=== PATIENT | male | born 1970 | race Caucasian/White ===

== ENCOUNTER 2022-08-02 10:10 | Emergency (ER) | payer MEDICARE, SELFPAY ==
[2022-08-02 10:31] VITALS: BP 123/70; PULSE 97; RESP 20; O2SAT 70; BMI 38.7
--- NOTE | 2022-08-02 10:36 | ECG_ITS ---
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
--- NOTE | 2022-08-02 10:36 | XR_ITS ---
The [address] [address] Patient Name: MIRACLE GAMBOA MRN: [id number] date: 1970 Sex: M Assigned Patient Location: ER Current Patient Location: ED.MAIN Accession/Order Number: [id number] Exam Date: 08/02/2022 10:53 Report Date: 08/02/2022 11:17 At the request of: DAKOTAH LUONG Procedure: XR chest 1V EXAMINATION: XR chest 1V 08/02/2022 8:15 AM PDT HISTORY: shortness of breath TECHNIQUE: Single frontal view of the chest acquired. COMPARISONS: Chest x-ray 03/11/2021. FINDINGS: Lines/tubes/other: None. Heart and mediastinum: The heart and the mediastinum are within normal limits for technique. Bones: No acute osseous abnormality. Lungs: Patchy opacification of the right base with some superimposed mild chronic scarring. Pleura: There is no significant pleural effusion or pneumothorax. Other: None. IMPRESSION: Patchy right basilar opacity which may represent pneumonia and/or aspiration in the appropriate clinical context. Electronically authenticated by: GILBERT SCHAEFER Date: 08/02/2022 11:17
[2022-08-02 10:55] VITALS: O2SAT 96
[2022-08-02 11:03] VITALS: PULSE 93; RESP 21; O2SAT 95
[2022-08-02 11:04] LABS: Basophils Absolute Auto 0.1 10^3/uL (0.0-0.1); Basophils Percent Auto 0.5 % (0.2-2.0); Eosinophils Absolute Auto 0.1 10^3/uL (0.0-0.7); Eosinophils Percent Auto 0.6 % (0.9-7.0); Hematocrit 50.9 % (42.0-54.0); Hemoglobin 16.1 g/dL (14.0-18.0); Immature Granulocytes Pct Auto 1.1 % (0.0-0.5); Lymphocytes Absolute Auto 0.8 10^3/uL (1.2-3.8); Lymphocytes Percent Auto 8.8 % (20.5-60.0); Mean Corpuscular HGB Conc 31.6 g/dL (29.9-35.2); Mean Corpuscular Hemoglobin 30.5 pg (25.9-34.0); Mean Corpuscular Volume 96.4 fL (80.0-94.0); Mean Platelet Volume 11.3 fL (9.5-13.5); Monocytes Absolute Auto 0.8 10^3/uL (0.3-0.8); Monocytes Percent Auto 8.2 % (1.7-12.0); Neutrophils Absolute Auto 7.5 10^3/uL (1.4-6.5); Neutrophils Percent Auto 80.8 % (43.0-75.0); Platelet Count 155 10^3/uL (150-450); Red Blood Count 5.28 10^6/uL (4.70-6.10); Red Cell Distribution Width 12.3 % (11.0-15.0); White Blood Count 9.3 10^3/uL (4.0-11.0)
[2022-08-02] MEDS: METHYLPREDNISOLONE SOD SUCC PF 125 MG/2 ML VIAL IVP (11:07)
[2022-08-02] MEDS: IPRATROPIUM/ALBUTEROL SULFATE 3 ML AMPUL.NEB IH (11:11)
[2022-08-02 11:20] LABS: Alanine Aminotransferase 30 U/L (16-63); Albumin Globulin Ratio 0.8; Albumin Level 3.2 g/dL (3.4-5.0); Alkaline Phosphatase 104 U/L (46-116); Anion Gap 9.5; Aspartate Amino Transferase 10 U/L (15-37); BUN Creatinine Ratio 9.1; Calcium 8.9 mg/dL (8.5-10.1); Carbon Dioxide 33.6 mmol/L (21.0-32.0); Chloride 99 mmol/L (98-107); Estimated GFR (African America >60 (>=60); Estimated GFR (Non-African Ame >60 (>=60); Globulin 3.9 g/dL; Glucose 229 mg/dL (74-106); Potassium 4.1 mmol/L (3.5-5.1); Sodium 138 mmol/L (136-145); Total Protein 7.1 g/dL (6.4-8.2); Troponin I High Sensitivity 9.2 pg/mL (4.0-76.1)
--- NOTE | 2022-08-02 11:28 | ED_ITS ---
HPI - SOB/Dyspnea General Chief Complaint: Shortness of Breath/Dyspnea Stated Complaint: SHORTNESS OF BREATH Time Seen by Provider: 08/02/22 11:27 Source: patient Mode of arrival: walk-in Limitations: no limitations History of Present Illness HPI Narrative: Patient presents to the emergency department complaining of shortness of breath. Patient states he has a history of chronic obstructive pulmonary disease and he has been short of breath in the last 3 days. Symptoms worsened today. He has used ipratropium bromide Inhaler at home without any relief. He states it helps a little bit but then catches up to him later. He denies any fever, chills, or cough. He denies any chest pain. He denies any palpitations, dizziness, diaphoresis. Patient does not take any steroids at home. He states he uses oxygen at night 2 L nasal cannula. He also states he is supposed to use a CPAP at home but he can no longer afford Have one and hasn't used one in years. Patient's ways operator is Dr. Shi. He denies any lower extremity edema, or cramping.He denies any nausea, vomiting, diarrhea, constipation, or abdominal pain. He denies any trauma. Related Data Previous Rx's Medication Instructions Recorded levofloxacin 750 mg tablet 750 mg PO DAILY 7 days #7 tabs 08/02/22 prednisone 50 mg tablet 50 mg PO DAILY 5 days #5 tabs 08/02/22 Allergies Allergy/AdvReac Type Severity Reaction Status Date / Time No Known Drug Allergies Allergy Verified 08/02/22 10:31 Review of Systems ROS Status of ROS 10 or more systems reviewed and unremarkable except as noted in history and below [facility] Social History Smoking status: Former smoker Exam Narrative Exam Narrative: Nurses notes and vital signs reviewed and patient is hypoxic. Oxygen saturation in the 80s on 2 L oxygen saturation is 94 percent on 4 L nasal cannula. General: Nontoxic, Well-appearing and in no apparent distress. Skin: Warm, dry, no pallor noted. No rash. Head: Normocephalic, atraumatic. Neck: Supple, non-tender. Eye: Pupils are equal, round and EOMI. No scleral icterus. Ears, Nose, Mouth, and Throat: TM are clear, no posterior oropharynx erythema or nasal mucosal hypertrophy, uvula is mid-line Oral mucosa is moist Cardiovascular: Regular Rate and Rhythm without murmur, gallop or rub. Respiratory: No accessory muscle use or respiratory distress. Lungs diminished breath sounds bilaterally poor air movement with occasional rhonchi. Chest Wall: no tenderness Back: No midline thoracic or lumbar vertebral tenderness. No CVA tenderness Musculoskeletal: normal ROM, no calf or popliteal tenderness, no lower extremity edema/swelling GI: obese, Abdomen is soft, non-distended. Normal bowel sounds. No masses appreciated. No tenderness to palpation. No rebound, guarding, or rigidity noted. Neurological: A&O x4. No cranial nerve dysfunction observed. No truncal ataxia. Moves all extremities. Sensation intact. Psychiatric: Cooperative and interactive. Normal mood and affect. Constitutional Vital Signs - 24 hr 08/02/22 10:31 08/02/22 11:03 08/02/22 10:55 Pulse Rate 93 H Pulse Rate [Monitor] 97 H Respiratory Rate 20 21 Blood Pressure Blood Pressure [Right Arm] 123/70 H Pulse Oximetry 70 L 95 96 Oxygen Delivery Method Room Air Nasal Cannula Oxygen Delivery Flow Rate 4 4 08/02/22 12:53 08/02/22 13:54 08/02/22 13:54 Pulse Rate 90 Pulse Rate [Monitor] Respiratory Rate 18 Blood Pressure 108/68 Blood Pressure [Right Arm] Pulse Oximetry 89 L Oxygen Delivery Method Nasal Cannula Nasal Cannula Oxygen Delivery Flow Rate 3 2 2 08/02/22 14:46 Pulse Rate Pulse Rate [Monitor] 91 H Respiratory Rate 18 Blood Pressure Blood Pressure [Right Arm] 124/66 H Pulse Oximetry 88 L Oxygen Delivery Method Nasal Cannula Oxygen Delivery Flow Rate 2 Course Course Hospital Course: Patient had an IV established, he was given Solu-Medrol 125 mg IV. ABGs were done and the patient was ordered a DuoNeb treatment. Patient states he felt better. After the DuoNeb. We titrated his oxygen down but every time we went on 2 L the patient's maximum oxygen saturation was 88 percent. Chest x-ray showed questionable infiltrate the patient was started on Zosyn. I discussed all the re sults with the patient and advised he should be hospitalized because of the hypoxemia, hypercarbia, and noncompliance with his BiPAP to continue breathing treatments and monitor his oxygenation. Patient stated he did not want to be hospitalized and he just wants some steroids and he will follow-up with Dr. Morales on Thursday. Advised the patient that he could suffer permanent disability, and and it would be best for him to be hospitalized. He states he has oxygen at home and he will just opted to 3-4 L and he will wear it at all times at home. I gave the patient a prescription for prednisone, and Levaquin. I tried again to make sure that the patient understands and will be best for him to be in a monitored setting due to the hypoxemia but he has declined. He is at the bedside with his and they understand the risk of leaving against medical advice. I answered all questions. Discussed discharge instructions including standard anticipatory guidance and what should prompt a return to the emergency department, including if they get worse are not getting better or develops any new or concerning symptoms. I've given them specific time frame in which to follow-up, and who to follow-up with. The patient demonstrates understanding. This note was created with the assistance of a speech recognition program. Although the intention is to generate documents that actually reflects the content of the visit, no guarantees can be provided that every mistake has been identified and corrected by editing. Vital Signs Vital signs: Vital Signs Pulse Rate 97 H 08/02/22 10:31 Respiratory Rate 20 08/02/22 10:31 Blood Pressure 123/70 H 08/02/22 10:31 Pulse Oximetry 70 L 08/02/22 10:31 Oxygen Delivery Method Room Air 08/02/22 10:31 Pulse Rate 91 H 08/02/22 14:46 Respiratory Rate 18 08/02/22 14:46 Blood Pressure 124/66 H 08/02/22 14:46 Pulse Oximetry 88 L 08/02/22 14:46 Oxygen Delivery Method Nasal Cannula 08/02/22 14:46 Oxygen Delivery Flow Rate 2 08/02/22 14:46 MDM - SOB/Dyspnea Lab Data Labs: Lab Results 08/02/22 08/02/22 Range/Units 10:38 10:55 WBC 9.3 (4.0-11.0) 10^3/uL RBC 5.28 (4.70-6.10) 10^6/uL Hgb 16.1 (14.0-18.0) g/dL Hct 50.9 (42.0-54.0) % MCV 96.4 H (80.0-94.0) fL MCH 30.5 (25.9-34.0) pg MCHC 31.6 (29.9-35.2) g/dL RDW 12.3 (11.0-15.0) % Plt Count 155 (150-450) 10^3/uL MPV 11.3 (9.5-13.5) fL Neut % (Auto) 80.8 H (43.0-75.0) % Lymph % (Auto) 8.8 L (20.5-60.0) % [place] % (Auto) 8.2 (1.7-12.0) % Eos % (Auto) 0.6 L (0.9-7.0) % Baso % (Auto) 0.5 (0.2-2.0) % Neut # (Auto) 7.5 H (1.4-6.5) 10^3/uL Lymph # (Auto) 0.8 L (1.2-3.8) 10^3/uL [place] # (Auto) 0.8 (0.3-0.8) 10^3/uL Eos # (Auto) 0.1 (0.0-0.7) 10^3/uL Baso # (Auto) 0.1 (0.0-0.1) 10^3/uL ABG pH 7.363 (7.350-7.450) ABG pCO2 60.7 H* (35.0-45.0) mmHg ABG pO2 60.2 L (80.0-100.0) mmHg ABG HCO3 34.5 H (22.0-26.0) mmol/L ABG O2 Saturation 91.5 % ABG Base Excess 9.1 H (-2.0-2.0) mmol/L Sodium 138 (136-145) mmol/L Potassium 4.1 (3.5-5.1) mmol/L Chloride 99 (98-107) mmol/L Carbon Dioxide 33.6 H (21.0-32.0) mmol/L Anion Gap 9.5 BUN 10.0 (7.0-18.0) mg/dL Creatinine 1.10 (0.70-1.30) mg/dL Est GFR ( Amer) >60 (>=60) Est GFR (Non-Af Amer) >60 (>=60) BUN/Creatinine Ratio 9.1 Glucose 229 H (74-106) mg/dL Lactate 1.7 (0.4-2.0) mmol/L Calcium 8.9 (8.5-10.1) mg/dL Total Bilirubin 1.0 (0.2-1.0) mg/dL AST 10 L (15-37) U/L ALT 30 (16-63) U/L Troponin I High Sens 9.2 (4.0-76.1) pg/mL NT-Pro-B Natriuret Pep 337.0 (<=900.0) pg/mL Total Protein 7.1 (6.4-8.2) g/dL Albumin 3.2 L (3.4-5.0) g/dL Globulin 3.9 g/dL Albumin/Globulin Ratio 0.8 ABG Data ABG results: Hypoxemia, hypercarbia, ECG Data Interpretation: EKG interpretation: Emergency Department physician interpretation. Normal sinus rhythm. Normal axis, normal intervals and no ST segment elevation or depression. Critical Care Time Critical Care Time Attestation: Critical Care Time: 35 minutes, critical care time is separate from any procedures that are performed. The following was considered in the determination of critical care but not limited to the level medical decision-making, intensive cardiac and/or respiratory monitor, frequent vital sign monitoring, evaluation of laboratory studies, evaluation of a radiographic studies, oxygen monitoring and constant monitoring. Discharge Plan Discharge Chief Complaint: Shortness of Breath/Dyspnea Clinical Impression: Hypercarbia, Hypoxemia requiring supplemental oxygen, Acute exacerbation of chronic obstructive pulmonary disease (COPD) Patient Disposition: Home, Self-Care Time of Disposition Decision: 14:30 Condition: Undetermined Prescriptions / Home Meds: New prednisone 50 mg tablet 50 mg PO DAILY 5 Days Qty: 5 0RF levofloxacin 750 mg tablet 750 mg PO DAILY 7 Days Qty: 7 0RF Instructions: COPD (Chronic Obstructive Pulmonary Disease) (ED) Stand Alone Forms: Portal Instructions Referrals: AMIE HEALY MD [Primary Care Provider] - 1 week Vincent Shi DO [Physician] - 1 week Discharge Date/Time: 08/02/22 14:54
--- NOTE | 2022-08-02 11:40 | CT_ITS ---
[address] [address] Patient Name: MIRACLE GAMBOA MRN: [id number] date: 1970 Sex: M Assigned Patient Location: ER Current Patient Location: Accession/Order Number: [id number] Exam Date: 08/02/2022 12:00 Report Date: 08/02/2022 12:52 At the request of: DAKOTAH LUONG Procedure: CT angio chest CT angio chest, 08/02/2022 12:00 PM EDT INDICATION: Dyspnea. COMPARISON: Radiograph of the chest 08/02/2022, noncontrast CT of the chest 04/25/2022 TECHNIQUE: Iodinated contrast was administered intravenously by rapid injection, with further multislice axial sections acquired in the pulmonary arterial phase from the thoracic inlet to the upper abdomen. Coronal maximal intensity projection and 3-D virtual images were created for comprehensive analysis and diagnosis of the regional circulation. Dose reduction techniques were achieved by using automated exposure control and/or adjustment of mA and/or kV according to patient size and/or use of iterative reconstruction technique. FINDINGS: Thyroid gland is unremarkable. Heart size within normal limits. RV/LV ratio normal. No pericardial effusion. No aortic aneurysm or dissection. The great vessels are unremarkable. No filling defect within the pulmonary arteries. Prominent mediastinal and right hilar lymph nodes, the largest a right hilar lymph node 1.4 cm short axis. Diffuse centrilobular emphysematous change and bronchial wall thickening. Subsegmental atelectasis within the right middle and lower lobes. No lobar consolidation or pleural effusion. No pneumothorax. Visualized portions of the upper abdomen are unremarkable. No acute fracture or dislocation. IMPRESSION: 1. No pulmonary embolism. 2. Inflammatory versus infectious bronchiolitis with right hilar lymphadenopathy. 3. Chronic changes of COPD. Electronically authenticated by: ENA COWAN Date: 08/02/2022 12:52
[2022-08-02 11:59] LABS: Lactate/Lactic Acid 1.7 mmol/L (0.4-2.0)
[2022-08-02] MEDS: PIPERACILLIN SODIUM/TAZOBACTAM 4.5 GM in 0.9 % SODIUM CHLORIDE 50 ML IV (12:19)
[2022-08-02 13:54] VITALS: BP 108/68; PULSE 90; RESP 18; O2SAT 89
[2022-08-02 14:46] VITALS: BP 124/66; PULSE 91; RESP 18; O2SAT 88
[2022-08-02 18:34] LABS: pH ABG 7.363 (7.350-7.450)
[2022-08-02 18:36] LABS: ABG PCO2 60.7 mmHg (35.0-45.0); Base Excess ABG 9.1 mmol/L (-2.0-2.0); HCO3 ABG 34.5 mmol/L (22.0-26.0); Oxygen Saturation ABG 91.5 %; PO2 ABG 60.2 mmHg (80.0-100.0)
== END 2022-08-02 14:54 | disposition left against medical advice (07) ==
PROVIDERS: Emergency Provider Emergency Medicine; PCP Nurse Practitioner Primary Care
DX: J44.1 Chronic obstructive pulmonary disease with (acute) exacerbation (principal); Z53.29 Procedure and treatment not carried out because of patient's decision for other reasons; R06.02 Shortness of breath; Z87.891 Personal history of nicotine dependence; R09.02 Hypoxemia; R06.89 Other abnormalities of breathing; Z99.81 Dependence on supplemental oxygen
CPT/HCPCS: 36415; 36600; 71045; 71275; 80053; 82805; 83605; 83880; 84484; 85025; 87040; 93005; 94640; 96365; 96375; 99285; J2930; Q9967

== ENCOUNTER 2022-10-15 14:53 | Outpatient (OUT) | payer MEDICARE, SELFPAY ==
[2022-10-15 15:55] LABS: Estimated Average Glucose 246 mg/dL; Glycohemoglobin A1C 10.2 % (4.5-6.2)
[2022-10-15 15:57] LABS: Alanine Aminotransferase 35 U/L (16-63); Albumin Globulin Ratio 1.3; Albumin Level 3.8 g/dL (3.4-5.0); Alkaline Phosphatase 100 U/L (46-116); Anion Gap 8.2; Aspartate Amino Transferase 16 U/L (15-37); BUN Creatinine Ratio 14.3; Bilirubin Total 0.8 mg/dL (0.2-1.0); Calcium 8.5 mg/dL (8.5-10.1); Chloride 100 mmol/L (98-107); Estimated GFR (African America >60 (>=60); Estimated GFR (Non-African Ame >60 (>=60); Globulin 2.9 g/dL; Glucose 281 mg/dL (74-106); Potassium 4.2 mmol/L (3.5-5.1); Sodium 138 mmol/L (136-145); Total Protein 6.7 g/dL (6.4-8.2)
[2022-10-15 16:07] LABS: Prostate Specific Antigen Scrn 0.51 ng/mL (<=4.00)
[2022-10-16 05:07] LABS: HIV Ab/p24 Ag Screen Non Reactive (Non Reactive)
== END 2022-10-15 14:54 | disposition home or self-care (01) ==
LOC: LAB 14:56
PROVIDERS: PCP Nurse Practitioner Primary Care; Visit Provider Nurse Practitioner Primary Care
DX: E11.65 Type 2 diabetes mellitus with hyperglycemia (principal); Z12.5 Encounter for screening for malignant neoplasm of prostate; Z11.4 Encounter for screening for human immunodeficiency virus [HIV]
CPT/HCPCS: 36415; 80053; 83036; 87389; G0103

== ENCOUNTER 2023-01-30 07:13 | Outpatient (OUT) | payer MEDICARE, SELFPAY ==
[2023-01-30 08:34] LABS: Alanine Aminotransferase 35 U/L (16-63); Albumin Globulin Ratio 1.2; Albumin Level 3.5 g/dL (3.4-5.0); Alkaline Phosphatase 105 U/L (46-116); Anion Gap 11.2; Aspartate Amino Transferase 12 U/L (15-37); Bilirubin Total 0.9 mg/dL (0.2-1.0); Calcium 8.8 mg/dL (8.5-10.1); Carbon Dioxide 30.2 mmol/L (21.0-32.0); Chloride 100 mmol/L (98-107); Chol HDL Ratio 4.5; Cholesterol 136 mg/dL (<=200); Estimated GFR (African America >60 (>=60); Estimated GFR (Non-African Ame >60 (>=60); Globulin 2.9 g/dL; Glucose 224 mg/dL (74-106); HDL Cholesterol 30 mg/dL (40-60); Potassium 4.4 mmol/L (3.5-5.1); Sodium 137 mmol/L (136-145); Total Protein 6.4 g/dL (6.4-8.2); Triglycerides 363 mg/dL (<=150); VLDL CHOLESTEROL 72.6 mg/dL
[2023-01-30 09:36] LABS: Estimated Average Glucose 232 mg/dL; Glycohemoglobin A1C 9.7 % (4.5-6.2)
== END 2023-01-30 07:14 | disposition home or self-care (01) ==
LOC: LAB 07:15
PROVIDERS: PCP Nurse Practitioner Primary Care; Visit Provider Nurse Practitioner Primary Care
DX: E78.5 Hyperlipidemia, unspecified (principal); E78.1 Pure hyperglyceridemia
CPT/HCPCS: 36415; 80053; 80061; 83036

== ENCOUNTER 2023-02-27 08:49 | Emergency (ER) | payer MEDICARE, SELFPAY ==
[2023-02-27 08:55] VITALS: BP 141/68; PULSE 84; RESP 24; TEMP 37.1; O2SAT 84; BMI 38.7
--- OUTSIDE RECORDS SUMMARY | 2023-02-27 08:57 | XMS_ITS | CCD ---
Author Name Unknown Address [address] [place] [address] Organization [facility] Care Team Providers Care Advanced Manufacturing Consultant Name Role Phone Vee Dowling Unavailable SHAMMO, Mo OVININOSKA SUTHERLAND Primary Care Physician SHAMMO, OVI Referring Unavailable NILL, Mili Contreras Attending Unavailable SHAMMO, OVI Primary Care Unavailable NILL, Mili Contreras Attending Unavailable SHAMMO, OVI Primary Care Unavailable NILL, Mili Contreras Attending Unavailable MISC, DR ARTIS Primary Care Unavailable HOY, AZALEA Admitting Unavailable HOY, AZALEA Attending Unavailable HOY, AZALEA Consulting Unavailable REINECK, DR TANG Kellogg Consulting Unavailabl e ZIEBER, DR NICOLAS Contreras Consulting Unavailable QUINTEROS, JOHANN Consulting Unavailable NILL ., DR GARCES Admitting Unavailable NILL ., DR GARCES Attending Unavailable NILL ., DR GARCES Consulting Unavailable SHAMMO, OVI Admitting Unavailable SHAMMO, OVI Attending Unavailable SHAMMO, OVI Primary Care Unavailable SHAMMO, OVI Consulting Unavailable SAMSA, SHANNAN Admitting Unavailable SAMSA, SHANNAN Attending Unavailable SHAMMO, OVI Primary Care Unavailable ZIEBER, DR NICOLAS Contreras Consulting Unavailable SAMSA, SHANNAN Consulting Unavailable SHAMMO, OVI Admitting Unavailable SHAMMO, OVI Attending Unavailable SHAMMO, OVI Consulting Unavailable SHAMMO, OVI Admitting Unavailable SHAMMO, OVI Attending Unavailable SHAMMO, OVI Consulting Unavailable SHAMMO, OVI Admitting Unavailable SHAMMO, OVI Attending Unavailable SHAMMO, OVI Primary Care Unavailable SHAMMO, OVI Consulting Unavailable Allergies Allergy Classification Reported Allergen(s) Allergy Type Date of Onset Reaction(s) Facility (1 source) No Known Medication Allergies; Translations: [No Known Medication Allergies] Propensity to adverse reactions (disorder) [facility] Repository Medications Current Medications Medication Drug Class(es) Dates Sig (Normalized) Sig (Original) albuterol 0.833 mg/ml / ipratropium bromide 0.167 mg/ml inhalation solution (2 sources) Anticholinergic, beta2-Adrenergic Agonist Start: 12-30-2021 DuoNeb 2.5 mg-0.5 mg/3 mL Soln-Inh 3 mL, NEB, q6hr Shortness of breath or wheezing, Refill(s) 0 Start Date: 12/30/21 Status: Ordered aspirin 81 mg delayed release oral tablet (2 sources) Platelet Aggregation Inhibitor, Nonsteroidal Anti-inflammatory Drug Start: 12-30-2021 take 1 tablet by mouth once daily aspirin 81 mg Oral EC Tab 81 mg = 1 tab(s), Oral, Daily, Refills(s) 0 Start Date: 12/30/21 Status: Ordered atorvastatin 80 mg oral tablet (3 sources) HMG-CoA Reductase Inhibitor Start: 12-30-2021 take 1 tablet by mouth once daily atorvastatin 80 mg Tab 80 mg = 1 tab(s), Oral, Daily, Refills(s) 0 Start Date: 12/30/21 Status: Ordered Atorvastatin Acrlin cium Active azithromycin 250 mg oral tablet (1 source) Macrolide Antimicrobial Start: 01-01-2021 Azithromycin 250 MG 2 tablets on the first day, then 1 tablet daily for 4 days Orally Once a day for 5 day(s) Dec, Active cephalexin 250 mg oral capsule (1 source) Cephalosporin Antibacterial Start: 12-31-2021 End: 01-07-2022 take 1 capsule by mouth four times daily Keflex 250 mg Cap 250 mg = 1 cap(s), Oral, QID, X 7 day(s), # 28 cap(s), Refills(s) 0, Pharmacy: [facility]/pharmacy #[id number], 165, cm, 12/31/21 16:01:00 EDT, Height/Length Dosing, 108.9, kg, 12/31/21 16:01:00 EDT, Weight Dosing Start Date: 12/31/21 Stop Date: 01/07/22 Status: Ordered dexamethasone 6 mg oral tablet (1 source) Corticosteroid Start: 01-01-2021 take 1 tablet by mouth every twenty-four hours Dexamethasone 6 MG 1 tablet Orally Once a day for 5 day(s) Dec, Active 0.5 ml dulaglutide 1.5 mg/ml auto-injector (2 sources) GLP-1 Receptor Agonist Start: 12-30-2021 inject 0.75 mg by subcutaneous injection every week Trulicity Pen 0.75 mg/0.5 mL subcutaneous solution 0.75 mg, SubCutaneous, qWeek, Refills(s) 0 Start Date: 12/30/21 Status: Ordered Fish Oils (2 sources) Start: 12-30-2021 take 1 capsule by mouth once daily Fish Oil 1000 mg oral capsule 1,000 mg = 1 cap(s), Oral, Daily, Refills(s) 0 Start Date: 12/30/21 Status: Ordered glipiZIDE (1 source) Sulfonylurea glipiZIDE Active lisinopril 20 mg oral tablet (3 sources) Angiotensin Converting Enzyme Inhibitor Start: 12-30-2021 take 10 mg by mouth once daily lisinopril 20 mg Tab 10 mg = 0.5 tab(s), Oral, Daily, Refills(s) 0 Start Date: 12/30/21 Status: Ordered Lisinopril Activ e metFORMIN hydrochloride 500 mg oral tablet (3 sources) Biguanide Start: 12-30-2021 take 2 tablets by mouth twice daily metformin 500 mg ER Tab 1,000 mg = 2 tab(s), Oral, BID, Refills(s) 0 Start Date: 12/30/21 Status: Ordered metFORMIN HCl Ac tive Problems Active Problems Problem Classification Problem Date Documented Da te Episodic/Chronic Chronic obstructive pulmonary disease and bronchiectasis (10 sources) Chronic obstructive lung disease; Translations: [Chronic obstructive pulmonary disease, unspecified] Onset: 01-01-2021 Resolved: 01-01-2021 Chronic Diabetes mellitus with complications (4 sources) Type 2 diabetes mellitus with hyperglycemia; Translations: [TYPE 2 DM W/HYPERGLYCEMIA] Onset: 07-11-2022 Chronic Diabetes mellitus without complication (7 sources) Diabetes mellitus; Translations: [Type 2 diabetes mellitus without complications] Onset: 12-27-2021 12-30-2021 Chronic Diseases of white blood cells (1 source) Elevated white blood cell count, unspecified; Translations: [ELEVATED WHITE BLOOD CELL COUNT UNS] Onset: 01-15-2022 Chronic Disorders of lipid metabolism (6 sources) Hyperlipidemia; Translations: [Hypertriglyceridemi a] Onset: 07-13-2022 12-30-2021 Chronic Essential hypertension (3 sources) Hypertensive disorder; Translations: [Essential (primary) hypertension] Onset: 07-13-2022 12-30-2021 Chronic Nutritional deficiencies (6 sources) Vitamin D deficiency; Translations: [Vitamin D deficiency, unspecified] Onset: 04-02-2022 12-30-2021 Chronic Other nutritional; endocrine; and metabolic disorders (2 sources) Body mass index 40+ - severely obese 12-31-2021 Chronic Peripheral and visceral atherosclerosis (2 sources) Peripheral vascular disease 12-30-2021 Chronic Respiratory failure; insufficiency; arrest (adult) (1 source) Dependence on supplemental oxygen; Translations: [DEPENDENCE ON SUPPLEMENTAL OXYGEN] Onset: 01-15-2022 Chronic Screening and history of mental health and substance abuse codes (1 source) Personal history of nicotine dependence; Translations: [PERSONAL HISTORY OF NICOTINE DEPEND] Onset: 04-30-2022 Episodic Spondylosis; intervertebral disc disorders; other back problems (2 sources) Lumbar radiculopathy 12-30-2021 Episodic Unclassified (1 source) CONTACT W/AND (SUSP) EXPOS COVID-19; Translations: [CONTACT W/AND (SUSP) EXPOS COVID-19] Onset: 01-15-2022 Past or Other Problems Problem Classification Problem Date Documented Da te Episodic/Chronic Acute and unspecified renal failure (1 source) Acute kidney failure, unspecified; Translations: [ACUTE KIDNEY FAILURE UNSPECIFIED] Onset: 01-15-2022 Episodic Acute bronchitis (1 source) Acute bronchitis, unspecified; Translations: [ACUTE BRONCHITIS UNSPECIFIED] Onset: 01-15-2022 Episodic Fever of unknown origin (1 source) Fever, unspecified; Translations: [FEVER UNSPECIFIED] Onset: 01-15-2022 Episodic Fluid and electrolyte disorders (1 source) Hypo-osmolality and hyponatremia; Translations: [HYPO-OSMOLALITY AND HYPONATREMIA] Onset: 01-15-2022 Episodic Immunizations and screening for infectious disease (1 source) Contact with and (suspected) exposure to other viral communicable diseases Onset: 01-01-2021 Resolved: 01-01-2021 Episodic Other aftercare (1 source) shelter (current) use of aspirin; Translations: [[employer] CURRENT USE OF ASPIRIN] Onset: 01-15-2022 Episodic Other aftercare (1 source) shelter (current) use of oral hypoglycemic drugs; Translations: [[employer] USE ORAL HYPOGLYCEMIC DX] Onset: 01-15-2022 Episodic Other aftercare (1 source) Other penitentiary (current) drug therapy; Translations: [OTH [employer] CURRENT DRUG THERAPY] Onset: 01-15-2022 Episodic Other lower respiratory disease (3 sources) Shortness of breath; Translations: [SHORTNESS OF BREATH] Onset: 01-09-2022 Episodic Skin and subcutaneous tissue infections (7 sources) Abscess of neck; Translations: [Cutaneous abscess of neck] Onset: 12-31-2021 Episodic Viral infection (1 source) COVID-19 Onset: 01-01-2021 Resolved: 01-01-2021 Results Test Name Value Interpretation Reference Range Facility GLYCOHEMOGLOBIN A1Con 2022 ADA RECOMMENDATION SEE BELOW Normal [facility] Comment on above: Result Comment: ADA RECOMMENDED LIMIT 4.0 - 6.0 ADA THERAPEUTIC TARGET < 7.0 ACTION SUGGESTED > 7.0 Performed By: #### A 1C #### [facility] [address] [place] [address] Dr. Gisel Galdamez Glucose [Mass/Vol] 263 mg/dL Normal [facility] Comment on above: Performed By: #### A 1C #### [facility] [address] [address] [address] Gisel Galdamez HbA1c (Bld) [Mass fraction] 10.8 % Critically high 4.5-6.2 [facility] Comment on above: Performed By: #### A 1C #### [facility] [address] [address] [address] Gisel Galdamez HEMOGRAM AND PLATELon 2022 Hematocrit (Bld) [Volume fraction] 52.6 % Normal 42.0-54.0 [facility] Comment on above: Performed By: #### P OCGLUC #### [facility] [address] [address] [address] Gisel Galdamez Hemoglobin (Bld) [Mass/Vol] 16.8 g/dL Normal 14.0-18.0 [facility] Comment on above: Performed By: #### P OCGLUC #### [facility] [address] [address] [address] Gisel Galdamez MCH (RBC) [Entitic mass] 30.9 pg Normal 25.9-34.0 [facility] Comment on above: Performed By: #### P OCGLUC #### [facility] [address] [place] [address] Dr. Gisel Galdamez MCHC (RBC) [Mass/Vol] 31.9 g/dL Normal 29.9-35.2 [facility] Comment on above: Performed By: #### P OCGLUC #### [facility] [address] [place] [address] Dr. Gisel Galdamez MCV (RBC) [Entitic vol] 96.9 fL Critically high 80.0-94.0 [facility] Comment on above: Performed By: #### P OCGLUC #### [facility] [address] [place] [address] Dr. Gisel Galdamez PLT 144 103/ul Critically low 150-450 [facility] [place] [facility] Comment on above: Performed By: #### P OCGLUC #### [facility] [address] [place] [address] Dr. Gisel Galdamez RBC 5.43 106/ul Normal 4.70-6.10 [facility] Comment on above: Performed By: #### P OCGLUC #### [facility] [address] [place] [address] Dr. Gisel Galdamez WBC 5.1 103/ul Normal 4.0-11.0 [facility] Comment on above: Performed By: #### P OCGLUC #### [facility] [address] [place] [address] Dr. Gisel Galdamez LIPID PROFILEon 07-11-2022 CHOL-HDL RATIO NORM SEE BELOW Normal [facility] Comment on above: Result Comment: 3.3 - 4.4 LOW RISK 4.4 - 7.1 AVERAGE RISK 7.1 - 11.0 MODERATE RISK >11.0 HIGH RISK Performed By: #### A 1C #### [facility] [address] [place] [address] Dr. Gisel Galdamez Cholesterol [Mass/Vol] 128 mg/dL Normal <=200 [facility] Comment on above: Performed By: #### A 1C #### [facility] [address] [place], [place] [address] Dr. Gisel Galdamez Cholesterol in HDL [Mass/Vol] 35 mg/dL Critically low 40-60 [facility] Comment on above: Performed By: #### A 1C #### [facility] [address] [place], [place] [address] Dr. Gisel Galdamez Cholesterol in LDL [Mass/Vol] 60.8 mg/dL Normal [facility] Comment on above: Performed By: #### A 1C #### [facility] [address] [address] [address] Gisel Galdamez Cholesterol.total/Ch olesterol in HDL [Mass ratio] 3.7 {ratio} Normal [facility] Comment on above: Performed By: #### A 1C #### [facility] [address] [address] [address] Gsiel Galdamez HDL NORMAL > or = 60 mg/dl - LOW CARDIOVASCULAR RISK <40 mg/dl - HIGH CARDIOVASCULAR RISK Normal [facility] Comment on above: Performed By: #### A 1C #### [facility] [address] [address] [address] Gisel Galdamez LDL CALC NORMAL SEE BELOW Normal [facility] Comment on above: Result Comment: <100 mg/dl OPTIMAL 100 - 129 mg/dl NEAR OR ABOVE OPTIMAL 130 - 159 mg/dl BORDERLINE HIGH 160 - 189 mg/dl HIGH >190 mg/dl VERY HIGH Performed By: #### A 1C #### [facility] [address] [address] [address] Gisel Galdamez Triglyceride [Mass/Vol] 161 mg/dL Critically high <=150 [facility] Comment on above: Performed By: #### A 1C #### [facility] [address] [address] [address] Gisel Galdamez VLDL CALC 32.2 mg/dL Normal [facility] Comment on above: Performed By: #### A 1C #### [facility] [address] [address] [address] Gisel Galdamez MICROALBUMIN, RAND URon 05-1 mALB 5.7 mg/dL Normal <=30.0 [facility] Comment on above: Performed By: #### A 1C #### [facility] [address] [address] [address] Gisel Galdamez PROF 14(COMP METB)on 023 Albumin [Mass/Vol] 3.5 g/dL Normal 3.4-5.0 [facility] Comment on above: Performed By: #### A 1C #### [facility] [address] [place] [address] Dr. Gisel Galdamez Albumin/Globulin [Mass ratio] 1.2 {ratio} Normal [facility] Comment on above: Performed By: #### A 1C #### [facility] [address] [place] [address] Dr. Gisel Galdamez ALP [Catalytic activity/Vol] 99 U/L Normal 46-116 [facility] Comment on above: Performed By: #### A 1C #### [facility] [address] [place] [address] Dr. Gisel Galdamez ALT [Catalytic activity/Vol] 34 U/L Normal 16-63 [facility] Comment on above: Performed By: #### A 1C #### [facility] [address] [place] [address] Dr. Gisel Galdamez Anion gap [Moles/Vol] 7.8 mmol/L Normal [facility] Comment on above: Performed By: #### A 1C #### [facility] [address] [place] [address] Dr. Gisel Galdamez AST [Catalytic activity/Vol] 8 U/L Critically low 15-37 [facility] Comment on above: Performed By: #### A 1C #### [facility] [address] [place] [address] Dr. Gisel Galdamez Bilirubin [Mass/Vol] 0.6 mg/dL Normal 0.2-1.0 [facility] Comment on above: Performed By: #### A 1C #### [facility] [address] [place] [address] Dr. Gisel Galdamez Calcium [Mass/Vol] 9.1 mg/dL Normal 8.5-10.1 [facility] Comment on above: Performed By: #### A 1C #### [facility] [address] [address] [address] Gisel Galdamez Chloride [Moles/Vol] 102 mmol/L Normal 98-107 [facility] Comment on above: Performed By: #### A 1C #### [facility] [address] [address] [address] Gisel Galdamez CO2 [Moles/Vol] 38.4 mmol/L Critically high 21.0-32.0 [facility] Comment on above: Performed By: #### A 1C #### [facility] [address] [address] [address] Gisel Galdamez Creatinine [Mass/Vol] 1.08 mg/dL Normal 0.70-1.30 [facility] Comment on above: Performed By: #### A 1C #### [facility] [address] [place] [address] Dr. Gisel Galdamez EGFR-AF ROMANIAN >60 Normal >=60 [facility] Comment on above: Performed By: #### A 1C #### [facility] [address] [place] [address] Dr. Gisel Galdamez EGFR-NON AF ROMANIAN >60 Normal >=60 [facility] Comment on above: Performed By: #### A 1C #### [facility] [address] [place] [address] Dr. Gisel Galdamez Globulin (S) [Mass/Vol] 3.0 g/dL Normal [facility] Comment on above: Performed By: #### A 1C #### [facility] [address] [place] [address] Dr. Gisel Galdamez Glucose [Mass/Vol] 250 mg/dL Critically high 74-106 [facility] Comment on above: Performed By: #### A 1C #### [facility] [address] [place] [address] Dr. Gisel Galdamez Potassium [Moles/Vol] 4.2 mmol/L Normal 3.5-5.1 [facility] Comment on above: Performed By: #### A 1C #### [facility] [address] [address] [address] Gisel Galdamez Protein [Mass/Vol] 6.5 g/dL Normal 6.4-8.2 [facility] Comment on above: Performed By: #### A 1C #### [facility] [address] [address] [address] Gisel Galdamez Sodium [Moles/Vol] 144 mmol/L Normal 136-145 [facility] Comment on above: Performed By: #### A 1C #### [facility] [address] [address] [address] Gisel Galdamez Urea nitrogen [Mass/Vol] 13.0 mg/dL Normal 7.0-18.0 [facility] Comment on above: Performed By: #### A 1C #### [facility] [address] [address] [address] Gisel Galdamez Urea nitrogen/Creatinine [Mass ratio] 12.0 mg/mg Normal [facility] Comment on above: Performed By: #### A 1C #### [facility] [address] [address] [address] LUNG CANCER SCREENINGon 0 - CT LUNG CANCER SCREENING EXAMINATION: CT LUNG CANCER SCREENING HISTORY: Nicotine dependence COMPARISON: No relevant comparison available. TECHNIQUE: Axial, Coronal, and Sagittal images were created without the administration of IV contrast material. Dose reduction techniques were achieved by using automated exposure control and/or adjustment of mA and/or kV according to patient size and/or use of iterative reconstruction technique. FINDINGS: LUNGS: No visible pulmonary disease. PLEURA: No mass, effusion, or pneumothorax. VASCULATURE: No abnormality. ABDON: No mass or pathologic adenopathy. MEDIASTINUM: No mass or pathologic adenopathy. CARDIAC: No enlargement, pericardial thickening, or significant calcification. AORTA: No aneurysm or dissection. CHEST WALL: No mass or axillary adenopathy BONES: Old right clavicle fracture. LIMITED ABDOMEN: No suspicious findings. Limited images of the upper abdomen. OTHER: Negative. IMPRESSION: 1. Lung-RADS Category 1 Negative. No nodules and definitely benign nodules. Continue annual screening with LDCT in 12 months. 2. Old right clavicle fracture, incompletely included on today's study. Electronically authenticated by: NICOLAS NICOLE Date: 2022-04-25 09:07 Normal [facility] HEMOGLOBINon 04-25-2022 Hemoglobin (Bld) [Mass/Vol] 16.3 g/dL Normal 14.0-18.0 [facility] Comment on above: Performed By: #### P OCGLUC #### [facility] [address] [address] [address] Gisel Galdamez GLYCOHEMOGLOBIN A1Con 2022 ADA RECOMMENDATION SEE BELOW Normal [facility] Comment on above: Result Comment: ADA RECOMMENDED LIMIT 4.0 - 6.0 ADA THERAPEUTIC TARGET < 7.0 ACTION SUGGESTED > 7.0 Performed By: #### P OCGLUC #### [facility] [address] [address] [address] Gisel Galdamez Glucose [Mass/Vol] 237 mg/dL Normal [facility] Comment on above: Performed By: #### P OCGLUC #### [facility] [address] [address] [address] Gisel Galdamez HbA1c (Bld) [Mass fraction] 9.9 % Critically high 4.5-6.2 [facility] Comment on above: Performed By: #### P OCGLUC #### [facility] [address] [address] [address] Gisel Galdamez LIPID PROFILEon 04-02-2022 CHOL-HDL RATIO NORM SEE BELOW Normal [facility] Comment on above: Result Comment: 3.3 - 4.4 LOW RISK 4.4 - 7.1 AVERAGE RISK 7.1 - 11.0 MODERATE RISK >11.0 HIGH RISK Performed By: #### P OCGLUC #### [facility] [address] [address] [address] Gisel Galdamez Cholesterol [Mass/Vol] 148 mg/dL Normal <=200 [facility] Comment on above: Performed By: #### P OCGLUC #### [facility] [address] [address] [address] Gisel Galdamez Cholesterol in HDL [Mass/Vol] 32 mg/dL Critically low 40-60 [facility] Comment on above: Performed By: #### P OCGLUC #### [facility] [address] [address] [address] Gisel Galdamez Cholesterol in LDL [Mass/Vol] 72.2 mg/dL Normal [facility] Comment on above: Performed By: #### P OCGLUC #### [facility] [address] [address] [address] Gisel Galdamez Cholesterol.total/Ch olesterol in HDL [Mass ratio] 4.6 {ratio} Normal [facility] Comment on above: Performed By: #### P OCGLUC #### [facility] [address] [address] [address] Gisel Galdamez HDL NORMAL > or = 60 mg/dl - LOW CARDIOVASCULAR RISK <40 mg/dl - HIGH CARDIOVASCULAR RISK Normal [facility] Comment on above: Performed By: #### P OCGLUC #### [facility] [address] [place] [address] Dr. Gisel Galdamez LDL CALC NORMAL SEE BELOW Normal [facility] Comment on above: Result Comment: <100 mg/dl OPTIMAL 100 - 129 mg/dl NEAR OR ABOVE OPTIMAL 130 - 159 mg/dl BORDERLINE HIGH 160 - 189 mg/dl HIGH >190 mg/dl VERY HIGH Performed By: #### P OCGLUC #### [facility] [address] [place] [address] Dr. Gisel Galdamez Triglyceride [Mass/Vol] 219 mg/dL Critically high <=150 [facility] Comment on above: Performed By: #### P OCGLUC #### [facility] [address] [address] [address] Gisel Galdamez VLDL CALC 43.8 mg/dL Normal [facility] Comment on above: Performed By: #### P OCGLUC #### [facility] [address] [address] [address] Gisel Galdamez PROF 14(COMP METB)on 023 Albumin [Mass/Vol] 3.7 g/dL Normal 3.4-5.0 [facility] Comment on above: Performed By: #### P OCGLUC #### [facility] [address] [place] [address] Dr. Gisel Galdamez Albumin/Globulin [Mass ratio] 1.2 {ratio} Normal [facility] Comment on above: Performed By: #### P OCGLUC #### [facility] [address] [address] [address] Gisel Galdamez ALP [Catalytic activity/Vol] 98 U/L Normal 46-116 [facility] Comment on above: Performed By: #### P OCGLUC #### [facility] [address] [address] [address] Gisel Galdamez ALT [Catalytic activity/Vol] 37 U/L Normal 16-63 [facility] Comment on above: Performed By: #### P OCGLUC #### [facility] [address] [address] [address] Gisel Galdamez Anion gap [Moles/Vol] 9.8 mmol/L Normal [facility] Comment on above: Performed By: #### P OCGLUC #### [facility] [address] [address] [address] Gisel Galdamez AST [Catalytic activity/Vol] 15 U/L Normal 15-37 [facility] Comment on above: Performed By: #### P OCGLUC #### [facility] [address] [address] [address] Gisel Galdamez Bilirubin [Mass/Vol] 0.9 mg/dL Normal 0.2-1.0 [facility] Comment on above: Performed By: #### P OCGLUC #### [facility] [address] [address] [address] Gisel Galdamez Calcium [Mass/Vol] 8.7 mg/dL Normal 8.5-10.1 [facility] Comment on above: Performed By: #### P OCGLUC #### [facility] [address] [address] [address] Gisel Galdamez Chloride [Moles/Vol] 99 mmol/L Normal 98-107 [facility] Comment on above: Performed By: #### P OCGLUC #### [facility] [address] [address] [address] Gisel Galdamez CO2 [Moles/Vol] 34.9 mmol/L Critically high 21.0-32.0 [facility] Comment on above: Performed By: #### P OCGLUC #### [facility] [address] [address] [address] Gisel Galdamez Creatinine [Mass/Vol] 1.02 mg/dL Normal 0.70-1.30 [facility] Comment on above: Performed By: #### P OCGLUC #### [facility] [address] [address] [address] Gisel Galdamez EGFR-AF ROMANIAN >60 Normal >=60 [facility] Comment on above: Performed By: #### P OCGLUC #### [facility] [address] [address] [address] Gisel Galdamez EGFR-NON AF ROMANIAN >60 Normal >=60 [facility] Comment on above: Performed By: #### P OCGLUC #### [facility] [address] [address] [address] Gisel Galdamez Globulin (S) [Mass/Vol] 3.0 g/dL Normal [facility] Comment on above: Performed By: #### P OCGLUC #### [facility] [address] [address] [address] Gisel Galdamez Glucose [Mass/Vol] 265 mg/dL Critically high 74-106 [facility] Comment on above: Performed By: #### P OCGLUC #### [facility] [address] [address] [address] Gisel Galdamez Potassium [Moles/Vol] 4.7 mmol/L Normal 3.5-5.1 [facility] Comment on above: Performed By: #### P OCGLUC #### [facility] [address] [address] [address] Gisel Galdamez Protein [Mass/Vol] 6.7 g/dL Normal 6.4-8.2 [facility] Comment on above: Performed By: #### P OCGLUC #### [facility] [address] [address] [address] Gisel Galdamez Sodium [Moles/Vol] 139 mmol/L Normal 136-145 [facility] Comment on above: Performed By: #### P OCGLUC #### [facility] [address] [address] [address] Gisel Galdamez Urea nitrogen [Mass/Vol] 19.0 mg/dL Critically high 7.0-18.0 [facility] Comment on above: Performed By: #### P OCGLUC #### [facility] [address] [address] [address] Gisel Galdamez Urea nitrogen/Creatinine [Mass ratio] 18.6 mg/mg Normal [facility] Comment on above: Performed By: #### P OCGLUC #### [facility] [address] [address] [address] Gisel Galdamez VITAMIN D 25 OHon 04-02-2022 VIT D 25-OH 17.8 ng/mL Normal [facility] Comment on above: Performed By: #### P OCGLUC #### [facility] [address] [place] [address] Dr. Gisel Galdamez VIT D RANGES SEE BELOW Normal [facility] Comment on above: Result Comment: <20 ng/mL Vit D deficient 20 - <30 ng/mL Vit D insufficient 30 - 100 ng/mL Vit D sufficient >100 ng/mL Potential Toxicity Performed By: #### P OCGLUC #### [facility] [address] [place] [address] Dr. Gisel Galdamez General Surgery Office/Clini c Noteon 01-19-2022 General Surgery Office/Clinic Note Chief Complaint follow up I/D neck abscess HPI Staff Presents to follow up neck abscess. I/D completed in-office on 12/31. Would cx with normal skin pb. Prescribed Keflex 250mg QID x 7 days, he did not finish ATB as he was hospitalized with COPD exacerbation requiring alternative ATB. Area has decreased edema, erythema. Pain has resolved. History of Present Illness s/p I & D of neck abscess, cx with normal skin pb, denies pain or drainage; minimal induration. Review of Systems ROS - Provider Constitutional: no fever, no sweats, no weight loss. Eyes: no glasses, no blurred vision, no visual loss. ENMT: no dentures, no hoarseness, no swallowing difficulties, no hearing loss, no ear infection(s), no nose bleeds. Cardiovascular: normal blood pressure, no chest pain, regular heartbeat, no heart murmur. Respiratory: no shortness of breath, no cough, no asthma, no wheezing. Gastrointestinal: no nausea, no vomiting, no diarrhea, no constipation, no blood in stool, no change in bowel habits, no abdominal pain, no hepatitis. Genitourinary: no kidney stones, no urine infection, no dysuria. Musculoskeletal: no pain, no weakness. Skin: no changing moles, no rash, no skin lumps. Neurologic: no seizures, no epilepsy, no headache. Psychiatric: no emotional or psychiatric problem. Heme/Lymph: no bleeding problems, no anemia, no blood clots, no transfusions. Allergy/Immunologic: no swollen lymph nodes/glands, no IV drug abuse. Other: Additional ROS info: Except as noted in the above Review of Systems and in the History of Present Illness, all other systems have been reviewed and are negative or noncontributory. Physical Exam skin: minimal area of induration, no fluctuance or tenderness; no drainage. Assessment/Plan 1. Abscess of skin of neck (L02.11: Cutaneous abscess of neck) resolved, likely due to folliculitis; no evidence of cyst; call with problems/questions. Follow-up No qualifying data available Problem List/Past Medical History Ongoing Abscess of skin of neck BMI 40.0-44.9, adult Chronic obstructive pulmonary disease Diabetes HTN (hypertension) Hyperlipidemia Hypertriglyceridemia Lumbar radiculopathy PVD (peripheral vascular disease) Vitamin D deficiency Historical No qualifying data Procedure/Surgical History Incision and drainage of abscess of neck (12/31/2021), Carpal tunnel release, Repair of umbilical hernia. Medications aspirin 81 mg Oral EC Tab, 81 mg= 1 tab(s), Oral, Daily atorvastatin 80 mg Tab, 80 mg= 1 tab(s), Oral, Daily DuoNeb 2.5 mg-0.5 mg/3 mL Soln-Inh, 3 mL, NEB, q6hr, PRN Fish Oil 1000 mg oral capsule, 1000 mg= 1 cap(s), Oral, Daily lisinopril 20 mg Tab, 10 mg= 0.5 tab(s), Oral, Daily metformin 500 mg ER Tab, 1000 mg= 2 tab(s), Oral, BID Trulicity Pen 0.75 mg/0.5 mL subcutaneous solution, 0.75 mg, SubCutaneous, qWeek Allergies No Known Allergies No Known Medication Allergies Social History Alcohol - Denies Alcohol Use, 12/31/2021 Substance Abuse - Denies Substance Abuse, 12/31/2021 Tobacco Former smoker, quit more than 30 days ago Tobacco Use:. Never Smokeless Tobacco Use:. Cigarettes, 2 per day. Started age 11.0 Years. Stopped age 40 Years., 12/31/2021 Family History COPD: Mother. PVD - peripheral vascular disease: Father. Normal [facility] Comment on above: Result Comment: Elec tronically Signed By: INES STONER, Mili Contreras\.br\Date and Time Signed: 01/19/22 19:23 EST Ambulatory Visit Summaryon 1 03-17-2021 Ambulatory Visit Summary MIRACLE GAMBOA :1970 Visit Date:01/15/2022 Ambulatory Visit Instructions Your Care Team Attending Physician - Mili CHACON MD Primary Care Physician - NIRAJ, MR. OVI SUTHERLAND This Is Your Medications List albuterol-ipratropiu m (DuoNeb 2.5 mg-0.5 mg/3 mL Soln-Inh) aspirin (aspirin 81 mg Oral EC Tab) atorvastatin (atorvastatin 80 mg Tab) dulaglutide (Trulicity Pen 0.75 mg/0.5 mL subcutaneous solution) lisinopril (lisinopril 20 mg Tab) metformin (metformin 500 mg ER Tab) omega-3 polyunsaturated fatty acids (Fish Oil 1000 mg oral capsule) Procedures Performed Carpal tunnel release, Repair of umbilical hernia. Medications What How Much When Instructions Unchanged albuterol-ipratropiu m (DuoNeb 2.5 mg-0.5 mg/ 3 mL Soln-Inh) 3 Milliliter Nebulized inhalation (aerosol) Every 6 hours as needed for Shortness of breath or wheezing Unchanged aspirin (aspirin 81 mg Oral EC Tab) 1 Tablets By Mouth Every day Unchanged atorvastatin (atorvastatin 80 mg Tab) 1 Tablets By Mouth Every day Unchanged dulaglutide (Trulicity Pen 0.75 mg/ 0.5 mL subcutaneous solution) 0.75 Milligram Subcutaneous Every week Unchanged lisinopril (lisinopril 20 mg Tab) 0.5 Tablets By Mouth Every day Unchanged metformin (metformin 500 mg ER Tab) 2 Tablets By Mouth 2 times a day Unchanged omega-3 polyunsaturated fatty acids (Fish Oil 1000 mg oral capsule) 1 Capsules By Mouth Every day Allergies No Known Allergies No Known Medication Allergies Problems Ongoing - Any problem that you are currently receiving treatment for. Abscess of skin of neck BMI 40.0-44.9, adult Chronic obstructive pulmonary disease Diabetes HTN (hypertension) Hyperlipidemia Hypertriglyceridemia Lumbar radiculopathy PVD (peripheral vascular disease) Vitamin D deficiency Normal [facility] BNPon 01-10-2022 Natriuretic peptide B (Bld) [Mass/Vol] 264.0 pg/mL Normal <=900.0 [facility] Comment on above: Performed By: #### C MP, BNP #### [facility] [address] [place] [address] Dr. Gisel Galdamez CBC AUTO DIFFon 01-10-2022 BASO # 0.0 103/ul Normal 0.0-0.1 [facility] Comment on above: Performed By: #### P OCGLUC #### [facility] [address] [place] [address] Dr. Gisel Galdamez Basophils/100 WBC (Bld) 0.4 % Normal 0.2-2.0 [facility] Comment on above: Performed By: #### P OCGLUC #### [facility] [address] [place] [address] Dr. Gisel Galdamez EO # 0.0 103/ul Normal 0.0-0.7 [facility] Comment on above: Performed By: #### P OCGLUC #### [facility] [address] [place] [address] Dr. Gisel Galdamez Eosinophils/100 WBC (Bld) 0.0 % Critically low 0.9-7.0 [facility] Comment on above: Performed By: #### P OCGLUC #### [facility] [address] [place] [address] Dr. Gisel Galdamez Erythrocyte distribution width (RBC) [Ratio] 13.5 % Normal 11.0-15.0 [facility] Comment on above: Performed By: #### P OCGLUC #### [facility] [address] [place] [address] Dr. Gisel Galdamez Hematocrit (Bld) [Volume fraction] 57.3 % Critically high 42.0-54.0 [facility] Comment on above: Performed By: #### P OCGLUC #### [facility] [address] [place] [address] Dr. Gisel Galdamez Hemoglobin (Bld) [Mass/Vol] 17.5 g/dL Normal 14.0-18.0 [facility] Comment on above: Performed By: #### P OCGLUC #### [facility] [address] [place] [address] Dr. Gisel Galdamez IG # 0.10 10e3/ul Critically high 0.00-0.03 [facility] Comment on above: Performed By: #### P OCGLUC #### [facility] [address] [place] [address] Dr. Gisel Galdamez IG % 1.5 % Critically high 0.0-0.5 [facility] Comment on above: Performed By: #### P OCGLUC #### [facility] [address] [place] [address] Dr. Gisel Galdamez LYMPH # 0.4 103/ul Critically low 1.2-3.8 [facility] Comment on above: Performed By: #### P OCGLUC #### [facility] [address] [place] [address] Dr. Gisel Galdamez Lymphocytes/100 WBC (Bld) 6.0 % Critically low 20.5-60.0 [facility] Comment on above: Performed By: #### P OCGLUC #### [facility] [address] [place] [address] Dr. Gisel Galdamez MANUAL DIFF REQ NO Normal [facility] Comment on above: Performed By: #### P OCGLUC #### [facility] [address] [place] [address] Dr. Gisel Galdamez MCH (RBC) [Entitic mass] 29.2 pg Normal 25.9-34.0 [facility] Comment on above: Performed By: #### P OCGLUC #### [facility] [address] [place] [address] Dr. Gisel Galdamez MCHC (RBC) [Mass/Vol] 30.5 g/dL Normal 29.9-35.2 [facility] Comment on above: Performed By: #### P OCGLUC #### [facility] [address] [address] [address] Gisel Galdamez MCV (RBC) [Entitic vol] 95.5 fL Critically high 80.0-94.0 [facility] Comment on above: Performed By: #### P OCGLUC #### [facility] [address] [address] [address] Gisel Galdamez MONO # 0.1 103/ul Critically low 0.3-0.8 [facility] Comment on above: Performed By: #### P OCGLUC #### [facility] [address] [place] [address] Dr. Gisel Galdamez Monocytes/100 WBC (Bld) 1.9 % Normal 1.7-12.0 [facility] Comment on above: Performed By: #### P OCGLUC #### [facility] [address] [place] [address] Dr. Gisel Galdamez NEUT # 6.2 103/ul Normal 1.4-6.5 [facility] Comment on above: Performed By: #### P OCGLUC #### [facility] [address] [place] [address] Dr. Gisel Galdamez Neutrophils/100 WBC (Bld) 90.2 % Critically high 43.0-75.0 [facility] Comment on above: Performed By: #### P OCGLUC #### [facility] [address] [place] [address] Dr. Gisel Galdamez Platelet mean volume (Bld) [Entitic vol] 12.0 fL Normal 9.5-13.5 [facility] Comment on above: Performed By: #### P OCGLUC #### [facility] [address] [place] [address] Dr. Gisel Galdamez PLT 134 103/ul Critically low 150-450 [facility] Comment on above: Performed By: #### P OCGLUC #### [facility] [address] [place] [address] Dr. Gisel Galdamez RBC 6.00 106/ul Normal 4.70-6.10 [facility] Comment on above: Performed By: #### P OCGLUC #### [facility] [address] [address] [address] Gisel Galdamez WBC 6.9 103/ul Normal 4.0-11.0 [facility] Comment on above: Performed By: #### P OCGLUC #### [facility] [address] [place] [address] Dr. Gisel Galdamez POINT OF CARE GLUCOSEon 12-31 Glucose [Mass/Vol] 414 mg/dL Critically high 74-106 [facility] Comment on above: Performed By: #### P OCGLUC #### [facility] [address] [place] [address] Dr. Gisel Galdamez Glucose [Mass/Vol] 353 mg/dL Critically high 74-106 [facility] Comment on above: Performed By: #### P OCGLUC #### [facility] [address] [place] [address] Dr. Gisel Galdamez Glucose [Mass/Vol] 415 mg/dL Critically high 74-106 [facility] Comment on above: Performed By: #### P OCGLUC #### [facility] [address] [place] [address] Dr. Gisel Galdamez PROF 14(COMP METB)on 022 Albumin [Mass/Vol] 3.3 g/dL Critically low 3.4-5.0 [facility] Comment on above: Performed By: #### C MP, BNP #### [facility] [address] [place] [address] Dr. Gisel Galdamez Albumin/Globulin [Mass ratio] 0.8 {ratio} Normal [facility] Comment on above: Performed By: #### C MP, BNP #### [facility] [address] [place] [address] Dr. Gisel Galdamez ALP [Catalytic activity/Vol] 115 U/L Normal 46-116 [facility] Comment on above: Performed By: #### C MP, BNP #### [facility] [address] [address] [address] Gisel Galdamez ALT [Catalytic activity/Vol] 31 U/L Normal 16-63 [facility] Comment on above: Performed By: #### C MP, BNP #### [facility] [address] [place] [address] Dr. Gisel Galdamez Anion gap [Moles/Vol] 9.0 mmol/L Normal [facility] Comment on above: Performed By: #### C MP, BNP #### [facility] [address] [place] [address] Dr. Gisel Galdamez AST [Catalytic activity/Vol] 9 U/L Critically low 15-37 [facility] Comment on above: Performed By: #### C MP, BNP #### [facility] [address] [place] [address] Dr. Gisel Galdamez Bilirubin [Mass/Vol] 0.7 mg/dL Normal 0.2-1.0 [facility] Comment on above: Performed By: #### C MP, BNP #### [facility] [address] [place] [address] Dr. Gisel Galdamez Calcium [Mass/Vol] 8.5 mg/dL Normal 8.5-10.1 [facility] Comment on above: Performed By: #### C MP, BNP #### [facility] [address] [place] [address] Dr. Gisel Galdamez Chloride [Moles/Vol] 96 mmol/L Critically low 98-107 [facility] Comment on above: Performed By: #### C MP, BNP #### [facility] [address] [place] [address] Dr. Gisel Galdamez CO2 [Moles/Vol] 31.5 mmol/L Normal 21.0-32.0 [facility] Comment on above: Performed By: #### C MP, BNP #### [facility] [address] [place] [address] Dr. Gisel Galdamez Creatinine [Mass/Vol] 1.39 mg/dL Critically high 0.70-1.30 [facility] Comment on above: Performed By: #### C MP, BNP #### [facility] [address] [address] [address] Gisel Galdamez EGFR-AF ROMANIAN >60 Normal >=60 [facility] Comment on above: Performed By: #### C MP, BNP #### [facility] [address] [address] [address] Gisel Galdamez EGFR-NON AF ROMANIAN 53 mL/min/1.73m2 Critically low >=60 [facility] Comment on above: Performed By: #### C MP, BNP #### [facility] [address] [address] [address] Gisel Galdamez Globulin (S) [Mass/Vol] 3.9 g/dL Normal [facility] Comment on above: Performed By: #### C MP, BNP #### [facility] [address] [place] [address] Dr. Gisel Galdamez Glucose [Mass/Vol] 409 mg/dL Critically high 74-106 [facility] Comment on above: Performed By: #### C MP, BNP #### [facility] [address] [place] [address] Dr. Gisel Galdamez Potassium [Moles/Vol] 4.5 mmol/L Normal 3.5-5.1 [facility] Comment on above: Performed By: #### C MP, BNP #### [facility] [address] [address] [address] Gisel Galdamez Protein [Mass/Vol] 7.2 g/dL Normal 6.4-8.2 [facility] Comment on above: Performed By: #### C MP, BNP #### [facility] [address] [address] [address] Gisel Galdamez Sodium [Moles/Vol] 132 mmol/L Critically low 136-145 [facility] Comment on above: Performed By: #### C MP, BNP #### [facility] [address] [place] [address] Dr. Gisel Galdamez Urea nitrogen [Mass/Vol] 27.0 mg/dL Critically high 7.0-18.0 [facility] Comment on above: Performed By: #### C MP, BNP #### [facility] [address] [place] [address] Dr. Gisel Galdamez Urea nitrogen/Creatinine [Mass ratio] 19.4 mg/mg Normal [facility] Comment on above: Performed By: #### C MP, BNP #### [facility] [address] [place] [address] Dr. Gisel Galdamez BNPon 01-09-2022 Natriuretic peptide B (Bld) [Mass/Vol] 236.0 pg/mL Normal <=900.0 [facility] Comment on above: Performed By: #### P OCGLUC #### [facility] [address] [place] [address] Dr. Gisel Galdamez CBC AUTO DIFFon 01-09-2022 BASO # 0.1 103/ul Normal 0.0-0.1 [facility] Comment on above: Performed By: #### C BC #### [facility] [address] [place] [address] Dr. Gisel Galdamez Basophils/100 WBC (Bld) 0.6 % Normal 0.2-2.0 [facility] Comment on above: Performed By: #### C BC #### [facility] [address] [place] [address] Dr. Gisel Galdamez EO # 0.0 103/ul Normal 0.0-0.7 [facility] Comment on above: Performed By: #### C BC #### [facility] [address] [place] [address] Dr. Gisel Galdamez Eosinophils/100 WBC (Bld) 0.2 % Critically low 0.9-7.0 [facility] Comment on above: Performed By: #### C BC #### [facility] [address] [place] [address] Dr. Gisel Galdamez Erythrocyte distribution width (RBC) [Ratio] 13.4 % Normal 11.0-15.0 [facility] Comment on above: Performed By: #### C BC #### [facility] [address] [place] [address] Dr. Gisel Galdamez Hematocrit (Bld) [Volume fraction] 57.4 % Critically high 42.0-54.0 [facility] Comment on above: Performed By: #### C BC #### [facility] [address] [address] [address] Gisel Galdamez Hemoglobin (Bld) [Mass/Vol] 18.2 g/dL Critically high 14.0-18.0 [facility] Comment on above: Performed By: #### C BC #### [facility] [address] [address] [address] Gisel Galdamez IG # 0.16 10e3/ul Critically high 0.00-0.03 [facility] Comment on above: Performed By: #### C BC #### [facility] [address] [place] [address] Dr. Gisel Galdamez IG % 1.5 % Critically high 0.0-0.5 [facility] Comment on above: Performed By: #### C BC #### [facility] [address] [place] [address] Dr. Gisel Galdamez LYMPH # 0.9 103/ul Critically low 1.2-3.8 [facility] Comment on above: Performed By: #### C BC #### [facility] [address] [place] [address] Dr. Gisel Galdamez Lymphocytes/100 WBC (Bld) 9.1 % Critically low 20.5-60.0 [facility] Comment on above: Performed By: #### C BC #### [facility] [address] [place] [address] Dr. Gisel Galdamez MANUAL DIFF REQ NO Normal [facility] Comment on above: Performed By: #### C BC #### [facility] [address] [place] [address] Dr. Gisel Galdamez MCH (RBC) [Entitic mass] 30.2 pg Normal 25.9-34.0 [facility] Comment on above: Performed By: #### C BC #### [facility] [address] [place] [address] Dr. Gisel Galdamez MCHC (RBC) [Mass/Vol] 31.7 g/dL Normal 29.9-35.2 [facility] Comment on above: Performed By: #### C BC #### [facility] [address] [address] [address] Gisel Galdamez MCV (RBC) [Entitic vol] 95.2 fL Critically high 80.0-94.0 [facility] Comment on above: Performed By: #### C BC #### [facility] [address] [address] [address] Gisel Galdamez MONO # 0.9 103/ul Critically high 0.3-0.8 [facility] Comment on above: Performed By: #### C BC #### [facility] [address] [address] [address] Gisel Galdamez Monocytes/100 WBC (Bld) 9.1 % Normal 1.7-12.0 [facility] Comment on above: Performed By: #### C BC #### [facility] [address] [address] [address] Gisel Galdamez NEUT # 8.2 103/ul Critically high 1.4-6.5 [facility] Comment on above: Performed By: #### C BC #### [facility] [address] [address] [address] Gisel Galdamez Neutrophils/100 WBC (Bld) 79.5 % Critically high 43.0-75.0 [facility] Comment on above: Performed By: #### C BC #### [facility] [address] [address] [address] Gisel Galdamez Platelet mean volume (Bld) [Entitic vol] 11.9 fL Normal 9.5-13.5 [facility] Comment on above: Performed By: #### C BC #### [facility] [address] [address] [address] Gisel Galdamez PLT 146 103/ul Critically low 150-450 [facility] Comment on above: Performed By: #### C BC #### [facility] [address] [address] [address] Gisel Galdamez RBC 6.03 106/ul Normal 4.70-6.10 [facility] Comment on above: Performed By: #### C BC #### [facility] [address] [place] [address] Dr. Gisel Galdamez WBC 10.4 103/ul Normal 4.0-11.0 [facility] Comment on above: Performed By: #### C BC #### [facility] [address] [place] [address] Dr. Gisel Galdamez CULTURE SPUTUMon 01-09-2022 CULTURE SPUTUM Culture Observations: NORMAL RESPIRATORY PB. Normal [facility] Comment on above: Performed By: #### P OCGLUC #### [facility] [address] [place] [address] Dr. Gisel Galdamez LACTATE/LACTIC ACIDon 2021 Lactate [Moles/Vol] 1.3 mmol/L Normal 0.4-1.9 [facility] Comment on above: Performed By: #### P OCGLUC #### [facility] [address] [place] [address] Dr. Gisel Galdamez POINT OF CARE GLUCOSEon 12-31 Glucose [Mass/Vol] 404 mg/dL Critically high 74-106 [facility] Comment on above: Performed By: #### P OCGLUC #### [facility] [address] [place] [address] Dr. Gisel Galdamez Glucose [Mass/Vol] 241 mg/dL Critically high 74-106 [facility] Comment on above: Performed By: #### P OCGLUC #### [facility] [address] [place] [address] Dr. Gisel Galdamez PROF 14(COMP METB)on 022 Albumin [Mass/Vol] 3.3 g/dL Critically low 3.4-5.0 [facility] Comment on above: Performed By: #### P OCGLUC #### [facility] [address] [place] [address] Dr. Gisel Galdamez Albumin/Globulin [Mass ratio] 0.9 {ratio} [facility] Comment on above: Performed By: #### P OCGLUC #### [facility] [address] [place] [address] Dr. Gisel Galdamez ALP [Catalytic activity/Vol] 111 U/L Normal 46-116 [facility] Comment on above: Performed By: #### P OCGLUC #### [facility] [address] [address] [address] Gisel Galdamez ALT [Catalytic activity/Vol] 36 U/L Normal 16-63 [facility] Comment on above: Performed By: #### P OCGLUC #### [facility] [address] [address] [address] Gisel Galdamez Anion gap [Moles/Vol] 7.6 mmol/L Normal [facility] Comment on above: Performed By: #### P OCGLUC #### [facility] [address] [address] [address] Gisel Galdamez AST [Catalytic activity/Vol] 15 U/L Normal 15-37 [facility] Comment on above: Performed By: #### P OCGLUC #### [facility] [address] [address] [address] Gisel Galdamez Bilirubin [Mass/Vol] 1.3 mg/dL Critically high 0.2-1.0 [facility] Comment on above: Performed By: #### P OCGLUC #### [facility] [address] [address] [address] Gisel Galdamez Calcium [Mass/Vol] 8.7 mg/dL Normal 8.5-10.1 [facility] Comment on above: Performed By: #### P OCGLUC #### [facility] [address] [address] [address] Gisel Galdamez Chloride [Moles/Vol] 97 mmol/L Critically low 98-107 [facility] Comment on above: Performed By: #### P OCGLUC #### [facility] [address] [address] [address] Gisel Galdamez CO2 [Moles/Vol] 32.8 mmol/L Critically high 21.0-32.0 [facility] Comment on above: Performed By: #### P OCGLUC #### [facility] [address] [address] [address] Gisel Galdamez Creatinine [Mass/Vol] 0.99 mg/dL Normal 0.70-1.30 [facility] Comment on above: Performed By: #### P OCGLUC #### [facility] [address] [address] [address] Gisel Galdamez EGFR-AF ROMANIAN >60 Normal >=60 [facility] Comment on above: Performed By: #### P OCGLUC #### [facility] [address] [address] [address] Gisel Galdamez EGFR-NON AF ROMANIAN >60 Normal >=60 [facility] Comment on above: Performed By: #### P OCGLUC #### [facility] [address] [address] [address] Gisel Galdamez Globulin (S) [Mass/Vol] 3.8 g/dL Normal [facility] Comment on above: Performed By: #### P OCGLUC #### [facility] [address] [address] [address] Gisel Galdamez Glucose [Mass/Vol] 272 mg/dL Critically high 74-106 [facility] Comment on above: Performed By: #### P OCGLUC #### [facility] [address] [address] [address] Gisel Galdamez Potassium [Moles/Vol] 4.4 mmol/L Normal 3.5-5.1 [facility] Comment on above: Performed By: #### P OCGLUC #### [facility] [address] [address] [address] Gisel Galdamez Protein [Mass/Vol] 7.1 g/dL Normal 6.4-8.2 [facility] Comment on above: Performed By: #### P OCGLUC #### [facility] [address] [address] [address] Gisel Galdamez Sodium [Moles/Vol] 133 mmol/L Critically low 136-145 [facility] Comment on above: Performed By: #### P OCGLUC #### [facility] [address] [address] [address] Gisel Galdamez Urea nitrogen [Mass/Vol] 13.0 mg/dL Normal 7.0-18.0 [facility] Comment on above: Performed By: #### P OCGLUC #### [facility] [address] [place] [address] Dr. Gisel Galdamez Urea nitrogen/Creatinine [Mass ratio] 13.1 mg/mg Normal [facility] Comment on above: Performed By: #### P OCGLUC #### [facility] [address] [place] [address] Dr. Gisel Galdamez RESPIRATORY PANEL PLUSon Adenovirus Not detected Normal NOT DETECTED [facility] Comment on above: Performed By: #### P OCGLUC #### [facility] [address] [place] [address] Dr. Gisel Cruz. Parapertusis Not detected Normal NOT DETECTED [facility] Comment on above: Performed By: #### P OCGLUC #### [facility] [address] [place] [address] Dr. Gisel Cruz. Pertussis Not detected Normal NOT DETECTED [facility] Comment on above: Performed By: #### P OCGLUC #### [facility] [address] [place] [address] Dr. Gisel Galdamez Chlamydia Pneumoniae Not detected Normal NOT DETECTED [facility] Comment on above: Performed By: #### P OCGLUC #### [facility] [address] [place] [address] Dr. Gisel Galdamez Coronavirus 229E Not detected Normal NOT DETECTED [facility] Comment on above: Performed By: #### P OCGLUC #### [facility] [address] [place] [address] Dr. Gisel Galdamez Coronavirus HKU1 Not detected Normal NOT DETECTED [facility] Comment on above: Performed By: #### P OCGLUC #### [facility] [address] [place] [address] Dr. Gisel Galdamez Coronavirus NL63 Not detected Normal NOT DETECTED [facility] Comment on above: Performed By: #### P OCGLUC #### [facility] [address] [place] [address] Dr. Gisel Galdamez Coronavirus OC43 Not detected Normal NOT DETECTED [facility] Comment on above: Performed By: #### P OCGLUC #### [facility] [address] [address] [address] Gisel Galdamez Influenza A H1 2009 Not detected Normal NOT DETECTED [facility] Comment on above: Performed By: #### P OCGLUC #### [facility] [address] [address] [address] Gisel Galdamez Influenza A H3 Not detected Normal NOT DETECTED [facility] Comment on above: Performed By: #### P OCGLUC #### [facility] [address] [address] [address] Gisel Galdamez Influenza B Not detected Normal NOT DETECTED [facility] Comment on above: Performed By: #### P OCGLUC #### [facility] [address] [address] [address] Gisel Galdamez Metapneumovirus Not detected Normal NOT DETECTED [facility] Comment on above: Performed By: #### P OCGLUC #### [facility] [address] [address] [address] Gisle Galdamez Mycoplas. Pneumoniae Not detected Normal NOT DETECTED [facility] Comment on above: Performed By: #### P OCGLUC #### [facility] [address] [place] [address] Dr. Gisel Galdamez Parainfluenza 1 Not detected Normal NOT DETECTED [facility] Comment on above: Performed By: #### P OCGLUC #### [facility] [address] [place] [address] Dr. Gisel Galdamez Parainfluenza 2 Not detected Normal NOT DETECTED [facility] Comment on above: Performed By: #### P OCGLUC #### [facility] [address] [place] [address] Dr. Gisel Galdamez Parainfluenza 3 Not detected Normal NOT DETECTED [facility] Comment on above: Performed By: #### P OCGLUC #### [facility] [address] [place] [address] Dr. Gisel Galdamez Parainfluenza 4 Not detected Normal NOT DETECTED [facility] Comment on above: Performed By: #### P OCGLUC #### [facility] [address] [place] [address] Dr. Gisel Galdamez Rhino/Enterovirus Not detected Normal NOT DETECTED [facility] Comment on above: Performed By: #### P OCGLUC #### [facility] [address] [place] [address] Dr. Gisel Galdamez RP2 Header 1 RESPIRATORY PANEL: VIRUSES Normal [facility] Comment on above: Performed By: #### P OCGLUC #### [facility] [address] [place] [address] Dr. Gisel Galdamez RP2 Header 2 RESPIRATORY PANEL: BACTERIA Normal [facility] Comment on above: Performed By: #### P OCGLUC #### [facility] [address] [place] [address] Dr. Gisel Galdamez RSV Not detected Normal NOT DETECTED [facility] Comment on above: Performed By: #### P OCGLUC #### [facility] [address] [place] [address] Dr. Gisel Galdamez SARS-CoV-2 (COVID-19) RNA MUKESH+probe Ql (Unsp spec) Not detected Normal NOT DETECTED [facility] Comment on above: Performed By: #### P OCGLUC #### [facility] [address] [place] [address] Dr. Gisel Galdamez SPUTUM GRAM STAINon 01-10-20 COMMENTS Normal [facility] Comment on above: Performed By: #### A 1C #### [facility] [address] [place] [address] Dr. Gisel Galdamez DIPHTHEROIDS Normal [facility] Comment on above: Performed By: #### A 1C #### [facility] [address] [place] [address] Dr. Gisel Galdamez EPITHELIALS <25 Normal [facility] Comment on above: Performed By: #### A 1C #### [facility] [address] [place] [address] Dr. Gisel Galdamez FUNGAL ELEMENTS Normal [facility] Comment on above: Performed By: #### A 1C #### [facility] [address] [place] [address] Dr. Gisel Galdamez GRAM NEG BACILLI Normal [facility] Comment on above: Performed By: #### A 1C #### [facility] [address] [address] [address] Gisel Galdamez GRAM NEG DIPPLOCOCCI Normal [facility] Comment on above: Performed By: #### A 1C #### [facility] [address] [address] [address] Gisel Galdamez GRAM POS BACILLI Normal [facility] Comment on above: Performed By: #### A 1C #### [facility] [address] [address] [address] Gisel Galdamez GRAM POSITIVE COCCI RARE Normal [facility] Comment on above: Performed By: #### A 1C #### [facility] [address] [place] [address] Dr. Gisel Galdamez WBC (Bld) [#/Vol] 10*3/uL Normal [facility] Comment on above: Performed By: #### A 1C #### [facility] [address] [address] [address] Gisel Galdamez TROPONIN, HIGH SENSITIVITYon 01-09-2022 HSTROP 10.3 pg/mL Normal 4.0-76.1 [facility] Comment on above: Result Comment: CUT- OFF POINTS HAVE BEEN ESTABLISHED BASED ON THE FOURTH UNIVERSAL DEFINITIONS OF MYOCARDIAL INFARCTION. THE UPPER REFERENCE LIMIT (URL) OF TROPONIN, DEFINED THE 99TH PERCENTILE OF cTnI DISTRIBUTION IN A REFERENCE POPULATION, HAS BEEN CONFIRMED THE DECISION THRESHOLD FOR MS DIAGNOSIS. Performed By: #### P OCGLUC #### [facility] [address] [place] [address] Dr. Gisel Galdamez XR CHEST 1 Von 01-09-2022 XR CHEST 1 V EXAMINATION: XR CHEST 1 V HISTORY: Shortness of breath COMPARISON: No relevant comparison available. FINDINGS: LUNGS: Elevated right hemidiaphragm with minimal haziness and stranding within lung bases. VASCULATURE: No increased pulmonary vasculature. PLEURA: No pneumothorax, effusion, or pleural thickening. CARDIAC: No cardiomegaly or cardiac silhouette abnormality. MEDIASTINUM: No visible mass or adenopathy. BONES: No fracture or visible bone lesion. OTHER: Negative. IMPRESSION: 1. Trace amount of bibasilar atelectasis versus infiltrates. Electronically authenticated by: NICOLAS MARISELRANDALL Date: 2022-01-09 12:49 Normal [facility] Lab Reportson 01-06-2022 Lab Reports [id number] #1.00CD:127 Normal [facility] Ambulatory Visit Summaryon 1 03-02-2021 Ambulatory Visit Summary MIRACLE GAMBOA :1970 Visit Date:12/31/2021 Ambulatory Visit Instructions Your Care Team Attending Physician - Mili CHACON MD Primary Care Physician - NIRAJ, OVININOSKA SUTHERLAND This Is Your Medications List Contact prescribing physician if questions or concerns albuterol-ipratropiu m (DuoNeb 2.5 mg-0.5 mg/3 mL Soln-Inh) aspirin (aspirin 81 mg Oral EC Tab) atorvastatin (atorvastatin 80 mg Tab) dulaglutide (Trulicity Pen 0.75 mg/0.5 mL subcutaneous solution) lisinopril (lisinopril 20 mg Tab) metformin (metformin 500 mg ER Tab) omega-3 polyunsaturated fatty acids (Fish Oil 1000 mg oral capsule) Procedures Performed Carpal tunnel release, Repair of umbilical hernia. Discharge Vitals Heart Rate (Peripheral) 68 Respiratory Rate 16 Blood Pressure 116/60 Height 165 cm Height 65 in Weight 108.9 kg Weight 239.58 lb BMI 40 What to do next Scheduled Follow-Up Appointments Thursday 1:40 PM EST With: Mili CHACON MD Where: General Surgery Nill/Willian Hillman Normal [facility] CULTURE WOUNDon 12-31-2021 CULTURE WOUND Culture Observations: Moderate growth of normal skin pb. Culture Observations: No growth of anaerobes at 72 hours. Normal [facility] Comment on above: Performed By: #### P OCGLUC #### [facility] [address] [place] [address] Dr. Gisel Galdamez Patient Educationon 01-01-20 22 Patient Education Incision and Drainage, Care After This sheet gives you information about how to care for yourself after your procedure. Your health care provider may also give you more specific instructions. If you have problems or questions, contact your health care provider. What can I expect after the procedure? After the procedure, it is common to have: ? Pain or discomfort around the incision site. ? Blood, fluid, or pus (drainage) from the incision. ? Redness and firm skin around the incision site. Follow these instructions at home: Medicines ? Take xwav-ecs-gjxolar and prescription medicines only as told by your health care provider. ? If you were prescribed an antibiotic medicine, use or take it as told by your health care provider. Do not stop using the antibiotic even if you start to feel better. Wound care Follow instructions from your health care provider about how to take care of your wound. Make sure you: ? Wash your hands with soap and water before and after you change your bandage (dressing). If soap and water are not available, use hand senior sales assistant. ? Change your dressing and packing as told by your health care provider. ? If your dressing is dry or stuck when you try to remove it, moisten or wet the dressing with saline or water so that it can be removed without harming your skin or tissues. ? If your wound is packed, leave it in place until your health care provider tells you to remove it. To remove the packing, moisten or wet the packing with saline or water so that it can be removed without harming your skin or tissues. ? Leave stitches (sutures), skin glue, or adhesive strips in place. These skin closures may need to stay in place for 2 weeks or longer. If adhesive strip edges start to loosen and curl up, you may trim the loose edges. Do not remove adhesive strips completely unless your health care provider tells you to do that. Check your wound every day for signs of infection. Check for: ? More redness, swelling, or pain. ? More fluid or blood. ? Warmth. ? Pus or a bad smell. If you were sent home with a drain tube in place, follow instructions from your health care provider about: ? How to empty it. ? How to care for it at home. General instructions ? Rest the affected area. ? Do not take baths, swim, or use a hot tub until your health care provider approves. Ask your health care provider if you may take showers. You may only be allowed to take sponge baths. ? Return to your normal activities as told by your health care provider. Ask your health care provider what activities are safe for you. Your health care provider may put you on activity or lifting restrictions. ? The incision will continue to drain. It is normal to have some clear or slightly bloody drainage. The amount of drainage should lessen each day. ? Do not apply any creams, ointments, or liquids unless you have been told to by your health care provider. ? Keep all follow-up visits as told by your health care provider. This is important. Contact a health care provider if: ? Your cyst or abscess returns. ? You have a fever or chills. ? You have more redness, swelling, or pain around your incision. ? You have more fluid or blood coming from your incision. ? Your incision feels warm to the touch. ? You have pus or a bad smell coming from your incision. ? You have red streaks above or below the incision site. Get help right away if: ? You have severe pain or bleeding. ? You cannot eat or drink without vomiting. ? You have decreased urine output. ? You become short of breath. ? You have chest pain. ? You cough up blood. ? The affected area becomes numb or starts to tingle. These symptoms may represent a serious problem that is an emergency. Do not wait to see if the symptoms will go away. Get medical help right away. Call your local emergency services (911 in the [place] Do not drive yourself to the hospital. Summary ? After this procedure, it is common to have fluid, blood, or pus coming from the surgery site. ? Follow all home care instructions. You will be told how to take care of your incision, how to check for infection, and how to take medicines. ? If you were prescribed an antibiotic medicine, take it as told by your health care provider. Do not stop taking the antibiotic even if you start to feel better. ? Contact a health care provider if you have increased redness, swelling, or pain around your incision. Get help right away if you have chest pain, you vomit, you cough up blood, or you have shortness of breath. ? Keep all follow-up visits as told by your health care provider. This is important. This information is not intended to replace advice given to you by your health care provider. Make sure you discuss any questions you have with your health care provider. Document Released: 05/10/2012 Document Revised: 01/17/2019 Document Reviewed: 01/17/2019 Elsevier Patient Education ? 2020 E (more content not included)... Normal [facility] Physician Referralon 022 Physician Referral [id number] #[id number]:127 Normal [facility] CBC AUTO DIFFon 12-28-2021 BASO # 0.1 103/ul Normal 0.0-0.1 [facility] Comment on above: Performed By: #### P OCGLUC #### [facility] [address] [address] [address] Gisel Galdamez Basophils/100 WBC (Bld) 0.9 % Normal 0.2-2.0 [facility] Comment on above: Performed By: #### P OCGLUC #### [facility] [address] [address] [address] Gisel Galdamez EO # 0.2 103/ul Normal 0.0-0.7 [facility] Comment on above: Performed By: #### P OCGLUC #### [facility] [address] [address] [address] Gisel Galdamez Eosinophils/100 WBC (Bld) 2.3 % Normal 0.9-7.0 [facility] Comment on above: Performed By: #### P OCGLUC #### [facility] [address] [address] [address] Gisel Galdamez Erythrocyte distribution width (RBC) [Ratio] 14.0 % Normal 11.0-15.0 [facility] Comment on above: Performed By: #### P OCGLUC #### [facility] [address] [address] [address] Gisel Galdamez Hematocrit (Bld) [Volume fraction] 61.7 % Critically high 42.0-54.0 [facility] Comment on above: Performed By: #### P OCGLUC #### [facility] [address] [address] [address] Gisel Galdamez Hemoglobin (Bld) [Mass/Vol] 19.8 g/dL Critically high 14.0-18.0 [facility] Comment on above: Performed By: #### P OCGLUC #### [facility] [address] [address] [address] Gisel Galdamez IG # 0.03 10e3/ul Normal 0.00-0.03 [facility] Comment on above: Performed By: #### P OCGLUC #### [facility] [address] [address] [address] Gisel Galdamez IG % 0.5 % Normal 0.0-0.5 [facility] Comment on above: Performed By: #### P OCGLUC #### [facility] [address] [address] [address] Gisel Galdamez LYMPH # 1.2 103/ul Normal 1.2-3.8 [facility] Comment on above: Performed By: #### P OCGLUC #### [facility] [address] [place] [address] Dr. Gisel Galdamez Lymphocytes/100 WBC (Bld) 18.0 % Critically low 20.5-60.0 [facility] Comment on above: Performed By: #### P OCGLUC #### [facility] [address] [address] [address] Gisel Galdamez MANUAL DIFF REQ NO Normal [facility] Comment on above: Performed By: #### P OCGLUC #### [facility] [address] [address] [address] Gisel Galdamez MCH (RBC) [Entitic mass] 29.8 pg Normal 25.9-34.0 [facility] Comment on above: Performed By: #### P OCGLUC #### [facility] [address] [address] [address] Gisel Galdamez MCHC (RBC) [Mass/Vol] 32.1 g/dL Normal 29.9-35.2 [facility] Comment on above: Performed By: #### P OCGLUC #### [facility] [address] [place] [address] Dr. Gisel Galdamez MCV (RBC) [Entitic vol] 92.8 fL Normal 80.0-94.0 [facility] Comment on above: Performed By: #### P OCGLUC #### [facility] [address] [address] [address] Gisel Galdamez MONO # 0.5 103/ul Normal 0.3-0.8 [facility] Comment on above: Performed By: #### P OCGLUC #### [facility] [address] [address] [address] Gisel Galdamez Monocytes/100 WBC (Bld) 7.9 % Normal 1.7-12.0 [facility] Comment on above: Performed By: #### P OCGLUC #### [facility] [address] [address] [address] Gisel Galdamez NEUT # 4.5 103/ul Normal 1.4-6.5 [facility] Comment on above: Performed By: #### P OCGLUC #### [facility] [address] [address] [address] Gisel Galdamez Neutrophils/100 WBC (Bld) 70.4 % Normal 43.0-75.0 [facility] Comment on above: Performed By: #### P OCGLUC #### [facility] [address] [address] [address] Gisel Galdamez Platelet mean volume (Bld) [Entitic vol] 11.2 fL Normal 9.5-13.5 [facility] Comment on above: Performed By: #### P OCGLUC #### [facility] [address] [address] [address] Gisel Galdamez PLT 149 103/ul Critically low 150-450 [facility] Comment on above: Performed By: #### P OCGLUC #### [facility] [address] [address] [address] Gisel Galdamez RBC 6.65 106/ul Critically high 4.70-6.10 [facility] Comment on above: Performed By: #### P OCGLUC #### [facility] [address] [address] [address] Gisel Galdamez WBC 6.5 103/ul Normal 4.0-11.0 [facility] Comment on above: Performed By: #### P OCGLUC #### [facility] [address] [place] [address] Dr. Gisel Galdamez GLYCOHEMOGLOBIN A1Con 2021 ADA RECOMMENDATION SEE BELOW Normal [facility] Comment on above: Result Comment: ADA RECOMMENDED LIMIT 4.0 - 6.0 ADA THERAPEUTIC TARGET < 7.0 ACTION SUGGESTED > 7.0 Performed By: #### A 1C #### [facility] [address] [place] [address] Dr. Gisel Galdamez Glucose [Mass/Vol] 243 mg/dL Normal [facility] Comment on above: Performed By: #### A 1C #### [facility] [address] [place] [address] Dr. Gisel Galdamez HbA1c (Bld) [Mass fraction] 10.1 % Critically high 4.5-6.2 [facility] Comment on above: Performed By: #### A 1C #### [facility] [address] [place] [address] Dr. Gisel Galdamez PROF 14(COMP METB)on 022 Albumin [Mass/Vol] 3.9 g/dL Normal 3.4-5.0 [facility] Comment on above: Performed By: #### C MP #### [facility] [address] [place] [address] Dr. Gisel Galdamez Albumin/Globulin [Mass ratio] 1.2 {ratio} Normal [facility] Comment on above: Performed By: #### C MP #### [facility] [address] [place] [address] Dr. Gisel Galdamez ALP [Catalytic activity/Vol] 115 U/L Normal 46-116 [facility] Comment on above: Performed By: #### C MP #### [facility] [address] [place] [address] Dr. Gisel Galdamez ALT [Catalytic activity/Vol] 30 U/L Normal 16-63 [facility] Comment on above: Performed By: #### C MP #### [facility] [address] [place] [address] Dr. Gisel Galdamez Anion gap [Moles/Vol] 8.1 mmol/L Normal [facility] Comment on above: Performed By: #### C MP #### [facility] [address] [address] [address] Gisel Galdamez AST [Catalytic activity/Vol] 9 U/L Critically low 15-37 [facility] Comment on above: Performed By: #### C MP #### [facility] [address] [address] [address] Gisel Galdamez Bilirubin [Mass/Vol] 0.7 mg/dL Normal 0.2-1.0 [facility] Comment on above: Performed By: #### C MP #### [facility] [address] [address] [address] Gisel Galdamez Calcium [Mass/Vol] 9.7 mg/dL Normal 8.5-10.1 [facility] Comment on above: Performed By: #### C MP #### [facility] [address] [address] [address] Gisel Galdamez Chloride [Moles/Vol] 95 mmol/L Critically low 98-107 [facility] Comment on above: Performed By: #### C MP #### [facility] [address] [address] [address] Gisel Galdamez CO2 [Moles/Vol] 36.5 mmol/L Critically high 21.0-32.0 [facility] Comment on above: Performed By: #### C MP #### [facility] [address] [address] [address] Gisel Galdamez Creatinine [Mass/Vol] 1.18 mg/dL Normal 0.70-1.30 [facility] Comment on above: Performed By: #### C MP #### [facility] [address] [address] [address] Gisel Galdamez EGFR-AF ROMANIAN >60 Normal >=60 [facility] Comment on above: Performed By: #### C MP #### [facility] [address] [address] [address] Gisel Galdamez EGFR-NON AF ROMANIAN >60 Normal >=60 [facility] Comment on above: Performed By: #### C MP #### [facility] [address] [address] [address] Gisel Galdamez Globulin (S) [Mass/Vol] 3.3 g/dL Normal [facility] Comment on above: Performed By: #### C MP #### [facility] [address] [address] [address] Gisel Galdamez Glucose [Mass/Vol] 339 mg/dL Critically high 74-106 [facility] Comment on above: Performed By: #### C MP #### [facility] [address] [address] [address] Gisel Galdamez Potassium [Moles/Vol] 4.6 mmol/L Normal 3.5-5.1 [facility] Comment on above: Performed By: #### C MP #### [facility] [address] [address] [address] Gisel Galdamez Protein [Mass/Vol] 7.2 g/dL Normal 6.4-8.2 [facility] Comment on above: Performed By: #### C MP #### [facility] [address] [address] [address] Gisel Galdamez Sodium [Moles/Vol] 135 mmol/L Critically low 136-145 [facility] Comment on above: Performed By: #### C MP #### [facility] [address] [address] [address] Gisel Galdamez Urea nitrogen [Mass/Vol] 20.0 mg/dL Critically high 7.0-18.0 [facility] Comment on above: Performed By: #### C MP #### [facility] [address] [address] [address] Gisel Galdamez Urea nitrogen/Creatinine [Mass ratio] 16.9 mg/mg Normal [facility] Comment on above: Performed By: #### C MP #### [facility] [address] [address] [address] Gisel Galdamez LIPID PROFILEon 12-27-2021 CHOL-HDL RATIO NORM SEE BELOW Normal [facility] Comment on above: Result Comment: 3.3 - 4.4 LOW RISK 4.4 - 7.1 AVERAGE RISK 7.1 - 11.0 MODERATE RISK >11.0 HIGH RISK Performed By: #### L IPID #### [facility] [address] [place] [address] Dr. Gisel Galdamez Cholesterol [Mass/Vol] 191 mg/dL Normal <=200 [facility] Comment on above: Performed By: #### L IPID #### [facility] [address] [address] [address] Gisel Galdamez Cholesterol in HDL [Mass/Vol] 29 mg/dL Critically low 40-60 [facility] Comment on above: Performed By: #### L IPID #### [facility] [address] [address] [address] Gisel Galdamez Cholesterol in LDL [Mass/Vol] 91.4 mg/dL Normal [facility] Comment on above: Performed By: #### L IPID #### [facility] [address] [place] [address] Dr. Gisel Galdamez Cholesterol.total/Ch olesterol in HDL [Mass ratio] 6.6 {ratio} Normal [facility] Comment on above: Performed By: #### L IPID #### [facility] [address] [place] [address] Dr. Gisel Galdamez HDL NORMAL > or = 60 mg/dl - LOW CARDIOVASCULAR RISK <40 mg/dl - HIGH CARDIOVASCULAR RISK Normal [facility] Comment on above: Performed By: #### L IPID #### [facility] [address] [place] [address] Dr. Gisel Galdamez LDL CALC NORMAL SEE BELOW Normal [facility] Comment on above: Result Comment: <100 mg/dl OPTIMAL 100 - 129 mg/dl NEAR OR ABOVE OPTIMAL 130 - 159 mg/dl BORDERLINE HIGH 160 - 189 mg/dl HIGH >190 mg/dl VERY HIGH Performed By: #### L IPID #### [facility] [address] [place] [address] Dr. Gisel Galdamez Triglyceride [Mass/Vol] 353 mg/dL Critically high <=150 [facility] Comment on above: Performed By: #### L IPID #### [facility] [address] [address] [address] Gisel Galdamez VLDL CALC 70.6 mg/dL Normal [facility] Comment on above: Performed By: #### L IPID #### [facility] [address] [address] [address] Gisel Galdamez MICROALBUMIN, RAND URon 10-2 mALB 14.3 mg/L Normal <=30.0 [facility] Comment on above: Performed By: #### P OCGLUC #### [facility] [address] [address] [address] Gisel Galdamez COVID Quick Testingon 2020 Result Positive [facility] Other Vital Signs Date Time Vital Sign Value Performing Clinician Facility 12-31-2021 15:56-0400 Blood Pressure Location [facility] [place] 12-31-2021 15:56-0400 Diastolic blood pressure 60 mm[Hg] [facility] [place] 12-31-2021 15:56-0400 Heart rate 68 /min [facility] [place] 12-31-2021 15:56-0400 Respiratory rate 16 /min [facility] 12-31-2021 15:56-0400 Systolic blood pressure 116 mm[Hg] [facility] 01-01-2021 18:30-0400 Body height 167.64 cm Vee Dowling Other [facility] Other 01-01-2021 18:30-0400 Body mass index (BMI) [Ratio] 39.54 kg/m2 V[facility] Dowling Other [facility] Other 01-01-2021 18:30-0400 Body temperature 99.6 [degF] Vee Dowling Other [facility] Other 01-01-2021 18:30-0400 Body weight 111.13 kg Vee Dowling Other [facility] Other 01-01-2021 18:30-0400 Respiratory rate 20 /min Vee Dowling Other [facility] Other 01-01-2021 18:30-0400 SaO2% (BldA) [Mass fraction] 88 % V[facility] Dowling Other [facility] Other Encounters Encounter Date Encounter Type Care Provider Facility Start: 07-11-2022 End: 07-12-2022 ambulatory OVI SHAMMO Facility:[facility] Start: 04-25-2022 End: 04-26-2022 ambulatory SHANNAN SAMSA Facility:[facility] Start: 04-02-2022 End: 04-03-2022 ambulatory OVI SHAMMO Facility:[facility] Start: 01-15-2022 End: 01-16-2022 ambulatory OVI SHAMMO Facility:[facility] Start: 01-15-2022 End: 01-15-2022 Patient encounter procedure Mili CHACON [facility] Start: 01-09-2022 End: 01-10-[address] DOCTOR NIELSEN Facility:[facility] Start: 12-31-2021 End: 12-31-[address] MILI Hassan Facility:[facility] Start: 12-31-2021 End: 01-01-2022 ambulatory OVI SHAMMO Facility:[facility] Start: 12-31-2021 End: 12-31-2021 Patient encounter procedure Mili CHACON General [facility] Start: 12-30-2021 ambulatory OVI SHAMMO Facility:[facility] Start: 12-28-2021 End: 12-29-2021 ambulatory OVI SHAMMO Facility:[facility] Start: 12-27-2021 End: 12-28-2021 ambulatory OVI SHAMMD Facility:[facility] Start: 01-01-2021 (URG) Urgent Care Visit Vee Dowling [facility] Start: 01-01-2021 End: 01-01-2021 ambulatory Vee Dowling Other [facility] Other Procedures Date Procedure Procedure Detail Performing Clinician Start: 12-31-2021 Incision and drainag e of abscess of neck Mili CHACON Decompression of med lisa nerve Mili CHACON Repair of umbilical hernia Gilmer cervantes [facility] Payers Date Payer Category Payer Unknown [id number] 1970 Unknown [id number] 2.16.8 [id number] 1968 Unknown [id number] 2.16.8 [id number] 1968 Unknown [id number] 2.16.8 [id number] 1968 Unknown [id number] 2.16.84 [id number] 1968 Unknown [id number] 2.16.84 [id number] 1968 Unknown [id number] 2.16.84 [id number] 1968 Unknown [id number] 2.16.84 [id number] 1968 Unknown [id number] 2.16.84 [id number] 1968 Unknown [id number] 2.16.84 [id number] 1968 Unknown [id number] 2.16.84 [id number] 1961 Medicare [id number] 2. [id number] Social History Date Type Detail Facility Sex Assigned At [facility] Start: 12-31-2021 Tobacco smoking status Ex-smoker (fi nding) General [facility] Tobacco smoking status Never [facility] [place] Functional Status Date Assessment Result Facility 12-31-2021 Functional Status N/A [facility] 12-31-2021 Note Date & Type Note Facility 12-31-2021 Note Chief Complaint consultation for neck abscess HPI Staff 51 year old male presents on consultation from Ovi Healy NP for neck abscess. Reports long standing history of small nodule that he frequently manipulates and occasionally expresses white material. Approximately 1.5 weeks ago, nodule become red, swollen and tender. Not currently on ATB nor has he been on ATB for this in the past. History of Present Illness 51 yo male with h/o htn, DMII, hyperlipidemia, PVD, COPD, referred for neck abscess; 20 yr h/o area of induration central neck, intermittently squeezes area, with purulent drainage; recently had marked gradual swelling in the area over 1 1/2 weeks; no drainage, no fevers; seen by family doctor yesterday; no antibiotic therapy; no imaging; denies fevers; does not check glucose; on baby asa daily, no NSAIDs. Review of Systems PHQ Score Initial Depression Screen Score: 0 ROS - Provider Constitutional: no fever, no sweats, no weight loss. Eyes: no glasses, no blurred vision, no visual loss. ENMT: no dentures, no hoarseness, no swallowing difficulties, no hearing loss, no ear infection(s), no nose bleeds. Cardiovascular: normal blood pressure, no chest pain, regular heartbeat, no heart murmur. Respiratory: no shortness of breath, no cough, no asthma, no wheezing. Gastrointestinal: no nausea, no vomiting, no diarrhea, no constipation, no blood in stool, no change in bowel habits, no abdominal pain, no hepatitis. Genitourinary: no kidney stones, no urine infection, no dysuria. Musculoskeletal: no pain, no weakness. Skin: no changing moles, no rash, yes skin lumps. Neurologic: no seizures, no epilepsy, no headache. Psychiatric: no emotional or psychiatric problem. Heme/Lymph: no bleeding problems, no anemia, no blood clots, no transfusions. Allergy/Immunologic: no swollen lymph nodes/glands, no IV drug abuse. Other: Additional ROS info: Except as noted in the above Review of Systems and in the History of Present Illness, all other systems have been reviewed and are negative or noncontributory. Physical Exam Vitals & Measurements HR: 68(Peripheral) RR: 16 BP: 116/60 HT: 65 in HT: 165 cm WT: 108.9 kg WT: 239.58 lb BMI: 40 HEENT: normal conjunctiva, sclera clear, no scleral icterus, EOM intact, PERRLA, oral mucosa moist without lesions. Neck: trachea midline, no thyromegaly or nodules, no adenopathy 2.5 cm subcutaneous abscess central neck, fluctuant iovascular: regular rate and rhythm, no murmur, no pedal edema or varicosities. Lymphatic: no cervical adenopathy, Musculoskeletal: normal gait, digits and nails without infection, nodes, cyanosis, clubbing. Skin: no rashes, no lesions, no ulcers, no subcutaneous nodules, induration. Psychiatric/Neuro: oriented to time, place, person, judgement normal, affect appropriate for age, insight intact, no focal deficits. Tests: review of old records completed, Discussed surgical options, risks, and possible complications with patient. Procedure patient brought to procedure room, placed in supine position, area prepped and draped; scarred area overlying fluctuant central neck abscess anesthetized with 1 % lidocaine; small stab incision made with #11 blade; thick purulent material drained; area packed with 1/4 inch gauze, abd applied; patient tolerated well, ebl < 5 ml. Assessment/Plan 1. Abscess of skin of neck (L02.11: Cutaneous abscess of neck) drained and packed with 1/4 inch gauze; tolerated well; cx sent; antibiotics prescribed; f/u in 1 week, removed gauze in am, wash with soap and water daily; call sooner if problems/questions. Ordered: cephalexin, 250 mg = 1 cap(s), Oral, QID, X 7 day(s), # 28 cap(s), Refills(s) 0, Pharmacy: [facility]/pharmacy #[id number], 165, cm, 12/31/21 16:01:00 EDT, Height/Length Dosing, 108.9, kg, 12/31/21 16:01:00 EDT, Weight Dosing Wound Culture Follow-up No qualifying data available Patient Education Incision and Drainage, Care After Incision and Drainage, Care After Problem List/Past Medical History Ongoing Abscess of skin of neck BMI 40.0-44.9, adult Chronic obstructive pulmonary disease Diabetes HTN (hypertension) Hyperlipidemia Hypertriglyceridemia Lumbar radiculopathy PVD (peripheral vascular disease) Vitamin D deficiency Historical No qualifying data Procedure/Surgical History Carpal tunnel release, Repair of umbilical hernia. Medications aspirin 81 mg Oral EC Tab, 81 mg= 1 tab(s), Oral, Daily atorvastatin 80 mg Tab, 80 mg= 1 tab(s), Oral, Daily DuoNeb 2.5 mg-0.5 mg/3 mL Soln-Inh, 3 mL, NEB, q6hr, PRN Fish Oil 1000 mg oral capsule, 1000 mg= 1 cap(s), Oral, Daily Keflex 250 mg Cap, 250 mg= 1 cap(s), Oral, QID lisinopril 20 mg Tab, 10 mg= 0.5 tab(s), Oral, Daily metformin 500 mg ER Tab, 1000 mg= 2 tab(s), Oral, BID Trulicity Pen 0.75 mg/0.5 mL subcutaneous solution, 0.75 mg, SubCutaneous, qWeek Allergies No Known Allergies No Known Medication Allergies Social History Alcohol - Valentin (more content not included)... [facility] Comment on above: Result Comment: Elec tronically Signed By: INES STONER, Mili Stanton.thalia\Date and Time Signed: 12/31/21 17:14 EDT Hospital Discharge instructions 12-31-2021 Note Date & Type Note Facility 12-31-2021 Hospital Discharg e instructions Patient Education 12/31/2021 16:43:31 Incision and Drainage, Care After Incision and Drainage, Care After This sheet gives you information about how to care for yourself after your procedure. Your health care provider may also give you more specific instructions. If you have problems or questions, contact your health care provider. What can I expect after the procedure? After the procedure, it is common to have: Pain or discomfort around the incision site. Blood, fluid, or pus (drainage) from the incision. Redness and firm skin around the incision site. Follow these instructions at home: Medicines Take foff-sls-qjwwljc and prescription medicines only as told by your health care provider. If you were prescribed an antibiotic medicine, use or take it as told by your health care provider. Do not stop using the antibiotic even if you start to feel better. Wound care Follow instructions from your health care provider about how to take care of your wound. Make sure you: Wash your hands with soap and water before and after you change your bandage (dressing). If soap and water are not available, use hand senior sales assistant. Change your dressing and packing as told by your health care provider. ?If your dressing is dry or stuck when you try to remove it, moisten or wet the dressing with saline or water so that it can be removed without harming your skin or tissues. ?If your wound is packed, leave it in place until your health care provider tells you to remove it. To remove the packing, moisten or wet the packing with saline or water so that it can be removed without harming your skin or tissues. Leave stitches (sutures), skin glue, or adhesive strips in place. These skin closures may need to stay in place for 2 weeks or longer. If adhesive strip edges start to loosen and curl up, you may trim the loose edges. Do not remove adhesive strips completely unless your health care provider tells you to do that. Check your wound every day for signs of infection. Check for: More redness, swelling, or pain. More fluid or blood. Warmth. Pus or a bad smell. If you were sent home with a drain tube in place, follow instructions from your health care provider about: How to empty it. How to care for it at home. General instructions Rest the affected area. Do not take baths, swim, or use a hot tub until your health care provider approves. Ask your health care provider if you may take showers. You may only be allowed to take sponge baths. Return to your normal activities as told by your health care provider. Ask your health care provider what activities are safe for you. Your health care provider may put you on activity or lifting restrictions. The incision will continue to drain. It is normal to have some clear or slightly bloody drainage. The amount of drainage should lessen each day. Do not apply any creams, ointments, or liquids unless you have been told to by your health care provider. Keep all follow-up visits as told by your health care provider. This is important. Contact a health care provider if: Your cyst or abscess returns. You have a fever or chills. You have more redness, swelling, or pain around your incision. You have more fluid or blood coming from your incision. Your incision feels warm to the touch. You have pus or a bad smell coming from your incision. You have red streaks above or below the incision site. Get help right away if: You have severe pain or bleeding. You cannot eat or drink without vomiting. You have decreased urine output. You become short of breath. You have chest pain. You cough up blood. The affected area becomes numb or starts to tingle. These symptoms may represent a serious problem that is an emergency. Do not wait to see if the symptoms will go away. Get medical help right away. Call your local emergency services (911 in the [place] Do not drive yourself to the hospital. Summary After this procedure, it is common to have fluid, blood, or pus coming from the surgery site. Follow all home care instructions. You will be told how to take care of your incision, how to check for infection, and how to take medicines. If you were prescribed an antibiotic medicine, take it as told by your health care provider. Do not stop taking the antibiotic even if you start to feel better. Contact a health care provider if you have increased redness, swelling, or pain around your incision. Get help right away if you have chest pain, you vomit, you cough up blood, or you have shortness of breath. Keep all follow-up visits as told by your health care provider. This is important. This information is not intended to replace advice given to you by your health care provider. Make sure you discuss any questions you have with your health care provider. Document Released: 05/10/2012 Document Revised: 01/17/2019 Document Reviewed: 01/17/2019 [employer] Patient Education 2020 [employer] 12/31/2021 16:43:31 Incision and Drainage, Care After Incision and Drainage, Care After This sheet gives you information about how to care for yourself after your procedure. Your health care provider may also give you more specific instructions. If you have problems or questions, contact your health care provider. What can I expect after the procedure? After the procedure, it is common to have: Pain or discomfort around the incision site. Blood, fluid, or pus (drainage) from the incision. Redness and firm skin around the incision site. Follow these instructions at home: Medicines Take jfdt-gud-aehdbli and prescription medicines only as told by your health care provider. If you were prescribed an antibiotic medicine, use or take it as told by your health care provider. Do not stop using the antibiotic even if you start to feel better. Wound care Follow instructions from your health care provider about how to take care of your wound. Make sure you: Wash your hands with soap and water before and after you change your bandage (dressing). If soap and water are not available, use hand senior sales assistant. Change your dressing and packing as told by your health care provider. ?If your dressing is dry or stuck when you try to remove it, moisten or wet the dressing with saline or water so that it can be removed without harming your skin or tissues. ?If your wound is packed, leave it in place until your health care provider tells you to remove it. To remove the packing, moisten or wet the packing with saline or water so that it can be removed without harming your skin or tissues. Leave stitches (sutures), skin glue, or adhesive strips in place. These skin closures may need to stay in place for 2 weeks or longer. If adhesive strip edges start to loosen and curl up, you may trim the loose edges. Do not remove adhesive strips completely unless your health care provider tells you to do that. Check your wound every day for signs of infection. Check for: More redness, swelling, or pain. More fluid or blood. Warmth. Pus or a bad smell. If you were sent home with a drain tube in place, follow instructions from your health care provider about: How to empty it. How to care for it at home. General instructions Rest the affected area. Do not take baths, swim, or use a hot tub until your health care provider approves. Ask your health care provider if you may take showers. You may only be allowed to take sponge baths. Return to your normal activities as told by your health care provider. Ask your health care provider what activities are safe for you. Your health care provider may put you on activity or lifting restrictions. The incision will continue to drain. It is normal to have some clear or slightly bloody drainage. The amount of drainage should lessen each day. Do not apply any creams, ointments, or liquids unless you have been told to by your health care provider. Keep all follow-up visits as told by your health care provider. This is important. Contact a health care provider if: Your cyst or abscess returns. You have a fever or chills. You have more redness, swelling, or pain around your incision. You have more fluid or blood coming from your incision. Your incision feels warm to the touch. You have pus or a bad smell coming from your incision. You have red streaks above or below the incision site. Get help right away if: You have severe pain or bleeding. You cannot eat or drink without vomiting. You have decreased urine output. You become short of breath. You have chest pain. You cough up blood. The affected area becomes numb or starts to tingle. These symptoms may represent a serious problem that is an emergency. Do not wait to see if the symptoms will go away. Get medical help right away. Call your local emergency services (911 in the [place] Do not drive yourself to the hospital. Summary After this procedure, it is common to have fluid, blood, or pus coming from the surgery site. Follow all home care instructions. You will be told how to take care of your incision, how to check for infection, and how to take medicines. If you were prescribed an antibiotic medicine, take it as told by your health care provider. Do not stop taking the antibiotic even if you start to feel better. Contact a health care provider if you have increased redness, swelling, or pain around your incision. Get help right away if you have chest pain, you vomit, you cough up blood, or you have shortness of breath. Keep all follow-up visits as told by your health care provider. This is important. This information is not intended to replace advice given to you by your health care provider. Make sure you discuss any questions you have with your health care provider. Document Released: 05/10/2012 Document Revised: 01/17/2019 Document Reviewed: 01/17/2019 [employer] Patient Education 2019 [employer]. General [facility] Evaluation note 01-01-2021 Note Date & Type Note Facility 01-01-2021 Evaluation note Encounter Date Diagnosis Assessment Notes Dec, Contact with and (suspected) exposure to other viral communicable diseases (ICD-10 - Z20.828) Dec, COVID-19 (ICD-10 - U07.1) Today you tested positive for the COVID virus. This mean you need to follow all CDC quarantine guidelines found at coronavirus[place].gov. It is important to rest, increase fluids, and stay at home. Contact PCP and inform them of results. Medications like Mucinex, Cepacol, Tylenol, saline nasal spray are over the counter medications that can help with the symptoms. Current guidelines include staying home for at least 10 days, having no fever above 100.4 for 24 hours without medication and having significant improvement of symptoms before you are allowed to stop your quarantine. Contact primary care and ask for guidance is essential to follow up Dec, Chronic obstructive pulmonary disease, unspecified COPD type (ICD-10 - J44.9) Take medications as directed. Use nebulizer or inhaler as directed. Take medication with food to prevent stomach upset. . Follow up with primary care provider is recommended if symptoms don''t improve. Dec, Other Additional time spent conducting pre-visit phone call, screening for symptoms, instructions on social distancing, application and removal of PPE, and cleaning of examination room, equipment and supplies was preformed. Patient education given for testing methodology and results. Patient care instructions given in writting by [facility] Care At Home document. Additional time spent conducting pre-visit phone call, screening for symptoms, instructions on social distancing, application and removal of PPE, and cleaning of examination room, equipment and supplies was preformed. Patient education given for testing methodology and results. Patient care instructions given in writting by [facility] Home document. [employer] Other Evaluation + Plan note Note Date & Type Note Facility Evaluation + Plan note Future Appointments Appointment Date:01/08/2022 01:40:00 PM Scheduled Provider:Mili CHACON MD Location:[facility] Appointment Type:[facility] Established 15 Diagnostic Tests PendingWound Culture 12/31/21 [facility] History general Narrative - Reported Note Date & Type Note Facility History general Narrative - Reported Type Medical History Hypertension Medical History hypercholesterolemia Medical History type II diabetes Medical History COPD Surgical History carpal tunnel right hand Surgical History umbilical hernia repair Hospitalization History see above [facility] Other Hospital course Narrative Note Date & Type Note Facility Hospital course Narrative No data available for this section [facility] Discharge instructions Note Date & Type Note Facility Hospital Discharge instructions No data available for this section [facility] note Note Date & Type Note Facility Progress note No data available for this section [facility] Summary Purpose Family History No Family History Records FoundNo Family History Records Found Advance Directives No Advanced Directives Records FoundNo Advanced Directives Records Found Additional Source Comments REASON FOR VISIT (unrecogniz ed section and content) # 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 OVI HEALY Address: Address: [address] [place] [address] Personnel Name: MR. OVI HEALY Address: Address: [address] [place] [address] (unrecognized sect ion and content) No Status Records FoundNo Status Records Found INFORMATION SOURCE (unrecogn ized section and content) DATE CREATED AUTHOR 01/19/2022 [facility] DATE CREATED AUTHOR AUTHOR'S ORGANIZ ATION 07/14/2022 [facility] FOR RECORDS PERTAINING TO PATIENTS WHO ARE OR HAVE BEEN ENROLLED IN A CHEMICAL DEPENDENCY/SUBSTANCEABUSE PROGRAM, SOME INFORMATION MAY BE OMITTED. This clinical summary was aggregated from multiple sources. Caution should be exercised in using it in the provision of clinical care. This summary normalizes information from multiple sources, and as a consequence, information in this document may materially change the coding, format and clinical context of patient data. In addition, data may be omitted in some cases. CLINICAL DECISIONS SHOULD BE BASED ON THE PRIMARY CLINICAL RECORDS. [facility] [employer] [facility]. provides no warranty or guarantee of the accuracy or completeness of information in this document.
[2023-02-27 09:04] VITALS: O2SAT 84
--- NOTE | 2023-02-27 09:18 | XR_ITS ---
The [address] [address] Patient Name: MIRACLE GAMBOA MRN: [id number] date: 1970 Sex: M Assigned Patient Location: ER Current Patient Location: ER Accession/Order Number: [id number] Exam Date: 02/27/2023 09:25 Report Date: 02/27/2023 09:53 At the request of: TANG LARSEN Procedure: XR chest 1V EXAM: XR chest 1V HISTORY: SOB COMPARISON: Chest study dated 08/02/2022 TECHNIQUE: AP view of the chest was obtained with portable technique at 9:20 AM. FINDINGS: Heart and mediastinal contours are unremarkable in appearance. No acute infiltrate or consolidations are seen. No obvious pneumothorax. Bony structures appear grossly intact. XR/XR chest 1V IMPRESSION: No acute process seen in the chest. Electronically authenticated by: LIN KNUTSON Date: 02/27/2023 09:53
--- NOTE | 2023-02-27 09:25 | ED_ITS ---
HPI - SOB/Dyspnea General Chief Complaint: Shortness of Breath/Dyspnea Stated Complaint: SHORTNESS OF BREATH Time Seen by Provider: 02/27/23 09:25 Source: patient Mode of arrival: walk-in History of Present Illness HPI Narrative: patient came to the emergency room after going to his doctor's office. He had a low pulse oximeter and had some increasing shortness of breath over the last three days and was told to go the Emergency Room. He tells the nursing staff that he has end-stage severe chronic obstructive pulmonary disease. He did take a nebulizer treatment before he came to the hospital.the patient has seen a loss prevention guard in the past. He used a family members BO.LTrol Dosepak last several days when he got sick three days ago. He is not on any antibiotics. He does wear oxygen at home 2 L especially at nighttime but he supposed to wear during the daytime as well. He is not had purulent sputum or bloody sputum. He's not had terrible aches and pains or virology type symptoms. He's not had vomiting or diarrhea. He did take a nebulizer treatment earlier this morning.he is under the care of a local loss prevention guard. Related Data Home Medications Medication Instructions Recorded Confirmed aspirin 81 mg chewable tablet 02/27/23 atorvastatin 80 mg tablet mg 02/27/23 insulin detemir U-100 100 unit/mL 30 unit subcut DAILY 02/27/23 02/27/23 (3 mL) subcutaneous pen (Levemir FlexPen) ipratropium 0.5 mg-albuterol 3 mg ml inhalation 02/27/23 (2.5 mg base)/3 mL nebulization soln lisinopril 20 mg tablet mg 02/27/23 omega 3-dha 115 mg-epa 172 mg-fish cap PO 02/27/23 oil 1,000 mg capsule,delay release (Smart Heart [place]-3) semaglutide 1 mg/dose (4 mg/3 mL) 1 mg subcut QWEEK 02/27/23 02/27/23 subcutaneous pen injector (Ozempic) Previous Rx's Medication Instructions Recorded levofloxacin 750 mg tablet 750 mg PO DAILY 7 days #7 tabs 08/02/22 prednisone 50 mg tablet 50 mg PO DAILY 5 days #5 tabs 08/02/22 Allergies Allergy/AdvReac Type Severity Reaction Status Date / Time No Known Drug Allergies Allergy Verified 08/02/22 10:31 PFSH PFS Social History Smoking status: Former smoker Exam Narrative Exam Narrative: awake alert pleasant dyspneic and somewhat hypoxic. O2 on room air was 88-89 percent. On 2 L he comes up to ninety-three percent. Skin is warm and dry is not pale or diaphoretic. Examination lungs he has markedly decreased breath sounds bilaterally. There is no subcutaneous emphysema. No evidence of trauma. There is very low wheezing but air flow is markedly diminished until I have him cough and there is bronchospasm. Heart sounds are regular with no murmur. Extremities do not have deep vein thrombosis edema or evidence of phlebitis. Constitutional Vital Signs, click to edit/add: Last Vital Signs Temp 98.7 F 02/27/23 08:55 Pulse 88 02/27/23 11:39 Resp 18 02/27/23 11:39 BP 138/86 02/27/23 10:18 Pulse Ox 93 L 02/27/23 11:46 O2 Del Method Nasal Cannula 02/27/23 11:46 O2 Flow Rate 3 02/27/23 11:46 Course Vital Signs Vital signs: Vital Signs Temperature 98.7 F 02/27/23 08:55 Pulse Rate 84 02/27/23 08:55 Respiratory Rate 24 02/27/23 08:55 Blood Pressure 141/68 02/27/23 08:55 Pulse Oximetry 84 L 02/27/23 08:55 Oxygen Delivery Method Nasal Cannula 02/27/23 08:55 Oxygen Delivery Flow Rate 2 02/27/23 08:55 Temperature 98.7 F 02/27/23 08:55 Pulse Rate 88 02/27/23 11:39 Respiratory Rate 18 02/27/23 11:39 Blood Pressure 138/86 02/27/23 10:18 Pulse Oximetry 93 L 02/27/23 11:46 Oxygen Delivery Method Nasal Cannula 02/27/23 11:46 Oxygen Delivery Flow Rate 3 02/27/23 11:46 MDM - SOB/Dyspnea MDM Narrative Medical decision making narrative: patient had intravenous Solu-Medrol and two nebulizer treatments here. We have kept him on oxygen at 2 L and his saturations are good. When I had him ambulate with his 2 L on here in the Emergency Room he desaturates down to eighty-five or eighty-six percent. For that reason I am recommending hospitalization but despite his daughter and being here he refuses to stay. They understand the concept of oxygen/hemoglobin dissociation curve and he could find himself in very serious problems if he desaturates anymore. Nonetheless he accepts and understands this risk and insists on going home. We will place him on an antibiotic/steroids/nebulizer treatments every three hours. Otoniel was welcome to come back at any time should he change his mind Lab Data Labs: Lab Results 02/27/23 02/27/23 Range/Units 09:39 09:40 WBC 13.1 H (4.0-11.0) 10^3/uL RBC 5.54 (4.70-6.10) 10^6/uL Hgb 16.9 (14.0-18.0) g/dL Hct 53.9 (42.0-54.0) % MCV 97.3 H (80.0-94.0) fL MCH 30.5 (25.9-34.0) pg MCHC 31.4 (29.9-35.2) g/dL RDW 13.1 (11.0-15.0) % Plt Count 196 (150-450) 10^3/uL MPV 11.9 (9.5-13.5) fL Seg Neuts % (Manual) 78.0 Band Neutrophils % 4.0 (0-5) % Lymphocytes % (Manual) 8.0 L (20.5-60.0) % Monocytes % (Manual) 10.0 (1.7-12.0) % Eosinophils % (Manual) 0.0 L (0.9-7.0) % Basophils % (Manual) 0.0 L (0.2-2.0) % Neutrophils # (Manual) 10.21 H (1.4-6.5) 10^3/uL Band Neutrophils # 0.5 H (0.0-0.3) 10^3/uL Lymphocytes # (Manual) 1.04 L (1.20-3.80) 10^3/uL Monocytes # (Manual) 1.31 H (0.30-0.80) 10^3/uL Eosinophils # (Manual) 0.00 (0.00-0.70) 10^3/uL Basophils # (Manual) 0.00 (0.00-0.10) 10^3/uL Sodium 135 L (136-145) mmol/L Potassium 4.1 (3.5-5.1) mmol/L Chloride 94 L (98-107) mmol/L Carbon Dioxide 35.8 H (21.0-32.0) mmol/L Anion Gap 9.3 BUN 22.0 H (7.0-18.0) mg/dL Creatinine 1.20 (0.70-1.30) mg/dL Est GFR ( Amer) >60 (>=60) Est GFR (Non-Af Amer) >60 (>=60) BUN/Creatinine Ratio 18.3 Glucose 281 H (74-106) mg/dL Calcium 9.9 (8.5-10.1) mg/dL Total Bilirubin 0.9 (0.2-1.0) mg/dL AST 11 L (15-37) U/L ALT 40 (16-63) U/L Alkaline Phosphatase 100 (46-116) U/L Troponin I High Sens 8.6 (4.0-76.1) pg/mL Total Protein 7.4 (6.4-8.2) g/dL Albumin 3.5 (3.4-5.0) g/dL Globulin 3.9 g/dL Albumin/Globulin Ratio 0.9 SARS-CoV-2 (PCR) Negative (NEGATIVE) Influenza Type A Ag Negative Influenza Type B Ag Negative Discharge Plan Discharge Chief Complaint: Shortness of Breath/Dyspnea Clinical Impression: Acute exacerbation of chronic obstructive pulmonary disease (COPD) Patient Disposition: Left Against Medical Advice Time of Disposition Decision: 12:48 Prescriptions / Home Meds: No Action prednisone 50 mg tablet 50 mg PO DAILY 5 Days Qty: 5 0RF levofloxacin 750 mg tablet 750 mg PO DAILY 7 Days Qty: 7 0RF atorvastatin 80 mg tablet ipratropium-albuterol 0.5 mg-3 mg(2.5 mg base)/3 mL solution for nebulization INHALATION lisinopril 20 mg tablet aspirin 81 mg tablet,chewable Smart Heart [place]-3 115-172-1,000 mg capsule,delayed release(DR/EC) PO Ozempic 1 mg/dose (4 mg/3 mL) pen injector 1 mg subcut QWEEK Levemir FlexPen 100 unit/mL (3 mL) insulin pen 30 unit subcut DAILY Additional Instructions: prednisone/Levaquin rash nebulizers every three hours the next twenty-four hours Stand Alone Forms: Portal Instructions Referrals: AMIE HEALY APRN [Primary Care Provider] - 1 week
[2023-02-27] MEDS: IPRATROPIUM/ALBUTEROL SULFATE 3 ML AMPUL.NEB IH (09:31)
[2023-02-27 09:32] VITALS: O2SAT 91
[2023-02-27] MEDS: METHYLPREDNISOLONE SOD SUCC PF 125 MG/2 ML VIAL IVP (09:43)
[2023-02-27 09:52] LABS: Hematocrit 53.9 % (42.0-54.0); Hemoglobin 16.9 g/dL (14.0-18.0); Mean Corpuscular HGB Conc 31.4 g/dL (29.9-35.2); Mean Corpuscular Hemoglobin 30.5 pg (25.9-34.0); Mean Corpuscular Volume 97.3 fL (80.0-94.0); Mean Platelet Volume 11.9 fL (9.5-13.5); Platelet Count 196 10^3/uL (150-450); Red Blood Count 5.54 10^6/uL (4.70-6.10); Red Cell Distribution Width 13.1 % (11.0-15.0); White Blood Count 13.1 10^3/uL (4.0-11.0)
[2023-02-27 10:00] LABS: Band Neutrophils Absolute 0.5 10^3/uL (0.0-0.3); Lymphocytes Absolute Manual 1.04 10^3/uL (1.20-3.80); Monocytes Absolute Manual 1.31 10^3/uL (0.30-0.80); Segmented Neut Absolute Manual 10.21 10^3/uL (1.4-6.5)
[2023-02-27 10:16] LABS: Albumin Globulin Ratio 0.9; Albumin Level 3.5 g/dL (3.4-5.0); Alkaline Phosphatase 100 U/L (46-116); Anion Gap 9.3; Aspartate Amino Transferase 11 U/L (15-37); BUN Creatinine Ratio 18.3; Bilirubin Total 0.9 mg/dL (0.2-1.0); Calcium 9.9 mg/dL (8.5-10.1); Carbon Dioxide 35.8 mmol/L (21.0-32.0); Chloride 94 mmol/L (98-107); Estimated GFR (African America >60 (>=60); Estimated GFR (Non-African Ame >60 (>=60); Globulin 3.9 g/dL; Glucose 281 mg/dL (74-106); Potassium 4.1 mmol/L (3.5-5.1); Sodium 135 mmol/L (136-145); Total Protein 7.4 g/dL (6.4-8.2); Troponin I High Sensitivity 8.6 pg/mL (4.0-76.1)
[2023-02-27 10:18] VITALS: BP 138/86; PULSE 89; RESP 20; O2SAT 91
[2023-02-27 10:21] LABS: Influenza Virus A Antigen Negative; Influenza Virus B Antigen Negative; Internal Control Within Normal Limits; SARS-CoV-2 Ag NEGATIVE (NEGATIVE)
[2023-02-27 10:24] LABS: Alanine Aminotransferase 40 U/L (16-63)
[2023-02-27 11:39] VITALS: PULSE 88; RESP 18; O2SAT 92
[2023-02-27 11:46] VITALS: O2SAT 93
[2023-02-27] MEDS: ALBUTEROL SULFATE 2.5 MG/3 ML VIAL NEB IH (11:52)
[2023-02-27 14:26] LABS: SARS-CoV-2 NAA NOT DETECTED (NOT DETECTE)
== END 2023-02-27 13:06 | disposition left against medical advice (07) ==
PROVIDERS: Emergency Provider Emergency Medicine Emergency Medical Services; PCP Nurse Practitioner Primary Care
DX: J44.1 Chronic obstructive pulmonary disease with (acute) exacerbation (principal); R06.02 Shortness of breath; Z99.81 Dependence on supplemental oxygen; Z79.82 Long term (current) use of aspirin; Z79.4 Long term (current) use of insulin; Z79.899 Other long term (current) drug therapy; Z87.891 Personal history of nicotine dependence
CPT/HCPCS: 36415; 71045; 80053; 84484; 85007; 85027; 87635; 87798; 87804; 87811; 94640; 99284; J2930

== ENCOUNTER 2023-07-15 13:45 | Outpatient (OUT) | payer MEDICARE, SELFPAY ==
--- NOTE | 2023-07-15 13:56 | CT_ITS ---
[address] [address] Patient Name: MIRACLE GAMBOA MRN: [id number] date: 1970 Sex: M Assigned Patient Location: LAB Current Patient Location: Accession/Order Number: [id number] Exam Date: 07/15/2023 14:05 Report Date: 07/16/2023 09:03 At the request of: SHANNAN VOGEL Procedure: CT chest w con EXAMINATION: CT chest w con HISTORY: Localized Enlarged Lymph Nodes R59.0 COMPARISON: CT chest 08/02/2022 TECHNIQUE: Multi-planar CT images were obtained without and/or with IV contrast as indicated by examination type. Axial, Coronal, and Sagittal images. Dose reduction techniques were achieved by using automated exposure control and/or adjustment of mA and/or kV according to patient size and/or use of iterative reconstruction technique. FINDINGS: LUNGS: No visible pulmonary disease. PLEURA: No mass, effusion, or pneumothorax. VASCULATURE: No abnormality. ABDON: No mass or adenopathy. MEDIASTINUM: No mass or adenopathy. CARDIAC: No enlargement, pericardial thickening, or significant calcification. Coronary artery calcifications: AORTA: No aneurysm or dissection. CHEST WALL: No mass or axillary adenopathy. BONES: No bone lesion or fracture. LIMITED ABDOMEN: Numerous tiny stones within gallbladder. Limited images of the upper abdomen. OTHER: Negative. CT/CT chest w con IMPRESSION: 1. No pulmonary infiltrates or suspicious findings. 2. No suspicious lymphadenopathy; improved compared to prior study. 3. Cholelithiasis. Electronically authenticated by: NICOLAS NICOLE Date: 07/16/2023 09:03
[2023-07-15 14:01] LABS: Estimated GFR (African America >60 (>=60); Estimated GFR (Non-African Ame >60 (>=60)
--- OUTSIDE RECORDS SUMMARY | 2023-07-15 14:01 | XMS_ITS | CCD ---
Author Organization [facility] Care Team Providers Care Log Cooker Name Role Phone Vee Dowling Unavailable SHAMMO, MR. HOLLOWAY ENA Primary Care Physician SHAMMO, OVI Referring Unavailable [...] QUINTEROS, JOHANN Consulting Unavailable NILL ., DR GACRES Admitting Unavailable NILL ., DR GARCES Attending [...] Medication Allergies] Propensity to adverse reactions (disorder) [facility] Repository Medications Current Medications Medication Drug Class(es) [...] 0 Start Date: 12/30/21 Status: Ordered Atorvastatin Carlin cium Active azithromycin 250 mg oral tablet [...] day(s), # 28 cap(s), Refills(s) 0, Pharmacy: [facility]/pharmacy #[id number], 165, cm, 12/31/21 16:01:00 EDT, Height/Length Dosing, [...] Resolved: 01-01-2021 Episodic Other aftercare (1 source) ocean transportation intermediary (current) use of aspirin; Translations: [[facility] CURRENT USE OF ASPIRIN] Onset: 01-15-2022 Episodic Other aftercare (1 source) ocean transportation intermediary (current) use of oral hypoglycemic drugs; Translations: [[facility] USE ORAL HYPOGLYCEMIC DX] Onset: 01-15-2022 Episodic Other aftercare (1 source) Other ocean transportation intermediary (current) drug therapy; Translations: [[facility] CURRENT DRUG THERAPY] Onset: 01-15-2022 Episodic Other [...] 2022 ADA RECOMMENDATION SEE BELOW Normal [facility] Comment on above: Result Comment: ADA RECOMMENDED LIMIT 4.0 - 6.0 ADA THERAPEUTIC TARGET < 7.0 ACTION SUGGESTED > 7.0 Performed By: #### A 1C #### [facility] [address] [place] [address] Dr. Gisel Galdamez Glucose [Mass/Vol] 263 mg/dL Normal [facility] Comment on above: Performed By: #### A 1C #### [facility] [address] [address] [address] Gisel Galdamez HbA1c (Bld) [Mass fraction] 10.8 % Critically high 4.5-6.[address] [facility] Comment on above: Performed By: #### A 1C #### [facility] [address] [address] [address] Gisel Galdamez HEMOGRAM AND PLATELon 2022 Hematocrit (Bld) [Volume fraction] 52.6 % Normal 42.0-54.0 [facility] Comment on above: Performed By: #### P OCGLUC #### [facility] [address] [address] [address] Gisel Galdamez Hemoglobin (Bld) [Mass/Vol] 16.8 g/dL Normal 14.0-18.0 [facility] Comment on above: Performed By: #### P OCGLUC #### [facility] [address] [address] [address] Gisel Galdamez MCH (RBC) [Entitic mass] 30.9 pg Normal 25.9-34.0 [facility] Comment on above: Performed By: #### P OCGLUC #### [facility] [address] [address] [address] Gisel Galdamez MCHC (RBC) [Mass/Vol] 31.9 g/dL Normal 29.9-35.2 [facility] Comment on above: Performed By: #### P OCGLUC #### [facility] [address] [address] [address] Gisel Galdamez MCV (RBC) [Entitic vol] 96.9 fL Critically high 80.0-94.0 [facility] Comment on above: Performed By: #### P OCGLUC #### [facility] [address] [place] [address] Dr. Gisel Galdamez PLT 144 103/ul Critically low 150-450 [facility] Comment on above: Performed By: #### P OCGLUC #### [facility] [address] [place] [address] Dr. Gisel Galdamez RBC 5.43 106/ul Normal 4.70-6.10 [facility] Comment on above: Performed By: #### P OCGLUC #### [facility] [address] [place] [address] Dr. Gisel Galdamez WBC 5.1 103/ul Normal 4.0-11.0 [facility] Comment on above: Performed By: #### P OCGLUC #### [facility] [address] [place] [address] Dr. Gisel Galdamez LIPID PROFILEon 07-11-2022 CHOL-HDL RATIO NORM SEE BELOW Normal [facility] Comment on above: Result Comment: 3.3 - 4.4 LOW RISK 4.4 - 7.1 AVERAGE RISK 7.1 - 11.0 MODERATE RISK >11.0 HIGH RISK Performed By: #### A 1C #### [facility] [address] [place] [address] Dr. Gisel Galdamez Cholesterol [Mass/Vol] 128 mg/dL Normal <=200 [facility] Comment on above: Performed By: #### A 1C #### [facility] [address] [place] [address] Dr. Gisel Galdamez Cholesterol in HDL [Mass/Vol] 35 mg/dL Critically low 40-60 [facility] Comment on above: Performed By: #### A 1C #### [facility] [address] [address] [address] Gisel Galdamez Cholesterol in LDL [Mass/Vol] 60.8 mg/dL Normal [facility] Comment on above: Performed By: #### A 1C #### [facility] [address] [place] [address] Dr. Gisel Galdamez Cholesterol.total/Ch olesterol in HDL [Mass ratio] 3.7 {ratio} Normal [facility] Comment on above: Performed By: #### A 1C #### [facility] [address] [place] [address] Dr. Gisel Galdamez HDL NORMAL > or = 60 mg/dl - LOW CARDIOVASCULAR RISK <40 mg/dl - HIGH CARDIOVASCULAR RISK Normal [facility] Comment on above: Performed By: #### A 1C #### [facility] [address] [place] [address] Dr. Gisel Galdamez LDL CALC NORMAL SEE BELOW Normal [facility] Comment on above: Result Comment: <100 mg/dl OPTIMAL 100 - 129 mg/dl NEAR OR ABOVE OPTIMAL 130 - 159 mg/dl BORDERLINE HIGH 160 - 189 mg/dl HIGH >190 mg/dl VERY HIGH Performed By: #### A 1C #### [facility] [address] [place] [address] Dr. Gisel Galdamez Triglyceride [Mass/Vol] 161 mg/dL Critically high <=[address] [facility] Comment on above: Performed By: #### A 1C #### [facility] [address] [place] [address] Dr. Gisel Galdamez VLDL CALC 32.2 mg/dL Normal [facility] Comment on above: Performed By: #### A 1C #### [facility] [address] [place] [address] Dr. Gisel Galdamez MICROALBUMIN, RAND URon 05-1 mALB 5.7 mg/dL Normal <=30.[address] [facility] Comment on above: Performed By: #### A 1C #### [facility] [address] [address] [address] Gisel Galdamez PROF 14(COMP METB)on 023 Albumin [Mass/Vol] 3.5 g/dL Normal 3.4-5.0 [facility] Comment on above: Performed By: #### A 1C #### [facility] [address] [place] [address] Dr. Gisel Galdamez Albumin/Globulin [Mass ratio] 1.2 {ratio} Normal [facility] Comment on above: Performed By: #### A 1C #### [facility] [address] [place] [address] Dr. Gisel Galdamez ALP [Catalytic activity/Vol] 99 U/L Normal 46-116 [facility] Comment on above: Performed By: #### A 1C #### [facility] [address] [place] [address] Dr. Gisel Galdamez ALT [Catalytic activity/Vol] 34 U/L Normal 16-63 [facility] Comment on above: Performed By: #### A 1C #### [facility] [address] [place] [address] Dr. Gisel Galdamez Anion gap [Moles/Vol] 7.8 mmol/L Normal [facility] Comment on above: Performed By: #### A 1C #### [facility] [address] [place] [address] Dr. Gisel Galdamez AST [Catalytic activity/Vol] 8 U/L Critically low 15-37 [facility] Comment on above: Performed By: #### A 1C #### [facility] [address] [place] [address] Dr. Gisel Galdamez Bilirubin [Mass/Vol] 0.6 mg/dL Normal 0.2-1.0 [facility] Comment on above: Performed By: #### A 1C #### [facility] [address] [place] [address] Dr. Gisel Galdamez Calcium [Mass/Vol] 9.1 mg/dL Normal 8.5-10.1 [facility] Comment on above: Performed By: #### A 1C #### [facility] [address] [address] [address] Gisel Galdamez Chloride [Moles/Vol] 102 mmol/L Normal 98-107 [facility] Comment on above: Performed By: #### A 1C #### [facility] [address] [place] [address] Dr. Gisel Galdamez CO2 [Moles/Vol] 38.4 mmol/L Critically high 21.0-32.0 [facility] Comment on above: Performed By: #### A 1C #### [facility] [address] [place] [address] Dr. Gisel Galdamez Creatinine [Mass/Vol] 1.08 mg/dL Normal 0.70-1.[address] [facility] Comment on above: Performed By: #### A 1C #### [facility] [address] [place] [address] Dr. Gisel Galdamez EGFR-AF DJIBOUTIAN >60 Normal >=60 [facility] Comment on above: Performed By: #### A 1C #### [facility] [address] [place] [address] Dr. Gisel Galdamez EGFR-NON AF DJIBOUTIAN >60 Normal >=60 [facility] Comment on above: Performed By: #### A 1C #### [facility] [address] [place] [address] Dr. Gisel Galdamez Globulin (S) [Mass/Vol] 3.0 g/dL Normal [facility] Comment on above: Performed By: #### A 1C #### [facility] [address] [place] [address] Dr. Gisel Galdamez Glucose [Mass/Vol] 250 mg/dL Critically high 74-106 [facility] Comment on above: Performed By: #### A 1C #### [facility] [address] [place] [address] Dr. Gisel Galdamez Potassium [Moles/Vol] 4.2 mmol/L Normal 3.5-5.1 [facility] Comment on above: Performed By: #### A 1C #### [facility] [address] [place] [address] Dr. Gisel Galdamez Protein [Mass/Vol] 6.5 g/dL Normal 6.4-8.2 [facility] Comment on above: Performed By: #### A 1C #### [facility] [address] [address] [address] Gisel Galdamez Sodium [Moles/Vol] 144 mmol/L Normal 136-145 [facility] Comment on above: Performed By: #### A 1C #### [facility] [address] [address] [address] Gisel Galdamez Urea nitrogen [Mass/Vol] 13.0 mg/dL Normal 7.0-18.0 [facility] Comment on above: Performed By: #### A 1C #### [facility] [address] [address] [address] Gisel Galdamez Urea nitrogen/Creatinine [Mass ratio] 12.0 mg/mg Normal [facility] Comment on above: Performed By: #### A 1C #### [facility] [address] [address] LUNG CANCER SCREENINGon 0 04-25-2022 CT LUNG CANCER SCREENING EXAMINATION: CT LUNG [...] by: NICOLAS NICOLE Date: 2022-04-25 09:07 Normal [facility] HEMOGLOBINon 04-25-2022 Hemoglobin (Bld) [Mass/Vol] 16.3 g/dL Normal 14.0-18.0 [facility] Comment on above: Performed By: #### P OCGLUC #### [facility] [address] [address] [address] Gisel Galdamez GLYCOHEMOGLOBIN A1Con 2022 ADA RECOMMENDATION SEE BELOW Normal [facility] Comment on above: Result Comment: ADA RECOMMENDED LIMIT 4.0 - 6.0 ADA THERAPEUTIC TARGET < 7.0 ACTION SUGGESTED > 7.0 Performed By: #### P OCGLUC #### [facility] [address] [address] [address] Gisel Galdamez Glucose [Mass/Vol] 237 mg/dL Normal [facility] Comment on above: Performed By: #### P OCGLUC #### [facility] [address] [place] [address] Dr. Gisel Galdamez HbA1c (Bld) [Mass fraction] 9.9 % Critically high 4.5-6.2 [facility] Comment on above: Performed By: #### P OCGLUC #### [facility] [address] [address] [address] Gisel Galdamez LIPID PROFILEon 04-02-2022 CHOL-HDL RATIO NORM SEE BELOW Normal [facility] Comment on above: Result Comment: 3.3 - 4.4 LOW RISK 4.4 - 7.1 AVERAGE RISK 7.1 - 11.0 MODERATE RISK >11.0 HIGH RISK Performed By: #### P OCGLUC #### [facility] [address] [address] [address] Gisel Galdamez Cholesterol [Mass/Vol] 148 mg/dL Normal <=200 [facility] Comment on above: Performed By: #### P OCGLUC #### [facility] [address] [place] [address] Dr. Gisel Galdamez Cholesterol in HDL [Mass/Vol] 32 mg/dL Critically low 40-60 [facility] Comment on above: Performed By: #### P OCGLUC #### [facility] [address] [address] [address] Gisel Galdamez Cholesterol in LDL [Mass/Vol] 72.2 mg/dL Normal [facility] Comment on above: Performed By: #### P OCGLUC #### [facility] [address] [address] [address] Gisel Galdamez Cholesterol.total/Ch olesterol in HDL [Mass ratio] 4.6 {ratio} Normal [facility] Comment on above: Performed By: #### P OCGLUC #### [facility] [address] [address] [address] Gisel Galdamez HDL NORMAL > or = 60 mg/dl - LOW CARDIOVASCULAR RISK <40 mg/dl - HIGH CARDIOVASCULAR RISK Normal [facility] Comment on above: Performed By: #### P OCGLUC #### [facility] [address] [address] [address] Gisel Galdamez LDL CALC NORMAL SEE BELOW Normal [facility] Comment on above: Result Comment: <100 mg/dl OPTIMAL 100 - 129 mg/dl NEAR OR ABOVE OPTIMAL 130 - 159 mg/dl BORDERLINE HIGH 160 - 189 mg/dl HIGH >190 mg/dl VERY HIGH Performed By: #### P OCGLUC #### [facility] [address] [address] [address] Gisel Galdamez Triglyceride [Mass/Vol] 219 mg/dL Critically high <=150 [facility] Comment on above: Performed By: #### P OCGLUC #### [facility] [address] [place] [address] Dr. Gisel Galdamez VLDL CALC 43.8 mg/dL Normal [facility] Comment on above: Performed By: #### P OCGLUC #### [facility] [address] [address] [address] Gisel Galdamez PROF 14(COMP METB)on 023 Albumin [Mass/Vol] 3.7 g/dL Normal 3.4-5.0 [facility] Comment on above: Performed By: #### P OCGLUC #### [facility] [address] [place] [address] Dr. Gisel Galdamez Albumin/Globulin [Mass ratio] 1.2 {ratio} Normal [facility] Comment on above: Performed By: #### P OCGLUC #### [facility] [address] [address] [address] Gisel Galdamez ALP [Catalytic activity/Vol] 98 U/L Normal 46-116 [facility] Comment on above: Performed By: #### P OCGLUC #### [facility] [address] [address] [address] Gisel Galdamez ALT [Catalytic activity/Vol] 37 U/L Normal 16-63 [facility] Comment on above: Performed By: #### P OCGLUC #### [facility] [address] [address] [address] iGsel Galdamez Anion gap [Moles/Vol] 9.8 mmol/L Normal [facility] Comment on above: Performed By: #### P OCGLUC #### [facility] [address] [address] [address] Gisel Galdamez AST [Catalytic activity/Vol] 15 U/L Normal 15-37 [facility] Comment on above: Performed By: #### P OCGLUC #### [facility] [address] [address] [address] Gisel Galdamez Bilirubin [Mass/Vol] 0.9 mg/dL Normal 0.2-1.0 [facility] Comment on above: Performed By: #### P OCGLUC #### [facility] [address] [address] [address] Gisel Galdamez Calcium [Mass/Vol] 8.7 mg/dL Normal 8.5-10.1 [facility] Comment on above: Performed By: #### P OCGLUC #### [facility] [address] [address] [address] Gisel Galdamez Chloride [Moles/Vol] 99 mmol/L Normal 98-107 [facility] Comment on above: Performed By: #### P OCGLUC #### [facility] [address] [address] [address] Gisel Galdamez CO2 [Moles/Vol] 34.9 mmol/L Critically high 21.0-32.0 [facility] Comment on above: Performed By: #### P OCGLUC #### [facility] [address] [address] [address] Gisel Galdamez Creatinine [Mass/Vol] 1.02 mg/dL Normal 0.70-1.30 [facility] Comment on above: Performed By: #### P OCGLUC #### [facility] [address] [address] [address] Gisel Galdamez EGFR-AF DJIBOUTIAN >60 Normal >=60 [facility] Comment on above: Performed By: #### P OCGLUC #### [facility] [address] [address] [address] Gisel Galdamez EGFR-NON AF DJIBOUTIAN >60 Normal >=60 [facility] Comment on above: Performed By: #### P OCGLUC #### [facility] [address] [address] [address] Gisel Galdamez Globulin (S) [Mass/Vol] 3.0 g/dL Normal [facility] Comment on above: Performed By: #### P OCGLUC #### [facility] [address] [address] [address] Gisel Galdamez Glucose [Mass/Vol] 265 mg/dL Critically high 74-106 [facility] Comment on above: Performed By: #### P OCGLUC #### [facility] [address] [address] [address] Gisel Galdamez Potassium [Moles/Vol] 4.7 mmol/L Normal 3.5-5.1 [facility] Comment on above: Performed By: #### P OCGLUC #### [facility] [address] [address] [address] Gisel Galdamez Protein [Mass/Vol] 6.7 g/dL Normal 6.4-8.2 [facility] Comment on above: Performed By: #### P OCGLUC #### [facility] [address] [address] [address] Gisel Galdamez Sodium [Moles/Vol] 139 mmol/L Normal 136-145 [facility] Comment on above: Performed By: #### P OCGLUC #### [facility] [address] [address] [address] Gisel Galdamez Urea nitrogen [Mass/Vol] 19.0 mg/dL Critically high 7.0-18.0 [facility] Comment on above: Performed By: #### P OCGLUC #### [facility] [address] [address] [address] Gisel Galdamez Urea nitrogen/Creatinine [Mass ratio] 18.6 mg/mg Normal [facility] Comment on above: Performed By: #### P OCGLUC #### [facility] [address] [address] [address] Gisel Galdamez VITAMIN D 25 OHon 04-02-2022 VIT D 25-OH 17.8 ng/mL Normal [facility] Comment on above: Performed By: #### P OCGLUC #### [facility] [address] [place] [address] Dr. Gisel Galdamez VIT D RANGES SEE BELOW Normal [facility] Comment on above: Result Comment: <20 ng/mL Vit D deficient 20 - <30 ng/mL Vit D insufficient 30 - 100 ng/mL Vit D sufficient >100 ng/mL Potential Toxicity Performed By: #### P OCGLUC #### [facility] [address] [place] [address] Dr. Gisel Galdamez General Surgery Office/Clini c [...] PVD - peripheral vascular disease: Father. Normal [facility] Comment on above: Result Comment: Elec tronically Signed By: TIERA STONER, Mili Contreras\.br\Date and Time Signed: 01/19/22 19:23 EST Ambulatory Visit Summaryon 1 03-17-2021 Ambulatory Visit Summary MIRACLE GAMBOA :1970 Visit Date:01/15/2022 Ambulatory Visit Instructions Your Care Team Attending Physician - Mili CHACON MD Primary Care Physician - NIRAJ, OVI SUTHERLAND This Is Your Medications List [...] (peripheral vascular disease) Vitamin D deficiency Normal [facility] BNPon 01-10-2022 Natriuretic peptide B (Bld) [Mass/Vol] 264.0 pg/mL Normal <=900.0 [facility] Comment on above: Performed By: #### C MP, BNP #### [facility] [address] [address] [address] Gisel Galdamez CBC AUTO DIFFon 01-10-2022 BASO # 0.0 103/ul Normal 0.0-0.1 [facility] Comment on above: Performed By: #### P OCGLUC #### [facility] [address] [place] [address] Dr. Gisel Galdamez Basophils/100 WBC (Bld) 0.4 % Normal 0.2-2.0 [facility] Comment on above: Performed By: #### P OCGLUC #### [facility] [address] [place] [address] Dr. Gisel Galdamez EO # 0.0 103/ul Normal 0.0-0.7 [facility] Comment on above: Performed By: #### P OCGLUC #### [facility] [address] [place] [address] Dr. Gisel Galdamez Eosinophils/100 WBC (Bld) 0.0 % Critically low 0.9-7.0 [facility] Comment on above: Performed By: #### P OCGLUC #### [facility] [address] [place] [address] Dr. Gisel Galdamez Erythrocyte distribution width (RBC) [Ratio] 13.5 % Normal 11.0-15.0 [facility] Comment on above: Performed By: #### P OCGLUC #### [facility] [address] [place] [address] Dr. Gisel Galdamez Hematocrit (Bld) [Volume fraction] 57.3 % Critically high 42.0-54.0 [facility] Comment on above: Performed By: #### P OCGLUC #### [facility] [address] [address] [address] Gisel Galdamez Hemoglobin (Bld) [Mass/Vol] 17.5 g/dL Normal 14.0-18.0 [facility] Comment on above: Performed By: #### P OCGLUC #### [facility] [address] [address] [address] Gisel Galdamez IG # 0.10 10e3/ul Critically high 0.00-0.[address] [facility] Comment on above: Performed By: #### P OCGLUC #### [facility] [address] [address] [address] Gisel Galdamez IG % 1.5 % Critically high 0.0-0.5 [facility] Comment on above: Performed By: #### P OCGLUC #### [facility] [address] [address] [address] Gisel Galdamez LYMPH # 0.4 103/ul Critically low 1.2-3.8 [facility] Comment on above: Performed By: #### P OCGLUC #### [facility] [address] [address] [address] Gisel Galdamez Lymphocytes/100 WBC (Bld) 6.0 % Critically low 20.5-60.0 [facility] Comment on above: Performed By: #### P OCGLUC #### [facility] [address] [address] [address] Gisel Galdamez MANUAL DIFF REQ NO Normal [facility] Comment on above: Performed By: #### P OCGLUC #### [facility] [address] [address] [address] Gisel Galdamez MCH (RBC) [Entitic mass] 29.2 pg Normal 25.9-34.0 [facility] Comment on above: Performed By: #### P OCGLUC #### [facility] [address] [address] [address] Gisel Galdamez MCHC (RBC) [Mass/Vol] 30.5 g/dL Normal 29.9-35.2 [facility] Comment on above: Performed By: #### P OCGLUC #### [facility] [address] [address] [address] Gisel Galdamez MCV (RBC) [Entitic vol] 95.5 fL Critically high 80.0-94.0 [facility] Comment on above: Performed By: #### P OCGLUC #### [facility] [address] [address] [address] Gisel Galdamez MONO # 0.1 103/ul Critically low 0.3-0.8 [facility] Comment on above: Performed By: #### P OCGLUC #### [facility] [address] [place] [address] Dr. Gisel Galdamez Monocytes/100 WBC (Bld) 1.9 % Normal 1.7-12.0 [facility] Comment on above: Performed By: #### P OCGLUC #### [facility] [address] [place] [address] Dr. Gisel Galdamez NEUT # 6.2 103/ul Normal 1.4-6.5 [facility] Comment on above: Performed By: #### P OCGLUC #### [facility] [address] [place] [address] Dr. Gisel Galdamez Neutrophils/100 WBC (Bld) 90.2 % Critically high 43.0-75.0 [facility] Comment on above: Performed By: #### P OCGLUC #### [facility] [address] [place] [address] Dr. Gisel Galdamez Platelet mean volume (Bld) [Entitic vol] 12.0 fL Normal 9.5-13.[address] [facility] Comment on above: Performed By: #### P OCGLUC #### [facility] [address] [place] [address] Dr. Gisel Galdamez PLT 134 103/ul Critically low 150-450 [facility] Comment on above: Performed By: #### P OCGLUC #### [facility] [address] [place] [address] Dr. Gisel Galdamez RBC 6.00 106/ul Normal 4.70-6.[address] [facility] Comment on above: Performed By: #### P OCGLUC #### [facility] [address] [address] [address] Gisel Galdamez WBC 6.9 103/ul Normal 4.0-11.0 [facility] Comment on above: Performed By: #### P OCGLUC #### [facility] [address] [address] [address] Gisel Galdamez POINT OF CARE GLUCOSEon 12-31 Glucose [Mass/Vol] 414 mg/dL Critically high 74-106 [facility] Comment on above: Performed By: #### P OCGLUC #### [facility] [address] [address] [address] Gisel Galdamez Glucose [Mass/Vol] 353 mg/dL Critically high [facility]106 [facility] Comment on above: Performed By: #### P OCGLUC #### [facility] [address] [address] [address] Gisel Galdamez Glucose [Mass/Vol] 415 mg/dL Critically high [facility]106 [facility] Comment on above: Performed By: #### P OCGLUC #### [facility] [address] [address] [address] Gisel Galdamez PROF 14(COMP METB)on 022 Albumin [Mass/Vol] 3.3 g/dL Critically low 3.4-5.0 [facility] Comment on above: Performed By: #### C MP, BNP #### [facility] [address] [place] [address] Dr. Gisel Galdamez Albumin/Globulin [Mass ratio] 0.8 {ratio} Normal [facility] Comment on above: Performed By: #### C MP, BNP #### [facility] [address] [place] [address] Dr. Gisel Galdamez ALP [Catalytic activity/Vol] 115 U/L Normal 46-116 [facility] Comment on above: Performed By: #### C MP, BNP #### [facility] [address] [place] [address] Dr. Gisel Galdamez ALT [Catalytic activity/Vol] 31 U/L Normal 16-63 [facility] Comment on above: Performed By: #### C MP, BNP #### [facility] [address] [place] [address] Dr. Gisel Galdamez Anion gap [Moles/Vol] 9.0 mmol/L Normal [facility] Comment on above: Performed By: #### C MP, BNP #### [facility] [address] [place] [address] Dr. Gisel Galdamez AST [Catalytic activity/Vol] 9 U/L Critically low 15-37 [facility] Comment on above: Performed By: #### C MP, BNP #### [facility] [address] [place] [address] Dr. Gisel Galdamez Bilirubin [Mass/Vol] 0.7 mg/dL Normal 0.2-1.0 [facility] Comment on above: Performed By: #### C MP, BNP #### [facility] [address] [place] [address] Dr. Gisel Galdamez Calcium [Mass/Vol] 8.5 mg/dL Normal 8.5-10.1 [facility] Comment on above: Performed By: #### C MP, BNP #### [facility] [address] [place] [address] Dr. Gisel Galdamez Chloride [Moles/Vol] 96 mmol/L Critically low 98-107 [facility] Comment on above: Performed By: #### C MP, BNP #### [facility] [address] [place] [address] Dr. Gisel Galdamez CO2 [Moles/Vol] 31.5 mmol/L Normal 21.0-32.0 [facility] Comment on above: Performed By: #### C MP, BNP #### [facility] [address] [place] [address] Dr. Gisel Galdamez Creatinine [Mass/Vol] 1.39 mg/dL Critically high 0.70-1.30 [facility] Comment on above: Performed By: #### C MP, BNP #### [facility] [address] [place] [address] Dr. Gisel Galdamez EGFR-AF DJIBOUTIAN >60 Normal >=60 [facility] Comment on above: Performed By: #### C MP, BNP #### [facility] [address] [place] [address] Dr. Gisel Galdamez EGFR-NON AF DJIBOUTIAN 53 mL/min/1.73m2 Critically low >=60 [facility] Comment on above: Performed By: #### C MP, BNP #### [facility] [address] [place] [address] Dr. Gisel Galdamez Globulin (S) [Mass/Vol] 3.9 g/dL Normal [facility] Comment on above: Performed By: #### C MP, BNP #### [facility] [address] [place] [address] Dr. Gisel Galdamez Glucose [Mass/Vol] 409 mg/dL Critically high 74-106 [facility] Comment on above: Performed By: #### C MP, BNP #### [facility] [address] [place] [address] Dr. Gisel Galdamez Potassium [Moles/Vol] 4.5 mmol/L Normal 3.5-5.1 [facility] Comment on above: Performed By: #### C MP, BNP #### [facility] [address] [place] [address] Dr. Gisel Galdamez Protein [Mass/Vol] 7.2 g/dL Normal 6.4-8.2 [facility] Comment on above: Performed By: #### C MP, BNP #### [facility] [address] [place] [address] Dr. Gisel Galdamez Sodium [Moles/Vol] 132 mmol/L Critically low 136-145 [facility] Comment on above: Performed By: #### C MP, BNP #### [facility] [address] [place] [address] Dr. Gisel Galdamez Urea nitrogen [Mass/Vol] 27.0 mg/dL Critically high 7.0-18.0 [facility] Comment on above: Performed By: #### C MP, BNP #### [facility] [address] [place] [address] Dr. Gisel Galdamez Urea nitrogen/Creatinine [Mass ratio] 19.4 mg/mg Normal [facility] Comment on above: Performed By: #### C MP, BNP #### [facility] [address] [place] [address] Dr. Gisel Galdamez BNPon 01-09-2022 Natriuretic peptide B (Bld) [Mass/Vol] 236.0 pg/mL Normal <=900.[address] [facility] Comment on above: Performed By: #### P OCGLUC #### [facility] [address] [place] [address] Dr. Gisel Galdamez CBC AUTO DIFFon 01-09-2022 BASO # 0.1 103/ul Normal 0.0-0.1 [facility] Comment on above: Performed By: #### C BC #### [facility] [address] [place] [address] Dr. Gisel Galdamez Basophils/100 WBC (Bld) 0.6 % Normal 0.2-2.0 [facility] Comment on above: Performed By: #### C BC #### [facility] [address] [place] [address] Dr. Gisel Galdamez EO # 0.0 103/ul Normal 0.0-0.[address] [facility] Comment on above: Performed By: #### C BC #### [facility] [address] [place] [address] Dr. Gisel Galdamez Eosinophils/100 WBC (Bld) 0.2 % Critically low 0.9-7.[address] [facility] Comment on above: Performed By: #### C BC #### [facility] [address] [place] [address] Dr. Gisel Galdamez Erythrocyte distribution width (RBC) [Ratio] 13.4 % Normal 11.0-15.[address] [facility] Comment on above: Performed By: #### C BC #### [facility] [address] [place] [address] Dr. Gisel Galdamez Hematocrit (Bld) [Volume fraction] 57.4 % Critically high 42.0-54.0 [facility] Comment on above: Performed By: #### C BC #### [facility] [address] [address] [address] Gisel Galdamez Hemoglobin (Bld) [Mass/Vol] 18.2 g/dL Critically high 14.0-18.0 [facility] Comment on above: Performed By: #### C BC #### [facility] [address] [address] [address] Gisel Galdamez IG # 0.16 10e3/ul Critically high 0.00-0.[address] [facility] Comment on above: Performed By: #### C BC #### [facility] [address] [address] [address] Gisel Galdamez IG % 1.5 % Critically high 0.0-0.5 [facility] Comment on above: Performed By: #### C BC #### [facility] [address] [address] [address] Gisel Galdamez LYMPH # 0.9 103/ul Critically low 1.2-3.8 [facility] Comment on above: Performed By: #### C BC #### [facility] [address] [address] [address] Gisel Galdamez Lymphocytes/100 WBC (Bld) 9.1 % Critically low 20.5-60.0 [facility] Comment on above: Performed By: #### C BC #### [facility] [address] [address] [address] Gisel Galdamez MANUAL DIFF REQ NO Normal [facility] Comment on above: Performed By: #### C BC #### [facility] [address] [address] [address] Gisel Galdamez MCH (RBC) [Entitic mass] 30.2 pg Normal 25.9-34.[address] [facility] Comment on above: Performed By: #### C BC #### [facility] [address] [address] [address] Gisel Galdamez MCHC (RBC) [Mass/Vol] 31.7 g/dL Normal 29.9-35.[address] [facility] Comment on above: Performed By: #### C BC #### [facility] [address] [address] [address] Gisel Galdamez MCV (RBC) [Entitic vol] 95.2 fL Critically high 80.0-94.0 [facility] Comment on above: Performed By: #### C BC #### [facility] [address] [address] [address] Gisel Galdamez MONO # 0.9 103/ul Critically high 0.3-0.[address] [facility] Comment on above: Performed By: #### C BC #### [facility] [address] [address] [address] Gisel Galdamez Monocytes/100 WBC (Bld) 9.1 % Normal 1.7-12.0 [facility] Comment on above: Performed By: #### C BC #### [facility] [address] [place] [address] Dr. Gisel Galdamez NEUT # 8.2 103/ul Critically high 1.4-6.[address] [facility] Comment on above: Performed By: #### C BC #### [facility] [address] [address] [address] Gisel Galdamez Neutrophils/100 WBC (Bld) 79.5 % Critically high 43.0-75.0 [facility] Comment on above: Performed By: #### C BC #### [facility] [address] [place] [address] Dr. Gisel Galdamez Platelet mean volume (Bld) [Entitic vol] 11.9 fL Normal 9.5-13.[address] [facility] Comment on above: Performed By: #### C BC #### [facility] [address] [address] [address] Gisel Galdamez PLT 146 103/ul Critically low 150-450 [facility] Comment on above: Performed By: #### C BC #### [facility] [id number] Gisel Galdamez RBC 6.03 106/ul Normal 4.70-6.[address] [facility] Comment on above: Performed By: #### C BC #### [facility] [address] [address] [address] Gisel Galdamez WBC 10.4 103/ul Normal 4.0-11.0 [facility] Comment on above: Performed By: #### C BC #### [facility] [address] [address] [address] Gisel Galdamez CULTURE SPUTUMon 01-09-2022 CULTURE SPUTUM Culture Observations: NORMAL RESPIRATORY PB. Normal [facility] Comment on above: Performed By: #### P OCGLUC #### [facility] [address] [address] [address] Gisel Galdamez LACTATE/LACTIC ACIDon 2021 Lactate [Moles/Vol] 1.3 mmol/L Normal 0.4-1.9 [facility] Comment on above: Performed By: #### P OCGLUC #### [facility] [address] [place] [address] Dr. Gisel Galdamez POINT OF CARE GLUCOSEon 12-31 Glucose [Mass/Vol] 404 mg/dL Critically high 74-106 [facility] Comment on above: Performed By: #### P OCGLUC #### [facility] [address] [place] [address] Dr. Gisel Galdamez Glucose [Mass/Vol] 241 mg/dL Critically high 74-106 [facility] Comment on above: Performed By: #### P OCGLUC #### [facility] [address] [place] [address] Dr. Gisel Galdamez PROF 14(COMP METB)on 022 Albumin [Mass/Vol] 3.3 g/dL Critically low 3.4-5.0 [facility] Comment on above: Performed By: #### P OCGLUC #### [facility] [address] [place] [address] Dr. Gisel Galdamez Albumin/Globulin [Mass ratio] 0.9 {ratio} Normal [facility] Comment on above: Performed By: #### P OCGLUC #### [facility] [address] [place] [address] Dr. Gisel Galdamez ALP [Catalytic activity/Vol] 111 U/L Normal 46-116 [facility] Comment on above: Performed By: #### P OCGLUC #### [facility] [address] [address] [address] Gisel Galdamez ALT [Catalytic activity/Vol] 36 U/L Normal 16-63 [facility] Comment on above: Performed By: #### P OCGLUC #### [facility] [address] [address] [address] Gisel Galdamez Anion gap [Moles/Vol] 7.6 mmol/L Normal [facility] Comment on above: Performed By: #### P OCGLUC #### [facility] [address] [address] [address] Gisel Galdamez AST [Catalytic activity/Vol] 15 U/L Normal 15-37 [facility] Comment on above: Performed By: #### P OCGLUC #### [facility] [address] [address] [address] Gisel Galdamez Bilirubin [Mass/Vol] 1.3 mg/dL Critically high 0.2-1.0 [facility] Comment on above: Performed By: #### P OCGLUC #### [facility] [address] [address] [address] Gisel Gladamez Calcium [Mass/Vol] 8.7 mg/dL Normal 8.5-10.1 [facility] Comment on above: Performed By: #### P OCGLUC #### [facility] [address] [address] [address] Gisel Galdamez Chloride [Moles/Vol] 97 mmol/L Critically low 98-107 [facility] Comment on above: Performed By: #### P OCGLUC #### [facility] [address] [address] [address] Gisel Galdamez CO2 [Moles/Vol] 32.8 mmol/L Critically high 21.0-32.0 [facility] Comment on above: Performed By: #### P OCGLUC #### [facility] [address] [address] [address] Gisel Galdamez Creatinine [Mass/Vol] 0.99 mg/dL Normal 0.70-1.30 [facility] Comment on above: Performed By: #### P OCGLUC #### [facility] [address] [address] [address] Gisel Galdamez EGFR-AF DJIBOUTIAN >60 Normal >=60 [facility] Comment on above: Performed By: #### P OCGLUC #### [facility] [address] [address] [address] Gisel Galdamez EGFR-NON AF DJIBOUTIAN >60 Normal >=60 [facility] Comment on above: Performed By: #### P OCGLUC #### [facility] [address] [address] [address] Gisel Galdamez Globulin (S) [Mass/Vol] 3.8 g/dL Normal [facility] Comment on above: Performed By: #### P OCGLUC #### [facility] [address] [address] [address] Gisel Galdamez Glucose [Mass/Vol] 272 mg/dL Critically high 74-106 [facility] Comment on above: Performed By: #### P OCGLUC #### [facility] [address] [address] [address] Gisel Galdamez Potassium [Moles/Vol] 4.4 mmol/L Normal 3.5-5.1 [facility] Comment on above: Performed By: #### P OCGLUC #### [facility] [address] [address] [address] Gisel Galdamez Protein [Mass/Vol] 7.1 g/dL Normal 6.4-8.2 [facility] Comment on above: Performed By: #### P OCGLUC #### [facility] [address] [address] [address] Gisel Galdamez Sodium [Moles/Vol] 133 mmol/L Critically low 136-145 [facility] Comment on above: Performed By: #### P OCGLUC #### [facility] [address] [address] [address] Gsiel Galdamez Urea nitrogen [Mass/Vol] 13.0 mg/dL Normal 7.0-18.0 [facility] Comment on above: Performed By: #### P OCGLUC #### [facility] [address] [place] [address] Dr. Gisel Galdamez Urea nitrogen/Creatinine [Mass ratio] 13.1 mg/mg Normal [facility] Comment on above: Performed By: #### P OCGLUC #### [facility] [address] [place] [address] Dr. Gisel Galdamez RESPIRATORY PANEL PLUSon Adenovirus Not detected Normal NOT DETECTED [facility] Comment on above: Performed By: #### P OCGLUC #### [facility] [address] [place] [address] Dr. Gisel Galdamez B. Parapertusis Not detected Normal NOT DETECTED [facility] Comment on above: Performed By: #### P OCGLUC #### [facility] [address] [place] [address] Dr. Gisel Cruz. Pertussis Not detected Normal NOT DETECTED [facility] Comment on above: Performed By: #### P OCGLUC #### [facility] [address] [place] [address] Dr. Gisel Galdamez Chlamydia Pneumoniae Not detected Normal NOT DETECTED [facility] Comment on above: Performed By: #### P OCGLUC #### [facility] [address] [place] [address] Dr. Gisel Galdamez Coronavirus 229E Not detected Normal NOT DETECTED [facility] Comment on above: Performed By: #### P OCGLUC #### [facility] [address] [place] [address] Dr. Gisel Galdamez Coronavirus HKU1 Not detected Normal NOT DETECTED [facility] Comment on above: Performed By: #### P OCGLUC #### [facility] [address] [place] [address] Dr. Gisel Galdamez Coronavirus NL63 Not detected Normal NOT DETECTED [facility] Comment on above: Performed By: #### P OCGLUC #### [facility] [address] [place] [address] Dr. Gisel Galdamez Coronavirus OC43 Not detected Normal NOT DETECTED [facility] Comment on above: Performed By: #### P OCGLUC #### [facility] [address] [place] [address] Dr. Gisel Galdamez Influenza A H1 2009 Not detected Normal NOT DETECTED [facility] Comment on above: Performed By: #### P OCGLUC #### [facility] [address] [place] [address] Dr. Gisel Galdamez Influenza A H3 Not detected Normal NOT DETECTED [facility] Comment on above: Performed By: #### P OCGLUC #### [facility] [address] [place] [address] Dr. Gisel Galdamez Influenza B Not detected Normal NOT DETECTED [facility] Comment on above: Performed By: #### P OCGLUC #### [facility] [address] [place] [address] Dr. Gisel Galdamez Metapneumovirus Not detected Normal NOT DETECTED [facility] Comment on above: Performed By: #### P OCGLUC #### [facility] [address] [place] [address] Dr. Gisel Galdamez Mycoplas. Pneumoniae Not detected Normal NOT DETECTED [facility] Comment on above: Performed By: #### P OCGLUC #### [facility] [address] [place] [address] Dr. Gisel Galdamez Parainfluenza 1 Not detected Normal NOT DETECTED [facility] Comment on above: Performed By: #### P OCGLUC #### [facility] [address] [place] [address] Dr. Gisel Galdamez Parainfluenza 2 Not detected Normal NOT DETECTED [facility] Comment on above: Performed By: #### P OCGLUC #### [facility] [address] [place] [address] Dr. Gisel Galdamez Parainfluenza 3 Not detected Normal NOT DETECTED [facility] Comment on above: Performed By: #### P OCGLUC #### [facility] [address] [place] [address] Dr. Gisel Galdamez Parainfluenza 4 Not detected Normal NOT DETECTED [facility] Comment on above: Performed By: #### P OCGLUC #### [facility] [address] [place] [address] Dr. Gisel Galdamez Rhino/Enterovirus Not detected Normal NOT DETECTED The [facility] Comment on above: Performed By: #### P OCGLUC #### [facility] [address] [place] [address] Dr. Gisel Galdamez RP2 Header 1 RESPIRATORY PANEL: VIRUSES Normal [facility] Comment on above: Performed By: #### P OCGLUC #### [facility] [address] [place] [address] Dr. Gisel Galdamez RP2 Header 2 RESPIRATORY PANEL: BACTERIA Normal [facility] Comment on above: Performed By: #### P OCGLUC #### [facility] [address] [place] [address] Dr. Gisel Galdamez RSV Not detected Normal NOT DETECTED The [facility] Comment on above: Performed By: #### P OCGLUC #### [facility] [address] [place] [address] Dr. Gisel Galdamez SARS-CoV-2 (COVID-19) RNA MUKESH+probe Ql (Unsp spec) Not detected Normal NOT DETECTED [facility] Comment on above: Performed By: #### P OCGLUC #### [facility] [address] [place] [address] Dr. Gisel Galdamez SPUTUM GRAM STAINon 01-10-20 COMMENTS Normal [facility] Comment on above: Performed By: #### A 1C #### [facility] [address] [place] [address] Dr. Gisel Galdamez DIPHTHEROIDS Normal [facility] Comment on above: Performed By: #### A 1C #### [facility] [address] [place] [address] Dr. Gisel Galdamez EPITHELIALS <25 Normal [facility] Comment on above: Performed By: #### A 1C #### [facility] [address] [place] [address] Dr. Gisel Galdamez FUNGAL ELEMENTS Normal [facility] Comment on above: Performed By: #### A 1C #### [facility] [address] [place] [address] Dr. Gisel Galdamez GRAM NEG BACILLI Normal [facility] Comment on above: Performed By: #### A 1C #### [facility] [address] [address] [address] Gisel Galdamez GRAM NEG DIPPLOCOCCI Normal [facility] Comment on above: Performed By: #### A 1C #### [facility] [address] [address] [address] Gisel Galdamez GRAM POS BACILLI Normal [facility] Comment on above: Performed By: #### A 1C #### [facility] [address] [address] [address] Gisel Galdamez GRAM POSITIVE COCCI RARE Normal [facility] Comment on above: Performed By: #### A 1C #### [facility] [address] [address] [address] Gisel Galdamez WBC (Bld) [#/Vol] 10*3/uL Normal [facility] Comment on above: Performed By: #### A 1C #### [facility] [address] [place] [address] Dr. Gisel Galdamez TROPONIN, HIGH SENSITIVITYon 01-09-2022 HSTROP 10.3 pg/mL Normal 4.0-76.1 [facility] Comment on above: Result Comment: CUT- OFF POINTS HAVE BEEN ESTABLISHED BASED ON THE FOURTH UNIVERSAL DEFINITIONS OF MYOCARDIAL INFARCTION. THE UPPER REFERENCE LIMIT (URL) OF TROPONIN, DEFINED THE 99TH PERCENTILE OF cTnI DISTRIBUTION IN A REFERENCE POPULATION, HAS BEEN CONFIRMED THE DECISION THRESHOLD FOR IA DIAGNOSIS. Performed By: #### P OCGLUC #### [facility] [address] [place] [address] Dr. Gisel Galdamez XR CHEST 1 Von [...] atelectasis versus infiltrates. Electronically authenticated by: NICOLAS NICOLE Date: 2022-01-09 12:49 Normal [facility] Lab Reportson 01-06-2022 Lab Reports [id number] #1.00CD:127 Normal [facility] Ambulatory Visit Summaryon 1 03-02-2021 Ambulatory Visit Summary MIRACLE GAMBOA :1970 Visit Date:12/31/2021 Ambulatory Visit Instructions Your Care Team Attending Physician - Mili CHACON MD Primary Care Physician - NIRAJ, MR. OVI SUTHERLAND This Is Your Medications List Contact [...] Mili CHACON MD Where: General Surgery [facility] [place] Normal [facility] CULTURE WOUNDon 12-31-2021 CULTURE WOUND Culture Observations: Moderate growth of normal skin pb. Culture Observations: No growth of anaerobes at 72 hours. Normal [facility] Comment on above: Performed By: #### P OCGLUC #### [facility] [address] [place] [address] Dr. Gisel Galdamez Patient Educationon 01-01-20 22 [...] these instructions at home: Medicines ? Take jfrq-dij-pgnbicw and prescription medicines only as told by [...] and water are not available, use hand medtronics technician. ? Change your dressing and packing as [...] Document Reviewed: 01/17/2019 Elsevier Patient Education ? 2019 E (more content not included)... Normal [facility] Physician Referralon 022 Physician Referral [id number] #[id number]:127 Normal [facility] CBC AUTO DIFFon 12-28-2021 BASO # 0.1 103/ul Normal 0.0-0.1 [facility] Comment on above: Performed By: #### P OCGLUC #### [facility] [address] [address] [address] Gisel Galdamez Basophils/100 WBC (Bld) 0.9 % Normal 0.2-2.0 [facility] Comment on above: Performed By: #### P OCGLUC #### [facility] [address] [address] [address] Gisel Galdamez EO # 0.2 103/ul Normal 0.0-0.7 [facility] Comment on above: Performed By: #### P OCGLUC #### [facility] [address] [address] [address] Gisel Galdamez Eosinophils/100 WBC (Bld) 2.3 % Normal 0.9-7.[address] [facility] Comment on above: Performed By: #### P OCGLUC #### [facility] [address] [address] [address] Gisel Galdamez Erythrocyte distribution width (RBC) [Ratio] 14.0 % Normal 11.0-15.0 [facility] Comment on above: Performed By: #### P OCGLUC #### [facility] [address] [address] [address] Gisel Galdamez Hematocrit (Bld) [Volume fraction] 61.7 % Critically high 42.0-54.[address] [facility] Comment on above: Performed By: #### P OCGLUC #### [facility] [address] [address] [address] Gisel Galdamez Hemoglobin (Bld) [Mass/Vol] 19.8 g/dL Critically high 14.0-18.0 [facility] Comment on above: Performed By: #### P OCGLUC #### [facility] [address] [address] [address] Gisel Galdamez IG # 0.03 10e3/ul Normal 0.00-0.03 [facility] Comment on above: Performed By: #### P OCGLUC #### [facility] [address] [address] [address] Gisel Galdamez IG % 0.5 % Normal 0.0-0.5 [facility] Comment on above: Performed By: #### P OCGLUC #### [facility] [address] [address] [address] Gisel Galdamez LYMPH # 1.2 103/ul Normal 1.2-3.[address] [facility] Comment on above: Performed By: #### P OCGLUC #### [facility] [address] [place] [address] Dr. Gisel Galdamez Lymphocytes/100 WBC (Bld) 18.0 % Critically low 20.5-60.0 [facility] Comment on above: Performed By: #### P OCGLUC #### [facility] [address] [place] [address] Dr. Gisel Galdamez MANUAL DIFF REQ NO Normal [facility] Comment on above: Performed By: #### P OCGLUC #### [facility] [address] [place] [address] Dr. Gisel Galdamez MCH (RBC) [Entitic mass] 29.8 pg Normal 25.9-34.0 [facility] Comment on above: Performed By: #### P OCGLUC #### [facility] [address] [address] [address] Gisel Galdamez MCHC (RBC) [Mass/Vol] 32.1 g/dL Normal 29.9-35.[address] [facility] Comment on above: Performed By: #### P OCGLUC #### [facility] [address] [place] [address] Dr. Gisel Galdamez MCV (RBC) [Entitic vol] 92.8 fL Normal 80.0-94.0 [facility] Comment on above: Performed By: #### P OCGLUC #### [facility] [address] [address] [address] Gisel Galdamez MONO # 0.5 103/ul Normal 0.3-0.[address] [facility] Comment on above: Performed By: #### P OCGLUC #### [facility] [address] [address] [address] Gisel Galdamez Monocytes/100 WBC (Bld) 7.9 % Normal 1.7-12.[address] [facility] Comment on above: Performed By: #### P OCGLUC #### [facility] [address] [address] [address] Gisel Galdamez NEUT # 4.5 103/ul Normal 1.4-6.[address] [facility] Comment on above: Performed By: #### P OCGLUC #### [facility] [address] [place] [address] Dr. Gisel Galdamez Neutrophils/100 WBC (Bld) 70.4 % Normal 43.0-75.[address] [facility] Comment on above: Performed By: #### P OCGLUC #### [facility] [address] [place] [address] Dr. Gisel Galdamez Platelet mean volume (Bld) [Entitic vol] 11.2 fL Normal 9.5-13.[address] [facility] Comment on above: Performed By: #### P OCGLUC #### [facility] [address] [address] [address] Gisel Galdamez PLT 149 103/ul Critically low 150-450 [facility] Comment on above: Performed By: #### P OCGLUC #### [facility] [address] [address] [address] Gisel Galdamez RBC 6.65 106/ul Critically high 4.70-6.10 [facility] Comment on above: Performed By: #### P OCGLUC #### [facility] [address] [address] [address] Gisel Galdamez WBC 6.5 103/ul Normal 4.0-11.[address] [facility] Comment on above: Performed By: #### P OCGLUC #### [facility] [address] [address] [address] Gisel Galdamez GLYCOHEMOGLOBIN A1Con 2021 ADA RECOMMENDATION SEE BELOW Normal [facility] Comment on above: Result Comment: ADA RECOMMENDED LIMIT 4.0 - 6.0 ADA THERAPEUTIC TARGET < 7.0 ACTION SUGGESTED > 7.0 Performed By: #### A 1C #### [facility] [address] [place] [address] Dr. Gisel Galdamez Glucose [Mass/Vol] 243 mg/dL Normal [facility] Comment on above: Performed By: #### A 1C #### [facility] [address] [address] [address] Gisel Galdamez HbA1c (Bld) [Mass fraction] 10.1 % Critically high 4.5-6.2 [facility] Comment on above: Performed By: #### A 1C #### [facility] [address] [place] [address] Dr. Gisel Galdamez PROF 14(COMP METB)on 022 Albumin [Mass/Vol] 3.9 g/dL Normal 3.4-5.0 [facility] Comment on above: Performed By: #### C MP #### [facility] [address] [place] [address] Dr. Gisel Galdamez Albumin/Globulin [Mass ratio] 1.2 {ratio} Normal [facility] Comment on above: Performed By: #### C MP #### [facility] [address] [place] [address] Dr. Gisel Galdamez ALP [Catalytic activity/Vol] 115 U/L Normal 46-[address] [facility] Comment on above: Performed By: #### C MP #### [facility] [address] [place] [address] Dr. Gisel Galdamez ALT [Catalytic activity/Vol] 30 U/L Normal 16-63 [facility] Comment on above: Performed By: #### C MP #### [facility] [address] [place] [address] Dr. Gisel Galdamez Anion gap [Moles/Vol] 8.1 mmol/L Normal [facility] Comment on above: Performed By: #### C MP #### [facility] [address] [address] [address] Gisel Galdamez AST [Catalytic activity/Vol] 9 U/L Critically low 15-37 [facility] Comment on above: Performed By: #### C MP #### [facility] [address] [address] [address] Gisel Galdamez Bilirubin [Mass/Vol] 0.7 mg/dL Normal 0.2-1.0 [facility] Comment on above: Performed By: #### C MP #### [facility] [address] [address] [address] Gisel Galdamez Calcium [Mass/Vol] 9.7 mg/dL Normal 8.5-10.1 [facility] Comment on above: Performed By: #### C MP #### [facility] [address] [address] [address] Gisel Galdamez Chloride [Moles/Vol] 95 mmol/L Critically low 98-107 [facility] Comment on above: Performed By: #### C MP #### [facility] [address] [address] [address] Gisel Galdamez CO2 [Moles/Vol] 36.5 mmol/L Critically high 21.0-32.0 [facility] Comment on above: Performed By: #### C MP #### [facility] [address] [address] [address] Gisel Galdamez Creatinine [Mass/Vol] 1.18 mg/dL Normal 0.70-1.30 [facility] Comment on above: Performed By: #### C MP #### [facility] [address] [address] [address] Gisel Galdamez EGFR-AF DJIBOUTIAN >60 Normal >=60 [facility] Comment on above: Performed By: #### C MP #### [facility] [address] [address] [address] Gisel Galdamez EGFR-NON AF DJIBOUTIAN >60 Normal >=60 [facility] Comment on above: Performed By: #### C MP #### [facility] [address] [address] [address] Gisel Galdamez Globulin (S) [Mass/Vol] 3.3 g/dL Normal [facility] Comment on above: Performed By: #### C MP #### [facility] [address] [address] [address] Gisel Galdamez Glucose [Mass/Vol] 339 mg/dL Critically high 74-106 [facility] Comment on above: Performed By: #### C MP #### [facility] [address] [address] [address] Gisel Galdamez Potassium [Moles/Vol] 4.6 mmol/L Normal 3.5-5.1 [facility] Comment on above: Performed By: #### C MP #### [facility] [address] [address] [address] Gisel Galdamez Protein [Mass/Vol] 7.2 g/dL Normal 6.4-8.2 [facility] Comment on above: Performed By: #### C MP #### [facility] [address] [address] [address] Gisel Galdamez Sodium [Moles/Vol] 135 mmol/L Critically low 136-145 [facility] Comment on above: Performed By: #### C MP #### [facility] [address] [address] [address] Gisel Galdamez Urea nitrogen [Mass/Vol] 20.0 mg/dL Critically high 7.0-18.0 [facility] Comment on above: Performed By: #### C MP #### [facility] [address] [address] [address] Gisel Galdamez Urea nitrogen/Creatinine [Mass ratio] 16.9 mg/mg Normal [facility] Comment on above: Performed By: #### C MP #### [facility] [address] [place] [address] Dr. Gisel Galdamez LIPID PROFILEon 12-27-2021 CHOL-HDL RATIO NORM SEE BELOW Normal [facility] Comment on above: Result Comment: 3.3 - 4.4 LOW RISK 4.4 - 7.1 AVERAGE RISK 7.1 - 11.0 MODERATE RISK >11.0 HIGH RISK Performed By: #### L IPID #### [facility] [address] [address] [address] Gisel Galdamez Cholesterol [Mass/Vol] 191 mg/dL Normal <=200 [facility] Comment on above: Performed By: #### L IPID #### [facility] [address] [address] [address] Gisel Galdamez Cholesterol in HDL [Mass/Vol] 29 mg/dL Critically low 40-60 [facility] Comment on above: Performed By: #### L IPID #### [facility] [address] [address] [address] Gisel Galdamez Cholesterol in LDL [Mass/Vol] 91.4 mg/dL Normal [facility] Comment on above: Performed By: #### L IPID #### [facility] [address] [address] [address] Gisel Galdamez Cholesterol.total/Ch olesterol in HDL [Mass ratio] 6.6 {ratio} Normal [facility] Comment on above: Performed By: #### L IPID #### [facility] [address] [address] [address] Gisel Galdamez HDL NORMAL > or = 60 mg/dl - LOW CARDIOVASCULAR RISK <40 mg/dl - HIGH CARDIOVASCULAR RISK Normal [facility] Comment on above: Performed By: #### L IPID #### [facility] [address] [address] [address] Gisel Galdamez LDL CALC NORMAL SEE BELOW Normal [facility] Comment on above: Result Comment: <100 mg/dl OPTIMAL 100 - 129 mg/dl NEAR OR ABOVE OPTIMAL 130 - 159 mg/dl BORDERLINE HIGH 160 - 189 mg/dl HIGH >190 mg/dl VERY HIGH Performed By: #### L IPID #### [facility] [address] [address] [address] Gisel Galdamez Triglyceride [Mass/Vol] 353 mg/dL Critically high <=[address] [facility] Comment on above: Performed By: #### L IPID #### [facility] [address] [address] [address] Gisel Galdamez VLDL CALC 70.6 mg/dL Normal [facility] Comment on above: Performed By: #### L IPID #### [facility] [address] [address] [address] Gisel Galdamez MICROALBUMIN, RAND URon 10-2 mALB 14.3 mg/L Normal <=30.0 [facility] Comment on above: Performed By: #### P OCGLUC #### [facility] [address] [address] [address] Gisel Galdamez COVID Quick Testingon 2020 Result Positive [employer] [facility] Other Vital Signs Date Time Vital Sign Value Performing Clinician Facility 12-31-2021 15:56-0400 Blood Pressure Location [facility] 12-31-2021 15:56-0400 Diastolic blood pressure 60 mm[Hg] [facility] [place] 12-31-2021 15:56-0400 Heart rate 68 /min [facility] 12-31-2021 15:56-0400 Respiratory rate 16 /min [facility] 12-31-2021 15:56-0400 Systolic blood pressure 116 mm[Hg] [facility] 01-01-2021 18:30-0400 Body height 167.64 cm Vee Dowling Other [employer] Other 01-01-2021 18:30-0400 Body mass index (BMI) [Ratio] 39.54 kg/m2 Vee Dowling Other [facility] Other 01-01-2021 18:30-0400 Body temperature 99.6 [degF] Vee Dowling Other [facility] Other 01-01-2021 18:30-0400 Body weight 111.13 kg Vee Dowling Other [facility] Other 01-01-2021 18:30-0400 Respiratory rate 20 /min Vee Dowling Other [facility] Other 01-01-2021 18:30-0400 SaO2% (BldA) [Mass fraction] 88 % Vee Dowling Other [facility] [facility] Other Encounters Encounter Date Encounter Type Care Provider Facility Start: 07-11-2022 End: 07-12-2022 ambulatory OVI SHAMMO Facility:[facility] Start: 04-25-2022 End: 04-26-2022 ambulatory SHANNAN SAMSA Facility:[facility] Start: 04-02-2022 End: 04-03-2022 ambulatory OVI SHAMMO Facility:[facility] Start: 01-15-2022 End: 01-16-2022 ambulatory OVI SHAMMO Facility:[facility] Start: 01-15-2022 End: 01-15-2022 Patient encounter procedure Mili CHACON [facility] [place] Start: 01-09-2022 End: 01-10-[address] DOCTOR NIELSEN Facility:[facility] Start: 12-31-2021 End: 12-31-[address] MILI CHACON . Facility:[facility] Start: 12-31-2021 End: 01-01-2022 ambulatory OVI SHAMMO Facility:[facility] Start: 12-31-2021 End: 12-31-2021 Patient encounter procedure Mili CHACON General Surgery [facility] Start: 12-30-2021 ambulatory OVI SHAMMO Facility:[facility] Start: 12-28-2021 End: 12-29-2021 ambulatory OVI SHAMMO Facility:[facility] Start: 12-27-2021 End: 12-28-2021 ambulatory OVI SHAMRI Facility:[facility] Start: 01-01-2021 (URG) Urgent Care Visit Vee Dowling [facility] Start: 01-01-2021 End: 01-01-2021 ambulatory Vee Dowling Other [facility] [facility] Other Procedures Date Procedure Procedure Detail Performing Clinician Start: 12-31-2021 Incision and drainag e of abscess of neck Mili CHACON Decompression of med lisa nerve Mili TIERA Repair of umbilical hernia Gilmer cervantes TIERA Payers Date Payer Category Payer Unknown [id number] 1970 Unknown [id number] 2.16.8 [id number] 1970 Unknown [id number] 2.16.8 [id number] 1970 Unknown [id number] 2.16.8 [id number] 1970 Unknown [id number] 2.16.84 [id number] 1970 Unknown [id number] 2.16.84 [id number] 1970 Unknown [id number] 2.16.84 [id number] 1970 Unknown [id number] 2.16.84 [id number] 1970 Unknown [id number] 2.16.84 [id number] 1970 Unknown [id number] 2.16.84 [id number] 1970 Unknown [id number] 2.16.84 [id number] 1961 Medicare [id number] 2. [id number] Social History Date Type Detail Facility Sex Assigned At [facility] Start: 12-31-2021 Tobacco smoking status Ex-smoker (tayler coronado) [facility] [place] Tobacco smoking status Never [facility] [place] Functional Status Date Assessment Result Facility 12-31-2021 Functional Status N/A [facility] Clinical Note 12-31-2021 Note Date [...] day(s), # 28 cap(s), Refills(s) 0, Pharmacy: [facility]/pharmacy #[id number], 165, cm, 12/31/21 16:01:00 EDT, Height/Length Dosing, [...] Alcohol - Valentin (more content not included)... [facility] Comment on above: Result Comment: Elec tronically Signed By: TIERA STONER, Mili Stanton.thalia\Date and Time Signed: 12/31/21 [...] Follow these instructions at home: Medicines Take qeki-qfn-bpxcguj and prescription medicines only as told by [...] and water are not available, use hand medtronics technician. Change your dressing and packing as told [...] 05/10/2012 Document Revised: 01/17/2019 Document Reviewed: 01/17/2019 [employer] Patient Education 2020 [employer]. 12/31/2021 16:43:31 Incision and Drainage, Care After [...] Follow these instructions at home: Medicines Take qavx-kye-ntgsanb and prescription medicines only as told by [...] and water are not available, use hand medtronics technician. Change your dressing and packing as told [...] 05/10/2012 Document Revised: 01/17/2019 Document Reviewed: 01/17/2019 [employer] Integrated Patient Education 2020 [employer]. General [facility] [place] Evaluation note 01-01-2021 Note Date & Type [...] Patient care instructions given in writting by [facility] At Home document. Additional time spent conducting pre-visit phone call, screening for symptoms, instructions on social distancing, application and removal of PPE, and cleaning of examination room, equipment and supplies was preformed. Patient education given for testing methodology and results. Patient care instructions given in writting by [facility] document. [employer] Other Evaluation + Plan note Note Date & Type Note Facility Evaluation + Plan note Future Appointments Appointment Date:01/08/2022 01:40:00 PM Scheduled Provider:Mili CHACON MD Location:[facility] (formerly [facility])[3] Appointment Type: Established 15 Diagnostic Tests PendingWound Culture 12/31/21 General Surgery [place] History general Narrative - Reported Note Date & Type Note Facility History general Narrative - Reported Type Medical History Hypertension Medical History hypercholesterolemia Medical History type II diabetes Medical History COPD Surgical History carpal tunnel right hand Surgical History umbilical hernia repair Hospitalization History see above [employer] Other Hospital course Narrative Note Date & Type Note Facility Hospital course Narrative No data available for this section [facility] Discharge instructions Note Date & Type Note Facility Hospital Discharge instructions No data available for this section General Surgery [place] Progress note Note Date & Type Note Facility Progress note No data available for this section General Surgery [place] Summary Purpose Family History No Family History [...] Personnel Name: MR. OVI HEALY Address: Address: [address] [place] [address] Personnel Name: MR. OVI HEALY Address: Address: [address] [place] [address] (unrecognized sect ion and content) No Status Records FoundNo Status Records Found INFORMATION SOURCE (unrecogn ized section and content) DATE CREATED AUTHOR 01/19/2022 [facility] DATE CREATED AUTHOR AUTHOR'S ORGANIZ ATION 07/14/2022 [facility] FOR RECORDS PERTAINING TO PATIENTS WHO [...] BE BASED ON THE PRIMARY CLINICAL RECORDS. [facility]. provides no warranty or guarantee of the accuracy or completeness of information in this document.
== END 2023-07-15 13:46 | disposition home or self-care (01) ==
LOC: LAB 13:45
PROVIDERS: PCP Nurse Practitioner Primary Care; Visit Provider Internal Medicine
DX: R59.0 Localized enlarged lymph nodes (principal); K80.20 Calculus of gallbladder without cholecystitis without obstruction
CPT/HCPCS: 36415; 71260; 82565; Q9967

== ENCOUNTER 2023-09-02 05:28 | Emergency (ER) | payer MEDICARE, SELFPAY ==
[2023-09-02] VITALS (15 sets, daily range): BP systolic 137–169; BP diastolic 72–81; PULSE 63–99; TEMP 36.8; O2SAT 59–97; BMI 37.9
--- NOTE | 2023-09-02 05:49 | XR_ITS ---
The [address] [address] Patient Name: MIRACLE GAMBOA MRN: [id number] date: 1970 Sex: M Assigned Patient Location: ER Current Patient Location: ER Accession/Order Number: [id number] Exam Date: 09/02/2023 05:55 Report Date: 09/02/2023 06:13 At the request of: SYLVIA MARKER Procedure: XR chest 1V EXAM: XR chest 1V HISTORY: Shortness of breath. COMPARISON: Portable chest radiograph dated 02/27/2023. TECHNIQUE: AP erect portable chest radiograph performed. FINDINGS: The trachea is midline. The cardiomediastinal silhouette and hilar shadows are stable. There is mild linear atelectasis at the right lung base. There is no consolidation, pleural effusion or pulmonary vascular congestion. There is no pneumothorax. There is no acute osseous abnormality. There is an old right clavicle fracture. XR/XR chest 1V IMPRESSION: There is mild linear atelectasis at the right lung base. Electronically authenticated by: ROSE BENOIT Date: 09/02/2023 06:13
--- NOTE | 2023-09-02 05:50 | ED_ITS ---
HPI - SOB/Dyspnea General Chief Complaint: Shortness of Breath/Dyspnea Stated Complaint: SOB CHEST PAIN Time Seen by Provider: 09/02/23 05:30 Source: patient Mode of arrival: walk-in Limitations: no limitations History of Present Illness HPI Narrative: This 53-year-old with a history of COPD who quit smoking in 2010 and denies vaping and has home oxygen for the past 5 to 6 years but does not wear it routinely, mostly at night, presents for evaluation of several days of increasing shortness of breath and chest tightness. He denies any bel chest pain. He denies any back pain or abdominal pain. He has not had a fever. He is not really coughing. He states that approximately every 6 months he has an exacerbation of his COPD requiring steroids. He states he called Dr. Angeles yesterday but his office was closed. Related Data Home Medications ?Medication ?Instructions ?Recorded ?Confirmed aspirin 81 mg chewable tablet 02/27/23 atorvastatin 80 mg tablet mg 02/27/23 insulin detemir U-100 100 unit/mL 30 unit subcut DAILY 02/27/23 09/02/23 (3 mL) subcutaneous pen (Levemir FlexPen) ipratropium 0.5 mg-albuterol 3 mg ml inhalation 02/27/23 (2.5 mg base)/3 mL nebulization soln lisinopril 20 mg tablet mg 02/27/23 omega 3-dha 115 mg-epa 172 mg-fish cap PO 02/27/23 oil 1,000 mg capsule,delay release (Smart Heart [place]-3) semaglutide 1 mg/dose (4 mg/3 mL) 1 mg subcut QWEEK 02/27/23 02/27/23 subcutaneous pen injector (Ozempic) albuterol sulfate 90 mcg/actuation inhalation 09/02/23 aerosol inhaler Previous Rx's ?Medication ?Instructions ?Recorded levofloxacin 750 mg tablet 750 mg PO DAILY 7 days #7 tabs 08/02/22 Allergies Allergy/AdvReac Type Severity Reaction Status Date / Time No Known Drug Allergies Allergy Verified 09/02/23 05:38 Review of Systems ROS Status of ROS 10 or more systems reviewed and unremark able except as noted in history and below PFSH PFSH Social History Smoking status: Former smoker Exam Narrative Exam Narrative: Vital signs and Nursing Notes reviewed: Patient is afebrile with a normal pulse, he is tachypneic with a respiratory rate of 22 and hypoxic upon arrival with pulse ox in the 70s on room air, pulse ox improved to 95% on 4 L nasal cannula General: Awake, alert, oriented, no acute distress, lying comfortably on the stretcher, jovial but dyspneic HEENT: Normocephalic atraumatic, mucous membranes are moist and pink, eyes are clear, normal conjunctiva, vision is grossly intact, posterior pharynx is normal in appearance. Neck: Supple, no JVD Chest: Lungs are diffusely diminished without wheezing rhonchi or rales, patient is speaking in 3-4 word sentences CVS: Regular rate and rhythm S1-S2, no murmurs rubs or gallops, pulses are brisk and equal bilaterally ABD: Soft, nondistended, nontender, no rebound guarding or rigidity, bowel sounds are normal, no pulsatile masses appreciated Extremities: Moving all extremities, no lower extremity tenderness or swelling noted, negative Homans' sign, pulses are brisk and equal bilaterally Skin: Normal in appearance without rash,pallor, petechiae or purpura Neuro: No focal deficits Constitutional Vital Signs, click to edit/add: Last Vital Signs Temp 98.3 F 09/02/23 05:34 Pulse 68 09/02/23 06:12 Resp 18 09/02/23 06:12 BP 169/81 H 09/02/23 05:37 Pulse Ox 92 L 09/02/23 06:12 O2 Del Method Nasal Cannula 09/02/23 06:12 O2 Flow Rate 4 09/02/23 06:12 Course Vital Signs Vital signs: Vital Signs Temperature 98.3 F 09/02/23 05:34 Pulse Rate 99 H 09/02/23 05:34 Respiratory Rate 22 H 09/02/23 05:34 Blood Pressure 169/81 H 09/02/23 05:34 Pulse Oximetry 74 L 09/02/23 05:34 Oxygen Delivery Method Nasal Cannula 09/02/23 05:34 Oxygen Delivery Flow Rate 2 09/02/23 05:34 Temperature 98.3 F 09/02/23 05:34 Pulse Rate 68 09/02/23 06:12 Respiratory Rate 18 09/02/23 06:12 Blood Pressure 169/81 H 09/02/23 05:37 Pulse Oximetry 92 L 09/02/23 06:12 Oxygen Delivery Method Nasal Cannula 09/02/23 06:12 Oxygen Delivery Flow Rate 4 09/02/23 06:12 MDM - SOB/Dyspnea MDM Narrative Medical decision making narrative: This 53-year-old male with a history of COPD who has home oxygen and uses it on occasion, mostly at night presents for evaluation of several days of increasing shortness of breath with chest tightness. He denies any bel chest pain. He denies any dizziness or cough. He has not had a fever. He states that he gets COPD exacerbations approximately every 6 months. The patient explains that he sees Dr. Shi and call Dr. Shi earlier this week but his office was closed. He states that he needs steroids and this will pass. Upon arrival on room air his pulse ox was in the 70s. An IV was placed and he was medicated with IV Solu-Medrol, IV magnesium and given a DuoNeb treatment. EKG was a junctional rhythm at 67 bpm with no acute changes. Chest x-ray shows some atelectasis in the right lung base. Routine labs are reviewed and are normal. He has a normal white count and hemoglobin. Electrolytes are normal with the exception of a mildly elevated glucose at 136.. Troponin and BNP are normal. Blood gas shows a respiratory acidosis with a pH of 7.313 and a pCO2 of 66.8. I explained to the patient in layman's terms and explained to him that I am worried that his CO2 could become higher and he could become somnolent and not be able to call for help. The patient does live at home with his . He refuses admission, he refuses BiPAP and he refuses to stay in the emergency department longer. He states he has oxygen at home and after he starts taking the steroids his symptoms will improve. He states his will bring him back to the hospital if his symptoms do not improve. He signed out AGAINST MEDICAL ADVICE verbalizing understanding of the risk of , hypoxia, permanent disability. Medical Records Attestation: I reviewed the patient's medical records. Medical records narrative: The [address] [address] XRay Report Signed Patient: MIRACLE GAMBOA MR#: [id number] : 1970 Acct:[id number] Age/Sex: 53 / M ADM Date: 09/02/23 Loc: ER Attending Dr: Ordering Physician: Mary Bhatia Date of Service: 09/02/23 Procedure(s): XR chest 1V Accession Number(s): [id number] cc: Chasity Eaton TOWER HELPER; Mary Bhatia~ The [address] [address] Patient Name: MIRACLE GAMBOA MRN: [facility]:[id number] date: 1970 Sex: M Assigned Patient Location: ER Current Patient Location: ER Accession/Order Number: [id number] Exam Date: 09/02/2023 05:55 Report Date: 09/02/2023 06:13 At the request of: MARY BHATIA Procedure: XR chest 1V EXAM: XR chest 1V HISTORY: Shortness of breath. COMPARISON: Portable chest radiograph dated 02/27/2023. TECHNIQUE: AP erect portable chest radiograph performed. FINDINGS: The trachea is midline. The cardiomediastinal silhouette and hilar shadows are stable. There is mild linear atelectasis at the right lung base. There is no consolidation, pleural effusion or pulmonary vascular congestion. There is no pneumothorax. There is no acute osseous abnormality. There is an old right clavicle fracture. XR/XR chest 1V IMPRESSION: There is mild linear atelectasis at the right lung base. Electronically authenticated by: ROSE BENOIT Date: 09/02/2023 06:13 Lab Data Attestation: I reviewed the patient's lab results. Labs: Lab Results 09/02/23 09/02/23 Range/Units 05:40 06:20 WBC 9.2 (4.0-11.0) 10^3/uL RBC 5.76 (4.70-6.10) 10^6/uL Hgb 17.2 (14.0-18.0) g/dL Hct 58.2 H (42.0-54.0) % MCV 101.0 H (80.0-94.0) fL MCH 29.9 (25.9-34.0) pg MCHC 29.6 L (29.9-35.2) g/dL RDW 13.8 (11.0-15.0) % Plt Count 170 (150-450) 10^3/uL MPV 11.4 (9.5-13.5) fL Neut % (Auto) 73.5 (43.0-75.0) % Lymph % (Auto) 14.4 L (20.5-60.0) % Beaver % (Auto) 8.4 (1.7-12.0) % Eos % (Auto) 2.5 (0.9-7.0) % Baso % (Auto) 0.8 (0.2-2.0) % Neut # (Auto) 6.8 H (1.4-6.5) 10^3/uL Lymph # (Auto) 1.3 (1.2-3.8) 10^3/uL Beaver # (Auto) 0.8 (0.3-0.8) 10^3/uL Eos # (Auto) 0.2 (0.0-0.7) 10^3/uL Baso # (Auto) 0.1 (0.0-0.1) 10^3/uL Abs Immat Gran (auto) 0.04 H (0.00-0.03) 10^3/uL Imm/Tot Granulo (auto) 0.4 (0.0-0.5) % Puncture Site L radial ABG pH 7.313 L (7.350-7.450) ABG pCO2 66.8 H* (35.0-45.0) mmHg ABG pO2 69.7 L (80.0-100.0) mmHg ABG HCO3 33.9 H (22.0-26.0) mmol/L ABG O2 Saturation 93.5 % ABG Base Excess 7.6 H (-2.0-2.0) mmol/L Shorty Test Positive (POSITIVE) O2 Liters/Min 4 Sodium 141 (136-145) mmol/L Potassium 4.4 (3.5-5.1) mmol/L Chloride 103 (98-107) mmol/L Carbon Dioxide 34.2 H (21.0-32.0) mmol/L Anion Gap 8.2 BUN 16.0 (7.0-18.0) mg/dL Creatinine 1.19 (0.70-1.30) mg/dL Est GFR ( Amer) >60 (>=60) Est GFR (Non-Af Amer) >60 (>=60) BUN/Creatinine Ratio 13.4 Glucose 136 H (74-106) mg/dL Calcium 8.8 (8.5-10.1) mg/dL Total Bilirubin 1.2 H (0.2-1.0) mg/dL AST 44 H (15-37) U/L ALT 72 H (16-63) U/L Alkaline Phosphatase 143 H (46-116) U/L Troponin I High Sens 11.2 (4.0-76.1) pg/mL NT-Pro-B Natriuret Pep 254.0 (<=900.0) pg/mL Total Protein 6.8 (6.4-8.2) g/dL Albumin 3.8 (3.4-5.0) g/dL Globulin 3.0 g/dL Albumin/Globulin Ratio 1.3 ABG Data Attestation: I personally reviewed and interpreted this ABG as follows: Interpretation: Respiratory acidosis with pCO2 of 66 ECG Data Attestation: I personally reviewed and interpreted this ECG as follows: (Junctional rhythm at 67 bpm, right axis deviation, nonspecific ST changes, no acute ST segment elevation or T wave inversion) Discharge Plan Discharge Stand Alone Forms: Portal Instructions Chief Complaint: Shortness of Breath/Dyspnea Clinical Impression: Acute exacerbation of chronic obstructive pulmonary disease (COPD), Hypercarbia, Hypoxemia requiring supplemental oxygen Patient Disposition: Left Against Medical Advice Time of Disposition Decision: 06:48 Condition: Fair Prescriptions / Home Meds: No Action levofloxacin 750 mg tablet 750 mg PO DAILY 7 Days Qty: 7 0RF albuterol sulfate 90 mcg/actuation HFA aerosol inhaler INHALATION atorvastatin 80 mg tablet ipratropium-albuterol 0.5 mg-3 mg(2.5 mg base)/3 mL solution for nebulization INHALATION lisinopril 20 mg tablet aspirin 81 mg tablet,chewable Smart Heart [place]-3 115-172-1,000 mg capsule,delayed release(DR/EC) PO Hold Instructions: Order Change Ozempic 1 mg/dose (4 mg/3 mL) pen injector 1 mg subcut QWEEK Levemir FlexPen 100 unit/mL (3 mL) insulin pen 30 unit subcut DAILY Print Language: Bulgarian Instructions: Using Oxygen at Home (ED), COPD (Chronic Obstructive Pulmonary Disease) (ED), Hypoxia (ED) Referrals: Ovi Nunez NP [Physician] - 1 week Vincent Shi DO [Physician] - As soon as possible
--- OUTSIDE RECORDS SUMMARY | 2023-09-02 05:53 | XMS_ITS | CCD ---
Author Organization 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 HOLLOWAY ENA Primary Care Physician ( [phone] SHAMMO, OVI Referring Unavailable NILL, Mili Contreras [...] Medication Allergies] Propensity to adverse reactions (disorder) [facility] Repository Medications Current Medications Medication Drug [...] day(s), # 28 cap(s), Refills(s) 0, Pharmacy: [facility]/pharmacy #[id number], 165, cm, 12/31/21 16:01:00 EDT, Height/Length [...] Resolved: 01-01-2021 Episodic Other aftercare (1 source) superintendent terminal (current) use of aspirin; Translations: [PENITENTIARY CURRENT USE OF ASPIRIN] Onset: 01-15-2022 Episodic Other aftercare (1 source) superintendent terminal (current) use of oral hypoglycemic drugs; Translations: [PENITENTIARY USE ORAL HYPOGLYCEMIC DX] Onset: 01-15-2022 Episodic Other aftercare (1 source) 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 Gisel Galdamez Glucose [Mass/Vol] 263 mg/dL Normal [facility] Comment on above: Performed By: #### A 1C #### [facility] [address] [address] [address] Gisel Galdamez HbA1c (Bld) [Mass fraction] 10.8 % Critically high 4.5-6.2 [facility] Comment on above: Performed By: #### A 1C #### [facility] [address] [address] [address] Gisel Galdamez HEMOGRAM AND PLATELon 2022 Hematocrit (Bld) [Volume fraction] 52.6 % Normal 42.0-54.0 [facility] Comment on above: Performed By: #### P OCGLUC #### [facility] [address] [address] [address] Gisel Galdamez Hemoglobin (Bld) [Mass/Vol] 16.8 g/dL Normal 14.0-18.0 [facility] Comment on above: Performed By: #### P OCGLUC #### [facility] [address] [address] [address] Gisel Galdamez MCH (RBC) [Entitic mass] 30.9 pg Normal 25.9-34.0 [facility] Comment on above: Performed By: #### P OCGLUC #### [facility] [address] [address] [address] Gisel Galdamez MCHC (RBC) [Mass/Vol] 31.9 g/dL Normal 29.9-35.2 [facility] Comment on above: Performed By: #### P OCGLUC #### [facility] [address] [address] [address] Gisel Galdamez MCV (RBC) [Entitic vol] 96.9 fL Critically high 80.0-94.0 [facility] Comment on above: Performed By: #### P OCGLUC #### [facility] [address] [place] [address] Dr. Gisel Galdamez PLT 144 103/ul Critically low 150-450 [facility] Comment on above: Performed By: #### P OCGLUC #### [facility] [address] [place] [address] Dr. Gisel Galdamez RBC 5.43 106/ul Normal 4.70-6.10 [facility] Comment on above: Performed By: #### P OCGLUC #### [facility] [address] [place] [address] Dr. Gisel Galdamez WBC 5.1 103/ul Normal 4.0-11.0 [facility] Comment on above: Performed By: #### P OCGLUC #### [facility] [address] [place] [address] Dr. Gisel Galdamez LIPID PROFILEon 07-11-2022 CHOL-HDL RATIO NORM SEE BELOW Normal [facility] Comment on above: Result Comment: 3.3 - 4.4 LOW RISK 4.4 - 7.1 AVERAGE RISK 7.1 - 11.0 MODERATE RISK >11.0 HIGH RISK Performed By: #### A 1C #### [facility] [address] [place] [address] Dr. Gisel Galdamez Cholesterol [Mass/Vol] 128 mg/dL Normal <=200 [facility] Comment on above: Performed By: #### A 1C #### [facility] [address] [place] [address] Dr. Gisel Galdamez Cholesterol in HDL [Mass/Vol] 35 mg/dL Critically low 40-60 [facility] Comment on above: Performed By: #### A 1C #### [facility] [address] [address] [address] Gisel Galdamez Cholesterol in LDL [Mass/Vol] 60.8 mg/dL Normal [facility] Comment on above: Performed By: #### A 1C #### [facility] [address] [address] [address] Gisel Galdamez Cholesterol.total/Ch olesterol in HDL [Mass ratio] 3.7 {ratio} Normal [facility] Comment on above: Performed By: #### A 1C #### [facility] [address] [place] [address] Dr. Gisel Galdamez HDL NORMAL > or = 60 mg/dl - LOW CARDIOVASCULAR RISK <40 mg/dl - HIGH CARDIOVASCULAR RISK Normal [facility] Comment on above: Performed By: #### A 1C #### [facility] [address] [address] [address] Gisel Galdamez LDL CALC NORMAL SEE BELOW Normal [facility] Comment on above: Result Comment: <100 mg/dl OPTIMAL 100 - 129 mg/dl NEAR OR ABOVE OPTIMAL 130 - 159 mg/dl BORDERLINE HIGH 160 - 189 mg/dl HIGH >190 mg/dl VERY HIGH Performed By: #### A 1C #### [facility] [address] [place] [address] Dr. Gisel Galdamez Triglyceride [Mass/Vol] 161 mg/dL Critically high <=150 [facility] Comment on above: Performed By: #### A 1C #### [facility] [address] [address] [address] Gisel Galdamez VLDL CALC 32.2 mg/dL Normal [facility] Comment on above: Performed By: #### A 1C #### [facility] [address] [place] [address] Dr. Gisel Galdamez MICROALBUMIN, RAND URon 05-1 mALB 5.7 mg/dL Normal <=30.0 [facility] Comment on above: Performed By: #### A 1C #### [facility] [address] [place] [address] Dr. Gisel Galdamez PROF 14(COMP METB)on 023 Albumin [Mass/Vol] 3.5 g/dL Normal 3.4-5.0 [facility] Comment on above: Performed By: #### A 1C #### [facility] [address] [address] [address] Gisel Galdamez Albumin/Globulin [Mass ratio] 1.2 {ratio} Normal [facility] Comment on above: Performed By: #### A 1C #### [facility] [address] [place] [address] Dr. Gisel Galdamez ALP [Catalytic activity/Vol] 99 U/L Normal 46-116 [facility] Comment on above: Performed By: #### A 1C #### [facility] [address] [place] [address] Dr. Gisel Galdamez ALT [Catalytic activity/Vol] 34 U/L Normal 16-63 [facility] Comment on above: Performed By: #### A 1C #### [facility] [address] [place] [address] Dr. Gisel Galdamez Anion gap [Moles/Vol] 7.8 mmol/L Normal [facility] Comment on above: Performed By: #### A 1C #### [facility] [address] [place] [address] Dr. Gisel Galdamez AST [Catalytic activity/Vol] 8 U/L Critically low 15-37 [facility] Comment on above: Performed By: #### A 1C #### [facility] [address] [place] [address] Dr. Gisel Galdamez Bilirubin [Mass/Vol] 0.6 mg/dL Normal 0.2-1.0 [facility] Comment on above: Performed By: #### A 1C #### [facility] [address] [place] [address] Dr. Gisel Galdamez Calcium [Mass/Vol] 9.1 mg/dL Normal 8.5-10.1 [facility] Comment on above: Performed By: #### A 1C #### [facility] [address] [address] [address] Gisel Galdamez Chloride [Moles/Vol] 102 mmol/L Normal 98-107 [facility] Comment on above: Performed By: #### A 1C #### [facility] [address] [place] [address] Dr. Gisel Galdamez CO2 [Moles/Vol] 38.4 mmol/L Critically high 21.0-32.0 [facility] Comment on above: Performed By: #### A 1C #### [facility] [address] [place] [address] Dr. Gisel Galdamez Creatinine [Mass/Vol] 1.08 mg/dL Normal 0.70-1.30 [facility] Comment on above: Performed By: #### A 1C #### [facility] [address] [place] [address] Dr. Gisel Galdamez EGFR-AF ARGENTINE >60 Normal >=60 [facility] Comment on above: Performed By: #### A 1C #### [facility] [address] [place] [address] Dr. Gisel Galdamez EGFR-NON AF ARGENTINE >60 Normal >=60 [facility] Comment on above: Performed By: #### A 1C #### [facility] [address] [place] [address] Dr. Gisel Galdamez Globulin (S) [Mass/Vol] 3.0 g/dL Normal [facility] Comment on above: Performed By: #### A 1C #### [facility] [address] [place] [address] Dr. Gisel Galdamez Glucose [Mass/Vol] 250 mg/dL Critically high 74-106 [facility] Comment on above: Performed By: #### A 1C #### [facility] [address] [place] [address] Dr. Gisel Galdamez Potassium [Moles/Vol] 4.2 mmol/L Normal 3.5-5.1 [facility] Comment on above: Performed By: #### A 1C #### [facility] [address] [place] [address] Dr. Gisel Galdamez Protein [Mass/Vol] 6.5 g/dL Normal 6.4-8.2 [facility] Comment on above: Performed By: #### A 1C #### [facility] [address] [address] [address] Gisel Galdamez Sodium [Moles/Vol] 144 mmol/L Normal 136-145 [facility] Comment on above: Performed By: #### A 1C #### [facility] [address] [address] [address] Gisel Galdamez Urea nitrogen [Mass/Vol] 13.0 mg/dL Normal 7.0-18.0 [facility] Comment on above: Performed By: #### A 1C #### [facility] [address] [place] [address] Dr. Gisel Galdamez Urea nitrogen/Creatinine [Mass ratio] 12.0 mg/mg Normal [facility] Comment on above: Performed By: #### A 1C #### [facility] [address] [place] [address] LUNG CANCER SCREENINGon [...] by: NICOLAS NICOLE Date: 2022-04-25 09:07 Normal [facility] HEMOGLOBINon 04-25-2022 Hemoglobin (Bld) [Mass/Vol] 16.3 g/dL Normal 14.0-18.0 [facility] Comment on above: Performed By: #### P OCGLUC #### [facility] [address] [address] [address] Gisel Galdamez GLYCOHEMOGLOBIN A1Con 2022 ADA RECOMMENDATION SEE BELOW Normal [facility] Comment on above: Result Comment: ADA RECOMMENDED LIMIT 4.0 - 6.0 ADA THERAPEUTIC TARGET < 7.0 ACTION SUGGESTED > 7.0 Performed By: #### P OCGLUC #### [facility] [address] [address] [address] Gisel Galdamez Glucose [Mass/Vol] 237 mg/dL Normal [facility] Comment on above: Performed By: #### P OCGLUC #### [facility] [address] [place] [address] Dr. Gisel Galdamez HbA1c (Bld) [Mass fraction] 9.9 % Critically high 4.5-6.2 [facility] Comment on above: Performed By: #### P OCGLUC #### [facility] [address] [address] [address] Gisel Galdamez LIPID PROFILEon 04-02-2022 CHOL-HDL RATIO NORM SEE BELOW Normal [facility] Comment on above: Result Comment: 3.3 - 4.4 LOW RISK 4.4 - 7.1 AVERAGE RISK 7.1 - 11.0 MODERATE RISK >11.0 HIGH RISK Performed By: #### P OCGLUC #### [facility] [address] [address] [address] Gisel Galdamez Cholesterol [Mass/Vol] 148 mg/dL Normal <=200 [facility] Comment on above: Performed By: #### P OCGLUC #### [facility] [address] [address] [address] Gisel Galdamez Cholesterol in HDL [Mass/Vol] 32 mg/dL Critically low 40-60 [facility] Comment on above: Performed By: #### P OCGLUC #### [facility] [address] [address] [address] Gisel Galdamez Cholesterol in LDL [Mass/Vol] 72.2 mg/dL Normal [facility] Comment on above: Performed By: #### P OCGLUC #### [facility] [address] [address] [address] Gisel Galdamez Cholesterol.total/Ch olesterol in HDL [Mass ratio] 4.6 {ratio} Normal [facility] Comment on above: Performed By: #### P OCGLUC #### [facility] [address] [address] [address] Gisel Galdamez HDL NORMAL > or = 60 mg/dl - LOW CARDIOVASCULAR RISK <40 mg/dl - HIGH CARDIOVASCULAR RISK Normal [facility] Comment on above: Performed By: #### P OCGLUC #### [facility] [address] [address] [address] Gisel Galdamez LDL CALC NORMAL SEE BELOW Normal [facility] Comment on above: Result Comment: <100 mg/dl OPTIMAL 100 - 129 mg/dl NEAR OR ABOVE OPTIMAL 130 - 159 mg/dl BORDERLINE HIGH 160 - 189 mg/dl HIGH >190 mg/dl VERY HIGH Performed By: #### P OCGLUC #### [facility] [address] [address] [address] Gisel Galdamez Triglyceride [Mass/Vol] 219 mg/dL Critically high <=150 [facility] Comment on above: Performed By: #### P OCGLUC #### [facility] [address] [address] [address] Gisel Galdamez VLDL CALC 43.8 mg/dL Normal [facility] Comment on above: Performed By: #### P OCGLUC #### [facility] [address] [address] [address] Gisel Galdamez PROF 14(COMP METB)on 023 Albumin [Mass/Vol] 3.7 g/dL Normal 3.4-5.0 [facility] Comment on above: Performed By: #### P OCGLUC #### [facility] [address] [place] [address] Dr. Gisel Galdamez Albumin/Globulin [Mass ratio] 1.2 {ratio} Normal [facility] Comment on above: Performed By: #### P OCGLUC #### [facility] [address] [address] [address] Gisel Galdamez ALP [Catalytic activity/Vol] 98 U/L Normal 46-116 [facility] Comment on above: Performed By: #### P OCGLUC #### [facility] [address] [address] [address] Gisel Galdamez ALT [Catalytic activity/Vol] 37 U/L Normal 16-63 [facility] Comment on above: Performed By: #### P OCGLUC #### [facility] [address] [address] [address] Gisel Galdamez Anion gap [Moles/Vol] 9.8 mmol/L Normal [facility] Comment on above: Performed By: #### P OCGLUC #### [facility] [address] [place] [address] Dr. Gisel Galdamez AST [Catalytic activity/Vol] 15 U/L Normal 15-37 [facility] Comment on above: Performed By: #### P OCGLUC #### [facility] [address] [address] [address] Gisel Galdamez Bilirubin [Mass/Vol] 0.9 mg/dL Normal 0.2-1.0 [facility] Comment on above: Performed By: #### P OCGLUC #### [facility] [address] [address] [address] Gisel Galdamez Calcium [Mass/Vol] 8.7 mg/dL Normal 8.5-10.1 [facility] Comment on above: Performed By: #### P OCGLUC #### [facility] [address] [address] [address] Gisel Galdamez Chloride [Moles/Vol] 99 mmol/L Normal 98-107 [facility] Comment on above: Performed By: #### P OCGLUC #### [facility] [address] [address] [address] Gisel Galdamez CO2 [Moles/Vol] 34.9 mmol/L Critically high 21.0-32.0 [facility] Comment on above: Performed By: #### P OCGLUC #### [facility] [address] [address] [address] Gisel Galdamez Creatinine [Mass/Vol] 1.02 mg/dL Normal 0.70-1.30 [facility] Comment on above: Performed By: #### P OCGLUC #### [facility] [address] [address] [address] Gisel Galdamez EGFR-AF ARGENTINE >60 Normal >=60 [facility] Comment on above: Performed By: #### P OCGLUC #### [facility] [address] [address] [address] Gisel Galdamez EGFR-NON AF ARGENTINE >60 Normal >=60 [facility] Comment on above: Performed By: #### P OCGLUC #### [facility] [address] [address] [address] Gisel Galdamez Globulin (S) [Mass/Vol] 3.0 g/dL Normal [facility] Comment on above: Performed By: #### P OCGLUC #### [facility] [address] [address] [address] Gisel Galdamez Glucose [Mass/Vol] 265 mg/dL Critically high 74-106 [facility] Comment on above: Performed By: #### P OCGLUC #### [facility] [address] [address] [address] Gisel Galdamez Potassium [Moles/Vol] 4.7 mmol/L Normal 3.5-5.1 [facility] Comment on above: Performed By: #### P OCGLUC #### [facility] [address] [address] [address] Gisel Galdamez Protein [Mass/Vol] 6.7 g/dL Normal 6.4-8.2 [facility] Comment on above: Performed By: #### P OCGLUC #### [facility] [address] [address] [address] Gisel Galdamez Sodium [Moles/Vol] 139 mmol/L Normal 136-145 [facility] Comment on above: Performed By: #### P OCGLUC #### [facility] [address] [address] [address] Gisel Galdamez Urea nitrogen [Mass/Vol] 19.0 mg/dL Critically high 7.0-18.0 [facility] Comment on above: Performed By: #### P OCGLUC #### [facility] [address] [address] [address] Gisel Galdamez Urea nitrogen/Creatinine [Mass ratio] 18.6 mg/mg Normal [facility] Comment on above: Performed By: #### P OCGLUC #### [facility] [address] [address] [address] Gisel Galdamez VITAMIN D 25 OHon 04-02-2022 VIT D 25-OH 17.8 ng/mL Normal [facility] Comment on above: Performed By: #### P OCGLUC #### [facility] [address] [address] [address] Gisel Galdamez VIT D RANGES SEE BELOW Normal [facility] Comment on above: Result Comment: <20 ng/mL Vit D deficient 20 - <30 ng/mL Vit D insufficient 30 - 100 ng/mL Vit D sufficient >100 ng/mL Potential Toxicity Performed By: #### P OCGLUC #### [facility] [address] [address] [address] Gisel Galdamez General Surgery Office/Clini c [...] PVD - peripheral vascular disease: Father. Normal [facility] Comment on above: Result Comment: Elec tronically Signed By: INES STONER, Mili Contreras\.br\Date and Time Signed: 01/19/22 19:23 EST Ambulatory Visit Summaryon 1 03-17-2021 Ambulatory Visit Summary MIRACLE GAMBOA :1970 Visit Date:01/15/2022 Ambulatory Visit Instructions Your Care Team Attending Physician - INES STONER, Mili Contreras Primary Care Physician - NIRAJ, OVININOSKA SUTHERLAND This Is Your Medications List albuterol-ipratropiu [...] (peripheral vascular disease) Vitamin D deficiency Normal [facility] BNPon 01-10-2022 Natriuretic peptide B (Bld) [Mass/Vol] 264.0 pg/mL Normal <=900.0 [facility] Comment on above: Performed By: #### C MP, BNP #### [facility] [address] [address] [address] Gisel Galdamez CBC AUTO DIFFon 01-10-2022 BASO # 0.0 103/ul Normal 0.0-0.1 [facility] Comment on above: Performed By: #### P OCGLUC #### [facility] [address] [address] [address] Gisel Galdamez Basophils/100 WBC (Bld) 0.4 % Normal 0.2-2.0 [facility] Comment on above: Performed By: #### P OCGLUC #### [facility] [address] [address] [address] Gisel Galdamez EO # 0.0 103/ul Normal 0.0-0.7 [facility] Comment on above: Performed By: #### P OCGLUC #### [facility] [address] [address] [address] Gisel Galdamez Eosinophils/100 WBC (Bld) 0.0 % Critically low 0.9-7.0 [facility] Comment on above: Performed By: #### P OCGLUC #### [facility] [address] [address] [address] Gisel Galdamez Erythrocyte distribution width (RBC) [Ratio] 13.5 % Normal 11.0-15.0 [facility] Comment on above: Performed By: #### P OCGLUC #### [facility] [address] [place] [address] Dr. Gisel Galdamez Hematocrit (Bld) [Volume fraction] 57.3 % Critically high 42.0-54.0 [facility] Comment on above: Performed By: #### P OCGLUC #### [facility] [address] [address] [address] Gisel Galdamez Hemoglobin (Bld) [Mass/Vol] 17.5 g/dL Normal 14.0-18.0 [facility] Comment on above: Performed By: #### P OCGLUC #### [facility] [address] [address] [address] Gisel Galdamez IG # 0.10 10e3/ul Critically high 0.00-0.03 [facility] Comment on above: Performed By: #### P OCGLUC #### [facility] [address] [place] [address] Dr. Gisel Galdamez IG % 1.5 % Critically high 0.0-0.5 [facility] Comment on above: Performed By: #### P OCGLUC #### [facility] [address] [place] [address] Dr. Gisel Galdamez LYMPH # 0.4 103/ul Critically low 1.2-3.8 [facility] Comment on above: Performed By: #### P OCGLUC #### [facility] [address] [place] [address] Dr. Gisel Galdamez Lymphocytes/100 WBC (Bld) 6.0 % Critically low 20.5-60.0 [facility] Comment on above: Performed By: #### P OCGLUC #### [facility] [address] [place] [address] Dr. Gisel Galdamez MANUAL DIFF REQ NO Normal [facility] Comment on above: Performed By: #### P OCGLUC #### [facility] [address] [address] [address] Gisel Galdamez MCH (RBC) [Entitic mass] 29.2 pg Normal 25.9-34.0 [facility] Comment on above: Performed By: #### P OCGLUC #### [facility] [address] [place] [address] Dr. Gisel Galdamez MCHC (RBC) [Mass/Vol] 30.5 g/dL Normal 29.9-35.2 [facility] Comment on above: Performed By: #### P OCGLUC #### [facility] [address] [place] [address] Dr. Gisel Galdamez MCV (RBC) [Entitic vol] 95.5 fL Critically high 80.0-94.0 [facility] Comment on above: Performed By: #### P OCGLUC #### [facility] [address] [place] [address] Dr. Gisel Galdamez MONO # 0.1 103/ul Critically low 0.3-0.8 [facility] Comment on above: Performed By: #### P OCGLUC #### [facility] [address] [place] [address] Dr. Gisel Galdamez Monocytes/100 WBC (Bld) 1.9 % Normal 1.7-12.0 [facility] Comment on above: Performed By: #### P OCGLUC #### [facility] [address] [place] [address] Dr. Gisel Galdamez NEUT # 6.2 103/ul Normal 1.4-6.5 [facility] Comment on above: Performed By: #### P OCGLUC #### [facility] [address] [place] [address] Dr. Gisel Galdamez Neutrophils/100 WBC (Bld) 90.2 % Critically high 43.0-75.0 [facility] Comment on above: Performed By: #### P OCGLUC #### [facility] [address] [place] [address] Dr. Gisel Galdamez Platelet mean volume (Bld) [Entitic vol] 12.0 fL Normal 9.5-13.5 [facility] Comment on above: Performed By: #### P OCGLUC #### [facility] [address] [place] [address] Dr. Gisel Galdamez PLT 134 103/ul Critically low 150-450 [facility] Comment on above: Performed By: #### P OCGLUC #### [facility] [address] [place] [address] Dr. Gisel Galdamez RBC 6.00 106/ul Normal 4.70-6.10 [facility] Comment on above: Performed By: #### P OCGLUC #### [facility] [address] [place] [address] Dr. Gisel Galdamez WBC 6.9 103/ul Normal 4.0-11.0 [facility] Comment on above: Performed By: #### P OCGLUC #### [facility] [address] [place] [address] Dr. Gisel Galdamez POINT OF CARE GLUCOSEon 12-31 Glucose [Mass/Vol] 414 mg/dL Critically high 74-106 [facility] Comment on above: Performed By: #### P OCGLUC #### [facility] [address] [place] [address] Dr. Gisel Galdamez Glucose [Mass/Vol] 353 mg/dL Critically high -106 [facility] Comment on above: Performed By: #### P OCGLUC #### [facility] [address] [place] [address] Dr. Gisel Galdamez Glucose [Mass/Vol] 415 mg/dL Critically high -106 [facility] Comment on above: Performed By: #### P OCGLUC #### [facility] [address] [place] [address] Dr. Gisel Galdamez PROF 14(COMP METB)on 022 Albumin [Mass/Vol] 3.3 g/dL Critically low 3.4-5.[address] [facility] Comment on above: Performed By: #### C MP, BNP #### [facility] [address] [place] [address] Dr. Gisel Galdamez Albumin/Globulin [Mass ratio] 0.8 {ratio} Normal [facility] Comment on above: Performed By: #### C MP, BNP #### [facility] [address] [place] [address] Dr. Gisel Galdamez ALP [Catalytic activity/Vol] 115 U/L Normal 46-116 [facility] Comment on above: Performed By: #### C MP, BNP #### [facility] [address] [place] [address] Dr. Gisel Galdamez ALT [Catalytic activity/Vol] 31 U/L Normal 16-63 [facility] Comment on above: Performed By: #### C MP, BNP #### [facility] [address] [place] [address] Dr. Gisel Galdamez Anion gap [Moles/Vol] 9.0 mmol/L Normal [facility] Comment on above: Performed By: #### C MP, BNP #### [facility] [address] [address] [address] Gisel Galdamez AST [Catalytic activity/Vol] 9 U/L Critically low 15-37 [facility] Comment on above: Performed By: #### C MP, BNP #### [facility] [address] [place] [address] Dr. Gisel Galdamez Bilirubin [Mass/Vol] 0.7 mg/dL Normal 0.2-1.0 [facility] Comment on above: Performed By: #### C MP, BNP #### [facility] [address] [place] [address] Dr. Gisel Galdamez Calcium [Mass/Vol] 8.5 mg/dL Normal 8.5-10.1 [facility] Comment on above: Performed By: #### C MP, BNP #### [facility] [address] [place] [address] Dr. Gisel Galdamez Chloride [Moles/Vol] 96 mmol/L Critically low 98-107 [facility] Comment on above: Performed By: #### C MP, BNP #### [facility] [address] [place] [address] Dr. Gisel Galdamez CO2 [Moles/Vol] 31.5 mmol/L Normal 21.0-32.0 [facility] Comment on above: Performed By: #### C MP, BNP #### [facility] [address] [place] [address] Dr. Gisel Galdamez Creatinine [Mass/Vol] 1.39 mg/dL Critically high 0.70-1.30 [facility] Comment on above: Performed By: #### C MP, BNP #### [facility] [address] [place] [address] Dr. Gisel Galdamez EGFR-AF ARGENTINE >60 Normal >=60 [facility] Comment on above: Performed By: #### C MP, BNP #### [facility] [address] [address] [address] Gisel Galdamez EGFR-NON AF ARGENTINE 53 mL/min/1.73m2 Critically low >=60 [facility] Comment on above: Performed By: #### C MP, BNP #### [facility] [address] [address] [address] Gisel Galdamez Globulin (S) [Mass/Vol] 3.9 g/dL Normal [facility] Comment on above: Performed By: #### C MP, BNP #### [facility] [address] [place] [address] Dr. Gisel Galdamez Glucose [Mass/Vol] 409 mg/dL Critically high 74-106 [facility] Comment on above: Performed By: #### C MP, BNP #### [facility] [address] [place] [address] Dr. Gisel Galdamez Potassium [Moles/Vol] 4.5 mmol/L Normal 3.5-5.1 [facility] Comment on above: Performed By: #### C MP, BNP #### [facility] [address] [place] [address] Dr. Gisel Galdamez Protein [Mass/Vol] 7.2 g/dL Normal 6.4-8.2 [facility] Comment on above: Performed By: #### C MP, BNP #### [facility] [address] [place] [address] Dr. Gisel Galdamez Sodium [Moles/Vol] 132 mmol/L Critically low 136-145 [facility] Comment on above: Performed By: #### C MP, BNP #### [facility] [address] [place] [address] Dr. Gisel Galdamez Urea nitrogen [Mass/Vol] 27.0 mg/dL Critically high 7.0-18.0 [facility] Comment on above: Performed By: #### C MP, BNP #### [facility] [address] [place] [address] Dr. Gisel Galdamez Urea nitrogen/Creatinine [Mass ratio] 19.4 mg/mg Normal [facility] Comment on above: Performed By: #### C MP, BNP #### [facility] [address] [place] [address] Dr. Gisel Galdamez BNPon 01-09-2022 Natriuretic peptide B (Bld) [Mass/Vol] 236.0 pg/mL Normal <=900.0 [facility] Comment on above: Performed By: #### P OCGLUC #### [facility] [address] [place] [address] Dr. Gisel Galdamez CBC AUTO DIFFon 01-09-2022 BASO # 0.1 103/ul Normal 0.0-0.1 [facility] Comment on above: Performed By: #### C BC #### [facility] [address] [place] [address] Dr. Gisel Galdamez Basophils/100 WBC (Bld) 0.6 % Normal 0.2-2.0 [facility] Comment on above: Performed By: #### C BC #### [facility] [address] [place] [address] Dr. Gisel Galdamez EO # 0.0 103/ul Normal 0.0-0.7 [facility] Comment on above: Performed By: #### C BC #### [facility] [address] [place] [address] Dr. Gisel Galdamez Eosinophils/100 WBC (Bld) 0.2 % Critically low 0.9-7.0 [facility] Comment on above: Performed By: #### C BC #### [facility] [address] [place] [address] Dr. Gisel Galdamez Erythrocyte distribution width (RBC) [Ratio] 13.4 % Normal 11.0-15.0 [facility] Comment on above: Performed By: #### C BC #### [facility] [address] [place] [address] Dr. Gisel Galdamez Hematocrit (Bld) [Volume fraction] 57.4 % Critically high 42.0-54.0 [facility] Comment on above: Performed By: #### C BC #### [facility] [address] [address] [address] Gisel Galdamez Hemoglobin (Bld) [Mass/Vol] 18.2 g/dL Critically high 14.0-18.0 [facility] Comment on above: Performed By: #### C BC #### [facility] [address] [place] [address] Dr. Gisel Galdamez IG # 0.16 10e3/ul Critically high 0.00-0.03 [facility] Comment on above: Performed By: #### C BC #### [facility] [address] [place] [address] Dr. Gisel Galdamez IG % 1.5 % Critically high 0.0-0.5 [facility] Comment on above: Performed By: #### C BC #### [facility] [address] [place] [address] Dr. Gisel Galdamez LYMPH # 0.9 103/ul Critically low 1.2-3.8 [facility] Comment on above: Performed By: #### C BC #### [facility] [address] [place] [address] Dr. Gisel Galdamez Lymphocytes/100 WBC (Bld) 9.1 % Critically low 20.5-60.0 [facility] Comment on above: Performed By: #### C BC #### [facility] [address] [place] [address] Dr. Gisel Galdamez MANUAL DIFF REQ NO Normal [facility] Comment on above: Performed By: #### C BC #### [facility] [address] [place] [address] Dr. Gisel Galdamez MCH (RBC) [Entitic mass] 30.2 pg Normal 25.9-34.0 [facility] Comment on above: Performed By: #### C BC #### [facility] [address] [place] [address] Dr. Gisel Galdamez MCHC (RBC) [Mass/Vol] 31.7 g/dL Normal 29.9-35.2 [facility] Comment on above: Performed By: #### C BC #### [facility] [address] [address] [address] Gisel Galdamez MCV (RBC) [Entitic vol] 95.2 fL Critically high 80.0-94.0 [facility] Comment on above: Performed By: #### C BC #### [facility] [address] [address] [address] Gisel Galdamez MONO # 0.9 103/ul Critically high 0.3-0.8 [facility] Comment on above: Performed By: #### C BC #### [facility] [address] [address] [address] Gisel Galdamez Monocytes/100 WBC (Bld) 9.1 % Normal 1.7-12.0 [facility] Comment on above: Performed By: #### C BC #### [facility] [address] [place] [address] Dr. Gisel Galdamez NEUT # 8.2 103/ul Critically high 1.4-6.5 [facility] Comment on above: Performed By: #### C BC #### [facility] [address] [place] [address] Dr. Gisel Galdamez Neutrophils/100 WBC (Bld) 79.5 % Critically high 43.0-75.0 [facility] Comment on above: Performed By: #### C BC #### [facility] [address] [place] [address] Dr. Gisel Galdamez Platelet mean volume (Bld) [Entitic vol] 11.9 fL Normal 9.5-13.5 [facility] Comment on above: Performed By: #### C BC #### [facility] [address] [place] [address] Dr. Gisel Galdamez PLT 146 103/ul Critically low 150-450 [facility] Comment on above: Performed By: #### C BC #### [facility] [address] [place] [address] Dr. Gisel Galdamez RBC 6.03 106/ul Normal 4.70-6.10 [facility] Comment on above: Performed By: #### C BC #### [facility] [address] [address] [address] Gisel Galdamez WBC 10.4 103/ul Normal 4.0-11.0 [facility] Comment on above: Performed By: #### C BC #### [facility] [address] [address] [address] Gisel Galdamez CULTURE SPUTUMon 01-09-2022 CULTURE SPUTUM Culture Observations: NORMAL RESPIRATORY PB. Normal [facility] Comment on above: Performed By: #### P OCGLUC #### [facility] [address] [place] [address] Dr. Gisel Galdamez LACTATE/LACTIC ACIDon 2021 Lactate [Moles/Vol] 1.3 mmol/L Normal 0.4-1.9 [facility] Comment on above: Performed By: #### P OCGLUC #### [facility] [address] [place] [address] Dr. Gisel Galdamez POINT OF CARE GLUCOSEon 12-31 Glucose [Mass/Vol] 404 mg/dL Critically high 74-106 [facility] Comment on above: Performed By: #### P OCGLUC #### [facility] [address] [address] [address] Gisel Galdamez Glucose [Mass/Vol] 241 mg/dL Critically high 74-106 [facility] Comment on above: Performed By: #### P OCGLUC #### [facility] [address] [place] [address] Dr. Gisel Galdamez PROF 14(COMP METB)on 022 Albumin [Mass/Vol] 3.3 g/dL Critically low 3.4-5.[address] [facility] Comment on above: Performed By: #### P OCGLUC #### [facility] [address] [place] [address] Dr. Gisel Galdamez Albumin/Globulin [Mass ratio] 0.9 {ratio} Normal [facility] Comment on above: Performed By: #### P OCGLUC #### [facility] [address] [address] [address] Gisel Galdamez ALP [Catalytic activity/Vol] 111 U/L Normal 46-116 [facility] Comment on above: Performed By: #### P OCGLUC #### [facility] [address] [address] [address] Gisel Galdamez ALT [Catalytic activity/Vol] 36 U/L Normal 16-63 [facility] Comment on above: Performed By: #### P OCGLUC #### [facility] [address] [address] [address] Gisel Galdamez Anion gap [Moles/Vol] 7.6 mmol/L Normal [facility] Comment on above: Performed By: #### P OCGLUC #### [facility] [address] [address] [address] Gisel Galdamez AST [Catalytic activity/Vol] 15 U/L Normal 15-37 [facility] Comment on above: Performed By: #### P OCGLUC #### [facility] [address] [address] [address] Gisel Galdamez Bilirubin [Mass/Vol] 1.3 mg/dL Critically high 0.2-1.0 [facility] Comment on above: Performed By: #### P OCGLUC #### [facility] [address] [address] [address] Gisel Galdamez Calcium [Mass/Vol] 8.7 mg/dL Normal 8.5-10.1 [facility] Comment on above: Performed By: #### P OCGLUC #### [facility] [address] [address] [address] Gisel Galdamez Chloride [Moles/Vol] 97 mmol/L Critically low 98-107 [facility] Comment on above: Performed By: #### P OCGLUC #### [facility] [address] [address] [address] Gisel Galdamez CO2 [Moles/Vol] 32.8 mmol/L Critically high 21.0-32.0 [facility] Comment on above: Performed By: #### P OCGLUC #### [facility] [address] [address] [address] Gisel Galdamez Creatinine [Mass/Vol] 0.99 mg/dL Normal 0.70-1.30 [facility] Comment on above: Performed By: #### P OCGLUC #### [facility] [address] [address] [address] Gisel Galdamez EGFR-AF ARGENTINE >60 Normal >=60 [facility] Comment on above: Performed By: #### P OCGLUC #### [facility] [address] [address] [address] Gisel Galdamez EGFR-NON AF ARGENTINE >60 Normal >=60 [facility] Comment on above: Performed By: #### P OCGLUC #### [facility] [address] [address] [address] Gisel Galdamez Globulin (S) [Mass/Vol] 3.8 g/dL Normal [facility] Comment on above: Performed By: #### P OCGLUC #### [facility] [address] [address] [address] Gisel Galdamez Glucose [Mass/Vol] 272 mg/dL Critically high 74-106 [facility] Comment on above: Performed By: #### P OCGLUC #### [facility] [address] [address] [address] Gisel Galdamez Potassium [Moles/Vol] 4.4 mmol/L Normal 3.5-5.1 [facility] Comment on above: Performed By: #### P OCGLUC #### [facility] [address] [address] [address] Gisel Galdamez Protein [Mass/Vol] 7.1 g/dL Normal 6.4-8.2 [facility] Comment on above: Performed By: #### P OCGLUC #### [facility] [address] [address] [address] Gisel Galdamez Sodium [Moles/Vol] 133 mmol/L Critically low 136-[address] [facility] Comment on above: Performed By: #### P OCGLUC #### [facility] [address] [address] [address] Gisel Galdamez Urea nitrogen [Mass/Vol] 13.0 mg/dL Normal 7.0-18.0 [facility] Comment on above: Performed By: #### P OCGLUC #### [facility] [address] [place] [address] Dr. Gisel Galdamez Urea nitrogen/Creatinine [Mass ratio] 13.1 mg/mg Normal [facility] Comment on above: Performed By: #### P OCGLUC #### [facility] [address] [place] [address] Dr. Gisel Galdamez RESPIRATORY PANEL PLUSon Adenovirus Not detected Normal NOT DETECTED [facility] Comment on above: Performed By: #### P OCGLUC #### [facility] [address] [place] [address] Dr. Gisel Galdamez B. Parapertusis Not detected Normal NOT DETECTED [facility] Comment on above: Performed By: #### P OCGLUC #### [facility] [address] [place] [address] Dr. Gisel Cruz. Pertussis Not detected Normal NOT DETECTED [facility] Comment on above: Performed By: #### P OCGLUC #### [facility] [address] [place] [address] Dr. Gisel Galdamez Chlamydia Pneumoniae Not detected Normal NOT DETECTED [facility] Comment on above: Performed By: #### P OCGLUC #### [facility] [address] [place] [address] Dr. Gisel Galdamez Coronavirus 229E Not detected Normal NOT DETECTED [facility] Comment on above: Performed By: #### P OCGLUC #### [facility] [address] [place] [address] Dr. Gisel Galdamez Coronavirus HKU1 Not detected Normal NOT DETECTED [facility] Comment on above: Performed By: #### P OCGLUC #### [facility] [address] [place] [address] Dr. Gisel Galdamez Coronavirus NL63 Not detected Normal NOT DETECTED [facility] Comment on above: Performed By: #### P OCGLUC #### [facility] [address] [place] [address] Dr. Gisel Galdamez Coronavirus OC43 Not detected Normal NOT DETECTED [facility] Comment on above: Performed By: #### P OCGLUC #### [facility] [address] [address] [address] Gisel Galdamez Influenza A H1 2009 Not detected Normal NOT DETECTED [facility] Comment on above: Performed By: #### P OCGLUC #### [facility] [address] [address] [address] Gisel Galdamez Influenza A H3 Not detected Normal NOT DETECTED [facility] Comment on above: Performed By: #### P OCGLUC #### [facility] [address] [address] [address] Gisel Galdamez Influenza B Not detected Normal NOT DETECTED [facility] Comment on above: Performed By: #### P OCGLUC #### [facility] [address] [address] [address] Gisel Galdamez Metapneumovirus Not detected Normal NOT DETECTED [facility] Comment on above: Performed By: #### P OCGLUC #### [facility] [address] [address] [address] Gisel Galdamez Mycoplas. Pneumoniae Not detected Normal NOT DETECTED [facility] Comment on above: Performed By: #### P OCGLUC #### [facility] [address] [address] [address] Gisel Galdamez Parainfluenza 1 Not detected Normal NOT DETECTED [facility] Comment on above: Performed By: #### P OCGLUC #### [facility] [address] [place] [address] Dr. Gisel Galdamez Parainfluenza 2 Not detected Normal NOT DETECTED [facility] Comment on above: Performed By: #### P OCGLUC #### [facility] [address] [place] [address] Dr. Gisel Galdamez Parainfluenza 3 Not detected Normal NOT DETECTED [facility] Comment on above: Performed By: #### P OCGLUC #### [facility] [address] [address] [address] Gisel Galdamez Parainfluenza 4 Not detected Normal NOT DETECTED [facility] Comment on above: Performed By: #### P OCGLUC #### [facility] [address] [address] [address] Gisel Galdamez Rhino/Enterovirus Not detected Normal NOT DETECTED [facility] Comment on above: Performed By: #### P OCGLUC #### [facility] [address] [place] [address] Dr. Gisel Galdamez RP2 Header 1 RESPIRATORY PANEL: VIRUSES Normal [facility] Comment on above: Performed By: #### P OCGLUC #### [facility] [address] [place] [address] Dr. Gisel Galdamez RP2 Header 2 RESPIRATORY PANEL: BACTERIA Normal [facility] Comment on above: Performed By: #### P OCGLUC #### [facility] [address] [place] [address] Dr. Gisel Galdamez RSV Not detected Normal NOT DETECTED [facility] Comment on above: Performed By: #### P OCGLUC #### [facility] [address] [place] [address] Dr. Gisel Galdamez SARS-CoV-2 (COVID-19) RNA MUKESH+probe Ql (Unsp spec) Not detected Normal NOT DETECTED [facility] Comment on above: Performed By: #### P OCGLUC #### [facility] [address] [place] [address] Dr. Gisel Galdamez SPUTUM GRAM STAINon 01-10-20 COMMENTS Normal [facility] Comment on above: Performed By: #### A 1C #### [facility] [address] [place] [address] Dr. Gisel Galdamez DIPHTHEROIDS Normal [facility] Comment on above: Performed By: #### A 1C #### [facility] [address] [place] [address] Dr. Gisel Galdamez EPITHELIALS <25 Normal [facility] Comment on above: Performed By: #### A 1C #### [facility] [address] [place] [address] Dr. Gisel Galdamez FUNGAL ELEMENTS Normal [facility] Comment on above: Performed By: #### A 1C #### [facility] [address] [place] [address] Dr. Gisel Galdamez GRAM NEG BACILLI Normal [facility] Comment on above: Performed By: #### A 1C #### [facility] [address] [address] [address] Gisel Galdamez GRAM NEG DIPPLOCOCCI Normal [facility] Comment on above: Performed By: #### A 1C #### [facility] [address] [address] [address] Gisel Galdamez GRAM POS BACILLI Normal [facility] Comment on above: Performed By: #### A 1C #### [facility] [address] [address] [address] Gisel Galdamez GRAM POSITIVE COCCI RARE Normal [facility] Comment on above: Performed By: #### A 1C #### [facility] [address] [address] [address] Gisel Galdamez WBC (Bld) [#/Vol] 10*3/uL Normal [facility] Comment on above: Performed By: #### A 1C #### [facility] [address] [address] [address] Gisel Galdamez TROPONIN, HIGH SENSITIVITYon 01-09-2022 HSTROP 10.3 pg/mL Normal 4.0-76.1 [facility] Comment on above: Result Comment: CUT- OFF POINTS HAVE BEEN ESTABLISHED BASED ON THE FOURTH UNIVERSAL DEFINITIONS OF MYOCARDIAL INFARCTION. THE UPPER REFERENCE LIMIT (URL) OF TROPONIN, DEFINED THE 99TH PERCENTILE OF cTnI DISTRIBUTION IN A REFERENCE POPULATION, HAS BEEN CONFIRMED THE DECISION THRESHOLD FOR LA DIAGNOSIS. Performed By: #### P OCGLUC #### [facility] [address] [place] [address] Dr. Gisel Galdamez XR CHEST 1 Von [...] atelectasis versus infiltrates. Electronically authenticated by: NICOLAS OLIVOER Date: 2022-01-09 12:49 Normal [facility] Reportson 01-06-2022 Lab Reports [id number] #[id number]:[id number] Normal [facility] Ambulatory Visit Summaryon 1 03-02-2021 Ambulatory Visit Summary MIRACLE GAMBOA :1970 Visit Date:12/31/2021 Ambulatory Visit Instructions Your Care Team Attending Physician - Mili CHACON MD Primary Care Physician - NIRAJ, Mo OVI SUTHERLAND This Is Your Medications List [...] Mili CHACON MD Where: General Surgery N[facility] [place] Normal [facility] CULTURE WOUNDon 12-31-2021 CULTURE WOUND Culture Observations: Moderate growth of normal skin pb. Culture Observations: No growth of anaerobes at 72 hours. Normal [facility] Comment on above: Performed By: #### P OCGLUC #### [facility] [address] [place] [address] Dr. Gisel Galdamez Patient Educationon 01-01-20 22 [...] these instructions at home: Medicines ? Take rfyt-bmb-cabible and prescription medicines only as told by [...] and water are not available, use hand encoding machine operator. ? Change your dressing and packing as [...] 05/10/2012 Document Revised: 01/17/2019 Document Reviewed: 01/17/2019 [employer] Patient Education ? 2019 E (more content not included)... Normal [facility] Physician Referralon 022 Physician Referral [id number] Normal [facility] CBC AUTO DIFFon 12-28-2021 BASO # 0.1 103/ul Normal 0.0-0.1 [facility] Comment on above: Performed By: #### P OCGLUC #### [facility] [address] [address] [address] Gisel Galdamez Basophils/100 WBC (Bld) 0.9 % Normal 0.2-2.0 [facility] Comment on above: Performed By: #### P OCGLUC #### [facility] [address] [address] [address] Gisel Galdamez EO # 0.2 103/ul Normal 0.0-0.7 [facility] Comment on above: Performed By: #### P OCGLUC #### [facility] [address] [address] [address] Gisel Galdamez Eosinophils/100 WBC (Bld) 2.3 % Normal 0.9-7.0 [facility] Comment on above: Performed By: #### P OCGLUC #### [facility] [address] [address] [address] Gisel Galdamez Erythrocyte distribution width (RBC) [Ratio] 14.0 % Normal 11.0-15.0 [facility] Comment on above: Performed By: #### P OCGLUC #### [facility] [address] [address] [address] Gisel Galdamez Hematocrit (Bld) [Volume fraction] 61.7 % Critically high 42.0-54.0 [facility] Comment on above: Performed By: #### P OCGLUC #### [facility] [address] [address] [address] Gisel Galdamez Hemoglobin (Bld) [Mass/Vol] 19.8 g/dL Critically high 14.0-18.0 [facility] Comment on above: Performed By: #### P OCGLUC #### [facility] [address] [address] [address] Gisel Galdamez IG # 0.03 10e3/ul Normal 0.00-0.03 [facility] Comment on above: Performed By: #### P OCGLUC #### [facility] [address] [address] [address] Gisel Galdamez IG % 0.5 % Normal 0.0-0.5 [facility] Comment on above: Performed By: #### P OCGLUC #### [facility] [address] [address] [address] Gisel Galdamez LYMPH # 1.2 103/ul Normal 1.2-3.8 [facility] Comment on above: Performed By: #### P OCGLUC #### [facility] [address] [place] [address] Dr. Gisel Galdamez Lymphocytes/100 WBC (Bld) 18.0 % Critically low 20.5-60.0 [facility] Comment on above: Performed By: #### P OCGLUC #### [facility] [address] [place] [address] Dr. Gisel Galdamez MANUAL DIFF REQ NO Normal [facility] Comment on above: Performed By: #### P OCGLUC #### [facility] [address] [place] [address] Dr. Gisel Galdamez MCH (RBC) [Entitic mass] 29.8 pg Normal 25.9-34.0 [facility] Comment on above: Performed By: #### P OCGLUC #### [facility] [address] [place] [address] Dr. Gisel Galdamez MCHC (RBC) [Mass/Vol] 32.1 g/dL Normal 29.9-35.2 [facility] Comment on above: Performed By: #### P OCGLUC #### [facility] [address] [place] [address] Dr. Gisel Galdamez MCV (RBC) [Entitic vol] 92.8 fL Normal 80.0-94.0 [facility] Comment on above: Performed By: #### P OCGLUC #### [facility] [address] [address] [address] Gisel Galdamez MONO # 0.5 103/ul Normal 0.3-0.8 [facility] Comment on above: Performed By: #### P OCGLUC #### [facility] [address] [address] [address] Gisel Galdamez Monocytes/100 WBC (Bld) 7.9 % Normal 1.7-12.0 [facility] Comment on above: Performed By: #### P OCGLUC #### [facility] [address] [address] [address] Gisel Galdamez NEUT # 4.5 103/ul Normal 1.4-6.5 [facility] Comment on above: Performed By: #### P OCGLUC #### [facility] [address] [place] [address] Dr. Gisel Galdamez Neutrophils/100 WBC (Bld) 70.4 % Normal 43.0-75.0 [facility] Comment on above: Performed By: #### P OCGLUC #### [facility] [address] [address] [address] Gisel Galdamez Platelet mean volume (Bld) [Entitic vol] 11.2 fL Normal 9.5-13.5 [facility] Comment on above: Performed By: #### P OCGLUC #### [facility] [address] [place] [address] Dr. Gisel Galdamez PLT 149 103/ul Critically low 150-450 [facility] Comment on above: Performed By: #### P OCGLUC #### [facility] [address] [address] [address] Gisel Galdamez RBC 6.65 106/ul Critically high 4.70-6.10 [facility] Comment on above: Performed By: #### P OCGLUC #### [facility] [address] [address] [address] Gisel Galdamez WBC 6.5 103/ul Normal 4.0-11.0 [facility] Comment on above: Performed By: #### P OCGLUC #### [facility] [address] [address] [address] Gisel Galdamez GLYCOHEMOGLOBIN A1Con 2021 ADA RECOMMENDATION SEE BELOW Normal [facility] Comment on above: Result Comment: ADA RECOMMENDED LIMIT 4.0 - 6.0 ADA THERAPEUTIC TARGET < 7.0 ACTION SUGGESTED > 7.0 Performed By: #### A 1C #### [facility] [address] [place] [address] Dr. Gisel Galdamez Glucose [Mass/Vol] 243 mg/dL Normal [facility] Comment on above: Performed By: #### A 1C #### [facility] [address] [place] [address] Dr. Gisel Galdamez HbA1c (Bld) [Mass fraction] 10.1 % Critically high 4.5-6.2 [facility] Comment on above: Performed By: #### A 1C #### [facility] [address] [place] [address] Dr. Gisel Galdamez PROF 14(COMP METB)on 022 Albumin [Mass/Vol] 3.9 g/dL Normal 3.4-5.0 [facility] Comment on above: Performed By: #### C MP #### [facility] [address] [place] [address] Dr. Gisel Galdamez Albumin/Globulin [Mass ratio] 1.2 {ratio} Normal [facility] Comment on above: Performed By: #### C MP #### [facility] [address] [place] [address] Dr. Gisel Galdamez ALP [Catalytic activity/Vol] 115 U/L Normal 46-116 [facility] Comment on above: Performed By: #### C MP #### [facility] [address] [place] [address] Dr. Gisel Galdamez ALT [Catalytic activity/Vol] 30 U/L Normal 16-63 [facility] Comment on above: Performed By: #### C MP #### [facility] [address] [place] [address] Dr. Gisel Galdamez Anion gap [Moles/Vol] 8.1 mmol/L Normal [facility] Comment on above: Performed By: #### C MP #### [facility] [address] [address] [address] Gisel Galdamez AST [Catalytic activity/Vol] 9 U/L Critically low 15-37 [facility] Comment on above: Performed By: #### C MP #### [facility] [address] [address] [address] Gisel Galdamez Bilirubin [Mass/Vol] 0.7 mg/dL Normal 0.2-1.0 [facility] Comment on above: Performed By: #### C MP #### [facility] [address] [address] [address] Gisel Galdamez Calcium [Mass/Vol] 9.7 mg/dL Normal 8.5-10.1 [facility] Comment on above: Performed By: #### C MP #### [facility] [address] [place] [address] Dr. Gisel Galdamez Chloride [Moles/Vol] 95 mmol/L Critically low 98-107 [facility] Comment on above: Performed By: #### C MP #### [facility] [address] [address] [address] Gisel Galdamez CO2 [Moles/Vol] 36.5 mmol/L Critically high 21.0-32.0 [facility] Comment on above: Performed By: #### C MP #### [facility] [address] [address] [address] Gisel Galdamez Creatinine [Mass/Vol] 1.18 mg/dL Normal 0.70-1.30 [facility] Comment on above: Performed By: #### C MP #### [facility] [address] [address] [address] Gisel Galdamez EGFR-AF ARGENTINE >60 Normal >=60 [facility] Comment on above: Performed By: #### C MP #### [facility] [address] [address] [address] Gisel Galdamez EGFR-NON AF ARGENTINE >60 Normal >=60 [facility] Comment on above: Performed By: #### C MP #### [facility] [address] [address] [address] Gisel Galdamez Globulin (S) [Mass/Vol] 3.3 g/dL Normal [facility] Comment on above: Performed By: #### C MP #### [facility] [address] [address] [address] Gisel Galdamez Glucose [Mass/Vol] 339 mg/dL Critically high 74-106 [facility] Comment on above: Performed By: #### C MP #### [facility] [address] [address] [address] Gisel Galdamez Potassium [Moles/Vol] 4.6 mmol/L Normal 3.5-5.1 [facility] Comment on above: Performed By: #### C MP #### [facility] [address] [place] [address] Dr. Gisel Galdamez Protein [Mass/Vol] 7.2 g/dL Normal 6.4-8.2 [facility] Comment on above: Performed By: #### C MP #### [facility] [address] [place] [address] Dr. Gisel Galdamez Sodium [Moles/Vol] 135 mmol/L Critically low 136-[address] [facility] Comment on above: Performed By: #### C MP #### [facility] [address] [place] [address] Dr. Gisel Galdamez Urea nitrogen [Mass/Vol] 20.0 mg/dL Critically high 7.0-18.0 [facility] Comment on above: Performed By: #### C MP #### [facility] [address] [place] [address] Dr. Gisel Galdamez Urea nitrogen/Creatinine [Mass ratio] 16.9 mg/mg Normal [facility] Comment on above: Performed By: #### C MP #### [facility] [address] [place] [address] Dr. Gisel Galdamez LIPID PROFILEon 12-27-2021 CHOL-HDL RATIO NORM SEE BELOW Normal [facility] Comment on above: Result Comment: 3.3 - 4.4 LOW RISK 4.4 - 7.1 AVERAGE RISK 7.1 - 11.0 MODERATE RISK >11.0 HIGH RISK Performed By: #### L IPID #### [facility] [address] [address] [address] Gisel Galdamez Cholesterol [Mass/Vol] 191 mg/dL Normal <=200 [facility] Comment on above: Performed By: #### L IPID #### [facility] [address] [address] [address] Gisel Galdamez Cholesterol in HDL [Mass/Vol] 29 mg/dL Critically low 40-60 [facility] Comment on above: Performed By: #### L IPID #### [facility] [address] [address] [address] Gisel Galdamez Cholesterol in LDL [Mass/Vol] 91.4 mg/dL Normal [facility] Comment on above: Performed By: #### L IPID #### [facility] [address] [address] [address] Gisel Galdamez Cholesterol.total/Ch olesterol in HDL [Mass ratio] 6.6 {ratio} Normal [facility] Comment on above: Performed By: #### L IPID #### [facility] [address] [address] [address] Gisel Galdamez HDL NORMAL > or = 60 mg/dl - LOW CARDIOVASCULAR RISK <40 mg/dl - HIGH CARDIOVASCULAR RISK Normal [facility] Comment on above: Performed By: #### L IPID #### [facility] [address] [address] [address] Gisel Galdamez LDL CALC NORMAL SEE BELOW Normal [facility] Comment on above: Result Comment: <100 mg/dl OPTIMAL 100 - 129 mg/dl NEAR OR ABOVE OPTIMAL 130 - 159 mg/dl BORDERLINE HIGH 160 - 189 mg/dl HIGH >190 mg/dl VERY HIGH Performed By: #### L IPID #### [facility] [address] [address] [address] Gisel Galdamez Triglyceride [Mass/Vol] 353 mg/dL Critically high <=150 [facility] Comment on above: Performed By: #### L IPID #### [facility] [address] [address] [address] Gisel Galdamez VLDL CALC 70.6 mg/dL Normal [facility] Comment on above: Performed By: #### L IPID #### [facility] [address] [address] [address] Gisel Galdamez MICROALBUMIN, RAND URon 10-2 mALB 14.3 mg/L Normal <=30.0 [facility] Comment on above: Performed By: #### P OCGLUC #### [facility] [address] [address] [address] Gisel Galdamez COVID Quick Testingon 2020 Result Positive [email or web address] Other Vital Signs Date Time Vital Sign Value Performing Clinician Facility 12-31-2021 15:56-0400 Blood Pressure Location [facility] 12-31-2021 15:56-0400 Diastolic blood pressure 60 mm[Hg] [facility] 12-31-2021 15:56-0400 Heart rate 68 /min [facility] 12-31-2021 15:56-0400 Respiratory rate 16 /min [facility] 12-31-2021 15:56-0400 Systolic blood pressure 116 mm[Hg] [facility] 01-01-2021 18:30-0400 Body height 167.64 cm Vee Dowling Other [email or web address] Other 01-01-2021 18:30-0400 Body mass index (BMI) [Ratio] 39.54 kg/m2 Vee Dowling Other [email or web address] Other 01-01-2021 18:30-0400 Body temperature 99.6 [degF] Vee Dowling Other [email or web address] Other 01-01-2021 18:30-0400 Body weight 111.13 kg Vee Dowling Other [email or web address] Other 01-01-2021 18:30-0400 Respiratory rate 20 /min Vee Dowling Other [email or web address] Other 01-01-2021 18:30-0400 SaO2% (BldA) [Mass fraction] 88 % Vee Dowling Other [email or web address] Other Encounters Encounter Date Encounter Type Care Provider Facility Start: 07-11-2022 End: 07-12-2022 ambulatory OVI SHAMMO Facility:[facility] Start: 04-25-2022 End: 04-26-2022 ambulatory SHANNANORIANA GUTIERREZSA Facility:[facility] Start: 04-02-2022 End: 04-03-2022 ambulatory OVI SHAMMO Facility:[facility] Start: 01-15-2022 End: 01-16-2022 ambulatory OVI SHAMMO Facility:[facility] Start: 01-15-2022 End: 01-15-2022 Patient encounter procedure Mili CHACON General Surgery [facility] [place] Start: 01-09-2022 End: 01-10-[address] DOCTOR NIELSEN Facility:[facility] Start: 12-31-2021 End: 12-31-[address] MILI CHACON . Facility:[facility] Start: 12-31-2021 End: 01-01-2022 ambulatory OVI SHAMMO Facility:[facility] [place] Start: 12-31-2021 End: 12-31-2021 Patient encounter procedure Mili CHACON General Surgery [place]/[facility]aid [place] Start: 12-30-2021 ambulatory OVI SHAMMO Facility: [facility] [place] Start: 12-28-2021 End: 12-29-2021 ambulatory OVI SHAMMO Facility: Start: 12-27-2021 End: 12-28-2021 ambulatory OVI HEALY Facility: Start: 01-01-2021 (URG) Urgent Care Visit Vee Dowling [facility] Start: 01-01-2021 End: 01-01-2021 ambulatory Vee Dowling Other [place] [facility] Other Procedures Date Procedure Procedure Detail Performing Clinician Start: 12-31-2021 Incision and drainag e of abscess of neck Mili CHACON Decompression of med lisa nerve Mili NILTata Repair of umbilical hernia Gilmer cervantes INES Payers Date Payer Category Payer Unknown [id number] 1970 Unknown [id number] 2.16.8 [id number] 1970 Unknown [id number] 2.16.8 [id number] 1970 Unknown [id number] 2.16.8 [id number] 1970 Unknown [id number] 2.16.84 [id number] 1970 Unknown [id number] 2.16.84 [id number] 1970 Unknown [id number] 2.16.84 [id number] 1970 Unknown [id number] 2.16.84 [id number] 1968 Unknown [id number] 2.16.84 [id number] 1970 Unknown [id number] 2.16.84 [id number] 1970 Unknown [id number] 2.16.84 [id number] 1961 Medicare [id number] 2. [id number] Social History Date Type Detail Facility Sex Assigned At [facility] Start: 12-31-2021 Tobacco smoking status Ex-smoker (tayler coronado) General Surgery [place] Tobacco smoking status Never Gener al Surgery [facility] Functional Status Date Assessment Result Facility 12-31-2021 Functional Status N/A [facility] Clinical Note 12-31-2021 Note Date & Type Note Facility 12-31-2021 Note Chief Complaint consultation for neck abscess HPI Staff 51 year old male presents on consultation from Ovi Healy SASH REPAIRER for neck abscess. Reports long standing history [...] day(s), # 28 cap(s), Refills(s) 0, Pharmacy: [facility]/pharmacy #[id number], 165, cm, 12/31/21 16:01:00 EDT, Height/Length [...] Alcohol - Valentin (more content not included)... [facility] Comment on above: Result Comment: Elec tronically Signed By: INES STONER, Mili Contreras\.thalia\Date and Time Signed: 12/31/21 17:14 EDT Hospital [...] Follow these instructions at home: Medicines Take drvp-loy-vdxnoiy and prescription medicines only as told by [...] and water are not available, use hand encoding machine operator. Change your dressing and packing as told [...] 05/10/2012 Document Revised: 01/17/2019 Document Reviewed: 01/17/2019 [employer] Patient Education 2020 [employer] 12/31/2021 16:43:31 Incision and Drainage, Care After [...] Follow these instructions at home: Medicines Take zrrh-llc-qijskmo and prescription medicines only as told by [...] and water are not available, use hand encoding machine operator. Change your dressing and packing as told [...] 01/17/2019 Document Reviewed: 01/17/2019 [employer] Patient Education 2020 [employer] General Surgery [place] Evaluation note 01-01-2021 Note Date & Type [...] Patient care instructions given in writting by [facility] At Home document. Additional time spent conducting pre-visit phone call, screening for symptoms, instructions on social distancing, application and removal of PPE, and cleaning of examination room, equipment and supplies was preformed. Patient education given for testing methodology and results. Patient care instructions given in writting by [facility] Home document. [email or web address] Other Evaluation + Plan note Note Date & Type Note Facility Evaluation + Plan note Future Appointments Appointment Date:01/08/2022 01:40:00 PM Scheduled Provider:Mili CHACON MD Location:[facility] Appointment Type: Established 15 Diagnostic Tests PendingWound Culture 12/31/21 General Surgery [place] History general Narrative - Reported Note Date & Type Note Facility History general Narrative - Reported Type Medical History Hypertension Medical History hypercholesterolemia Medical History type II diabetes Medical History COPD Surgical History carpal tunnel right hand Surgical History umbilical hernia repair Hospitalization History see above [email or web address] Other Hospital course Narrative Note Date & Type Note Facility Hospital course Narrative No data available for this section [facility] [place] [facility] Discharge instructions Note Date & Type Note Facility Hospital Discharge instructions No data available for this section General [facility] [place] Progress note Note Date & Type Note Facility Progress note No data available for this section General [facility] [place] Summary Purpose Family History No Family History [...] Personnel Name: MR. OVI HEALY Address: Address: [address] [place] [address] Personnel Name: MR. OVI HEALY Address: Address: [address] [place] [address] (unrecognized sect ion and content) No Status Records FoundNo Status Records Found INFORMATION SOURCE (unrecogn ized section and content) DATE CREATED AUTHOR 01/19/2022 Manpreet [facility] DATE CREATED AUTHOR AUTHOR'S ORGANIZ ATION 07/14/2022 [facility] [place] [facility] RECORDS PERTAINING TO PATIENTS WHO ARE [...] BE BASED ON THE PRIMARY CLINICAL RECORDS. [facility] [employer] [facility] provides no warranty or guarantee of the accuracy or completeness of information in this document.
[2023-09-02 05:57] LABS: Basophils Absolute Auto 0.1 10^3/uL (0.0-0.1); Basophils Percent Auto 0.8 % (0.2-2.0); Eosinophils Absolute Auto 0.2 10^3/uL (0.0-0.7); Eosinophils Percent Auto 2.5 % (0.9-7.0); Hematocrit 58.2 % (42.0-54.0); Hemoglobin 17.2 g/dL (14.0-18.0); Immature Granulocytes Abs Auto 0.04 10^3/uL (0.00-0.03); Immature Granulocytes Pct Auto 0.4 % (0.0-0.5); Lymphocytes Absolute Auto 1.3 10^3/uL (1.2-3.8); Lymphocytes Percent Auto 14.4 % (20.5-60.0); Mean Corpuscular HGB Conc 29.6 g/dL (29.9-35.2); Mean Corpuscular Hemoglobin 29.9 pg (25.9-34.0); Mean Platelet Volume 11.4 fL (9.5-13.5); Monocytes Absolute Auto 0.8 10^3/uL (0.3-0.8); Monocytes Percent Auto 8.4 % (1.7-12.0); Neutrophils Absolute Auto 6.8 10^3/uL (1.4-6.5); Neutrophils Percent Auto 73.5 % (43.0-75.0); Platelet Count 170 10^3/uL (150-450); Red Blood Count 5.76 10^6/uL (4.70-6.10); Red Cell Distribution Width 13.8 % (11.0-15.0); White Blood Count 9.2 10^3/uL (4.0-11.0)
[2023-09-02] MEDS: METHYLPREDNISOLONE SOD SUCC PF 125 MG/2 ML VIAL IVP (05:58)
[2023-09-02] MEDS: MAGNESIUM SULFATE IN WATER 2 GM/50 ML PREMIX IV (05:58)
[2023-09-02] MEDS: IPRATROPIUM/ALBUTEROL SULFATE 3 ML AMPUL.NEB IH (06:10)
[2023-09-02 06:12] LABS: Alanine Aminotransferase 72 U/L (16-63); Albumin Globulin Ratio 1.3; Albumin Level 3.8 g/dL (3.4-5.0); Alkaline Phosphatase 143 U/L (46-116); Anion Gap 8.2; Aspartate Amino Transferase 44 U/L (15-37); BUN Creatinine Ratio 13.4; Bilirubin Total 1.2 mg/dL (0.2-1.0); Calcium 8.8 mg/dL (8.5-10.1); Carbon Dioxide 34.2 mmol/L (21.0-32.0); Chloride 103 mmol/L (98-107); Estimated GFR (African America >60 (>=60); Estimated GFR (Non-African Ame >60 (>=60); Glucose 136 mg/dL (74-106); Potassium 4.4 mmol/L (3.5-5.1); Sodium 141 mmol/L (136-145); Total Protein 6.8 g/dL (6.4-8.2)
[2023-09-02 06:19] LABS: Troponin I High Sensitivity 11.2 pg/mL (4.0-76.1)
[2023-09-02 06:28] LABS: Allen Test POSITIVE (POSITIVE); Base Excess ABG 7.6 mmol/L (-2.0-2.0); HCO3 ABG 33.9 mmol/L (22.0-26.0); Liters per Minute 4; O2 Mode NASAL CANNULA; Oxygen Saturation ABG 93.5 %; PO2 ABG 69.7 mmHg (80.0-100.0); pH ABG 7.313 (7.350-7.450)
[2023-09-02 06:30] LABS: ABG PCO2 66.8 mmHg (35.0-45.0); Puncture Site L RADIAL
--- NOTE | 2023-09-02 11:55 | ECG_ITS ---
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
== END 2023-09-02 06:55 | disposition left against medical advice (07) ==
PROVIDERS: Emergency Provider Emergency Medicine; PCP Nurse Practitioner
DX: J44.1 Chronic obstructive pulmonary disease with (acute) exacerbation (principal); R06.89 Other abnormalities of breathing; R09.02 Hypoxemia; Z53.29 Procedure and treatment not carried out because of patient's decision for other reasons; Z87.891 Personal history of nicotine dependence; Z99.81 Dependence on supplemental oxygen
CPT/HCPCS: 36415; 36600; 71045; 80053; 82805; 83880; 84484; 85025; 93005; 94640; 96365; 96375; 99284; J2919; J3475

== ENCOUNTER 2024-06-09 21:45 | Inpatient (IN) | payer MEDICARE, SELFPAY ==
[2024-06-09] VITALS (20 sets, daily range): BP systolic 105–132; BP diastolic 63–84; PULSE 63–82; O2SAT 65–100; BMI 38.7
--- OUTSIDE RECORDS SUMMARY | 2024-06-09 21:52 | XMS_ITS | CCD ---
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 Role Phone Vee Dowling Unavailable SHAMMO, [...] Medication Allergies] Propensity to adverse reactions (disorder) [facility] Repository Medications Current Medications Medication [...] day(s), # 28 cap(s), Refills(s) 0, Pharmacy: [facility]/pharmacy #[id number], 165, cm, 12/31/21 16:01:00 EDT, Height/Length [...] Resolved: 01-01-2021 Episodic Other aftercare (1 source) [facility] (current) use of aspirin; Translations: [MANAGER OF PATIENT CURRENT USE OF ASPIRIN] Onset: 01-15-2022 Episodic Other aftercare (1 source) 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 Gisel Galdamez Glucose [Mass/Vol] 263 mg/dL Normal [facility] Comment on above: Performed By: #### A 1C #### [facility] [address] [address] [address] Gisel Galdamez HbA1c (Bld) [Mass fraction] 10.8 % Critically high 4.5-6.2 [facility] Comment on above: Performed By: #### A 1C #### [facility] [address] [address] [address] Gisel Galdamez HEMOGRAM AND PLATELon 2022 Hematocrit (Bld) [Volume fraction] 52.6 % Normal 42.0-54.0 [facility] Comment on above: Performed By: #### P OCGLUC #### [facility] [address] [address] [address] Gisel Galdamez Hemoglobin (Bld) [Mass/Vol] 16.8 g/dL Normal 14.0-18.0 [facility] Comment on above: Performed By: #### P OCGLUC #### [facility] [address] [address] [address] Gisel Galdamez MCH (RBC) [Entitic mass] 30.9 pg Normal 25.9-34.0 [facility] Comment on above: Performed By: #### P OCGLUC #### [facility] [address] [address] [address] Gisel Galdamez MCHC (RBC) [Mass/Vol] 31.9 g/dL Normal 29.9-35.2 [facility] Comment on above: Performed By: #### P OCGLUC #### [facility] [address] [address] [address] Gisel Galdamez MCV (RBC) [Entitic vol] 96.9 fL Critically high 80.0-94.0 [facility] Comment on above: Performed By: #### P OCGLUC #### [facility] [address] [place] [address] Dr. Gisel Galdamez PLT 144 103/ul Critically low 150-450 [facility] Comment on above: Performed By: #### P OCGLUC #### [facility] [address] [place] [address] Dr. Gisel Galdamez RBC 5.43 106/ul Normal 4.70-6.10 [facility] Comment on above: Performed By: #### P OCGLUC #### [facility] [address] [place] [address] Dr. Gisel Galdamez WBC 5.1 103/ul Normal 4.0-11.0 [facility] Comment on above: Performed By: #### P OCGLUC #### [facility] [address] [place] [address] Dr. Gisel Galdamez LIPID PROFILEon 07-11-2022 CHOL-HDL RATIO NORM SEE BELOW Normal [facility] Comment on above: Result Comment: 3.3 - 4.4 LOW RISK 4.4 - 7.1 AVERAGE RISK 7.1 - 11.0 MODERATE RISK >11.0 HIGH RISK Performed By: #### A 1C #### [facility] [address] [place] [address] Dr. Gisel Galadmez Cholesterol [Mass/Vol] 128 mg/dL Normal <=200 [facility] Comment on above: Performed By: #### A 1C #### [facility] [address] [place] [address] Dr. Gisel Galdamez Cholesterol in HDL [Mass/Vol] 35 mg/dL Critically low 40-60 [facility] Comment on above: Performed By: #### A 1C #### [facility] [address] [address] [address] Gisel Galdamez Cholesterol in LDL [Mass/Vol] 60.8 mg/dL Normal [facility] Comment on above: Performed By: #### A 1C #### [facility] [address] [address] [address] Gisel Galdamez Cholesterol.total/Ch olesterol in HDL [Mass ratio] 3.7 {ratio} Normal [facility] Comment on above: Performed By: #### A 1C #### [facility] [address] [place] [address] Dr. Gisel Galdamez HDL NORMAL > or = 60 mg/dl - LOW CARDIOVASCULAR RISK <40 mg/dl - HIGH CARDIOVASCULAR RISK Normal [facility] Comment on above: Performed By: #### A 1C #### [facility] [address] [address] [address] Gisel Galdamez LDL CALC NORMAL SEE BELOW Normal [facility] Comment on above: Result Comment: <100 mg/dl OPTIMAL 100 - 129 mg/dl NEAR OR ABOVE OPTIMAL 130 - 159 mg/dl BORDERLINE HIGH 160 - 189 mg/dl HIGH >190 mg/dl VERY HIGH Performed By: #### A 1C #### [facility] [address] [place] [address] Dr. Gisel Galdamez Triglyceride [Mass/Vol] 161 mg/dL Critically high <=150 [facility] Comment on above: Performed By: #### A 1C #### [facility] [address] [address] [address] Gisel Galdamez VLDL CALC 32.2 mg/dL Normal [facility] Comment on above: Performed By: #### A 1C #### [facility] [address] [place] [address] Dr. Gisel Galdamez MICROALBUMIN, RAND URon 05-1 mALB 5.7 mg/dL Normal <=30.0 [facility] Comment on above: Performed By: #### A 1C #### [facility] [address] [place] [address] Dr. Gisel Galdamez PROF 14(COMP METB)on 023 Albumin [Mass/Vol] 3.5 g/dL Normal 3.4-5.0 [facility] Comment on above: Performed By: #### A 1C #### [facility] [address] [address] [address] Gisel Galdamez Albumin/Globulin [Mass ratio] 1.2 {ratio} Normal [facility] Comment on above: Performed By: #### A 1C #### [facility] [address] [place] [address] Dr. Gisel Galdamez ALP [Catalytic activity/Vol] 99 U/L Normal 46-116 [facility] Comment on above: Performed By: #### A 1C #### [facility] [address] [place] [address] Dr. Gisel Galdamez ALT [Catalytic activity/Vol] 34 U/L Normal 16-63 [facility] Comment on above: Performed By: #### A 1C #### [facility] [address] [place] [address] Dr. Gisel Galdamez Anion gap [Moles/Vol] 7.8 mmol/L Normal [facility] Comment on above: Performed By: #### A 1C #### [facility] [address] [place] [address] Dr. Gisel Galdamez AST [Catalytic activity/Vol] 8 U/L Critically low 15-37 [facility] Comment on above: Performed By: #### A 1C #### [facility] [address] [place] [address] Dr. Gisel Galdamez Bilirubin [Mass/Vol] 0.6 mg/dL Normal 0.2-1.0 [facility] Comment on above: Performed By: #### A 1C #### [facility] [address] [place] [address] Dr. Gisel Galdamez Calcium [Mass/Vol] 9.1 mg/dL Normal 8.5-10.1 [facility] Comment on above: Performed By: #### A 1C #### [facility] [address] [address] [address] Gisel Galdamez Chloride [Moles/Vol] 102 mmol/L Normal 98-107 [facility] Comment on above: Performed By: #### A 1C #### [facility] [address] [place] [address] Dr. Gisel Galdamez CO2 [Moles/Vol] 38.4 mmol/L Critically high 21.0-32.0 [facility] Comment on above: Performed By: #### A 1C #### [facility] [address] [place] [address] Dr. Gisel Galdamez Creatinine [Mass/Vol] 1.08 mg/dL Normal 0.70-1.30 [facility] Comment on above: Performed By: #### A 1C #### [facility] [address] [place] [address] Dr. Gisel Galdamez EGFR-AF ISRAELI >60 Normal >=60 [facility] Comment on above: Performed By: #### A 1C #### [facility] [address] [place] [address] Dr. Gisel Galdamez EGFR-NON AF ISRAELI >60 Normal >=60 [facility] Comment on above: Performed By: #### A 1C #### [facility] [address] [place] [address] Dr. Gisel Galdamez Globulin (S) [Mass/Vol] 3.0 g/dL Normal [facility] Comment on above: Performed By: #### A 1C #### [facility] [address] [place] [address] Dr. Gisel Galdamez Glucose [Mass/Vol] 250 mg/dL Critically high 74-106 [facility] Comment on above: Performed By: #### A 1C #### [facility] [address] [place] [address] Dr. Gisel Galdamez Potassium [Moles/Vol] 4.2 mmol/L Normal 3.5-5.1 [facility] Comment on above: Performed By: #### A 1C #### [facility] [address] [place] [address] Dr. Gisel Galdamez Protein [Mass/Vol] 6.5 g/dL Normal 6.4-8.2 [facility] Comment on above: Performed By: #### A 1C #### [facility] [address] [address] [address] Gisel Galdamez Sodium [Moles/Vol] 144 mmol/L Normal 136-145 [facility] Comment on above: Performed By: #### A 1C #### [facility] [address] [address] [address] Gisel Galdamez Urea nitrogen [Mass/Vol] 13.0 mg/dL Normal 7.0-18.0 [facility] Comment on above: Performed By: #### A 1C #### [facility] [address] [place] [address] Dr. Gisel Galdamez Urea nitrogen/Creatinine [Mass ratio] 12.0 mg/mg Normal [facility] Comment on above: Performed By: #### A 1C #### [facility] [address] [place] [address] LUNG CANCER SCREENINGon [...] by: NICOLAS NICOLE Date: 2022-04-25 09:07 Normal [facility] HEMOGLOBINon 04-25-2022 Hemoglobin (Bld) [Mass/Vol] 16.3 g/dL Normal 14.0-18.0 [facility] Comment on above: Performed By: #### P OCGLUC #### [facility] [address] [address] [address] Gisel Galdamez GLYCOHEMOGLOBIN A1Con 2022 ADA RECOMMENDATION SEE BELOW Normal [facility] Comment on above: Result Comment: ADA RECOMMENDED LIMIT 4.0 - 6.0 ADA THERAPEUTIC TARGET < 7.0 ACTION SUGGESTED > 7.0 Performed By: #### P OCGLUC #### [facility] [address] [address] [address] Gisel Galdamez Glucose [Mass/Vol] 237 mg/dL Normal [facility] Comment on above: Performed By: #### P OCGLUC #### [facility] [address] [place] [address] Dr. Gisel Galdamez HbA1c (Bld) [Mass fraction] 9.9 % Critically high 4.5-6.2 [facility] Comment on above: Performed By: #### P OCGLUC #### [facility] [address] [address] [address] Gisel Galdamez LIPID PROFILEon 04-02-2022 CHOL-HDL RATIO NORM SEE BELOW Normal [facility] Comment on above: Result Comment: 3.3 - 4.4 LOW RISK 4.4 - 7.1 AVERAGE RISK 7.1 - 11.0 MODERATE RISK >11.0 HIGH RISK Performed By: #### P OCGLUC #### [facility] [address] [address] [address] Gisel Galdamez Cholesterol [Mass/Vol] 148 mg/dL Normal <=200 [facility] Comment on above: Performed By: #### P OCGLUC #### [facility] [address] [address] [address] Gisel Galdamez Cholesterol in HDL [Mass/Vol] 32 mg/dL Critically low 40-60 [facility] Comment on above: Performed By: #### P OCGLUC #### [facility] [address] [address] [address] Gisel Galdamez Cholesterol in LDL [Mass/Vol] 72.2 mg/dL Normal [facility] Comment on above: Performed By: #### P OCGLUC #### [facility] [address] [address] [address] Gisel Galdamez Cholesterol.total/Ch olesterol in HDL [Mass ratio] 4.6 {ratio} Normal [facility] Comment on above: Performed By: #### P OCGLUC #### [facility] [address] [address] [address] Gisel Galdamez HDL NORMAL > or = 60 mg/dl - LOW CARDIOVASCULAR RISK <40 mg/dl - HIGH CARDIOVASCULAR RISK Normal [facility] Comment on above: Performed By: #### P OCGLUC #### [facility] [address] [address] [address] Gisel Galdamez LDL CALC NORMAL SEE BELOW Normal [facility] Comment on above: Result Comment: <100 mg/dl OPTIMAL 100 - 129 mg/dl NEAR OR ABOVE OPTIMAL 130 - 159 mg/dl BORDERLINE HIGH 160 - 189 mg/dl HIGH >190 mg/dl VERY HIGH Performed By: #### P OCGLUC #### [facility] [address] [address] [address] Gisel Galdamez Triglyceride [Mass/Vol] 219 mg/dL Critically high <=150 [facility] Comment on above: Performed By: #### P OCGLUC #### [facility] [address] [address] [address] Gisel Galdamez VLDL CALC 43.8 mg/dL Normal [facility] Comment on above: Performed By: #### P OCGLUC #### [facility] [address] [address] [address] Gisel Galdamez PROF 14(COMP METB)on 023 Albumin [Mass/Vol] 3.7 g/dL Normal 3.4-5.0 [facility] Comment on above: Performed By: #### P OCGLUC #### [facility] [address] [place] [address] Dr. Gisel Galdamez Albumin/Globulin [Mass ratio] 1.2 {ratio} Normal [facility] Comment on above: Performed By: #### P OCGLUC #### [facility] [address] [address] [address] Gisel Galdamez ALP [Catalytic activity/Vol] 98 U/L Normal 46-116 [facility] Comment on above: Performed By: #### P OCGLUC #### [facility] [address] [address] [address] Gisel Galdamez ALT [Catalytic activity/Vol] 37 U/L Normal 16-63 [facility] Comment on above: Performed By: #### P OCGLUC #### [facility] [address] [address] [address] Gisel Galdamez Anion gap [Moles/Vol] 9.8 mmol/L Normal [facility] Comment on above: Performed By: #### P OCGLUC #### [facility] [address] [place] [address] Dr. Gisel Galdamez AST [Catalytic activity/Vol] 15 U/L Normal 15-37 [facility] Comment on above: Performed By: #### P OCGLUC #### [facility] [address] [address] [address] Gisel Galdamez Bilirubin [Mass/Vol] 0.9 mg/dL Normal 0.2-1.0 [facility] Comment on above: Performed By: #### P OCGLUC #### [facility] [address] [address] [address] Gisel Galdamez Calcium [Mass/Vol] 8.7 mg/dL Normal 8.5-10.1 [facility] Comment on above: Performed By: #### P OCGLUC #### [facility] [address] [address] [address] Gisel Galdamez Chloride [Moles/Vol] 99 mmol/L Normal 98-107 [facility] Comment on above: Performed By: #### P OCGLUC #### [facility] [address] [address] [address] Gisel Galdamez CO2 [Moles/Vol] 34.9 mmol/L Critically high 21.0-32.0 [facility] Comment on above: Performed By: #### P OCGLUC #### [facility] [address] [address] [address] Gisel Galdamez Creatinine [Mass/Vol] 1.02 mg/dL Normal 0.70-1.30 [facility] Comment on above: Performed By: #### P OCGLUC #### [facility] [address] [address] [address] Gisel Galdamez EGFR-AF ISRAELI >60 Normal >=60 [facility] Comment on above: Performed By: #### P OCGLUC #### [facility] [address] [address] [address] Gisel Galdamez EGFR-NON AF ISRAELI >60 Normal >=60 [facility] Comment on above: Performed By: #### P OCGLUC #### [facility] [address] [address] [address] Gisel Galdamez Globulin (S) [Mass/Vol] 3.0 g/dL Normal [facility] Comment on above: Performed By: #### P OCGLUC #### [facility] [address] [address] [address] Gisel Galdamez Glucose [Mass/Vol] 265 mg/dL Critically high 74-106 [facility] Comment on above: Performed By: #### P OCGLUC #### [facility] [address] [address] [address] Gisel Galdamez Potassium [Moles/Vol] 4.7 mmol/L Normal 3.5-5.1 [facility] Comment on above: Performed By: #### P OCGLUC #### [facility] [address] [address] [address] Gisel Galdamez Protein [Mass/Vol] 6.7 g/dL Normal 6.4-8.2 [facility] Comment on above: Performed By: #### P OCGLUC #### [facility] [address] [address] [address] Gisel Galdamez Sodium [Moles/Vol] 139 mmol/L Normal 136-145 [facility] Comment on above: Performed By: #### P OCGLUC #### [facility] [address] [address] [address] Gisel Galdamez Urea nitrogen [Mass/Vol] 19.0 mg/dL Critically high 7.0-18.0 [facility] Comment on above: Performed By: #### P OCGLUC #### [facility] [address] [address] [address] Gisel Galdamez Urea nitrogen/Creatinine [Mass ratio] 18.6 mg/mg Normal [facility] Comment on above: Performed By: #### P OCGLUC #### [facility] [address] [address] [address] Gisel Galdamez VITAMIN D 25 OHon 04-02-2022 VIT D 25-OH 17.8 ng/mL Normal [facility] Comment on above: Performed By: #### P OCGLUC #### [facility] [address] [address] [address] Gisel Galdamez VIT D RANGES SEE BELOW Normal [facility] Comment on above: Result Comment: <20 ng/mL Vit D deficient 20 - <30 ng/mL Vit D insufficient 30 - 100 ng/mL Vit D sufficient >100 ng/mL Potential Toxicity Performed By: #### P OCGLUC #### [facility] [address] [address] [address] Gisel Galdamez General Surgery Office/Clini c [...] PVD - peripheral vascular disease: Father. Normal [facility] Comment on above: Result Comment: [...] (peripheral vascular disease) Vitamin D deficiency Normal [facility] BNPon 01-10-2022 Natriuretic peptide B (Bld) [Mass/Vol] 264.0 pg/mL Normal <=900.0 [facility] Comment on above: Performed By: #### C MP, BNP #### [facility] [address] [address] [address] Gisel Galdamez CBC AUTO DIFFon 01-10-2022 BASO # 0.0 103/ul Normal 0.0-0.1 [facility] Comment on above: Performed By: #### P OCGLUC #### [facility] [address] [address] [address] Gisel Galdamez Basophils/100 WBC (Bld) 0.4 % Normal 0.2-2.0 [facility] Comment on above: Performed By: #### P OCGLUC #### [facility] [address] [address] [address] Gisel Galdamez EO # 0.0 103/ul Normal 0.0-0.7 [facility] Comment on above: Performed By: #### P OCGLUC #### [facility] [address] [address] [address] Gisel Galdamez Eosinophils/100 WBC (Bld) 0.0 % Critically low 0.9-7.0 [facility] Comment on above: Performed By: #### P OCGLUC #### [facility] [address] [address] [address] Gisel Galdamez Erythrocyte distribution width (RBC) [Ratio] 13.5 % Normal 11.0-15.0 [facility] Comment on above: Performed By: #### P OCGLUC #### [facility] [address] [place] [address] Dr. Gisel Galdamez Hematocrit (Bld) [Volume fraction] 57.3 % Critically high 42.0-54.0 [facility] Comment on above: Performed By: #### P OCGLUC #### [facility] [address] [address] [address] Gisel Galdamez Hemoglobin (Bld) [Mass/Vol] 17.5 g/dL Normal 14.0-18.0 [facility] Comment on above: Performed By: #### P OCGLUC #### [facility] [address] [address] [address] Gisel Galdamez IG # 0.10 10e3/ul Critically high 0.00-0.03 [facility] Comment on above: Performed By: #### P OCGLUC #### [facility] [address] [place] [address] Dr. Gisel Galdamez IG % 1.5 % Critically high 0.0-0.5 [facility] Comment on above: Performed By: #### P OCGLUC #### [facility] [address] [place] [address] Dr. Gisel Galdamez LYMPH # 0.4 103/ul Critically low 1.2-3.8 [facility] Comment on above: Performed By: #### P OCGLUC #### [facility] [address] [place] [address] Dr. Gisel Galdamez Lymphocytes/100 WBC (Bld) 6.0 % Critically low 20.5-60.0 [facility] Comment on above: Performed By: #### P OCGLUC #### [facility] [address] [place] [address] Dr. Gisel Galdamez MANUAL DIFF REQ NO Normal [facility] Comment on above: Performed By: #### P OCGLUC #### [facility] [address] [address] [address] Gisel Galdamez MCH (RBC) [Entitic mass] 29.2 pg Normal 25.9-34.0 [facility] Comment on above: Performed By: #### P OCGLUC #### [facility] [address] [place] [address] Dr. Gisel Galdamez MCHC (RBC) [Mass/Vol] 30.5 g/dL Normal 29.9-35.2 [facility] Comment on above: Performed By: #### P OCGLUC #### [facility] [address] [place] [address] Dr. Gisel Galdamez MCV (RBC) [Entitic vol] 95.5 fL Critically high 80.0-94.0 [facility] Comment on above: Performed By: #### P OCGLUC #### [facility] [address] [place] [address] Dr. Gisel Galdamez MONO # 0.1 103/ul Critically low 0.3-0.8 [facility] Comment on above: Performed By: #### P OCGLUC #### [facility] [address] [place] [address] Dr. Gisel Galdamez Monocytes/100 WBC (Bld) 1.9 % Normal 1.7-12.0 [facility] Comment on above: Performed By: #### P OCGLUC #### [facility] [address] [place] [address] Dr. Gisel Galdamez NEUT # 6.2 103/ul Normal 1.4-6.5 [facility] Comment on above: Performed By: #### P OCGLUC #### [facility] [address] [place] [address] Dr. Gisel Galdamez Neutrophils/100 WBC (Bld) 90.2 % Critically high 43.0-75.0 [facility] Comment on above: Performed By: #### P OCGLUC #### [facility] [address] [place] [address] Dr. Gisel Galdamez Platelet mean volume (Bld) [Entitic vol] 12.0 fL Normal 9.5-13.5 [facility] Comment on above: Performed By: #### P OCGLUC #### [facility] [address] [place] [address] Dr. Gisel Galdamez PLT 134 103/ul Critically low 150-450 [facility] Comment on above: Performed By: #### P OCGLUC #### [facility] [address] [place] [address] Dr. Gisel Galdamez RBC 6.00 106/ul Normal 4.70-6.10 [facility] Comment on above: Performed By: #### P OCGLUC #### [facility] [address] [place] [address] Dr. Gisel Galdamez WBC 6.9 103/ul Normal 4.0-11.0 [facility] Comment on above: Performed By: #### P OCGLUC #### [facility] [address] [place] [address] Dr. Gisel Galdamez POINT OF CARE GLUCOSEon 12-31 Glucose [Mass/Vol] 414 mg/dL Critically high 74-106 [facility] Comment on above: Performed By: #### P OCGLUC #### [facility] [address] [place] [address] Dr. Gisel Galdamez Glucose [Mass/Vol] 353 mg/dL Critically high -106 [facility] Comment on above: Performed By: #### P OCGLUC #### [facility] [address] [place] [address] Dr. Gisel Galdamez Glucose [Mass/Vol] 415 mg/dL Critically high -106 [facility] Comment on above: Performed By: #### P OCGLUC #### [facility] [address] [place] [address] Dr. Gisel Galdamez PROF 14(COMP METB)on 022 Albumin [Mass/Vol] 3.3 g/dL Critically low 3.4-5.0 [facility] Comment on above: Performed By: #### C MP, BNP #### [facility] [address] [place] [address] Dr. Gisel Galdamez Albumin/Globulin [Mass ratio] 0.8 {ratio} Normal [facility] Comment on above: Performed By: #### C MP, BNP #### [facility] [address] [place] [address] Dr. Gisel Galdamez ALP [Catalytic activity/Vol] 115 U/L Normal 46-116 [facility] Comment on above: Performed By: #### C MP, BNP #### [facility] [address] [place] [address] Dr. Gisel Galdamez ALT [Catalytic activity/Vol] 31 U/L Normal 16-63 [facility] Comment on above: Performed By: #### C MP, BNP #### [facility] [address] [place] [address] Dr. Gisel Galdamez Anion gap [Moles/Vol] 9.0 mmol/L Normal [facility] Comment on above: Performed By: #### C MP, BNP #### [facility] [address] [address] [address] Gisel Galdamez AST [Catalytic activity/Vol] 9 U/L Critically low 15-37 [facility] Comment on above: Performed By: #### C MP, BNP #### [facility] [address] [place] [address] Dr. Gisel Galdamez Bilirubin [Mass/Vol] 0.7 mg/dL Normal 0.2-1.0 [facility] Comment on above: Performed By: #### C MP, BNP #### [facility] [address] [place] [address] Dr. Gisel Galdamez Calcium [Mass/Vol] 8.5 mg/dL Normal 8.5-10.1 [facility] Comment on above: Performed By: #### C MP, BNP #### [facility] [address] [place] [address] Dr. Gisel Galdamez Chloride [Moles/Vol] 96 mmol/L Critically low 98-107 [facility] Comment on above: Performed By: #### C MP, BNP #### [facility] [address] [place] [address] Dr. Gisel Galdamez CO2 [Moles/Vol] 31.5 mmol/L Normal 21.0-32.0 [facility] Comment on above: Performed By: #### C MP, BNP #### [facility] [address] [place] [address] Dr. Gisel Galdamez Creatinine [Mass/Vol] 1.39 mg/dL Critically high 0.70-1.30 [facility] Comment on above: Performed By: #### C MP, BNP #### [facility] [address] [place] [address] Dr. Gisel Galdamez EGFR-AF ISRAELI >60 Normal >=60 [facility] Comment on above: Performed By: #### C MP, BNP #### [facility] [address] [address] [address] Gisel Galdamez EGFR-NON AF ISRAELI 53 mL/min/1.73m2 Critically low >=60 [facility] Comment on above: Performed By: #### C MP, BNP #### [facility] [address] [address] [address] Gisel Galdamez Globulin (S) [Mass/Vol] 3.9 g/dL Normal [facility] Comment on above: Performed By: #### C MP, BNP #### [facility] [address] [place] [address] Dr. Gisel Galdamez Glucose [Mass/Vol] 409 mg/dL Critically high 74-106 [facility] Comment on above: Performed By: #### C MP, BNP #### [facility] [address] [place] [address] Dr. Gisel Galdamez Potassium [Moles/Vol] 4.5 mmol/L Normal 3.5-5.1 [facility] Comment on above: Performed By: #### C MP, BNP #### [facility] [address] [place] [address] Dr. Gisel Galdamez Protein [Mass/Vol] 7.2 g/dL Normal 6.4-8.2 [facility] Comment on above: Performed By: #### C MP, BNP #### [facility] [address] [place] [address] Dr. Gisel Galdamez Sodium [Moles/Vol] 132 mmol/L Critically low 136-145 [facility] Comment on above: Performed By: #### C MP, BNP #### [facility] [address] [place] [address] Dr. Gisel Galdamez Urea nitrogen [Mass/Vol] 27.0 mg/dL Critically high 7.0-18.0 [facility] Comment on above: Performed By: #### C MP, BNP #### [facility] [address] [place] [address] Dr. Gisel Galdamez Urea nitrogen/Creatinine [Mass ratio] 19.4 mg/mg Normal [facility] Comment on above: Performed By: #### C MP, BNP #### [facility] [address] [place] [address] Dr. Gisel Galdamez BNPon 01-09-2022 Natriuretic peptide B (Bld) [Mass/Vol] 236.0 pg/mL Normal <=900.0 [facility] Comment on above: Performed By: #### P OCGLUC #### [facility] [address] [place] [address] Dr. Gisel Galdamez CBC AUTO DIFFon 01-09-2022 BASO # 0.1 103/ul Normal 0.0-0.1 [facility] Comment on above: Performed By: #### C BC #### [facility] [address] [place] [address] Dr. Gisel Galdamez Basophils/100 WBC (Bld) 0.6 % Normal 0.2-2.0 [facility] Comment on above: Performed By: #### C BC #### [facility] [address] [place] [address] Dr. Gisel Galdamez EO # 0.0 103/ul Normal 0.0-0.7 [facility] Comment on above: Performed By: #### C BC #### [facility] [address] [place] [address] Dr. Gisel Galdamez Eosinophils/100 WBC (Bld) 0.2 % Critically low 0.9-7.0 [facility] Comment on above: Performed By: #### C BC #### [facility] [address] [place] [address] Dr. Gisel Galdamez Erythrocyte distribution width (RBC) [Ratio] 13.4 % Normal 11.0-15.0 [facility] Comment on above: Performed By: #### C BC #### [facility] [address] [place] [address] Dr. Gisel Galdamez Hematocrit (Bld) [Volume fraction] 57.4 % Critically high 42.0-54.0 [facility] Comment on above: Performed By: #### C BC #### [facility] [address] [address] [address] Gisel Galdamez Hemoglobin (Bld) [Mass/Vol] 18.2 g/dL Critically high 14.0-18.0 [facility] Comment on above: Performed By: #### C BC #### [facility] [address] [place] [address] Dr. Gisel Galdamez IG # 0.16 10e3/ul Critically high 0.00-0.03 [facility] Comment on above: Performed By: #### C BC #### [facility] [address] [place] [address] Dr. Gisel Galdamez IG % 1.5 % Critically high 0.0-0.5 [facility] Comment on above: Performed By: #### C BC #### [facility] [address] [place] [address] Dr. Gisel Galdamez LYMPH # 0.9 103/ul Critically low 1.2-3.8 [facility] Comment on above: Performed By: #### C BC #### [facility] [address] [place] [address] Dr. Gisel Galdamez Lymphocytes/100 WBC (Bld) 9.1 % Critically low 20.5-60.0 [facility] Comment on above: Performed By: #### C BC #### [facility] [address] [place] [address] Dr. Gisel Galdamez MANUAL DIFF REQ NO Normal [facility] Comment on above: Performed By: #### C BC #### [facility] [address] [place] [address] Dr. Gisel Galdamez MCH (RBC) [Entitic mass] 30.2 pg Normal 25.9-34.0 [facility] Comment on above: Performed By: #### C BC #### [facility] [address] [place] [address] Dr. Gisel Galdamez MCHC (RBC) [Mass/Vol] 31.7 g/dL Normal 29.9-35.2 [facility] Comment on above: Performed By: #### C BC #### [facility] [address] [address] [address] Gisel Galdamez MCV (RBC) [Entitic vol] 95.2 fL Critically high 80.0-94.0 [facility] Comment on above: Performed By: #### C BC #### [facility] [address] [address] [address] Gisel Galdamez MONO # 0.9 103/ul Critically high 0.3-0.8 [facility] Comment on above: Performed By: #### C BC #### [facility] [address] [address] [address] Gisel Galdamez Monocytes/100 WBC (Bld) 9.1 % Normal 1.7-12.0 [facility] Comment on above: Performed By: #### C BC #### [facility] [address] [place] [address] Dr. Gisel Galdamez NEUT # 8.2 103/ul Critically high 1.4-6.5 [facility] Comment on above: Performed By: #### C BC #### [facility] [address] [place] [address] Dr. Gisel Galdamez Neutrophils/100 WBC (Bld) 79.5 % Critically high 43.0-75.0 [facility] Comment on above: Performed By: #### C BC #### [facility] [address] [place] [address] Dr. Gisel Galdamez Platelet mean volume (Bld) [Entitic vol] 11.9 fL Normal 9.5-13.5 [facility] Comment on above: Performed By: #### C BC #### [facility] [address] [place] [address] Dr. Gisel Galdamez PLT 146 103/ul Critically low 150-450 [facility] [place] Comment on above: Performed By: #### C BC #### [facility] [address] [place] [address] Dr. Gisel Galdamez RBC 6.03 106/ul Normal 4.70-6.10 [facility] Comment on above: Performed By: #### C BC #### [facility] [address] [address] [address] Gisel Galdamez WBC 10.4 103/ul Normal 4.0-11.0 [facility] Comment on above: Performed By: #### C BC #### [facility] [address] [address] [address] Gisel Galdamez CULTURE SPUTUMon 01-09-2022 CULTURE SPUTUM Culture Observations: NORMAL RESPIRATORY PB. Normal [facility] Comment on above: Performed By: #### P OCGLUC #### [facility] [address] [place] [address] Dr. Gisel Galdamez LACTATE/LACTIC ACIDon 2021 Lactate [Moles/Vol] 1.3 mmol/L Normal 0.4-1.9 [facility] Comment on above: Performed By: #### P OCGLUC #### [facility] [address] [place] [address] Dr. Gisel Galdamez POINT OF CARE GLUCOSEon 12-31 Glucose [Mass/Vol] 404 mg/dL Critically high 74-106 [facility] Comment on above: Performed By: #### P OCGLUC #### [facility] [address] [address] [address] Gisel Galdamez Glucose [Mass/Vol] 241 mg/dL Critically high 74-106 [facility] Comment on above: Performed By: #### P OCGLUC #### [facility] [address] [place] [address] Dr. Gisel Galdamez PROF 14(COMP METB)on 022 Albumin [Mass/Vol] 3.3 g/dL Critically low 3.4-5.0 [facility] Comment on above: Performed By: #### P OCGLUC #### [facility] [address] [place] [address] Dr. Gisel Galdamez Albumin/Globulin [Mass ratio] 0.9 {ratio} Normal [facility] Comment on above: Performed By: #### P OCGLUC #### [facility] [address] [address] [address] Gisel Galdamez ALP [Catalytic activity/Vol] 111 U/L Normal 46-116 [facility] Comment on above: Performed By: #### P OCGLUC #### [facility] [address] [address] [address] Gisel Galdamez ALT [Catalytic activity/Vol] 36 U/L Normal 16-63 [facility] Comment on above: Performed By: #### P OCGLUC #### [facility] [address] [address] [address] Gisel Galdamez Anion gap [Moles/Vol] 7.6 mmol/L Normal [facility] Comment on above: Performed By: #### P OCGLUC #### [facility] [address] [address] [address] Gisel Galdamez AST [Catalytic activity/Vol] 15 U/L Normal 15-37 [facility] Comment on above: Performed By: #### P OCGLUC #### [facility] [address] [address] [address] Gisel Galdamez Bilirubin [Mass/Vol] 1.3 mg/dL Critically high 0.2-1.0 [facility] Comment on above: Performed By: #### P OCGLUC #### [facility] [address] [address] [address] Gisel Galdamez Calcium [Mass/Vol] 8.7 mg/dL Normal 8.5-10.1 [facility] Comment on above: Performed By: #### P OCGLUC #### [facility] [address] [address] [address] Gisel Galdamez Chloride [Moles/Vol] 97 mmol/L Critically low 98-107 [facility] Comment on above: Performed By: #### P OCGLUC #### [facility] [address] [address] [address] Gisel Galdamez CO2 [Moles/Vol] 32.8 mmol/L Critically high 21.0-32.0 [facility] Comment on above: Performed By: #### P OCGLUC #### [facility] [address] [address] [address] Gisel Galdamez Creatinine [Mass/Vol] 0.99 mg/dL Normal 0.70-1.30 [facility] Comment on above: Performed By: #### P OCGLUC #### [facility] [address] [address] [address] Gisel Galdamez EGFR-AF ISRAELI >60 Normal >=60 [facility] Comment on above: Performed By: #### P OCGLUC #### [facility] [address] [address] [address] Gisel Galdamez EGFR-NON AF ISRAELI >60 Normal >=60 [facility] Comment on above: Performed By: #### P OCGLUC #### [facility] [address] [address] [address] Gisel Galdamez Globulin (S) [Mass/Vol] 3.8 g/dL Normal [facility] Comment on above: Performed By: #### P OCGLUC #### [facility] [address] [address] [address] Gisel Galdamez Glucose [Mass/Vol] 272 mg/dL Critically high 74-106 [facility] Comment on above: Performed By: #### P OCGLUC #### [facility] [address] [address] [address] Gisel Galdamez Potassium [Moles/Vol] 4.4 mmol/L Normal 3.5-5.1 [facility] Comment on above: Performed By: #### P OCGLUC #### [facility] [address] [address] [address] Gisel Galdamez Protein [Mass/Vol] 7.1 g/dL Normal 6.4-8.2 [facility] Comment on above: Performed By: #### P OCGLUC #### [facility] [address] [address] [address] Gisel Galdamez Sodium [Moles/Vol] 133 mmol/L Critically low 136-145 [facility] Comment on above: Performed By: #### P OCGLUC #### [facility] [address] [address] [address] Gisel Galdamez Urea nitrogen [Mass/Vol] 13.0 mg/dL Normal 7.0-18.0 [facility] Comment on above: Performed By: #### P OCGLUC #### [facility] [address] [place] [address] Dr. Gisel Galdamez Urea nitrogen/Creatinine [Mass ratio] 13.1 mg/mg Normal [facility] Comment on above: Performed By: #### P OCGLUC #### [facility] [address] [place] [address] Dr. Gisel Galdamez RESPIRATORY PANEL PLUSon Adenovirus Not detected Normal NOT DETECTED [facility] Comment on above: Performed By: #### P OCGLUC #### [facility] [address] [place] [address] Dr. Gisel Galdamez B. Parapertusis Not detected Normal NOT DETECTED [facility] Comment on above: Performed By: #### P OCGLUC #### [facility] [address] [place] [address] Dr. Gisel Cruz. Pertussis Not detected Normal NOT DETECTED [facility] Comment on above: Performed By: #### P OCGLUC #### [facility] [address] [place] [address] Dr. Gisel Galdamez Chlamydia Pneumoniae Not detected Normal NOT DETECTED [facility] Comment on above: Performed By: #### P OCGLUC #### [facility] [address] [place] [address] Dr. Gisel Galdamez Coronavirus 229E Not detected Normal NOT DETECTED [facility] Comment on above: Performed By: #### P OCGLUC #### [facility] [address] [place] [address] Dr. Gisel Galdamez Coronavirus HKU1 Not detected Normal NOT DETECTED [facility] Comment on above: Performed By: #### P OCGLUC #### [facility] [address] [place] [address] Dr. Gisel Galdamez Coronavirus NL63 Not detected Normal NOT DETECTED [facility] Comment on above: Performed By: #### P OCGLUC #### [facility] [address] [place] [address] Dr. Gisel Galdamez Coronavirus OC43 Not detected Normal NOT DETECTED [facility] Comment on above: Performed By: #### P OCGLUC #### [facility] [address] [address] [address] Gisel Galdamez Influenza A H1 2009 Not detected Normal NOT DETECTED [facility] Comment on above: Performed By: #### P OCGLUC #### [facility] [address] [address] [address] Gisel Galdamez Influenza A H3 Not detected Normal NOT DETECTED [facility] Comment on above: Performed By: #### P OCGLUC #### [facility] [address] [address] [address] Gisel Galdamez Influenza B Not detected Normal NOT DETECTED [facility] Comment on above: Performed By: #### P OCGLUC #### [facility] [address] [address] [address] Gisel Galdamez Metapneumovirus Not detected Normal NOT DETECTED [facility] Comment on above: Performed By: #### P OCGLUC #### [facility] [address] [address] [address] Gisel Galdamez Mycoplas. Pneumoniae Not detected Normal NOT DETECTED [facility] Comment on above: Performed By: #### P OCGLUC #### [facility] [address] [address] [address] Gisel Galdamez Parainfluenza 1 Not detected Normal NOT DETECTED [facility] Comment on above: Performed By: #### P OCGLUC #### [facility] [address] [place] [address] Dr. Gisel Galdamez Parainfluenza 2 Not detected Normal NOT DETECTED [facility] Comment on above: Performed By: #### P OCGLUC #### [facility] [address] [place] [address] Dr. Gisel Galdamez Parainfluenza 3 Not detected Normal NOT DETECTED [facility] Comment on above: Performed By: #### P OCGLUC #### [facility] [address] [address] [address] Gisel Galdamez Parainfluenza 4 Not detected Normal NOT DETECTED [facility] Comment on above: Performed By: #### P OCGLUC #### [facility] [address] [address] [address] Gisel Galdamez Rhino/Enterovirus Not detected Normal NOT DETECTED [facility] Comment on above: Performed By: #### P OCGLUC #### [facility] [address] [place] [address] Dr. Gisel Galdamez RP2 Header 1 RESPIRATORY PANEL: VIRUSES Normal [facility] Comment on above: Performed By: #### P OCGLUC #### [facility] [address] [place] [address] Dr. Gisel Galdamez RP2 Header 2 RESPIRATORY PANEL: BACTERIA Normal [facility] Comment on above: Performed By: #### P OCGLUC #### [facility] [address] [place] [address] Dr. Gisel Galdamez RSV Not detected Normal NOT DETECTED [facility] Comment on above: Performed By: #### P OCGLUC #### [facility] [address] [place] [address] Dr. Gisel Galdamez SARS-CoV-2 (COVID-19) RNA MUKESH+probe Ql (Unsp spec) Not detected Normal NOT DETECTED [facility] Comment on above: Performed By: #### P OCGLUC #### [facility] [address] [place] [address] Dr. Gisel Galdamez SPUTUM GRAM STAINon 01-10-20 COMMENTS Normal [facility] Comment on above: Performed By: #### A 1C #### [facility] [address] [place] [address] Dr. Gisel Galdamez DIPHTHEROIDS Normal [facility] Comment on above: Performed By: #### A 1C #### [facility] [address] [place] [address] Dr. Gisel Galdamez EPITHELIALS <25 Normal [facility] Comment on above: Performed By: #### A 1C #### [facility] [address] [place] [address] Dr. Gisel Galdamez FUNGAL ELEMENTS Normal [facility] Comment on above: Performed By: #### A 1C #### [facility] [address] [place] [address] Dr. Gisel Galdamez GRAM NEG BACILLI Normal [facility] Comment on above: Performed By: #### A 1C #### [facility] [address] [address] [address] Gisel Galdamez GRAM NEG DIPPLOCOCCI Normal [facility] Comment on above: Performed By: #### A 1C #### [facility] [address] [address] [address] Gisel Galdamez GRAM POS BACILLI Normal [facility] Comment on above: Performed By: #### A 1C #### [facility] [address] [address] [address] Gisel Galdamez GRAM POSITIVE COCCI RARE Normal [facility] Comment on above: Performed By: #### A 1C #### [facility] [address] [address] [address] Gisel Galdamez WBC (Bld) [#/Vol] 10*3/uL Normal [facility] Comment on above: Performed By: #### A 1C #### [facility] [address] [address] [address] Gisel Galdamez TROPONIN, HIGH SENSITIVITYon 01-09-2022 HSTROP 10.3 pg/mL Normal 4.0-76.1 [facility] Comment on above: Result Comment: CUT- OFF POINTS HAVE BEEN ESTABLISHED BASED ON THE FOURTH UNIVERSAL DEFINITIONS OF MYOCARDIAL INFARCTION. THE UPPER REFERENCE LIMIT (URL) OF TROPONIN, DEFINED THE 99TH PERCENTILE OF cTnI DISTRIBUTION IN A REFERENCE POPULATION, HAS BEEN CONFIRMED THE DECISION THRESHOLD FOR ID DIAGNOSIS. Performed By: #### P OCGLUC #### [facility] [address] [place] [address] Dr. Gisel Galdamez XR CHEST 1 Von [...] by: NICOLAS OLIVOER Date: 2022-01-09 12:49 Normal [facility] Lab Reportson 01-06-2022 Lab Reports [id number] #[id number]:127 Normal [facility] Ambulatory Visit Summaryon 1 03-02-2021 [...] Mili CHACON MD Where: General Surgery Nill/Willian [place] Normal [facility] CULTURE WOUNDon 12-31-2021 CULTURE WOUND Culture Observations: Moderate growth of normal skin pb. Culture Observations: No growth of anaerobes at 72 hours. Normal [facility] Comment on above: Performed By: #### P OCGLUC #### [facility] [address] [place] [address] Dr. Gisel Gadlamez Patient Educationon 01-01-20 22 Patient Education Incision [...] these instructions at home: Medicines ? 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 ? Change your dressing and [...] 05/10/2012 Document Revised: 01/17/2019 Document Reviewed: 01/17/2019 [employer] Patient Education ? 2019 E (more content not included)... Normal [facility] Physician Referralon 022 Physician Referral [id number] #[id number]:127 Normal [facility] CBC AUTO DIFFon 12-28-2021 BASO # 0.1 103/ul Normal 0.0-0.1 [facility] Comment on above: Performed By: #### P OCGLUC #### [facility] [address] [address] [address] Gisel Galdamez Basophils/100 WBC (Bld) 0.9 % Normal 0.2-2.0 [facility] Comment on above: Performed By: #### P OCGLUC #### [facility] [address] [address] [address] Gisel Galdamez EO # 0.2 103/ul Normal 0.0-0.7 [facility] Comment on above: Performed By: #### P OCGLUC #### [facility] [address] [address] [address] Gisel Galdamez Eosinophils/100 WBC (Bld) 2.3 % Normal 0.9-7.0 [facility] Comment on above: Performed By: #### P OCGLUC #### [facility] [address] [address] [address] Gisel Galdamez Erythrocyte distribution width (RBC) [Ratio] 14.0 % Normal 11.0-15.0 [facility] Comment on above: Performed By: #### P OCGLUC #### [facility] [address] [address] [address] Gisel Galdamez Hematocrit (Bld) [Volume fraction] 61.7 % Critically high 42.0-54.0 [facility] Comment on above: Performed By: #### P OCGLUC #### [facility] [address] [address] [address] Gisel Galdamez Hemoglobin (Bld) [Mass/Vol] 19.8 g/dL Critically high 14.0-18.0 [facility] Comment on above: Performed By: #### P OCGLUC #### [facility] [address] [address] [address] Gisel Galdamez IG # 0.03 10e3/ul Normal 0.00-0.03 [facility] Comment on above: Performed By: #### P OCGLUC #### [facility] [address] [address] [address] Gisel Galdamez IG % 0.5 % Normal 0.0-0.5 [facility] Comment on above: Performed By: #### P OCGLUC #### [facility] [address] [address] [address] Gisel Galdamez LYMPH # 1.2 103/ul Normal 1.2-3.8 [facility] Comment on above: Performed By: #### P OCGLUC #### [facility] [address] [place] [address] Dr. Gisel Galdamez Lymphocytes/100 WBC (Bld) 18.0 % Critically low 20.5-60.0 [facility] Comment on above: Performed By: #### P OCGLUC #### [facility] [address] [place] [address] Dr. Gisel Galdamez MANUAL DIFF REQ NO Normal [facility] Comment on above: Performed By: #### P OCGLUC #### [facility] [address] [place] [address] Dr. Gisel Galdamez MCH (RBC) [Entitic mass] 29.8 pg Normal 25.9-34.0 [facility] Comment on above: Performed By: #### P OCGLUC #### [facility] [address] [place] [address] Dr. Gisel Galdamez MCHC (RBC) [Mass/Vol] 32.1 g/dL Normal 29.9-35.2 [facility] Comment on above: Performed By: #### P OCGLUC #### [facility] [address] [place] [address] Dr. Gisel Galdamez MCV (RBC) [Entitic vol] 92.8 fL Normal 80.0-94.0 [facility] Comment on above: Performed By: #### P OCGLUC #### [facility] [address] [address] [address] Gisel Galdamez MONO # 0.5 103/ul Normal 0.3-0.8 [facility] Comment on above: Performed By: #### P OCGLUC #### [facility] [address] [address] [address] Gisel Galdamez Monocytes/100 WBC (Bld) 7.9 % Normal 1.7-12.0 [facility] Comment on above: Performed By: #### P OCGLUC #### [facility] [address] [address] [address] Gisel Galdamez NEUT # 4.5 103/ul Normal 1.4-6.5 [facility] Comment on above: Performed By: #### P OCGLUC #### [facility] [address] [place] [address] Dr. Gisel Galdamez Neutrophils/100 WBC (Bld) 70.4 % Normal 43.0-75.0 [facility] Comment on above: Performed By: #### P OCGLUC #### [facility] [address] [address] [address] Gisel Galdamez Platelet mean volume (Bld) [Entitic vol] 11.2 fL Normal 9.5-13.5 [facility] Comment on above: Performed By: #### P OCGLUC #### [facility] [address] [place] [address] Dr. Gisel Galdamez PLT 149 103/ul Critically low 150-450 [facility] Comment on above: Performed By: #### P OCGLUC #### [facility] [address] [address] [address] Gisel Galdamez RBC 6.65 106/ul Critically high 4.70-6.10 [facility] Comment on above: Performed By: #### P OCGLUC #### [facility] [address] [address] [address] Gisel Galdamez WBC 6.5 103/ul Normal 4.0-11.0 [facility] Comment on above: Performed By: #### P OCGLUC #### [facility] [address] [address] [address] Gisel Galdamez GLYCOHEMOGLOBIN A1Con 2021 ADA RECOMMENDATION SEE BELOW Normal [facility] Comment on above: Result Comment: ADA RECOMMENDED LIMIT 4.0 - 6.0 ADA THERAPEUTIC TARGET < 7.0 ACTION SUGGESTED > 7.0 Performed By: #### A 1C #### [facility] [address] [place] [address] Dr. Gisel Galdamez Glucose [Mass/Vol] 243 mg/dL Normal [facility] Comment on above: Performed By: #### A 1C #### [facility] [address] [place] [address] Dr. Gisel Galdamez HbA1c (Bld) [Mass fraction] 10.1 % Critically high 4.5-6.2 [facility] Comment on above: Performed By: #### A 1C #### [facility] [address] [place] [address] Dr. Gisel Galdamez PROF 14(COMP METB)on 022 Albumin [Mass/Vol] 3.9 g/dL Normal 3.4-5.0 [facility] Comment on above: Performed By: #### C MP #### [facility] [address] [place] [address] Dr. Gisel Galdamez Albumin/Globulin [Mass ratio] 1.2 {ratio} Normal [facility] Comment on above: Performed By: #### C MP #### [facility] [address] [place] [address] Dr. Gisel Galdamez ALP [Catalytic activity/Vol] 115 U/L Normal 46-116 [facility] Comment on above: Performed By: #### C MP #### [facility] [address] [place] [address] Dr. Gisel Galdamez ALT [Catalytic activity/Vol] 30 U/L Normal 16-63 [facility] Comment on above: Performed By: #### C MP #### [facility] [address] [place] [address] Dr. Gisel Galdamez Anion gap [Moles/Vol] 8.1 mmol/L Normal [facility] Comment on above: Performed By: #### C MP #### [facility] [address] [address] [address] Gisel Galdamez AST [Catalytic activity/Vol] 9 U/L Critically low 15-37 [facility] Comment on above: Performed By: #### C MP #### [facility] [address] [address] [address] Gisel Galdamez Bilirubin [Mass/Vol] 0.7 mg/dL Normal 0.2-1.0 [facility] Comment on above: Performed By: #### C MP #### [facility] [address] [address] [address] Gisel Galdamez Calcium [Mass/Vol] 9.7 mg/dL Normal 8.5-10.1 [facility] Comment on above: Performed By: #### C MP #### [facility] [address] [place] [address] Dr. Gisel Galdamez Chloride [Moles/Vol] 95 mmol/L Critically low 98-107 [facility] Comment on above: Performed By: #### C MP #### [facility] [address] [address] [address] Gisel Galdamez CO2 [Moles/Vol] 36.5 mmol/L Critically high 21.0-32.0 [facility] Comment on above: Performed By: #### C MP #### [facility] [address] [address] [address] Gisel Galdamez Creatinine [Mass/Vol] 1.18 mg/dL Normal 0.70-1.30 [facility] Comment on above: Performed By: #### C MP #### [facility] [address] [address] [address] Gisel Galdamez EGFR-AF ISRAELI >60 Normal >=60 [facility] Comment on above: Performed By: #### C MP #### [facility] [address] [address] [address] Gisel Galdamez EGFR-NON AF ISRAELI >60 Normal >=60 [facility] Comment on above: Performed By: #### C MP #### [facility] [address] [address] [address] Gisel Galdamez Globulin (S) [Mass/Vol] 3.3 g/dL Normal [facility] Comment on above: Performed By: #### C MP #### [facility] [address] [address] [address] Gisel Galdamez Glucose [Mass/Vol] 339 mg/dL Critically high 74-106 [facility] Comment on above: Performed By: #### C MP #### [facility] [address] [address] [address] Gisel Galdamez Potassium [Moles/Vol] 4.6 mmol/L Normal 3.5-5.1 [facility] Comment on above: Performed By: #### C MP #### [facility] [address] [place] [address] Dr. Gisel Galdamez Protein [Mass/Vol] 7.2 g/dL Normal 6.4-8.2 [facility] Comment on above: Performed By: #### C MP #### [facility] [address] [place] [address] Dr. Gisel Galdamez Sodium [Moles/Vol] 135 mmol/L Critically low 136-145 [facility] Comment on above: Performed By: #### C MP #### [facility] [address] [place] [address] Dr. Gisel Galdamez Urea nitrogen [Mass/Vol] 20.0 mg/dL Critically high 7.0-18.0 [facility] Comment on above: Performed By: #### C MP #### [facility] [address] [place] [address] Dr. Gisel Galdamez Urea nitrogen/Creatinine [Mass ratio] 16.9 mg/mg Normal [facility] Comment on above: Performed By: #### C MP #### [facility] [address] [place] [address] Dr. Gisel Galdamez LIPID PROFILEon 12-27-2021 CHOL-HDL RATIO NORM SEE BELOW Normal [facility] Comment on above: Result Comment: 3.3 - 4.4 LOW RISK 4.4 - 7.1 AVERAGE RISK 7.1 - 11.0 MODERATE RISK >11.0 HIGH RISK Performed By: #### L IPID #### [facility] [address] [address] [address] Gisel Galdamez Cholesterol [Mass/Vol] 191 mg/dL Normal <=200 [facility] Comment on above: Performed By: #### L IPID #### [facility] [address] [address] [address] Gisel Galdamez Cholesterol in HDL [Mass/Vol] 29 mg/dL Critically low 40-60 [facility] Comment on above: Performed By: #### L IPID #### [facility] [address] [address] [address] Gisel Galdamez Cholesterol in LDL [Mass/Vol] 91.4 mg/dL Normal [facility] Comment on above: Performed By: #### L IPID #### [facility] [address] [address] [address] Gisel Galdamez Cholesterol.total/Ch olesterol in HDL [Mass ratio] 6.6 {ratio} Normal [facility] Comment on above: Performed By: #### L IPID #### [facility] [address] [address] [address] Gisel Galdamez HDL NORMAL > or = 60 mg/dl - LOW CARDIOVASCULAR RISK <40 mg/dl - HIGH CARDIOVASCULAR RISK Normal [facility] Comment on above: Performed By: #### L IPID #### [facility] [address] [address] [address] Gisel Galdamez LDL CALC NORMAL SEE BELOW Normal [facility] Comment on above: Result Comment: <100 mg/dl OPTIMAL 100 - 129 mg/dl NEAR OR ABOVE OPTIMAL 130 - 159 mg/dl BORDERLINE HIGH 160 - 189 mg/dl HIGH >190 mg/dl VERY HIGH Performed By: #### L IPID #### [facility] [address] [address] [address] Gisel Galdamez Triglyceride [Mass/Vol] 353 mg/dL Critically high <=150 [facility] Comment on above: Performed By: #### L IPID #### [facility] [address] [address] [address] Gisel Galdamez VLDL CALC 70.6 mg/dL Normal [facility] Comment on above: Performed By: #### L IPID #### [facility] [address] [address] [address] Gisel Galdamez MICROALBUMIN, RAND URon 10-2 mALB 14.3 mg/L Normal <=30.0 [facility] Comment on above: Performed By: #### P OCGLUC #### [facility] [address] [address] [address] Gisel Galdamez COVID Quick Testingon 2020 Result Positive [email or web address] Other Vital Signs Date Time Vital Sign Value Performing Clinician Facility 12-31-2021 15:56-0400 Blood Pressure Location [employer] [facility] 12-31-2021 15:56-0400 Diastolic blood pressure 60 mm[Hg] [facility] [employer] [facility] 12-31-2021 15:56-0400 Heart rate 68 /min [employer] [employer] [facility] 12-31-2021 15:56-0400 Respiratory rate 16 /min [facility] [employer] [facility] 12-31-2021 15:56-0400 Systolic blood pressure 116 mm[Hg] [facility] [employer] [facility] 01-01-2021 18:30-0400 Body height 167.64 cm Vee Dowling Other [employer] Other 01-01-2021 18:30-0400 Body mass index (BMI) [Ratio] 39.54 kg/m2 Vee Dowling Other [facility] Other 01-01-2021 18:30-0400 Body temperature 99.6 [degF] Vee Dowling Other [facility] Other 01-01-2021 18:30-0400 Body weight 111.13 kg Vee Dowling Other [facility] Other 01-01-2021 18:30-0400 Respiratory rate 20 /min Vee Dowling Other [facility] Other 01-01-2021 18:30-0400 SaO2% (BldA) [Mass fraction] 88 % Vee Dowling Other [employer] Other Encounters Encounter Date Encounter Type Care Provider Facility Start: 07-11-2022 End: 07-12-2022 ambulatory OVI SHAMMO Facility:[facility] Start: 04-25-2022 End: 04-26-2022 ambulatory SHANNANORIANA GUTIERREZSA Facility:[facility] Start: 04-02-2022 End: 04-03-2022 ambulatory OVI SHAMMO Facility:[facility] Start: 01-15-2022 End: 01-16-2022 ambulatory OVI SHAMMO Facility:[facility] Start: 01-15-2022 End: 01-15-2022 Patient encounter procedure Mili CHACON [facility] Start: 01-09-2022 End: 01-10-[address] DOCTOR NIELSEN Facility:[facility] Start: 12-31-2021 End: 12-31-[address] MILI CHACON . Facility:[facility] Start: 12-31-2021 End: 01-01-2022 ambulatory OVI SHAMMO Facility:[facility] Start: 12-31-2021 End: 12-31-2021 Patient encounter procedure Mili CHACON General [facility] Start: 12-30-2021 ambulatory OVI SHAMMO Facility: [facility] Start: 12-28-2021 End: 12-29-2021 ambulatory OVI SHAMMO Facility: Start: 12-27-2021 End: 12-28-2021 ambulatory OVI HEALY Facility: Start: 01-01-2021 (URG) Urgent Care Visit Vee Dowling [facility] Start: 01-01-2021 End: 01-01-2021 ambulatory Vee Dowling Other [facility] Other Procedures Date Procedure Procedure Detail Performing Clinician Start: 12-31-2021 Incision and drainag e of abscess of neck Mili CHACON Decompression of med lisa nerve Mili NILTata Repair of umbilical hernia Gilmer cervantes [facility] Payers Date Payer Category Payer Unknown [id number] 1970 Unknown [id number] 2.16.8 [id number] 1970 Unknown [id number] 2.16.8 [id number] 1970 Unknown [id number] 2.16.8 [id number] 1970 Unknown [id number] 2.16.84 [id number] 1970 Unknown [id number] 2.16.84 [id number] 1970 Unknown [id number] 2.16.84 [id number] 1970 Unknown [id number] 2.16.84 [id number] 1970 Unknown [id number] 2.16.84 [id number] 1970 Unknown [id number] 2.16.84 [id number] 1970 Unknown [id number] 2.16.84 [id number] 1961 Medicare [id number] 2. [id number] Social History Date Type Detail Facility Sex Assigned At [facility] Start: 12-31-2021 Tobacco smoking status Ex-smoker (tayler coronado) [facility] Tobacco smoking status Never [facility] Functional Status Date Assessment Result Facility 12-31-2021 Functional Status N/A [facility] Clinical Note 12-31-2021 Note Date & Type Note Facility 12-31-2021 Note Chief Complaint consultation for neck abscess HPI Staff 51 year old male presents on consultation from Ovi Healy [employer] for neck abscess. Reports long standing history [...] day(s), # 28 cap(s), Refills(s) 0, Pharmacy: [facility]/pharmacy #[id number], 165, cm, 12/31/21 16:01:00 EDT, Height/Length [...] Alcohol - Valentin (more content not included)... 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 Change your dressing and packing [...] 05/10/2012 Document Revised: 01/17/2019 Document Reviewed: 01/17/2019 [employer] Patient Education 2020 [employer] 12/31/2021 16:43:31 Incision and Drainage, Care [...] Follow these instructions at home: Medicines Take jvtr-gtx-zjyrizc and prescription medicines only as told by [...] and water are not available, use hand primer inserting machine operator. Change your dressing and packing [...] Patient Education 2020 [employer] [facility] Evaluation note 01-01-2021 Note Date & Type [...] Patient care instructions given in writting by [facility] Care At Home document. Additional time spent conducting pre-visit phone call, screening for symptoms, instructions on social distancing, application and removal of PPE, and cleaning of examination room, equipment and supplies was preformed. Patient education given for testing methodology and results. Patient care instructions given in writting by [facility] Care At Home document. [employer] Other Evaluation + Plan note Note Date & Type Note Facility Evaluation + Plan note Future Appointments Appointment Date:01/08/2022 01:40:00 PM Scheduled Provider:Mili CHACON MD Location:[facility] Appointment Type: Established 15 Diagnostic Tests PendingWound Culture 12/31/21 General [facility] History general Narrative - Reported Note Date & Type Note Facility History general Narrative - Reported Type Medical History Hypertension Medical History hypercholesterolemia Medical History type II diabetes Medical History COPD Surgical History carpal tunnel right hand Surgical History umbilical hernia repair Hospitalization History see above [employer] Other Hospital course Narrative Note Date & Type Note Facility Hospital course Narrative No data available for this section [facility] Discharge instructions Note Date & Type Note Facility Hospital Discharge instructions No data available for this section [facility] Progress note Note Date & Type Note Facility Progress note No data available for this section [facility] Summary Purpose Family History No Family History [...] Personnel Name: MR. OVI HEALY Address: Address: [address] [place] [address] Personnel Name: MR. OVI HEALY Address: Address: [address] [place] [address] (unrecognized sect ion and content) No Status Records FoundNo Status Records Found INFORMATION SOURCE (unrecogn ized section and content) DATE CREATED AUTHOR 01/19/2022 [facility] DATE CREATED AUTHOR AUTHOR'S ORGANIZ ATION 07/14/2022 [facility] RECORDS PERTAINING TO PATIENTS WHO ARE [...] BE BASED ON THE PRIMARY CLINICAL RECORDS. [facility]. provides no warranty or guarantee of the accuracy or completeness of information in this document.
--- NOTE | 2024-06-09 22:10 | PC.NURSE ---
this patient complains of lower leg edema x 2 weeks and shortness of breath the past of couple days. this patient voices no other complaints and shows no signs of distress, this patient's daughter is at bedside
--- NOTE | 2024-06-09 22:26 | ECG_ITS ---
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 Measurements Intervals [place] Rate: 65 P: -[id number] GA: QRS: 104 QRSD: 76 T: 70 QT: 388 QTc: 399 Interpretive Statements Likely junctional rhythm 2420 RSR (QR) in lead V1/V2, consistent with right ventricular conduction delay 7100 Abnormal right axis deviation abnormal ECG Compared to ECG 09/02/2023 05:41:23 Junctional rhythm has replaced sinus rhythm Myocardial infarct finding no longer present Electronically Signed On 06-10-2024 5:43:23 EDT by SYDNIE HINTON M.D.
--- NOTE | 2024-06-09 22:29 | ED.GENADUL1 ---
HPI HPI - General Adult General Chief complaint: Shortness of Breath/Dyspnea Stated complaint: diff breathing-copd, edema Time Seen by Provider: 06/09/24 21:50 Source: patient Mode of arrival: Wheelchair History of Present Illness HPI narrative: Patient is a 53-year-old male who is presenting to the ER with chief complaint of shortness of breath this been progressively getting worse over the last several months. Patient has no cardiac history. He has no history of AL, has never had a stress test or echocardiogram. Patient has never had congestive heart failure. Patient has been having swelling to his lower extremities equal, bilateral for the past couple weeks. Patient has no history of kidney disease or heart disease that he is aware of. Patient's PCP is from the [facility]. Patient's lung doctor is Dr. Shi. Patient used to wear sleep apnea mask in the past, it became too expensive and patient cannot afford it so he no longer does that. Patient does wear 2 L of nasal cannula oxygen at nighttime. Patient has never been intubated. Patient has history of COPD. Patient does have a nebulizer at home. Patient has been using his nebulizer 4 times a day as ordered for months. This is routine for patient to use this 4 times a day. Patient has no new abdominal distention or swelling. Patient's been having more shortness of breath on exertion compared to rest. Patient has no other acute complaints at this time. When patient initially arrived, he was wearing oxygen, his oxygen levels were low. He was placed on a nonrebreather at 15 L, and then he was weaned down to room air and was maintaining 95 to 96% for approximately 10 minutes and then needed to be placed on 2 L of nasal cannula where he is maintaining 91 to 92%. All systems are negative except as noted/marked. All systems reviewed and otherwise negative. Nurses note and vital signs reviewed and patient is not hypoxic. General: The patient appears mild distress,. Patient is resting uncomfortably on cart. Patient is not toxic, lethargic, or listless Skin: Warm, dry, no pallor noted. There is no rash noted. No petechiae, purpura. Head: Normocephalic, atraumatic Eye: Normal conjunctiva, no drainage, EOMI. PERRL Ears, Nose, Mouth, and Throat: oral mucosa is moist. Nares patent. Mouth without vesicles. Cardiovascular: Regular Rate and Rhythm, no murmur, gallop, rub Respiratory: Patient is in no distress, no accessory muscle use, lungs are clear to auscultation, no wheezing, rales or rhonchi. Patient has diminished breath sounds bilateral back: non-tender, no CVA tenderness bilaterally to percussion. No CT LS midline pain GI: no tenderness to palpation, no masses appreciated. No rebound, guarding, or rigidity noted. No distention. Musculoskeletal: Patient has full range of motion of all of the extremities, no motor, sensory, or focal neurological deficits. Patient has equal bilateral lower extremity peripheral edema, 2+ pitting edema equal, bilateral. Neurological: A&O x4, normal speech Psychiatric: Cooperative Related Data Home Medications ?Medication ?Instructions ?Recorded ?Confirmed aspirin 81 mg chewable tablet 02/27/23 atorvastatin 80 mg tablet mg 02/27/23 ipratropium 0.5 mg-albuterol 3 mg ml inhalation 02/27/23 (2.5 mg base)/3 mL nebulization soln lisinopril 20 mg tablet mg 02/27/23 omega 3-dha 115 mg-epa 172 mg-fish cap PO 02/27/23 oil 1,000 mg capsule,delay release ([employer] [place]-3) albuterol sulfate 90 mcg/actuation inhalation 09/02/23 aerosol inhaler insulin glargine 100 unit/mL (3 unit subcut 06/09/24 mL) subcutaneous pen (Lantus Solostar U-100 Insulin) Allergies Allergy/AdvReac Type Severity Reaction Status Date / Time No Known Drug Allergies Allergy Verified 06/09/24 21:56 Opioid HPI Opioid Management Most Recent Opioid Data: No Data to Display [facility] Medical History (Updated 06/10/24 @ 00:57 by Robel Russell MD) High cholesterol ?E78.00 - Pure hypercholesterolemia, unspecified (ICD-10) Hypertension ?I10 - Essential (primary) hypertension (ICD-10) Diabetes ?E11.9 - Type 2 diabetes mellitus without complications (ICD-10) Social History Smoking status: Former smoker Little interest or pleasure in doing things: not at all Feeling down, depressed, or hopeless: not at all Exam Constitutional Vital Signs, click to edit/add: Last Vital Signs Pulse 65 06/10/24 00:20 Resp 18 06/10/24 00:20 BP 147/79 H 06/10/24 00:03 Pulse Ox 96 06/10/24 00:20 O2 Del Method Home BIPAP / CPAP 06/10/24 00:11 O2 Flow Rate 2 06/09/24 22:48 FiO2 40 06/10/24 00:11 Course Vital Signs Vital signs: Vital Signs Blood Pressure 132/84 06/09/24 21:55 Pulse Rate 65 06/10/24 00:20 Respiratory Rate 18 06/10/24 00:20 Blood Pressure 147/79 H 06/10/24 00:03 Pulse Oximetry 96 06/10/24 00:20 Oxygen Delivery Method Home BIPAP / CPAP 06/10/24 00:11 Oxygen Delivery Flow Rate 2 06/09/24 22:48 Fraction of Inspired Oxygen 40 06/10/24 00:11 Medical Decision Making MDM Narrative Medical decision making narrative: Patient seen and examined: Patient will have cardiac/COPD workup. Differential diagnosis includes but is not limited to: CHF, AL, pneumonia, pleural effusion, COPD exacerbation, bronchitis. Diagnostics and management: Patient will have laboratory studies Relevant laboratory interpretation: Patient has evaded white blood cell count, H&H is 19/63, venous gases 7.32, CO2 70. Respiratory staff was not able to get ABG. BUN and creatinine are 20/1.3. Radiological studies: Please see the formal radiological report. Patient x-ray shows elevation of the right hemidiaphragm, mild pulmonary vascular congestion, small right pleural effusion with underlying atelectasis/airspace disease, no pneumothorax, no other acute abnormality. Please see the official report. Chest x-ray shows mild pulmonary vascular congestion, small right pleural effusion with underlying atelectasis/airspace disease. CTA of the chest shows no pulmonary embolism, small consolidation in the right lung base with bronchial wall thickening suggesting sequela of pneumonia or atelectasis with small right pleural effusion. Reevaluation: 2299 respiratory staff was not able to obtain the ABG, venous blood gas will be ordered. 0050 patient's case was discussed with Mendy TIMMONS for hospitalist staff. Patient will be admitted while he is on BiPAP. Patient will be admitted to stepdown unit. Patient is receiving IV Levaquin, IV fluids. Patient is tolerating BiPAP. Shared decision making: I discussed with the patient the necessary laboratory findings and radiological findings. Social barriers to healthcare: There are no food insecurities, there is no issue with transportation, there are no insurance barriers. Disposition: I discussed with the patient patient was given IV Solu-Medrol, 2 DuoNeb breathing treatments. A copy of the CT report was given to the patient and daughter. Patient shows hemoconcentration with elevated H&H, patient was given IV fluids. Patient given a dose of IV Levaquin prophylactically. Patient will remain on CPAP. Patient being admitted for hypoxia, hypercarbia, pneumonia, dehydration, COPD exacerbation. Patient's base brander is Dr. Shi Critical care time 43 minutes exclusive from separate billable procedures that were performed. The following was considered in the determination of critical care but not limited to the level of medical decision making, intensive cardiac and/or respiratory monitoring, frequent vital sign monitoring, evaluation of laboratory studies, evaluation of radiographic studies, oxygen monitoring, and constant monitoring and speaking to family at bedside Lab Data Labs: Lab Results 06/09/24 06/09/24 Range/Units 22:00 23:17 WBC 5.8 (4.0-11.0) 10^3/uL RBC 6.52 H (4.70-6.10) 10^6/uL Hgb 19.3 H (14.0-18.0) g/dL Hct 63.1 H (42.0-54.0) % MCV 96.8 H (80.0-94.0) fL MCH 29.6 (25.9-34.0) pg MCHC 30.6 (29.9-35.2) g/dL RDW 14.6 (11.0-15.0) % Plt Count 139 L (150-450) 10^3/uL MPV 13.3 (9.5-13.5) fL Neut % (Auto) 65.9 (43.0-75.0) % Lymph % (Auto) 18.9 L (20.5-60.0) % Nobles % (Auto) 11.8 (1.7-12.0) % Eos % (Auto) 2.4 (0.9-7.0) % Baso % (Auto) 0.7 (0.2-2.0) % Neut # (Auto) 3.8 (1.4-6.5) 10^3/uL Lymph # (Auto) 1.1 L (1.2-3.8) 10^3/uL Nobles # (Auto) 0.7 (0.3-0.8) 10^3/uL Eos # (Auto) 0.1 (0.0-0.7) 10^3/uL Baso # (Auto) 0.0 (0.0-0.1) 10^3/uL Abs Immat Gran (auto) 0.02 (0.00-0.03) 10^3/uL Imm/Tot Granulo (auto) 0.3 (0.0-0.5) % VBG pH 7.328 L (7.330-7.430) VBG pCO2 70.1 H (40.0-52.0) mmHg Sodium 140 (136-145) mmol/L Potassium 4.5 (3.5-5.1) mmol/L Chloride 102 (98-107) mmol/L Carbon Dioxide 35.7 H (21.0-32.0) mmol/L Anion Gap 6.8 BUN 20.0 H (7.0-18.0) mg/dL Creatinine 1.34 H (0.70-1.30) mg/dL Est GFR ( Amer) >60 (>=60 mL/min/1.73m^2) Est GFR (Non-Af Amer) 55 L (>=60 mL/min/1.73m^2) BUN/Creatinine Ratio 14.9 Glucose 227 H (74-106) mg/dL Calcium 8.7 (8.5-10.1) mg/dL Troponin I High Sens 12.7 (4.0-76.1) pg/mL NT-Pro-B Natriuret Pep 848.0 (<=900.0) pg/mL ECG Data Attestation: I personally reviewed and interpreted this ECG as follows: (EKG interpretation. No acute ST elevation, no acute ectopy. QTc of 399. Artifact noted. Normal sinus rhythm at 65 beats a minute.) Discharge Plan Discharge Chief Complaint: Shortness of Breath/Dyspnea Clinical Impression: Hypercarbia, Hypoxemia requiring supplemental oxygen, Acute exacerbation of chronic obstructive pulmonary disease (COPD), Pneumonia, Dehydration Patient Disposition: Admitted As Inpatient Time of Disposition Decision: 00:57 Condition: Serious
--- NOTE | 2024-06-09 22:32 | PC.NURSE ---
i removed this patient NRB mask, to see room air pulse ox %, which dropped down to 89%, I applied oxygen 2L via NC
[2024-06-09] MEDS: METHYLPREDNISOLONE SOD SUCC PF 125 MG/2 ML VIAL IVP (22:37)
[2024-06-09] MEDS: IPRATROPIUM/ALBUTEROL SULFATE 3 ML AMPUL.NEB 6 ML IH (22:48)
--- NOTE | 2024-06-09 23:15 | RESP.RT ---
RT attempted ABG and was unsuccessful. Dr. Russell made aware.
[2024-06-09 23:23] LABS: pH VBG 7.328 (7.330-7.430)
[2024-06-09 23:25] LABS: PCO2 VBG 70.1 mmHg (40.0-52.0)
[2024-06-09 23:29] LABS: Basophils Percent Auto 0.7 % (0.2-2.0); Eosinophils Absolute Auto 0.1 10^3/uL (0.0-0.7); Eosinophils Percent Auto 2.4 % (0.9-7.0); Hematocrit 63.1 % (42.0-54.0); Hemoglobin 19.3 g/dL (14.0-18.0); Immature Granulocytes Abs Auto 0.02 10^3/uL (0.00-0.03); Immature Granulocytes Pct Auto 0.3 % (0.0-0.5); Lymphocytes Absolute Auto 1.1 10^3/uL (1.2-3.8); Lymphocytes Percent Auto 18.9 % (20.5-60.0); Mean Corpuscular HGB Conc 30.6 g/dL (29.9-35.2); Mean Corpuscular Hemoglobin 29.6 pg (25.9-34.0); Mean Corpuscular Volume 96.8 fL (80.0-94.0); Mean Platelet Volume 13.3 fL (9.5-13.5); Monocytes Absolute Auto 0.7 10^3/uL (0.3-0.8); Monocytes Percent Auto 11.8 % (1.7-12.0); Neutrophils Absolute Auto 3.8 10^3/uL (1.4-6.5); Neutrophils Percent Auto 65.9 % (43.0-75.0); Platelet Count 139 10^3/uL (150-450); Red Blood Count 6.52 10^6/uL (4.70-6.10); Red Cell Distribution Width 14.6 % (11.0-15.0); White Blood Count 5.8 10^3/uL (4.0-11.0)
[2024-06-09 23:35] LABS: Anion Gap 6.8; BUN Creatinine Ratio 14.9; Calcium 8.7 mg/dL (8.5-10.1); Carbon Dioxide 35.7 mmol/L (21.0-32.0); Chloride 102 mmol/L (98-107); Estimated GFR (African America >60 (>=60 mL/min/1.73m^2); Estimated GFR (Non-African Ame 55 (>=60 mL/min/1.73m^2); Glucose 227 mg/dL (74-106); Potassium 4.5 mmol/L (3.5-5.1); Sodium 140 mmol/L (136-145); Troponin I High Sensitivity 12.7 pg/mL (4.0-76.1)
[2024-06-10] VITALS (43 sets, daily range): BP systolic 104–147; BP diastolic 67–83; PULSE 57–94; RESP 16; TEMP 36.5–37; O2SAT 89–98; BMI 38.7
--- NOTE | 2024-06-10 00:05 | RESP.RT ---
Took patient off of 2L nasal cannula and placed on BIPAP 15/10 Fi02 40% per Dr. Russell for high C02.
[2024-06-10] MEDS: 0.9 % SODIUM CHLORIDE 1,000 ML 1000 ML IV (00:48)
[2024-06-10] MEDS: LEVOFLOXACIN IN DEXTROSE 5 % 750 MG/150 ML PREMIX 100 MG IV (00:48)
--- NOTE | 2024-06-10 00:56 | PC.NURSE ---
this patient has been updated about is admission to this hospital at this time we are waiting on a room number. this patient nor his daughter voices no concerns and this patient shows no signs of distress
--- OUTSIDE RECORDS SUMMARY | 2024-06-10 01:37 | XMS_ITS | CCD ---
Author Organization [facility] Care Team Providers Care Squirrel Man Name Role Phone Vee Dowling Unavailable SHAMMO, MR. 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] Onset: 01-15-2022 Episodic Other aftercare (1 source) 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 Gisel Galdamez Glucose [Mass/Vol] 263 mg/dL Normal [facility] Comment on above: Performed By: #### A 1C #### [facility] [address] [address] [address] Gisel Galdamez HbA1c (Bld) [Mass fraction] 10.8 % Critically high 4.5-6.2 [facility] Comment on above: Performed By: #### A 1C #### [facility] [address] [address] [address] Gisel Galdamez HEMOGRAM AND PLATELon 2022 Hematocrit (Bld) [Volume fraction] 52.6 % Normal 42.0-54.0 [facility] Comment on above: Performed By: #### P OCGLUC #### [facility] [address] [address] [address] Gisel Galdamez Hemoglobin (Bld) [Mass/Vol] 16.8 g/dL Normal 14.0-18.0 [facility] Comment on above: Performed By: #### P OCGLUC #### [facility] [address] [address] [address] Gisel Galdamez MCH (RBC) [Entitic mass] 30.9 pg Normal 25.9-34.0 [facility] Comment on above: Performed By: #### P OCGLUC #### [facility] [address] [address] [address] Gisel Galdamez MCHC (RBC) [Mass/Vol] 31.9 g/dL Normal 29.9-35.2 [facility] Comment on above: Performed By: #### P OCGLUC #### [facility] [address] [address] [address] Gisel Galdamez MCV (RBC) [Entitic vol] 96.9 fL Critically high 80.0-94.0 [facility] Comment on above: Performed By: #### P OCGLUC #### [facility] [address] [place] [address] Dr. Gisel Galdamez PLT 144 103/ul Critically low 150-450 [facility] Comment on above: Performed By: #### P OCGLUC #### [facility] [address] [place] [address] Dr. Gisel Galdamez RBC 5.43 106/ul Normal 4.70-6.10 [facility] Comment on above: Performed By: #### P OCGLUC #### [facility] [address] [place] [address] Dr. Gisel Galdamez WBC 5.1 103/ul Normal 4.0-11.0 [facility] Comment on above: Performed By: #### P OCGLUC #### [facility] [address] [place] [address] Dr. Gisel Galdamez LIPID PROFILEon 07-11-2022 CHOL-HDL RATIO NORM SEE BELOW Normal [facility] Comment on above: Result Comment: 3.3 - 4.4 LOW RISK 4.4 - 7.1 AVERAGE RISK 7.1 - 11.0 MODERATE RISK >11.0 HIGH RISK Performed By: #### A 1C #### [facility] [address] [place] [address] Dr. Gisel Galdamez Cholesterol [Mass/Vol] 128 mg/dL Normal <=200 [facility] Comment on above: Performed By: #### A 1C #### [facility] [address] [place] [address] Dr. Gisel Galdamez Cholesterol in HDL [Mass/Vol] 35 mg/dL Critically low 40-60 [facility] Comment on above: Performed By: #### A 1C #### [facility] [address] [address] [address] Gisel Galdamez Cholesterol in LDL [Mass/Vol] 60.8 mg/dL Normal [facility] Comment on above: Performed By: #### A 1C #### [facility] [address] [address] [address] iGsel Galdamez Cholesterol.total/Ch olesterol in HDL [Mass ratio] 3.7 {ratio} Normal [facility] Comment on above: Performed By: #### A 1C #### [facility] [address] [place] [address] Dr. Gisel Galdamez HDL NORMAL > or = 60 mg/dl - LOW CARDIOVASCULAR RISK <40 mg/dl - HIGH CARDIOVASCULAR RISK Normal [facility] Comment on above: Performed By: #### A 1C #### [facility] [address] [address] [address] Gisel Galdamez LDL CALC NORMAL SEE BELOW Normal [facility] Comment on above: Result Comment: <100 mg/dl OPTIMAL 100 - 129 mg/dl NEAR OR ABOVE OPTIMAL 130 - 159 mg/dl BORDERLINE HIGH 160 - 189 mg/dl HIGH >190 mg/dl VERY HIGH Performed By: #### A 1C #### [facility] [address] [place] [address] Dr. Gisel Galdamez Triglyceride [Mass/Vol] 161 mg/dL Critically high <=150 [facility] Comment on above: Performed By: #### A 1C #### [facility] [address] [address] [address] Gisel Galdamez VLDL CALC 32.2 mg/dL Normal [facility] Comment on above: Performed By: #### A 1C #### [facility] [address] [place] [address] Dr. Gisel Galdamez MICROALBUMIN, RAND URon 05-1 mALB 5.7 mg/dL Normal <=30.0 [facility] Comment on above: Performed By: #### A 1C #### [facility] [address] [place] [address] Dr. Gisel Galdamez PROF 14(COMP METB)on 023 Albumin [Mass/Vol] 3.5 g/dL Normal 3.4-5.0 [facility] Comment on above: Performed By: #### A 1C #### [facility] [address] [address] [address] Gisel Galdamez Albumin/Globulin [Mass ratio] 1.2 {ratio} Normal [facility] Comment on above: Performed By: #### A 1C #### [facility] [address] [place] [address] Dr. Gisel Galdamez ALP [Catalytic activity/Vol] 99 U/L Normal 46-116 [facility] Comment on above: Performed By: #### A 1C #### [facility] [address] [place] [address] Dr. Gisel Galdamez ALT [Catalytic activity/Vol] 34 U/L Normal 16-63 [facility] Comment on above: Performed By: #### A 1C #### [facility] [address] [place] [address] Dr. Gisel Galdamez Anion gap [Moles/Vol] 7.8 mmol/L Normal [facility] Comment on above: Performed By: #### A 1C #### [facility] [address] [place] [address] Dr. Gisel Galdamez AST [Catalytic activity/Vol] 8 U/L Critically low 15-37 [facility] Comment on above: Performed By: #### A 1C #### [facility] [address] [place] [address] Dr. Gisel Galdamez Bilirubin [Mass/Vol] 0.6 mg/dL Normal 0.2-1.0 [facility] Comment on above: Performed By: #### A 1C #### [facility] [address] [place] [address] Dr. Gisel Galdamez Calcium [Mass/Vol] 9.1 mg/dL Normal 8.5-10.1 [facility] Comment on above: Performed By: #### A 1C #### [facility] [address] [address] [address] Gisel Galdamez Chloride [Moles/Vol] 102 mmol/L Normal 98-107 [facility] Comment on above: Performed By: #### A 1C #### [facility] [address] [place] [address] Dr. Gisel Galdamez CO2 [Moles/Vol] 38.4 mmol/L Critically high 21.0-32.0 [facility] Comment on above: Performed By: #### A 1C #### [facility] [address] [place] [address] Dr. Gisel Galdamez Creatinine [Mass/Vol] 1.08 mg/dL Normal 0.70-1.30 [facility] Comment on above: Performed By: #### A 1C #### [facility] [address] [place] [address] Dr. Gisel Galdamez EGFR-AF SLOVAK >60 Normal >=60 [facility] Comment on above: Performed By: #### A 1C #### [facility] [address] [place] [address] Dr. Gisel Galdamez EGFR-NON AF SLOVAK >60 Normal >=60 [facility] Comment on above: Performed By: #### A 1C #### [facility] [address] [place] [address] Dr. Gisel Galdamez Globulin (S) [Mass/Vol] 3.0 g/dL Normal [facility] Comment on above: Performed By: #### A 1C #### [facility] [address] [place] [address] Dr. Gisel Galdamez Glucose [Mass/Vol] 250 mg/dL Critically high 74-106 [facility] Comment on above: Performed By: #### A 1C #### [facility] [address] [place] [address] Dr. Gisel Galdamez Potassium [Moles/Vol] 4.2 mmol/L Normal 3.5-5.1 [facility] Comment on above: Performed By: #### A 1C #### [facility] [address] [place] [address] Dr. Gisel Galdamez Protein [Mass/Vol] 6.5 g/dL Normal 6.4-8.2 [facility] Comment on above: Performed By: #### A 1C #### [facility] [address] [address] [address] Gisel Galdamez Sodium [Moles/Vol] 144 mmol/L Normal 136-145 [facility] Comment on above: Performed By: #### A 1C #### [facility] [address] [address] [address] Gisel Galdamez Urea nitrogen [Mass/Vol] 13.0 mg/dL Normal 7.0-18.0 [facility] Comment on above: Performed By: #### A 1C #### [facility] [address] [place] [address] Dr. Gisel Galdamez Urea nitrogen/Creatinine [Mass ratio] 12.0 mg/mg Normal [facility] Comment on above: Performed By: #### A 1C #### [facility] [address] [place] [address] LUNG CANCER SCREENINGon [...] by: NICOLAS NICOLE Date: 2022-04-25 09:07 Normal [facility] HEMOGLOBINon 04-25-2022 Hemoglobin (Bld) [Mass/Vol] 16.3 g/dL Normal 14.0-18.0 [facility] Comment on above: Performed By: #### P OCGLUC #### [facility] [address] [address] [address] Gisel Galdamez GLYCOHEMOGLOBIN A1Con 2022 ADA RECOMMENDATION SEE BELOW Normal [facility] Comment on above: Result Comment: ADA RECOMMENDED LIMIT 4.0 - 6.0 ADA THERAPEUTIC TARGET < 7.0 ACTION SUGGESTED > 7.0 Performed By: #### P OCGLUC #### [facility] [address] [address] [address] Gisel Galdamez Glucose [Mass/Vol] 237 mg/dL Normal [facility] Comment on above: Performed By: #### P OCGLUC #### [facility] [address] [place] [address] Dr. Gisel Galdamez HbA1c (Bld) [Mass fraction] 9.9 % Critically high 4.5-6.2 [facility] Comment on above: Performed By: #### P OCGLUC #### [facility] [address] [address] [address] Gisel Galdamez LIPID PROFILEon 04-02-2022 CHOL-HDL RATIO NORM SEE BELOW Normal [facility] Comment on above: Result Comment: 3.3 - 4.4 LOW RISK 4.4 - 7.1 AVERAGE RISK 7.1 - 11.0 MODERATE RISK >11.0 HIGH RISK Performed By: #### P OCGLUC #### [facility] [address] [address] [address] Gisel Galdamez Cholesterol [Mass/Vol] 148 mg/dL Normal <=200 [facility] Comment on above: Performed By: #### P OCGLUC #### [facility] [address] [address] [address] Gisel Galdamez Cholesterol in HDL [Mass/Vol] 32 mg/dL Critically low 40-60 [facility] Comment on above: Performed By: #### P OCGLUC #### [facility] [address] [address] [address] Gisel Galdamez Cholesterol in LDL [Mass/Vol] 72.2 mg/dL Normal [facility] Comment on above: Performed By: #### P OCGLUC #### [facility] [address] [address] [address] Gisel Galdamez Cholesterol.total/Ch olesterol in HDL [Mass ratio] 4.6 {ratio} Normal [facility] Comment on above: Performed By: #### P OCGLUC #### [facility] [address] [address] [address] Gisel Galdamez HDL NORMAL > or = 60 mg/dl - LOW CARDIOVASCULAR RISK <40 mg/dl - HIGH CARDIOVASCULAR RISK Normal [facility] Comment on above: Performed By: #### P OCGLUC #### [facility] [address] [address] [address] Gisel Galdamez LDL CALC NORMAL SEE BELOW Normal [facility] Comment on above: Result Comment: <100 mg/dl OPTIMAL 100 - 129 mg/dl NEAR OR ABOVE OPTIMAL 130 - 159 mg/dl BORDERLINE HIGH 160 - 189 mg/dl HIGH >190 mg/dl VERY HIGH Performed By: #### P OCGLUC #### [facility] [address] [address] [address] Gisel Galdamez Triglyceride [Mass/Vol] 219 mg/dL Critically high <=150 [facility] Comment on above: Performed By: #### P OCGLUC #### [facility] [address] [address] [address] Gisel Galdamez VLDL CALC 43.8 mg/dL Normal [facility] Comment on above: Performed By: #### P OCGLUC #### [facility] [address] [address] [address] Gisel Galdamez PROF 14(COMP METB)on 023 Albumin [Mass/Vol] 3.7 g/dL Normal 3.4-5.0 [facility] Comment on above: Performed By: #### P OCGLUC #### [facility] [address] [place] [address] Dr. Gisel Galdamez Albumin/Globulin [Mass ratio] 1.2 {ratio} Normal [facility] Comment on above: Performed By: #### P OCGLUC #### [facility] [address] [address] [address] Gisel Galdamez ALP [Catalytic activity/Vol] 98 U/L Normal 46-116 [facility] Comment on above: Performed By: #### P OCGLUC #### [facility] [address] [address] [address] Gisel Galdamez ALT [Catalytic activity/Vol] 37 U/L Normal 16-63 [facility] Comment on above: Performed By: #### P OCGLUC #### [facility] [address] [address] [address] Gisel Galdamez Anion gap [Moles/Vol] 9.8 mmol/L Normal [facility] Comment on above: Performed By: #### P OCGLUC #### [facility] [address] [place] [address] Dr. Gisel Galdamez AST [Catalytic activity/Vol] 15 U/L Normal 15-37 [facility] Comment on above: Performed By: #### P OCGLUC #### [facility] [address] [address] [address] Gisel Galdamez Bilirubin [Mass/Vol] 0.9 mg/dL Normal 0.2-1.0 [facility] Comment on above: Performed By: #### P OCGLUC #### [facility] [address] [address] [address] Gisel Galdamez Calcium [Mass/Vol] 8.7 mg/dL Normal 8.5-10.1 [facility] Comment on above: Performed By: #### P OCGLUC #### [facility] [address] [address] [address] Gisel Galdamez Chloride [Moles/Vol] 99 mmol/L Normal 98-107 [facility] Comment on above: Performed By: #### P OCGLUC #### [facility] [address] [address] [address] Gisel Galdamez CO2 [Moles/Vol] 34.9 mmol/L Critically high 21.0-32.0 [facility] Comment on above: Performed By: #### P OCGLUC #### [facility] [address] [address] [address] Gisel Galdamez Creatinine [Mass/Vol] 1.02 mg/dL Normal 0.70-1.30 [facility] Comment on above: Performed By: #### P OCGLUC #### [facility] [address] [address] [address] Gisel Galdamez EGFR-AF SLOVAK >60 Normal >=60 [facility] Comment on above: Performed By: #### P OCGLUC #### [facility] [address] [address] [address] Gisel Galdamez EGFR-NON AF [place]OVAK >60 Normal >=60 [facility] Comment on above: Performed By: #### P OCGLUC #### [facility] [address] [address] [address] Gisel Galdamez Globulin (S) [Mass/Vol] 3.0 g/dL Normal [facility] Comment on above: Performed By: #### P OCGLUC #### [facility] [address] [address] [address] Gisel Galdamez Glucose [Mass/Vol] 265 mg/dL Critically high 74-106 [facility] Comment on above: Performed By: #### P OCGLUC #### [facility] [address] [address] [address] Gisel Galdamez Potassium [Moles/Vol] 4.7 mmol/L Normal 3.5-5.1 [facility] Comment on above: Performed By: #### P OCGLUC #### [facility] [address] [address] [address] Gisel Galdamez Protein [Mass/Vol] 6.7 g/dL Normal 6.4-8.2 [facility] Comment on above: Performed By: #### P OCGLUC #### [facility] [address] [address] [address] Gisel Galdamez Sodium [Moles/Vol] 139 mmol/L Normal 136-145 [facility] Comment on above: Performed By: #### P OCGLUC #### [facility] [address] [address] [address] Gisel Galdamez Urea nitrogen [Mass/Vol] 19.0 mg/dL Critically high 7.0-18.0 [facility] Comment on above: Performed By: #### P OCGLUC #### [facility] [address] [address] [address] Gisel Galdamez Urea nitrogen/Creatinine [Mass ratio] 18.6 mg/mg Normal [facility] Comment on above: Performed By: #### P OCGLUC #### [facility] [address] [address] [address] Gisel Galdamez VITAMIN D 25 OHon 04-02-2022 VIT D 25-OH 17.8 ng/mL Normal [facility] Comment on above: Performed By: #### P OCGLUC #### [facility] [address] [address] [address] Gisel Galdamez VIT D RANGES SEE BELOW Normal [facility] Comment on above: Result Comment: <20 ng/mL Vit D deficient 20 - <30 ng/mL Vit D insufficient 30 - 100 ng/mL Vit D sufficient >100 ng/mL Potential Toxicity Performed By: #### P OCGLUC #### [facility] [address] [address] [address] Gisel Galdamez General Surgery Office/Clini c [...] - peripheral vascular disease: Father. Normal [facility] Comment on above: Result Comment: Elec [...] vascular disease) Vitamin D deficiency Normal [facility] BNPon 01-10-2022 Natriuretic peptide B (Bld) [Mass/Vol] 264.0 pg/mL Normal <=900.0 [facility] Comment on above: Performed By: #### C MP, BNP #### [facility] [address] [address] [address] Gisel Galdamez CBC AUTO DIFFon 01-10-2022 BASO # 0.0 103/ul Normal 0.0-0.1 [facility] Comment on above: Performed By: #### P OCGLUC #### [facility] [address] [address] [address] Gisel Galdamez Basophils/100 WBC (Bld) 0.4 % Normal 0.2-2.0 [facility] Comment on above: Performed By: #### P OCGLUC #### [facility] [address] [address] [address] Gisel Galdamez EO # 0.0 103/ul Normal 0.0-0.7 [facility] Comment on above: Performed By: #### P OCGLUC #### [facility] [address] [address] [address] Gisel Galdamez Eosinophils/100 WBC (Bld) 0.0 % Critically low 0.9-7.0 [facility] Comment on above: Performed By: #### P OCGLUC #### [facility] [address] [address] [address] Gisel Galdamez Erythrocyte distribution width (RBC) [Ratio] 13.5 % Normal 11.0-15.0 [facility] Comment on above: Performed By: #### P OCGLUC #### [facility] [address] [place] [address] Dr. Gisel Galdamez Hematocrit (Bld) [Volume fraction] 57.3 % Critically high 42.0-54.0 [facility] Comment on above: Performed By: #### P OCGLUC #### [facility] [address] [address] [address] Gisel Galdamez Hemoglobin (Bld) [Mass/Vol] 17.5 g/dL Normal 14.0-18.0 [facility] Comment on above: Performed By: #### P OCGLUC #### [facility] [address] [address] [address] Gisel Galdamez IG # 0.10 10e3/ul Critically high 0.00-0.03 [facility] Comment on above: Performed By: #### P OCGLUC #### [facility] [address] [place] [address] Dr. Gisel Galdamez IG % 1.5 % Critically high 0.0-0.5 [facility] Comment on above: Performed By: #### P OCGLUC #### [facility] [address] [place] [address] Dr. Gisel Galdamez LYMPH # 0.4 103/ul Critically low 1.2-3.8 [facility] Comment on above: Performed By: #### P OCGLUC #### [facility] [address] [place] [address] Dr. Gisel Galdamez Lymphocytes/100 WBC (Bld) 6.0 % Critically low 20.5-60.0 [facility] Comment on above: Performed By: #### P OCGLUC #### [facility] [address] [place] [address] Dr. Gisel Galdamez MANUAL DIFF REQ NO Normal [facility] Comment on above: Performed By: #### P OCGLUC #### [facility] [address] [address] [address] Gisel Galdamez MCH (RBC) [Entitic mass] 29.2 pg Normal 25.9-34.0 [facility] Comment on above: Performed By: #### P OCGLUC #### [facility] [address] [place] [address] Dr. Gisel Galdamez MCHC (RBC) [Mass/Vol] 30.5 g/dL Normal 29.9-35.2 [facility] Comment on above: Performed By: #### P OCGLUC #### [facility] [address] [place] [address] Dr. Gisel Galdamez MCV (RBC) [Entitic vol] 95.5 fL Critically high 80.0-94.0 [facility] Comment on above: Performed By: #### P OCGLUC #### [facility] [address] [place] [address] Dr. Gisel Galdamez MONO # 0.1 103/ul Critically low 0.3-0.8 [facility] Comment on above: Performed By: #### P OCGLUC #### [facility] [address] [place] [address] Dr. Gisel Galdamez Monocytes/100 WBC (Bld) 1.9 % Normal 1.7-12.0 [facility] Comment on above: Performed By: #### P OCGLUC #### [facility] [address] [place] [address] Dr. Gisel Galdamez NEUT # 6.2 103/ul Normal 1.4-6.5 [facility] Comment on above: Performed By: #### P OCGLUC #### [facility] [address] [place] [address] Dr. Gisel Galdamez Neutrophils/100 WBC (Bld) 90.2 % Critically high 43.0-75.0 [facility] Comment on above: Performed By: #### P OCGLUC #### [facility] [address] [place] [address] Dr. Gisel Galdamez Platelet mean volume (Bld) [Entitic vol] 12.0 fL Normal 9.5-13.5 [facility] Comment on above: Performed By: #### P OCGLUC #### [facility] [address] [place] [address] Dr. Gisel Galdamez PLT 134 103/ul Critically low 150-450 [facility] Comment on above: Performed By: #### P OCGLUC #### [facility] [address] [place] [address] Dr. Gisel Galdamez RBC 6.00 106/ul Normal 4.70-6.10 [place] [facility] Comment on above: Performed By: #### P OCGLUC #### [facility] [address] [place] [address] Dr. Gisel Galdamez WBC 6.9 103/ul Normal 4.0-11.0 [place] [facility] Comment on above: Performed By: #### P OCGLUC #### [facility] [address] [place] [address] Dr. Gisel Galdamez POINT OF CARE GLUCOSEon 12-31 Glucose [Mass/Vol] 414 mg/dL Critically high 74-106 [facility] Comment on above: Performed By: #### P OCGLUC #### [facility] [address] [place] [address] Dr. Gisel Galdamez Glucose [Mass/Vol] 353 mg/dL Critically high -106 [facility] Comment on above: Performed By: #### P OCGLUC #### [facility] [address] [place] [address] Dr. Gisel Galdamez Glucose [Mass/Vol] 415 mg/dL Critically high -106 [facility] Comment on above: Performed By: #### P OCGLUC #### [facility] [address] [place] [address] Dr. Gisel Galdamez PROF 14(COMP METB)on 022 Albumin [Mass/Vol] 3.3 g/dL Critically low 3.4-5.0 [facility] Comment on above: Performed By: #### C MP, BNP #### [facility] [address] [place] [address] Dr. Gisel Galdamez Albumin/Globulin [Mass ratio] 0.8 {ratio} Normal [place] [facility] Comment on above: Performed By: #### C MP, BNP #### [facility] [address] [place] [address] Dr. Gisel Galdamez ALP [Catalytic activity/Vol] 115 U/L Normal 46-116 [place] [facility] Comment on above: Performed By: #### C MP, BNP #### [facility] [address] [place] [address] Dr. Gisel Galdamez ALT [Catalytic activity/Vol] 31 U/L Normal 16-63 [place] [facility] Comment on above: Performed By: #### C MP, BNP #### [facility] [address] [place] [address] Dr. Gisel Galdamez Anion gap [Moles/Vol] 9.0 mmol/L Normal [place] [facility] Comment on above: Performed By: #### C MP, BNP #### [facility] [address] [address] [address] Gsiel Galdamez AST [Catalytic activity/Vol] 9 U/L Critically low 15-37 [place] [facility] Comment on above: Performed By: #### C MP, BNP #### [facility] [address] [place] [address] Dr. Gisel Galdamez Bilirubin [Mass/Vol] 0.7 mg/dL Normal 0.2-1.0 [place] [facility] Comment on above: Performed By: #### C MP, BNP #### [facility] [address] [place] [address] Dr. Gisel Galdamez Calcium [Mass/Vol] 8.5 mg/dL Normal 8.5-10.1 [facility] Comment on above: Performed By: #### C MP, BNP #### [facility] [address] [place] [address] Dr. Gisel Galdamez Chloride [Moles/Vol] 96 mmol/L Critically low 98-107 [place] [facility] Comment on above: Performed By: #### C MP, BNP #### [facility] [address] [place] [address] Dr. Gisel Galdamez CO2 [Moles/Vol] 31.5 mmol/L Normal 21.0-32.0 [facility] Comment on above: Performed By: #### C MP, BNP #### [facility] [address] [place] [address] Dr. Gisel Galdamez Creatinine [Mass/Vol] 1.39 mg/dL Critically high 0.70-1.30 [place] [facility] Comment on above: Performed By: #### C MP, BNP #### [facility] [address] [place] [address] Dr. Gisel Galdamez EGFR-AF SLOVAK >60 Normal >=60 [facility] Comment on above: Performed By: #### C MP, BNP #### [facility] [address] [address] [address] Gisel Galdamez EGFR-NON AF SLOVAK 53 mL/min/1.73m2 Critically low >=60 [place] [facility] Comment on above: Performed By: #### C MP, BNP #### [facility] [address] [address] [address] Gisel Galdamez Globulin (S) [Mass/Vol] 3.9 g/dL Normal [place] [facility] Comment on above: Performed By: #### C MP, BNP #### [facility] [address] [place] [address] Dr. Gisel Galdamez Glucose [Mass/Vol] 409 mg/dL Critically high 74-106 [facility] Comment on above: Performed By: #### C MP, BNP #### [facility] [address] [place] [address] Dr. Gisel Galdamez Potassium [Moles/Vol] 4.5 mmol/L Normal 3.5-5.1 [place] [facility] Comment on above: Performed By: #### C MP, BNP #### [facility] [address] [place] [address] Dr. Gisel Galdamez Protein [Mass/Vol] 7.2 g/dL Normal 6.4-8.2 [facility] Comment on above: Performed By: #### C MP, BNP #### [facility] [address] [place] [address] Dr. Gisel Galdamez Sodium [Moles/Vol] 132 mmol/L Critically low 136-145 [facility] Comment on above: Performed By: #### C MP, BNP #### [facility] [address] [place] [address] Dr. Gisel Galdamez Urea nitrogen [Mass/Vol] 27.0 mg/dL Critically high 7.0-18.0 [place] [facility] Comment on above: Performed By: #### C MP, BNP #### [facility] [address] [place] [address] Dr. Gisel Galdamez Urea nitrogen/Creatinine [Mass ratio] 19.4 mg/mg Normal [facility] Comment on above: Performed By: #### C MP, BNP #### [facility] [address] [place] [address] Dr. Gisel Galdamez BNPon 01-09-2022 Natriuretic peptide B (Bld) [Mass/Vol] 236.0 pg/mL Normal <=900.0 [facility] Comment on above: Performed By: #### P OCGLUC #### [facility] [address] [place] [address] Dr. Gisel Galdamez CBC AUTO DIFFon 01-09-2022 BASO # 0.1 103/ul Normal 0.0-0.1 [place] [facility] Comment on above: Performed By: #### C BC #### [facility] [address] [place] [address] Dr. Gisel Galdamez Basophils/100 WBC (Bld) 0.6 % Normal 0.2-2.0 [place] [facility] Comment on above: Performed By: #### C BC #### [facility] [address] [place] [address] Dr. Gisel Galdamez EO # 0.0 103/ul Normal 0.0-0.7 [place] [facility] Comment on above: Performed By: #### C BC #### [facility] [address] [place] [address] Dr. Gisel Galdamez Eosinophils/100 WBC (Bld) 0.2 % Critically low 0.9-7.0 [facility] Comment on above: Performed By: #### C BC #### [facility] [address] [place] [address] Dr. Gisel Galdamez Erythrocyte distribution width (RBC) [Ratio] 13.4 % Normal 11.0-15.0 [facility] Comment on above: Performed By: #### C BC #### [facility] [address] [place] [address] Dr. Gisel Galdamez Hematocrit (Bld) [Volume fraction] 57.4 % Critically high 42.0-54.0 [facility] Comment on above: Performed By: #### C BC #### [facility] [address] [address] [address] Gisel Galdamez Hemoglobin (Bld) [Mass/Vol] 18.2 g/dL Critically high 14.0-18.0 [place] [facility] Comment on above: Performed By: #### C BC #### [facility] [address] [place] [address] Dr. Gisel Galdamez IG # 0.16 10e3/ul Critically high 0.00-0.03 [facility] Comment on above: Performed By: #### C BC #### [facility] [address] [place] [address] Dr. Gisel Galdamez IG % 1.5 % Critically high 0.0-0.5 [facility] Comment on above: Performed By: #### C BC #### [facility] [address] [place] [address] Dr. Gisel Galdamez LYMPH # 0.9 103/ul Critically low 1.2-3.8 [facility] Comment on above: Performed By: #### C BC #### [facility] [address] [place] [address] Dr. Gisel Galdamez Lymphocytes/100 WBC (Bld) 9.1 % Critically low 20.5-60.0 [place] [facility] Comment on above: Performed By: #### C BC #### [facility] [address] [place] [address] Dr. Gisel Galdamez MANUAL DIFF REQ NO Normal [facility] Comment on above: Performed By: #### C BC #### [facility] [address] [place] [address] Dr. Gisel Galdamez MCH (RBC) [Entitic mass] 30.2 pg Normal 25.9-34.0 [facility] Comment on above: Performed By: #### C BC #### [facility] [address] [place] [address] Dr. Gisel Galdamez MCHC (RBC) [Mass/Vol] 31.7 g/dL Normal 29.9-35.2 [facility] Comment on above: Performed By: #### C BC #### [facility] [address] [address] [address] Gisel Galdamez MCV (RBC) [Entitic vol] 95.2 fL Critically high 80.0-94.0 [place] [facility] Comment on above: Performed By: #### C BC #### [facility] [address] [address] [address] Gisel Galdamez MONO # 0.9 103/ul Critically high 0.3-0.8 [facility] Comment on above: Performed By: #### C BC #### [facility] [address] [address] [address] Gisel Galdamez Monocytes/100 WBC (Bld) 9.1 % Normal 1.7-12.0 [place] [facility] Comment on above: Performed By: #### C BC #### [facility] [address] [place] [address] Dr. Gisel Galdamez NEUT # 8.2 103/ul Critically high 1.4-6.5 [facility] Comment on above: Performed By: #### C BC #### [facility] [address] [place] [address] Dr. Gisel Galdamez Neutrophils/100 WBC (Bld) 79.5 % Critically high 43.0-75.0 [place] [facility] Comment on above: Performed By: #### C BC #### [facility] [address] [place] [address] Dr. Gisel Galdamez Platelet mean volume (Bld) [Entitic vol] 11.9 fL Normal 9.5-13.5 [facility] Comment on above: Performed By: #### C BC #### [facility] [address] [place] [address] Dr. Gisel Galdamez PLT 146 103/ul Critically low 150-450 [facility] Comment on above: Performed By: #### C BC #### [facility] [address] [place] [address] Dr. Gisel Galdamez RBC 6.03 106/ul Normal 4.70-6.10 [facility] Comment on above: Performed By: #### C BC #### [facility] [address] [address] [address] Gisel Galdamez WBC 10.4 103/ul Normal 4.0-11.0 [place] [facility] Comment on above: Performed By: #### C BC #### [facility] [address] [address] [address] Gisel Galdamez CULTURE SPUTUMon 01-09-2022 CULTURE SPUTUM Culture Observations: NORMAL RESPIRATORY PB. Normal [place] [facility] Comment on above: Performed By: #### P OCGLUC #### [facility] [address] [place] [address] Dr. Gisel Galdamez LACTATE/LACTIC ACIDon 2021 Lactate [Moles/Vol] 1.3 mmol/L Normal 0.4-1.9 [facility] Comment on above: Performed By: #### P OCGLUC #### [facility] [address] [place] [address] Dr. Gisel Galdamez POINT OF CARE GLUCOSEon 12-31 Glucose [Mass/Vol] 404 mg/dL Critically high 74-106 [facility] Comment on above: Performed By: #### P OCGLUC #### [facility] [address] [address] [address] Gisel Galdamez Glucose [Mass/Vol] 241 mg/dL Critically high 74-106 [facility] Comment on above: Performed By: #### P OCGLUC #### [facility] [address] [place] [address] Dr. Gisel Galdamez PROF 14(COMP METB)on 022 Albumin [Mass/Vol] 3.3 g/dL Critically low 3.4-5.0 [facility] Comment on above: Performed By: #### P OCGLUC #### [facility] [address] [place] [address] Dr. Gisel Galdamez Albumin/Globulin [Mass ratio] 0.9 {ratio} Normal [place] [facility] Comment on above: Performed By: #### P OCGLUC #### [facility] [address] [address] [address] Gisel Galdamez ALP [Catalytic activity/Vol] 111 U/L Normal 46-116 [place] [facility] Comment on above: Performed By: #### P OCGLUC #### [facility] [address] [address] [address] Gisel Galdamez ALT [Catalytic activity/Vol] 36 U/L Normal 16-63 [place] [facility] Comment on above: Performed By: #### P OCGLUC #### [facility] [address] [address] [address] Gisel Galdamez Anion gap [Moles/Vol] 7.6 mmol/L Normal [place] [facility] Comment on above: Performed By: #### P OCGLUC #### [facility] [address] [address] [address] Gisel Galdamez AST [Catalytic activity/Vol] 15 U/L Normal 15-37 [place] [facility] Comment on above: Performed By: #### P OCGLUC #### [facility] [address] [address] [address] Gisel Galdamez Bilirubin [Mass/Vol] 1.3 mg/dL Critically high 0.2-1.0 [place] [facility] Comment on above: Performed By: #### P OCGLUC #### [facility] [address] [address] [address] Gisel Galdamez Calcium [Mass/Vol] 8.7 mg/dL Normal 8.5-10.1 [facility] Comment on above: Performed By: #### P OCGLUC #### [facility] [address] [address] [address] Gisel Galdamez Chloride [Moles/Vol] 97 mmol/L Critically low 98-107 [place] [facility] Comment on above: Performed By: #### P OCGLUC #### [facility] [address] [address] [address] Gisel Galdamez CO2 [Moles/Vol] 32.8 mmol/L Critically high 21.0-32.0 [place] [facility] Comment on above: Performed By: #### P OCGLUC #### [facility] [address] [address] [address] Gisel Galdamez Creatinine [Mass/Vol] 0.99 mg/dL Normal 0.70-1.30 [place] [facility] Comment on above: Performed By: #### P OCGLUC #### [facility] [address] [address] [address] Gisel Galdamez EGFR-AF SLOVAK >60 Normal >=60 [facility] Comment on above: Performed By: #### P OCGLUC #### [facility] [address] [address] [address] Gisel Galdamez EGFR-NON AF SLOVAK >60 Normal >=60 [place] [facility] Comment on above: Performed By: #### P OCGLUC #### [facility] [address] [address] [address] Gisel Galdamez Globulin (S) [Mass/Vol] 3.8 g/dL Normal [place] [facility] Comment on above: Performed By: #### P OCGLUC #### [facility] [address] [address] [address] Gisel Galdamez Glucose [Mass/Vol] 272 mg/dL Critically high 74-106 [facility] Comment on above: Performed By: #### P OCGLUC #### [facility] [address] [address] [address] Gisel Galdamez Potassium [Moles/Vol] 4.4 mmol/L Normal 3.5-5.1 [place] [facility] Comment on above: Performed By: #### P OCGLUC #### [facility] [address] [address] [address] Gisel Galdamez Protein [Mass/Vol] 7.1 g/dL Normal 6.4-8.2 [facility] Comment on above: Performed By: #### P OCGLUC #### [facility] [address] [address] [address] Gisel Galdamez Sodium [Moles/Vol] 133 mmol/L Critically low 136-145 [facility] Comment on above: Performed By: #### P OCGLUC #### [facility] [address] [address] [address] Gisel Galdamez Urea nitrogen [Mass/Vol] 13.0 mg/dL Normal 7.0-18.0 [place] [facility] Comment on above: Performed By: #### P OCGLUC #### [facility] [address] [place] [address] Dr. Gisel Galdamez Urea nitrogen/Creatinine [Mass ratio] 13.1 mg/mg Normal [facility] Comment on above: Performed By: #### P OCGLUC #### [facility] [address] [place] [address] Dr. Gisel Galdamez RESPIRATORY PANEL PLUSon Adenovirus Not detected Normal NOT DETECTED [facility] Comment on above: Performed By: #### P OCGLUC #### [facility] [address] [place] [address] Dr. Gisel Galdamez B. Parapertusis Not detected Normal NOT DETECTED [facility] Comment on above: Performed By: #### P OCGLUC #### [facility] [address] [place] [address] Dr. Gisel Cruz. Pertussis Not detected Normal NOT DETECTED [facility] Comment on above: Performed By: #### P OCGLUC #### [facility] [address] [place] [address] Dr. Gisel Galdamez Chlamydia Pneumoniae Not detected Normal NOT DETECTED [facility] Comment on above: Performed By: #### P OCGLUC #### [facility] [address] [place] [address] Dr. Gisel Galdamez Coronavirus 229E Not detected Normal NOT DETECTED [facility] Comment on above: Performed By: #### P OCGLUC #### [facility] [address] [place] [address] Dr. Gisel Galdamez Coronavirus HKU1 Not detected Normal NOT DETECTED [facility] Comment on above: Performed By: #### P OCGLUC #### [facility] [address] [place] [address] Dr. Gisel Galdamez Coronavirus NL63 Not detected Normal NOT DETECTED [facility] Comment on above: Performed By: #### P OCGLUC #### [facility] [address] [place] [address] Dr. Gisel Galdamez Coronavirus OC43 Not detected Normal NOT DETECTED [facility] Comment on above: Performed By: #### P OCGLUC #### [facility] [address] [address] [address] Gisel Galdamez Influenza A H1 2009 Not detected Normal NOT DETECTED [facility] Comment on above: Performed By: #### P OCGLUC #### [facility] [address] [address] [address] Gisel Galdamez Influenza A H3 Not detected Normal NOT DETECTED [facility] Comment on above: Performed By: #### P OCGLUC #### [facility] [address] [address] [address] Gisel Galdamez Influenza B Not detected Normal NOT DETECTED [facility] Comment on above: Performed By: #### P OCGLUC #### [facility] [address] [address] [address] Gisel Galdamez Metapneumovirus Not detected Normal NOT DETECTED [facility] Comment on above: Performed By: #### P OCGLUC #### [facility] [address] [address] [address] Gisel Galdamez Mycoplas. Pneumoniae Not detected Normal NOT DETECTED [place] [facility] Comment on above: Performed By: #### P OCGLUC #### [facility] [address] [address] [address] Gisel Galdamez Parainfluenza 1 Not detected Normal NOT DETECTED [facility] Comment on above: Performed By: #### P OCGLUC #### [facility] [address] [place] [address] Dr. Gisel Galdamez Parainfluenza 2 Not detected Normal NOT DETECTED [facility] Comment on above: Performed By: #### P OCGLUC #### [facility] [address] [place] [address] Dr. Gisel Galdamez Parainfluenza 3 Not detected Normal NOT DETECTED [facility] Comment on above: Performed By: #### P OCGLUC #### [facility] [address] [address] [address] iGsel Galdamez Parainfluenza 4 Not detected Normal NOT DETECTED [facility] Comment on above: Performed By: #### P OCGLUC #### [facility] [address] [address] [address] Gisel Galdamez Rhino/Enterovirus Not detected Normal NOT DETECTED [facility] Comment on above: Performed By: #### P OCGLUC #### [facility] [address] [place] [address] Dr. Gisel Galdamez RP2 Header 1 RESPIRATORY PANEL: VIRUSES Normal [place] [facility] Comment on above: Performed By: #### P OCGLUC #### [facility] [address] [place] [address] Dr. Gisel Galdamez RP2 Header 2 RESPIRATORY PANEL: BACTERIA Normal [place] [facility] Comment on above: Performed By: #### P OCGLUC #### [facility] [address] [place] [address] Dr. Gisel Galdamez RSV Not detected Normal NOT DETECTED [facility] Comment on above: Performed By: #### P OCGLUC #### [facility] [address] [place] [address] Dr. Gisel Galdamez SARS-CoV-2 (COVID-19) RNA MUKESH+probe Ql (Unsp spec) Not detected Normal NOT DETECTED [place] [facility] Comment on above: Performed By: #### P OCGLUC #### [facility] [address] [place] [address] Dr. Gisel Galdamez SPUTUM GRAM STAINon 01-10-20 COMMENTS Normal [place] [facility] Comment on above: Performed By: #### A 1C #### [facility] [address] [place] [address] Dr. Gisel Galdamez DIPHTHEROIDS Normal [facility] Comment on above: Performed By: #### A 1C #### [facility] [address] [place] [address] Dr. Gisel Galdamez EPITHELIALS <25 Normal [place] [facility] Comment on above: Performed By: #### A 1C #### [facility] [address] [place] [address] Dr. Gisel Galdamez FUNGAL ELEMENTS Normal [facility] Comment on above: Performed By: #### A 1C #### [facility] [address] [place] [address] Dr. Gisel Galdamez GRAM NEG BACILLI Normal [facility] Comment on above: Performed By: #### A 1C #### [facility] [address] [address] [address] Gisel Galdamez GRAM NEG DIPPLOCOCCI Normal [facility] Comment on above: Performed By: #### A 1C #### [facility] [address] [address] [address] Gisel Galdamez GRAM POS BACILLI Normal [facility] Comment on above: Performed By: #### A 1C #### [facility] [address] [address] [address] Gisel Galdamez GRAM POSITIVE COCCI RARE Normal [facility] Comment on above: Performed By: #### A 1C #### [facility] [address] [address] [address] Gisel Galdamez WBC (Bld) [#/Vol] 10*3/uL Normal [facility] Comment on above: Performed By: #### A 1C #### [facility] [address] [address] [address] Gisel Galdamez TROPONIN, HIGH SENSITIVITYon 01-09-2022 HSTROP 10.3 pg/mL Normal 4.0-76.1 [facility] Comment on above: Result Comment: CUT- OFF POINTS HAVE BEEN ESTABLISHED BASED ON THE FOURTH UNIVERSAL DEFINITIONS OF MYOCARDIAL INFARCTION. THE UPPER REFERENCE LIMIT (URL) OF TROPONIN, DEFINED THE 99TH PERCENTILE OF cTnI DISTRIBUTION IN A REFERENCE POPULATION, HAS BEEN CONFIRMED THE DECISION THRESHOLD FOR AL DIAGNOSIS. Performed By: #### P OCGLUC #### [facility] [address] [place] [address] Dr. Gisel Galdamez XR CHEST 1 Von [...] by: NICOLAS OLIVOER Date: 2022-01-09 12:49 Normal [place] [facility] Lab Reportson 01-06-2022 Lab Reports [id number] #[id number] Normal [facility] Ambulatory Visit Summaryon 1 03-02-2021 Ambulatory [...] Mili CHACON MD Where: General Surgery [place] Normal [facility] CULTURE WOUNDon 12-31-2021 CULTURE WOUND Culture Observations: Moderate growth of normal skin pb. Culture Observations: No growth of anaerobes at 72 hours. Normal [place] [facility] Comment on above: Performed By: #### P OCGLUC #### [facility] [address] [place] [address] Dr. Gisel Galdamez Patient Educationon 01-01-20 22 [...] these instructions at home: Medicines ? 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 ? Change your dressing and packing as [...] 05/10/2012 Document Revised: 01/17/2019 Document Reviewed: 01/17/2019 Appticles Patient Education ? 2019 E (more content not included)... Normal [facility] Physician Referralon 022 Physician Referral [id number] Normal [facility] CBC AUTO DIFFon 12-28-2021 BASO # 0.1 103/ul Normal 0.0-0.1 [facility] Comment on above: Performed By: #### P OCGLUC #### [facility] [address] [address] [address] Gisel Galdamez Basophils/100 WBC (Bld) 0.9 % Normal 0.2-2.0 [facility] Comment on above: Performed By: #### P OCGLUC #### [facility] [address] [address] [address] Gisel Galdamez EO # 0.2 103/ul Normal 0.0-0.7 [facility] Comment on above: Performed By: #### P OCGLUC #### [facility] [address] [address] [address] Gisel Galdamez Eosinophils/100 WBC (Bld) 2.3 % Normal 0.9-7.0 [facility] Comment on above: Performed By: #### P OCGLUC #### [facility] [address] [address] [address] Gisel Galdamez Erythrocyte distribution width (RBC) [Ratio] 14.0 % Normal 11.0-15.0 [facility] Comment on above: Performed By: #### P OCGLUC #### [facility] [address] [address] [address] Gisel Galdamez Hematocrit (Bld) [Volume fraction] 61.7 % Critically high 42.0-54.0 [facility] Comment on above: Performed By: #### P OCGLUC #### [facility] [address] [address] [address] Gisel Galdamez Hemoglobin (Bld) [Mass/Vol] 19.8 g/dL Critically high 14.0-18.0 [facility] Comment on above: Performed By: #### P OCGLUC #### [facility] [address] [address] [address] Gisel Galdamez IG # 0.03 10e3/ul Normal 0.00-0.03 [facility] Comment on above: Performed By: #### P OCGLUC #### [facility] [address] [address] [address] Gisel Galdamez IG % 0.5 % Normal 0.0-0.5 [facility] Comment on above: Performed By: #### P OCGLUC #### [facility] [address] [address] [address] Gisel Galdamez LYMPH # 1.2 103/ul Normal 1.2-3.8 [facility] Comment on above: Performed By: #### P OCGLUC #### [facility] [address] [place] [address] Dr. Gisel Galdamez Lymphocytes/100 WBC (Bld) 18.0 % Critically low 20.5-60.0 [facility] Comment on above: Performed By: #### P OCGLUC #### [facility] [address] [place] [address] Dr. Gisel Galdamez MANUAL DIFF REQ NO Normal [facility] Comment on above: Performed By: #### P OCGLUC #### [facility] [address] [place] [address] Dr. Gisel Galdamez MCH (RBC) [Entitic mass] 29.8 pg Normal 25.9-34.0 [facility] Comment on above: Performed By: #### P OCGLUC #### [facility] [address] [place] [address] Dr. Gisel Galdamez MCHC (RBC) [Mass/Vol] 32.1 g/dL Normal 29.9-35.2 [facility] Comment on above: Performed By: #### P OCGLUC #### [facility] [address] [place] [address] Dr. Gisel Galdamez MCV (RBC) [Entitic vol] 92.8 fL Normal 80.0-94.0 [facility] Comment on above: Performed By: #### P OCGLUC #### [facility] [address] [address] [address] Gisel Galdamez MONO # 0.5 103/ul Normal 0.3-0.8 [facility] Comment on above: Performed By: #### P OCGLUC #### [facility] [address] [address] [address] Gisel Galdamez Monocytes/100 WBC (Bld) 7.9 % Normal 1.7-12.0 [facility] Comment on above: Performed By: #### P OCGLUC #### [facility] [address] [address] [address] Gisel Galdamez NEUT # 4.5 103/ul Normal 1.4-6.5 [facility] Comment on above: Performed By: #### P OCGLUC #### [facility] [address] [place] [address] Dr. Gisel Galdamez Neutrophils/100 WBC (Bld) 70.4 % Normal 43.0-75.0 [facility] Comment on above: Performed By: #### P OCGLUC #### [facility] [address] [address] [address] Gisel Galdamez Platelet mean volume (Bld) [Entitic vol] 11.2 fL Normal 9.5-13.5 [facility] Comment on above: Performed By: #### P OCGLUC #### [facility] [address] [place] [address] Dr. Gisel Galdamez PLT 149 103/ul Critically low 150-450 [facility] Comment on above: Performed By: #### P OCGLUC #### [facility] [address] [address] [address] Gisel Galdamez RBC 6.65 106/ul Critically high 4.70-6.10 [facility] Comment on above: Performed By: #### P OCGLUC #### [facility] [address] [address] [address] Gisel Galdamez WBC 6.5 103/ul Normal 4.0-11.0 [facility] Comment on above: Performed By: #### P OCGLUC #### [facility] [address] [address] [address] Gisel Galdmaez GLYCOHEMOGLOBIN A1Con 2021 ADA RECOMMENDATION SEE BELOW Normal [facility] Comment on above: Result Comment: ADA RECOMMENDED LIMIT 4.0 - 6.0 ADA THERAPEUTIC TARGET < 7.0 ACTION SUGGESTED > 7.0 Performed By: #### A 1C #### [facility] [address] [place] [address] Dr. Gisel Galdamez Glucose [Mass/Vol] 243 mg/dL Normal [facility] Comment on above: Performed By: #### A 1C #### [facility] [address] [place] [address] Dr. Gisel Galdamez HbA1c (Bld) [Mass fraction] 10.1 % Critically high 4.5-6.2 [facility] Comment on above: Performed By: #### A 1C #### [facility] [address] [place] [address] Dr. Gisel Galdamez PROF 14(COMP METB)on 022 Albumin [Mass/Vol] 3.9 g/dL Normal 3.4-5.0 [facility] Comment on above: Performed By: #### C MP #### [facility] [address] [place] [address] Dr. Gisel Galdamez Albumin/Globulin [Mass ratio] 1.2 {ratio} Normal [facility] Comment on above: Performed By: #### C MP #### [facility] [address] [place] [address] Dr. Gisel Galdamez ALP [Catalytic activity/Vol] 115 U/L Normal 46-116 [facility] Comment on above: Performed By: #### C MP #### [facility] [address] [place] [address] Dr. Gisel Galdamez ALT [Catalytic activity/Vol] 30 U/L Normal 16-63 [facility] Comment on above: Performed By: #### C MP #### [facility] [address] [place] [address] Dr. Gisel Galdamez Anion gap [Moles/Vol] 8.1 mmol/L Normal [facility] Comment on above: Performed By: #### C MP #### [facility] [address] [address] [address] Gisel Galdamez AST [Catalytic activity/Vol] 9 U/L Critically low 15-37 [facility] Comment on above: Performed By: #### C MP #### [facility] [address] [address] [address] Gisel Galdamez Bilirubin [Mass/Vol] 0.7 mg/dL Normal 0.2-1.0 [facility] Comment on above: Performed By: #### C MP #### [facility] [address] [address] [address] Gisel Galdamez Calcium [Mass/Vol] 9.7 mg/dL Normal 8.5-10.1 [facility] Comment on above: Performed By: #### C MP #### [facility] [address] [place] [address] Dr. Gisel Galdamez Chloride [Moles/Vol] 95 mmol/L Critically low 98-107 [facility] Comment on above: Performed By: #### C MP #### [facility] [address] [address] [address] Gisel Galdamez CO2 [Moles/Vol] 36.5 mmol/L Critically high 21.0-32.0 [facility] Comment on above: Performed By: #### C MP #### [facility] [address] [address] [address] Gisel Galdamez Creatinine [Mass/Vol] 1.18 mg/dL Normal 0.70-1.30 [facility] Comment on above: Performed By: #### C MP #### [facility] [address] [address] [address] Gisel Galdamez EGFR-AF SLOVAK >60 Normal >=60 [facility] Comment on above: Performed By: #### C MP #### [facility] [address] [address] [address] Gisel Galdamez EGFR-NON AF SLOVAK >60 Normal >=60 [facility] Comment on above: Performed By: #### C MP #### [facility] [address] [address] [address] Gisel Galdamez Globulin (S) [Mass/Vol] 3.3 g/dL Normal [facility] Comment on above: Performed By: #### C MP #### [facility] [address] [address] [address] Gisel Galdamez Glucose [Mass/Vol] 339 mg/dL Critically high 74-106 [facility] Comment on above: Performed By: #### C MP #### [facility] [address] [address] [address] Gisel Galdamez Potassium [Moles/Vol] 4.6 mmol/L Normal 3.5-5.1 [facility] Comment on above: Performed By: #### C MP #### [facility] [address] [place] [address] Dr. Gisel Galdamez Protein [Mass/Vol] 7.2 g/dL Normal 6.4-8.2 [facility] Comment on above: Performed By: #### C MP #### [facility] [address] [place] [address] Dr. Gisel Galdamez Sodium [Moles/Vol] 135 mmol/L Critically low 136-145 [facility] Comment on above: Performed By: #### C MP #### [facility] [address] [place] [address] Dr. Gisel Galdamez Urea nitrogen [Mass/Vol] 20.0 mg/dL Critically high 7.0-18.0 [facility] Comment on above: Performed By: #### C MP #### [facility] [address] [place] [address] Dr. Gisel Galdamez Urea nitrogen/Creatinine [Mass ratio] 16.9 mg/mg Normal [facility] Comment on above: Performed By: #### C MP #### [facility] [address] [place] [address] Dr. Gisel Galdamez LIPID PROFILEon 12-27-2021 CHOL-HDL RATIO NORM SEE BELOW Normal [facility] Comment on above: Result Comment: 3.3 - 4.4 LOW RISK 4.4 - 7.1 AVERAGE RISK 7.1 - 11.0 MODERATE RISK >11.0 HIGH RISK Performed By: #### L IPID #### [facility] [address] [address] [address] Gisel Galdamez Cholesterol [Mass/Vol] 191 mg/dL Normal <=200 [facility] Comment on above: Performed By: #### L IPID #### [facility] [address] [address] [address] Gisel Galdamez Cholesterol in HDL [Mass/Vol] 29 mg/dL Critically low 40-60 [facility] Comment on above: Performed By: #### L IPID #### [facility] [address] [address] [address] Gisel Galdamez Cholesterol in LDL [Mass/Vol] 91.4 mg/dL Normal [facility] Comment on above: Performed By: #### L IPID #### [facility] [address] [address] [address] Gisel Galdamez Cholesterol.total/Ch olesterol in HDL [Mass ratio] 6.6 {ratio} Normal [facility] Comment on above: Performed By: #### L IPID #### [facility] [address] [address] [address] Gisel Galdamez HDL NORMAL > or = 60 mg/dl - LOW CARDIOVASCULAR RISK <40 mg/dl - HIGH CARDIOVASCULAR RISK Normal [facility] Comment on above: Performed By: #### L IPID #### [facility] [address] [address] [address] Gisel Galdamez LDL CALC NORMAL SEE BELOW Normal [facility] Comment on above: Result Comment: <100 mg/dl OPTIMAL 100 - 129 mg/dl NEAR OR ABOVE OPTIMAL 130 - 159 mg/dl BORDERLINE HIGH 160 - 189 mg/dl HIGH >190 mg/dl VERY HIGH Performed By: #### L IPID #### [facility] [address] [address] [address] Gisel Galdamez Triglyceride [Mass/Vol] 353 mg/dL Critically high <=150 [facility] Comment on above: Performed By: #### L IPID #### [facility] [address] [address] [address] Gisel Galdamez VLDL CALC 70.6 mg/dL Normal [facility] Comment on above: Performed By: #### L IPID #### [facility] [address] [address] [address] Gisel Galdamez MICROALBUMIN, RAND URon 10-2 mALB 14.3 mg/L Normal <=30.0 [facility] Comment on above: Performed By: #### P OCGLUC #### [facility] [address] [address] [address] Gisel Galdamez COVID Quick Testingon 2020 Result Positive [facility] Other Vital Signs Date Time Vital Sign Value Performing Clinician Facility 12-31-2021 15:56-0400 Blood Pressure Location [facility] 12-31-2021 15:56-0400 Diastolic blood pressure 60 mm[Hg] [facility] 12-31-2021 15:56-0400 Heart rate 68 /min [facility] 12-31-2021 15:56-0400 Respiratory rate 16 /min [facility] 12-31-2021 15:56-0400 Systolic blood pressure 116 mm[Hg] [facility] 01-01-2021 18:30-0400 Body height 167.64 cm Vee Dowling Other [facility] Other 01-01-2021 18:30-0400 Body mass index (BMI) [Ratio] 39.54 kg/m2 Vee Dowling Other [facility] Other 01-01-2021 18:30-0400 Body temperature 99.6 [degF] Vee Dowling Other [facility] Other 01-01-2021 18:30-0400 Body weight 111.13 kg Vee Dowling Other [facility] Other 01-01-2021 18:30-0400 Respiratory rate 20 /min Vee Dowling Other [facility] Other 01-01-2021 18:30-0400 SaO2% (BldA) [Mass fraction] 88 % Vee Dowling Other [facility] Other Encounters Encounter Date Encounter Type Care Provider Facility Start: 07-11-2022 End: 07-12-2022 ambulatory OVI SHAMMO Facility:[facility] Start: 04-25-2022 End: 04-26-2022 ambulatory SHANNANORIANA GUTIERREZSA Facility:[facility] Start: 04-02-2022 End: 04-03-2022 ambulatory OVI SHAMMO Facility:[facility] Start: 01-15-2022 End: 01-16-2022 ambulatory OVI SHAMMO Facility:[facility] [place] Start: 01-15-2022 End: 01-15-2022 Patient encounter procedure Mili CHACON [facility] [place] Start: 01-09-2022 End: 01-10-[address] DOCTOR [...] 01-01-2021 (URG) Urgent Care Visit Vee Dowling [facility] Start: 01-01-2021 End: 01-01-2021 ambulatory Vee Dowling Other [facility] Other Procedures Date Procedure Procedure Detail Performing Clinician Start: 12-31-2021 Incision and drainag e of abscess of neck Mili CHACON Decompression of med lisa nerve Mili NILTata Repair of umbilical hernia Gilmer cervantes INES Payers Date Payer Category Payer Unknown [id number] 1970 Unknown [id number] 2.16.8 [id number] 1968 Unknown [id number] 2.16.8 [id number] 1968 Unknown [id number] 2.16.8 [id number] 1968 Unknown [id number] 2.16.84 [id number] 1968 Unknown [id number] 2.16.84 [id number] 1968 Unknown [id number] 2.16.84 [id number] 1968 Unknown [id number] 2.16.84 [id number] 1968 Unknown [id number] 2.16.84 [id number] 1968 Unknown [id number] 2.16.84 [id number] 1968 Unknown [id number] 2.16.84 [id number] 1961 Medicare [id number] 2. 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 Reports long standing history [...] day(s), # 28 cap(s), Refills(s) 0, Pharmacy: [facility]/pharmacy #[id number], 165, cm, 12/31/21 16:01:00 EDT, [...] - Valentin (more content not included)... [facility] Comment on above: Result Comment: Elec [...] Follow these instructions at home: Medicines Take ahnf-gwf-veqiwss and prescription medicines only as told by [...] and water are not available, use hand auto parts handler. Change your dressing and packing as told [...] 05/10/2012 Document Revised: 01/17/2019 Document Reviewed: 01/17/2019 [employer] Patient Education 2020 [employer] 12/31/2021 16:43:31 Incision and Drainage, Care [...] Follow these instructions at home: Medicines Take siqv-gau-vhyigwu and prescription medicines only as told by [...] and water are not available, use hand auto parts handler. Change your dressing and packing as told [...] Patient Education 2020 [employer] [facility] [place] Evaluation note 01-01-2021 Note Date & Type [...] Patient care instructions given in writting by [facility] document. Additional time spent conducting pre-visit phone call, screening for symptoms, instructions on social distancing, application and removal of PPE, and cleaning of examination room, equipment and supplies was preformed. Patient education given for testing methodology and results. Patient care instructions given in writting by [facility] document. [facility] Other Evaluation + Plan note Note Date & Type Note Facility Evaluation + Plan note Future Appointments Appointment Date:01/08/2022 01:40:00 PM Scheduled Provider:Mili CHACON MD Location:[facility] Appointment Type: Established 15 Diagnostic Tests PendingWound Culture 12/31/21 General Surgery [facility] History general Narrative - Reported Note Date & Type Note Facility History general Narrative - Reported Type Medical History Hypertension Medical History hypercholesterolemia Medical History type II diabetes Medical History COPD Surgical History carpal tunnel right hand Surgical History umbilical hernia repair Hospitalization History see above [facility] Other Hospital course Narrative Note Date & Type Note Facility Hospital course Narrative No data available for this section [facility] [place] [facility] Discharge instructions Note Date & Type Note Facility Hospital Discharge instructions No data available for this section [facility] [place] Progress note Note Date & Type Note [...] Personnel Name: MR. OVI HEALY Address: Address: [address] [place] [address] Personnel Name: MR. OVI HEALY Address: Address: [address] [place] [address] (unrecognized sect ion and content) No Status Records FoundNo Status Records Found INFORMATION SOURCE (unrecogn ized section and content) DATE CREATED AUTHOR 01/19/2022 [facility] DATE CREATED AUTHOR AUTHOR'S ORGANIZ ATION 07/14/2022 [facility] [place] [facility]ORDS PERTAINING TO PATIENTS WHO [...] BE BASED ON THE PRIMARY CLINICAL RECORDS. [facility] [employer] [facility]. provides no warranty or guarantee of the accuracy or completeness of information in this document.
--- NOTE | 2024-06-10 01:50 | PC.NURSE ---
this patient's iv fluids and IV ATB will be continued during transport upstairs to room 224
[2024-06-10] MEDS: METHYLPREDNISOLONE SOD SUCC PF 40 MG/ML VIAL IVP ×4 (05:34→22:00)
[2024-06-10] MEDS: 0.9 % SODIUM CHLORIDE 1,000 ML 50 ML IV (05:34)
[2024-06-10] MEDS: ENOXAPARIN SODIUM 40 MG/0.4 ML SYRINGE SUBQ (05:35)
[2024-06-10 07:59] LABS: Glucometer 244 mg/dL (74-106)
[2024-06-10] MEDS: LISINOPRIL 20 MG TABLET PO (08:12)
[2024-06-10] MEDS: ASPIRIN 81 MG TAB.CHEW PO (08:12)
[2024-06-10] MEDS: INSULIN GLARGINE 300 UNIT/3 ML INSULN.PEN 25 UNIT SQ (08:15)
--- NOTE | 2024-06-10 09:11 | P.HP_ITS ---
HPI H&P: HPI History of Present Illness Chief complaint: COPD,HYPOXIA,PNEUMONIA,HYPERCARBIA Narrative: Patient is a 53 y.o white male with past medical history of COPD, has been on and off oxygen (night time only?), insulin dependent type 2 diabetes, HLD, HTN, sleep apnea with non compliance of BIPAP who presented to the ER last night with shortness of breath and lower extremity edema x 1 week. Patient reports he has felt back for about 1 week. No fevers or chills. Cough and increased shortness of breath. Patient was tachypneic in the ER with respiratory rate of 25, patient's oxygen saturations dropped to 81% on room air. ABG: ph 7.313, CO2 66, PO2 69, HCO3 33 and patient was placed on BIPAP. Chest X-ray and CTA of the chest obtained which showed RLL consolidation, no PE. WBC's 5.8, Hb 19.3, K 4.3, Cr 1.34, Trop 12, ProBNP 848. Patient was admitted for CAP and acute respiratory failure with hypoxia and hypercapnia requiring BIPAP. He wore BIPAP most of the night, he is currently on 4L via [place]. Patient follows with Dr. Shi. He does not have controller inhaler as he could not afford it. He also cannot afford his BIPAP. Sugars have been ok, BP ok at home. Opioid HPI Opioid Management Most Recent Pain and Opioid Data: Last Pain Assessment 06/10/24 12:56 Last ORT Total Score 0 06/10/24 01:54 06/10/24 Last ORT Risk Category Low Risk 06/10/24 01:54 06/10/24 Review of Systems ROS Narrative ROS: a complete review of systems were reviewed with patient and are positive as below or listed in History of Chief Complaint. General: no fever, chills, night sweats Head: no headache, trauma, visual changes, nausea or vomiting Skin: no reported rashes, itching or sores Eyes: no blurriness of vision Ears: no reported hearing loss, vertigo, earache, or tinnitus Throat: no sore throat, hoarseness, swelling of neck, or tongue pain Heart: no chest pain Lungs:shortness of breath no cough GI: no diarrhea or vomiting/nausea Urinary: no urinary urgency, frequency or pain Neuro: no numbness or tingling HEM: no bleeding issues or bruising ENDO: no thyroid problems Psych: no anxiety or depression PFSH [facility] Medical History (Updated 06/10/24 @ 13:29 by Funmilayo Nava DO) High cholesterol ?E78.00 - Pure hypercholesterolemia, unspecified (ICD-10) Hypertension ?I10 - Essential (primary) hypertension (ICD-10) Diabetes ?E11.9 - Type 2 diabetes mellitus without complications (ICD-10) Social History Smoking status: Former smoker Highest level of school completed/degree received: 12th grade, no diploma Little interest or pleasure in doing things: not at all Feeling down, depressed, or hopeless: not at all Meds Home Medications and Allergies Home Medications ?Medication ?Instructions ?Recorded ?Confirmed ?Type aspirin 81 mg chewable tablet 81 mg PO DAILY 02/27/23 06/10/24 History atorvastatin 80 mg tablet 80 mg PO .am 02/27/23 06/10/24 History ipratropium 0.5 mg-albuterol 3 mg 3 ml inhalation Q6H 02/27/23 06/10/24 History (2.5 mg base)/3 mL nebulization soln lisinopril 20 mg tablet 20 mg PO DAILY 02/27/23 06/10/24 History albuterol sulfate 90 mcg/actuation 2 inh inhalation Q4H PRN shortness 09/02/23 06/10/24 History aerosol inhaler of breath or wheezing insulin glargine 100 unit/mL (3 25 unit subcut DAILY 06/09/24 06/10/24 History mL) subcutaneous pen (Lantus Solostar U-100 Insulin) acetaminophen 500 mg tablet 1,000 mg PO Q4H PRN fever or pain 06/10/24 06/10/24 History (Tylenol Extra Strength) Allergies Allergy/AdvReac Type Severity Reaction Status Date / Time No Known Drug Allergies Allergy Verified 06/09/24 21:56 Exam Narrative Exam Narrative: General: Patient is alert, and oriented to person, place and time with normal affect, proper hygiene, morbid obesity and is very short of breath with conversing. patient has tripoding. Skin: no visible rashes, or ulcers Head: atraumatic, acephalic Eyes: PERRLA, no nystagmus present, conjunctiva clear, no scleral icterus Ears: normal gross auditory acuity Nose: symmetric, no discharge, no maxillary or frontal sinus tenderness Mouth/Throat: no erythema, exudate, or tonsillar enlargement Neck: no masses palpated, normal thyroid Heart: Normal rate and rhythm, no murmurs/rubs/gallops Lungs: audible wheezes, crackles and diminished breath sounds all lung kelly Abdomen: Central obesity, Normal audible bowel sounds, no distension, No palpable masses, no organomegaly, no rebound/guarding/ or rigidity Musculoskeletal: 1+ swelling bilateral lower extremities Neuro: CN II-X grossly intact Constitutional Vital Signs, click to edit/add: Last Vital Signs Temp 97.7 F 06/10/24 08:00 Pulse 76 06/10/24 08:00 Resp 18 06/10/24 08:00 BP 120/74 06/10/24 08:12 Pulse Ox 95 06/10/24 08:00 O2 Del Method BIPAP 06/10/24 08:00 O2 Flow Rate 15 06/10/24 01:54 FiO2 35 06/10/24 08:00 Results Labs Labs: Short CBC 06/09/24 Range/Units 22:00 WBC 5.8 (4.0-11.0) 10^3/uL Hgb 19.3 H (14.0-18.0) g/dL Hct 63.1 H (42.0-54.0) % Plt Count 139 L (150-450) 10^3/uL BMP 06/09/24 22:00 Sodium 140 Potassium 4.5 Chloride 102 Carbon Dioxide 35.7 H BUN 20.0 H Creatinine 1.34 H Glucose 227 H Calcium 8.7 ABG ABG results: 06/09/24 23:17 VBG pH 7.328 L VBG pCO2 70.1 H Assessment and Plan Assessment and Plan (1) RLL pneumonia: Assessment and Plan: continue IV levaquin; infiltrate noted on CXR and CTA Qualifiers: Pneumonia type: due to unspecified organism Qualified Code(s): J18.9 - Pneumonia, unspecified organism (2) Acute respiratory failure with hypoxia and hypercapnia: Assessment and Plan: continue BiPAP while resting and NC. please see ABG's above. Trop normal , proBNP 848. Check Echo (3) Lower extremity edema: Assessment and Plan: will check ECHO (4) Acute exacerbation of chronic obstructive pulmonary disease (COPD): Assessment and Plan: continue with scheduled Nebs, PRN nebs, OPEP, Solumedrol IV (5) High cholesterol: Assessment and Plan: continue atorvastatin (6) Hypertension: Assessment and Plan: continue lisinopril Qualifiers: Hypertension type: secondary to endocrine disorders Qualified Code(s): I15.2 - Hypertension secondary to endocrine disorders (7) Diabetes: Assessment and Plan: continue Lantus 25 units and SSI with accuchecks, Diabetic diet Qualifiers: Diabetes mellitus complication status: with hyperglycemia Diabetes mellitus long filler cigar roller machine insulin use: with group home use Diabetes mellitus type: type 2 Qualified Code(s): E11.65 - Type 2 diabetes mellitus with hyperglycemia; 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
[2024-06-10] MEDS: BUDESONIDE 0.5 MG/2 ML AMPULE NEB IH ×2 (10:37→22:40)
[2024-06-10] MEDS: IPRATROPIUM/ALBUTEROL SULFATE 3 ML AMPUL.NEB IH ×3 (10:37→22:40)
[2024-06-10 11:20] LABS: Glucometer 297 mg/dL (74-106)
--- NOTE | 2024-06-10 11:24 | CA_ITS ---
Patient Name: MIRACLE GAMBOA MR#: [id number] : 1970 Exam Date: 06/10/2024 Ordering Doctor: FANG HERRERA . ECHOCARDIOGRAM REPORT PROCEDURE: CA ECHO DOPPLER COMPLETE INDICATIONS: hypoxia, lower ext edema, COPD, hypertension, diabetes COMPARISON: None. DESCRIPTION: COMPLETE ECHOCARDIOGRAM Real-time transthoracic echocardiography with 2D, M-mode, spectral and color flow Doppler performed. QUALITY: Technical quality was good. LEFT VENTRICLE: Normal chamber size. Normal left ventricular wall thickness. Normal systolic function. LV EF: Normal left ventricular ejection fraction, (>55%). DIASTOLIC: Normal diastolic function. ATRIAL SEPTUM: LEFT ATRIUM: Normal chamber size. RIGHT ATRIUM: Mild chamber dilatation. RIGHT VENTRICLE: Mild dilatation. Mildly decreased right ventricular systolic function. TRICUSPID VALVE: Normal mobility and thickness. No stenosis with trivial regurgitation. No evidence of pulmonary hypertension. RVSP 32 mmHg MITRAL VALVE: Normal mobility and thickness. No evidence of mitral valve stenosis. There is no mitral annular calcification. No mitral regurgitation. AORTIC VALVE: No visible sclerosis. Normal leaflet mobility. No evidence of aortic valve stenosis. No aortic regurgitation. AORTIC ROOT: Normal diameter and appearance, measuring 3.3 cm. PULMONIC VALVE: Not well visualized. No stenosis. No regurgitation. PERICARDIUM: No evidence of pericardial effusion. IVC: IVC is dilated (2.3 cm), does not collapse. PLEURA: CONCLUSION: 1. Normal left ventricular size and systolic function. Estimated LVEF is 55 to 60%. 2. Mildly dilated right ventricle with mildly reduced systolic function. 3. Mild right atrial dilatation. 4. No significant valvular dysfunction. 5. Normal right-sided pressures. 6. No pericardial effusion. Adult Echocardiography Procedure Report Left Ventricle LVEDD (3.7 - 5.6 cm): 3.89 cm LVESD (2.2 - 4.0 cm): 3.11 cm LVIVS thickness (0.6 - 1.2 cm): 0.90 cm LVPW thickness (0.5 - 1.0 cm): 0.96 cm e': 0.16 m/s E - e': 3.93 LVOT Max Gradient: 1.44 mm[Hg] LVOT Area (cm2): 0.60 m/s Peak Velocity (LVOT): 0.60 m/s LVOT Diameter 1.77 cm Left Atrium LA Volume Index (2D A2C): 33.76 ml/m2 Left Atrium Systolic Dimension: 3.49 cm Mitral Valve MV E to A Ratio: 1.99 Mitral Valve A-Wave Peak Velocity: 0.31 m/s Mitral Valve E-Wave Peak Velocity: 0.62 m/s Right Ventricle Aorta AO Root Diam: 3.29 cm Aortic Valve Tricuspid Valve Peak Velocity (Regurgitant Flow): 2.07 m/s Pulmonic Valve Peak Velocity: 1.11 m/s Peak Gradient: 4.92 mm[Hg] Right Atrium Right Atrium Systolic Pressure: 39.03 ml, 39.03 ml Dictated by: Ayaan Pierce M.D. on 06/11/2024 at 18:24 Approved by: Ayaan Pierce M.D. on 06/11/2024 at 18:28
[2024-06-10] MEDS: INSULIN ASPART 300 UNIT/3 ML PEN SUBQ ×3 (11:45→21:56)
--- NOTE | 2024-06-10 11:55 | CM.NOTE ---
Rounds made with Dr. Nava, discussed with pt admission diagnosis and am labs. Discussed with pt plan of care, continue BIPAP as tolerated and pt will need cardiac echo. Continues IV antibiotics and breathing tx.
--- NOTE | 2024-06-10 15:01 | SWNOTE1 ---
SW called [facility] [employer] and pt's last prescription was from a doctor at [facility] in 2016 and it was for 3 liters at rest and 4 liters with exertion with a 3 liter bleed at night with cpap. [facility] stated they did not provide the CPAP. SW called [facility], they did not provide any 02 or cpap.
--- NOTE | 2024-06-10 15:11 | PC.NURSE ---
Pt moved to med surg room 219 via recliner on 4L NC. All pt belongings were sent with pt. present upon move. This nurse is to remain primary nurse at this time. Pt declines needs at this time. FAMILIA Booth in to speak with pt about his home O2 and CPAP vs BiPAP that he is supposed to have at home.
--- NOTE | 2024-06-10 15:24 | SWNOTE1 ---
Important Message from Medicare reviewed and discussed with patient. Pt. verbalized understanding and signed the form. Original given to patient and copy placed in patient?s chart.
--- NOTE | 2024-06-10 15:31 | SWNOTE1 ---
SW stopped in and spoke to pt's and pt. SW asked about his home oxygen and cpap. Pt explained that he had cpap a long time ago but it stopped working. He then stated he had another one, but he sent it back because he found out that his insurance only covered 80% and he owed the other 20%, which was $200 a month. He stated he can't afford that. SW was not aware that insurance did not cover the whole thing. SW also stated that at his follow up with Dr. Shi, he may recommend he get a cpap/bipap and another sleep study. Pt and asked about assistance with this. SW advised they could apply for Medicaid, but they stated they do not qualify. SW advised maybe a secondary insurance, but unsure the cost of that? SW asked about his home oxygen and let him know that the last script was from 2015. He was unsure of last time any prescriptions were updated and who prescribed the oxygen and who the company is. SW to call around to different companies. SW called [employer] and they do not supply oxygen. Pt's last prescription for 02 was in 2016.
[2024-06-10 15:58] LABS: Glucometer 239 mg/dL (74-106)
[2024-06-10 20:53] LABS: Glucometer 329 mg/dL (74-106)
[2024-06-10] MEDS: ATORVASTATIN CALCIUM 40 MG TABLET 80 MG PO (21:58)
[2024-06-11] VITALS (11 sets, daily range): BP systolic 100–121; BP diastolic 64–72; PULSE 67–76; RESP 16; TEMP 36.4–36.7; O2SAT 86–94
[2024-06-11] MEDS: LEVOFLOXACIN IN DEXTROSE 5 % 750 MG/150 ML PREMIX 100 MG IV (00:34)
[2024-06-11] MEDS: IPRATROPIUM/ALBUTEROL SULFATE 3 ML AMPUL.NEB IH (05:19)
[2024-06-11] MEDS: ENOXAPARIN SODIUM 40 MG/0.4 ML SYRINGE SUBQ (05:41)
[2024-06-11] MEDS: METHYLPREDNISOLONE SOD SUCC PF 40 MG/ML VIAL IVP (05:42)
[2024-06-11 06:34] LABS: Hematocrit 60.9 % (42.0-54.0); Hemoglobin 19.1 g/dL (14.0-18.0); Mean Corpuscular HGB Conc 31.4 g/dL (29.9-35.2); Mean Corpuscular Hemoglobin 29.7 pg (25.9-34.0); Mean Corpuscular Volume 94.7 fL (80.0-94.0); Mean Platelet Volume 12.5 fL (9.5-13.5); Platelet Count 133 10^3/uL (150-450); Red Blood Count 6.43 10^6/uL (4.70-6.10); Red Cell Distribution Width 14.6 % (11.0-15.0)
[2024-06-11 06:36] LABS: Alanine Aminotransferase 30 U/L (16-63); Albumin Globulin Ratio 1.1; Albumin Level 3.1 g/dL (3.4-5.0); Alkaline Phosphatase 88 U/L (46-116); Anion Gap 8.6; Aspartate Amino Transferase 15 U/L (15-37); BUN Creatinine Ratio 21.4; Bilirubin Total 0.6 mg/dL (0.2-1.0); Calcium 8.8 mg/dL (8.5-10.1); Carbon Dioxide 33.5 mmol/L (21.0-32.0); Chloride 101 mmol/L (98-107); Estimated GFR (African America 52 (>=60 mL/min/1.73m^2); Estimated GFR (Non-African Ame 43 (>=60 mL/min/1.73m^2); Globulin 2.7 g/dL; Glucose 284 mg/dL (74-106); Magnesium 2.2 mg/dL (1.8-2.4); Potassium 5.1 mmol/L (3.5-5.1); Sodium 138 mmol/L (136-145); Total Protein 5.8 g/dL (6.4-8.2)
[2024-06-11 06:50] LABS: Monocytes Absolute Manual 0.36 10^3/uL (0.30-0.80); Segmented Neut Absolute Manual 5.34 10^3/uL (1.4-6.5)
[2024-06-11 08:10] LABS: Glucometer 250 mg/dL (74-106)
[2024-06-11] MEDS: LISINOPRIL 20 MG TABLET PO (08:11)
[2024-06-11] MEDS: ASPIRIN 81 MG TAB.CHEW PO (08:11)
[2024-06-11] MEDS: INSULIN GLARGINE 300 UNIT/3 ML INSULN.PEN 25 UNIT SQ (08:13)
[2024-06-11] MEDS: INSULIN ASPART 300 UNIT/3 ML PEN SUBQ (08:13)
--- NOTE | 2024-06-11 08:32 | P.DS_ITS ---
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 Qualified Code(s): I15.2 - Hypertension secondary to endocrine disorders (7) Diabetes: Qualifiers: Diabetes mellitus complication status: with hyperglycemia Diabetes mellitus buttermaker continuous churn insulin use: with intermediate use Diabetes mellitus type: type 2 Qualified Code(s): E11.65 - Type 2 diabetes mellitus with hyperglycemia; Z79.4 - residential (current) use of insulin Plan (1) RLL pneumonia: Assessment and Plan: continue IV levaquin; infiltrate noted on CXR and CTA Qualifiers: Pneumonia type: due to unspecified organism Qualified Code(s): J18.9 - Pneumonia, unspecified organism (2) Acute respiratory failure with hypoxia and hypercapnia: Assessment and Plan: continue BiPAP while resting and NC. please see ABG's above. Trop normal , proBNP 848. Check Echo (3) Lower extremity edema: Assessment and Plan: will check ECHO (4) Acute exacerbation of chronic obstructive pulmonary disease (COPD): Assessment and Plan: continue with scheduled Nebs, PRN nebs, OPEP, Solumedrol IV (5) High cholesterol: Assessment and Plan: continue atorvastatin (6) Hypertension: Assessment and Plan: continue lisinopril Qualifiers: Hypertension type: secondary to endocrine disorders Qualified Code(s): I15.2 - Hypertension secondary to endocrine disorders (7) Diabetes: Assessment and Plan: continue Lantus 25 units and SSI with accuchecks, Diabetic diet Qualifiers: Diabetes mellitus complication status: with hyperglycemia Diabetes mellitus intermediate insulin use: with buttermaker continuous churn use Diabetes mellitus type: type 2 Qualified Code(s): E11.65 - Type 2 diabetes mellitus with hyperglycemia; Z79.4 - intermission coordinator (current) use of insulin Pt requesting to be discharged and understand that his condition could deteriorate DS: Summary Hospital Course Hospital Course: Patient admitted with acute hypoxic respiratory failure requiring BiPAP ventilation, secondary to right lower lobe pneumonia and complicated by acute exacerbation of COPD. Patient also has significant polycythemia which may be a complicating factor, mild thrombocytopenia as well. Admitted yesterday and placed on frequent aerosol treatments, steroids, antibiotics, overnight he did require some increased supplemental oxygen, sounds like he has sleep apnea but does not have a machine, when I saw patient up on the medical surgical floor this morning, he feels much improved, still requiring 3 L of supplemental oxygen, although the recommendation was to spend at least 1 more day, as his oxygen saturations are still significantly low, patient would prefer to be discharged to home and promises he will come back if his O2 saturation is maintained below 90%, patient understands risks of deteriorating and having an extended stay secondary to that. At this point stable but not medically improved but patient will be discharged to home per his request, Patient placed in inpatient status secondary to the acute hypoxic respiratory failure, patient insistent on being discharged to home, so premature discharge based on initial assessment, maintain inpatient status Time Spent with Patient Time attestation: Total time spent providing and/or coordinating discharge services: Exam Constitutional Vital Signs, click to edit/add: Last Vital Signs Temp 98.1 F 06/11/24 07:48 Pulse 70 06/11/24 08:00 Resp 18 06/11/24 07:48 BP 121/72 06/11/24 08:11 Pulse Ox 89 L 06/11/24 08:00 O2 Del Method Nasal Cannula 06/11/24 07:48 O2 Flow Rate 3 06/11/24 07:48 FiO2 35 06/11/24 05:15 Documenting provider has reviewed patient's vital signs: yes Common normals: apparent distress (Mild conversational dyspnea) Chest Common normals: inspection of chest normal Respiratory Common normals: abnormal respiratory effort Auscultation: rhonchi and wheezes Cardio Common normals: regular rate and regular rhythm Extremity Common normals: normal to inspection and full ROM DS: Data Data Completed and Pending Labs on day of discharge: Labs from last 24 hours 06/11/24 06/11/24 06/10/24 08:08 06:05 20:52 WBC 6.0 RBC 6.43 H Hgb 19.1 H Hct 60.9 H MCV 94.7 H MCH 29.7 MCHC 31.4 RDW 14.6 Plt Count 133 L MPV 12.5 Seg Neuts % (Manual) 89.0 H Lymphocytes % (Manual) 5.0 L Monocytes % (Manual) 6.0 Eosinophils % (Manual) 0.0 L Basophils % (Manual) 0.0 L Neutrophils # (Manual) 5.34 Lymphocytes # (Manual) 0.30 L Monocytes # (Manual) 0.36 Eosinophils # (Manual) 0.00 Basophils # (Manual) 0.00 Sodium 138 Potassium 5.1 Chloride 101 Carbon Dioxide 33.5 H Anion Gap 8.6 BUN 36.0 H Creatinine 1.68 H Est GFR ( Amer) 52 L Est GFR (Non-Af Amer) 43 L BUN/Creatinine Ratio 21.4 Glucose 284 H Calcium 8.8 Magnesium 2.2 Total Bilirubin 0.6 AST 15 ALT 30 Alkaline Phosphatase 88 Total Protein 5.8 L Albumin 3.1 L Globulin 2.7 Albumin/Globulin Ratio 1.1 POC Glucose 250 H 329 H 06/10/24 06/10/24 15:57 11:18 WBC RBC Hgb Hct MCV MCH MCHC RDW Plt Count MPV Seg Neuts % (Manual) Lymphocytes % (Manual) Monocytes % (Manual) Eosinophils % (Manual) Basophils % (Manual) Neutrophils # (Manual) Lymphocytes # (Manual) Monocytes # (Manual) Eosinophils # (Manual) Basophils # (Manual) Sodium Potassium Chloride Carbon Dioxide Anion Gap BUN Creatinine Est GFR ( Amer) Est GFR (Non-Af Amer) BUN/Creatinine Ratio Glucose Calcium Magnesium Total Bilirubin AST ALT Alkaline Phosphatase Total Protein Albumin Globulin Albumin/Globulin Ratio POC Glucose 239 H 297 H Discharge Plan Discharge Disposition: Home, Self-Care Condition: Serious Discharge Medications: New benzonatate 100 mg Capsule 200 mg PO Q8H PRN (Reason: Cough) Qty: 30 0RF prednisone 10 mg tablet 50 mg PO DAILY Qty: 47 0RF Rx Instructions: 5/day for 3 days. 4/day for 3 days, 3/day for 3 days, 2/day for 3 days, 1/day for 3 days, 1/2 /day for 4 days levofloxacin 750 mg tablet 750 mg PO DAILY 10 Days Qty: 10 0RF Continued albuterol sulfate 90 mcg/actuation HFA aerosol inhaler 2 inh INHALATION Q4H PRN (Reason: shortness of breath or wheezing) atorvastatin 80 mg tablet 80 mg PO .am ipratropium-albuterol 0.5 mg-3 mg(2.5 mg base)/3 mL solution for nebulization 3 ml INHALATION Q6H lisinopril 20 mg tablet 20 mg PO DAILY aspirin 81 mg tablet,chewable 81 mg PO DAILY insulin glargine [Lantus Solostar U-100 Insulin] 100 unit/mL (3 mL) insulin pen 25 unit SUBCUT DAILY acetaminophen [Tylenol Extra Strength] 500 mg tablet 1,000 mg PO Q4H PRN (Reason: fever or pain) Activity: increase activity as tolerated Diet: advance to your usual diet Print Language: Greek Patient Instructions: Using Oxygen at Home (DC), COPD (Chronic Obstructive Pulmonary Disease) (DC), How Your Lungs Work (DC), Pulse Oximetry (DC) Forms: Portal Instructions Follow Up Appointments: Call for PCP appt Thursday. Discharge Date/Time: 06/11/24 09:45
--- NOTE | 2024-06-13 13:24 | CM.DCFOLLOWU ---
1st attempt 06/13/24, no answer
--- NOTE | 2024-06-14 13:48 | CM.DCFOLLOWU ---
Person spoke with:patient How are you feeling? feeling well How is your pain? none Did you understand your discharge instructions?yes Do you have any questions about your discharge instructions?no Were you given any prescriptions at discharge?yes Were you able to get your prescriptions filled?yes Do you understand how to take your medications as ordered?yes Do you have any questions about your follow up appointment and do you plan to keep your follow up appointment? no questions, follow ups are scheduled per patient Is there anything else that you would like to discuss?no Questions/Comments/Concerns/Other:none
== END 2024-06-11 09:45 | disposition home or self-care (01) | DRG 189 ==
LOC: ER 06-10 00:57 → MS 06-10 01:33
PROVIDERS: Registered Nurse; Admitting Provider Family Medicine; Emergency Provider Emergency Medicine; PCP Nurse Practitioner; Visit Provider Family Medicine
DX: J96.01 Acute respiratory failure with hypoxia (principal); J18.9 Pneumonia, unspecified organism; J44.1 Chronic obstructive pulmonary disease with (acute) exacerbation; J44.0 Chronic obstructive pulmonary disease with (acute) lower respiratory infection; J96.02 Acute respiratory failure with hypercapnia; E78.00 Pure hypercholesterolemia, unspecified; E86.0 Dehydration; I15.2 Hypertension secondary to endocrine disorders; D75.1 Secondary polycythemia; D69.6 Thrombocytopenia, unspecified; E11.65 Type 2 diabetes mellitus with hyperglycemia; R60.9 Edema, unspecified; I10 Essential (primary) hypertension; Z79.82 Long term (current) use of aspirin; Z91.190 Patient's noncompliance with other medical treatment and regimen due to financial hardship; Z79.899 Other long term (current) drug therapy; Z87.891 Personal history of nicotine dependence
CPT/HCPCS: 36415; 71045; 71275; 80048; 80053; 82800; 82805; 82948; 83735; 83880; 84484; 85007; 85025; 85027; 93005; 93306; 94640; 94660; 94667; 94668; 94761; 96365; 96375; 99285; J1650; J2919; Q9967